=== PATIENT | female | born 1940 | race Caucasian/White ===

== ENCOUNTER 2022-02-13 16:42 | Inpatient (IN) ==
--- NOTE | 2022-02-13 16:57 | Emergency Department Note ---
Impression & Plan Acute kidney injury superimposed on chronic kidney disease, Fluid overload, Hypoxia ED Provider Note Provider: Scott Burgess MD DATE OF SERVICE: 02/13/2022 CHIEF COMPLAINT: Shortness of breath HISTORY OF PRESENT ILLNESS: Patient is a-year-old female history of CKD, hypertension, type 2 diabetes, atrial fibrillation on Eliquis presenting here via ambulance from her [facility] unit where she lives. Staff there today noted her to be more short of breath and tachypneic with oxygen levels in the 80s. EMS found the patient to have an oxygen level in the high 80s and put on 2 L of oxygen. She was also hypoglycemic for EMS with a blood sugar in the 40s received 250 mL of D10 infusing upon arrival. Patient states he is feeling more clear and better. EMS states the patient was mentating appropriately the entire time. Patient denies pain at this time. States he has not had much of an appetite. Denies swelling. Denies nausea or abdominal symptoms. Patient states her breathing does feel somewhat short. Patient denies a history of smoking or lung issues. No sick contacts or trauma reported. REVIEW OF SYSTEMS: A total of 10 review of systems was obtained and negative except as stated above in the HPI. PAST MEDICAL HISTORY: As noted above MEDICATIONS: Reviewed medication for facility which includes Eliquis SOCIAL HISTORY: Patient resides at [facility] and denies smoking PHYSICAL EXAM: GENERAL: alert and oriented in no acute distress on stretcher Head: normocephalic and atraumatic EYES: No injection, discharge or icterus. NECK: Trachea midline. Supple. ENT: Mucous membranes pink and moist. LUNGS: Airway patent. No retractions but tachypneic and shallow breaths that generally diminished throughout. HEART: Irregular irregular rate and rhythm. No chest wall tenderness ABDOMEN: Soft and non-tender, without guarding or rebound. SKIN: Acyanotic, warm, dry, without rashes EXTREMITIES: Without swelling, tenderness or deformity NEUROLOGICAL: No focal deficits. No aphasia. No facial droop or slurred speech. EK bpm atrial fibrillation No acute ST segment elevation or depression. QTc 412. Normal axis. CONTINUOUS CARDIAC MONITORING: was ordered and showed a heart rate of 60s-80s bpm in atrial fibrillation Patient's laboratory studies and imaging reviewed. Differential includes Reactive airway disease, pneumonia, pneumothorax, COPD, CHF, infections, cardiac ischemia, pulmonary embolism, musculoskeletal, gastrointestinal, as well as other pathologies. IMPRESSION/MEDICAL DECISION MAKING: Patient's small steady doses of Lantus and sliding scale short acting insulin but not receive additional day. Patient states she has not had significant food today states has not had much of an appetite. Denies other abdominal symptoms or abdominal pain. Received D10 infusion upon arrival. Will monitor blood sugar. Blood work was sent as well as COVID testing and a chest x-ray. Anticoagulation with Eliquis lower suspicion for VTE. No significant clinical evidence of leg swelling so lower suspicion for fluid overload. Chest x-ray to be obtained. On minimal oxygen support here about 2 L. Patient with a history of CKD although significantly worsened renal function today with a creatinine of 5.1. This may be contributing to her respiratory status. Given this finding although the BUN is elevated to complete a CT of the abdomen pelvis without contrast to exclude any obstructive process. Her renal dysfunction may explain the low blood sugar due to poor insulin clearance. She states she would be open to dialysis if needed. Do not see emergent indication at this time. Discussed with her further care here at the hospital given her significant worsened renal function with some mild hypoxia/fluid overload. Rodrigo kieta will need a little bit of chronic right hip pain but given she did have a fall several days ago onto this area and x-rays obtained without evidence of acute fracture or dislocation. DIAGNOSIS: MITCHEL on CKD, fluid overload, hypoxia DISPOSITION: Hospitalist will evaluate Patient was agreeable with this plan. 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: No Beliefs That Will Affect Care: None marital status: / Current Living Situation: Personal Care Facility current occupational status: retired How many Children do You have Comment: 2 stepchildren Feels Safe at Home: Yes during the past year weight has: remained stable Assistive Devices: Cane, Glasses, Walker and Wheelchair Allergies Allergies Allergy/AdvReac Type Severity Reaction Status Date / Time No Known Drug Allergies Allergy Verified 12/18/21 13:53 Home Meds Home Medications Medication Instructions Recorded Confirmed allopurinol 100 mg tablet 100 mg PO DAILY 07/30/21 12/18/21 apixaban 2.5 mg tablet (Eliquis) 2.5 mg PO BID 07/30/21 12/18/21 diltiazem HCl 240 mg 240 mg PO DAILY 07/30/21 12/18/21 capsule,extended release 24 hr hydralazine 25 mg tablet 25 mg PO TID 07/30/21 12/18/21 insulin glargine 100 unit/mL (3 12 unit SUBCUT BID ml 07/30/21 12/18/21 mL) subcutaneous pen (Lantus Solostar U-100 Insulin) insulin lispro 100 unit/mL 1 sliding scale dose SUBCUT 07/30/21 12/18/21 subcutaneous solution (Humalog USEASDIRECTD U-100 Insulin) metoprolol succinate 50 mg 50 mg PO DAILY 07/30/21 12/18/21 tablet,extended release 24 hr polyethylene glycol 3350 17 17 g PO DAILY PRN 07/30/21 12/18/21 gram/dose oral powder (Miralax) simvastatin 20 mg tablet 20 mg PO DAILY 07/30/21 12/18/21 tramadol 50 mg tablet 50 mg PO Q8H PRN 07/30/21 12/18/21 Previous Rx's Medication Instructions Recorded ergocalciferol (vitamin D2) 1,250 50,000 unit PO WEEKLY #12 cap 12/04/21 mcg (50,000 unit) capsule Results & Data (ED) Vital Signs Vital Signs - 24 hr 02/13/22 16:47 02/13/22 16:56 02/13/22 17:16 Temperature 36.6 C Temperature Source Oral Pulse Rate 82 Pulse Rate [Apical] 87 Pulse Rate from SpO2 Sensor Respiratory Rate 28 H 26 H Respiratory Effort / Characteristics Labored Respiratory Depth Shallow Blood Pressure 101/66 Blood Pressure [Right Arm] 105/63 Blood Pressure Mean 77 Blood Pressure Mean [Right Arm] 77 Pulse Oximetry 92 98 Oxygen Delivery Method Room Air Nasal Cannula Nasal Cannula Oxygen Flow Rate 2 2 Sepsis Recent Fever Within 48 Hours No Sepsis New/Unexplained Change in Mental Status No Sepsis Action Taken by Nursing No Action Required 02/13/22 17:28 02/13/22 17:30 02/13/22 17:40 Temperature Temperature Source Pulse Rate 79 75 77 Pulse Rate [Apical] Pulse Rate from SpO2 Sensor 82 79 79 Respiratory Rate 40 H 40 H 36 H Respiratory Effort / Characteristics Respiratory Depth Blood Pressure Blood Pressure [Right Arm] Blood Pressure Mean Blood Pressure Mean [Right Arm] Pulse Oximetry 95 96 96 Oxygen Delivery Method Oxygen Flow Rate Sepsis Recent Fever Within 48 Hours Sepsis New/Unexplained Change in Mental Status Sepsis Action Taken by Nursing 02/13/22 17:50 02/13/22 18:00 02/13/22 18:10 Temperature Temperature Source Pulse Rate 83 77 78 Pulse Rate [Apical] Pulse Rate from SpO2 Sensor 79 87 80 Respiratory Rate 30 H 41 H 38 H Respiratory Effort / Characteristics Respiratory Depth Blood Pressure Blood Pressure [Right Arm] Blood Pressure Mean Blood Pressure Mean [Right Arm] Pulse Oximetry 98 98 98 Oxygen Delivery Method Oxygen Flow Rate Sepsis Recent Fever Within 48 Hours Sepsis New/Unexplained Change in Mental Status Sepsis Action Taken by Nursing 02/13/22 18:12 02/13/22 18:20 02/13/22 18:36 Temperature Temperature Source Pulse Rate 78 Pulse Rate [Apical] 77 Pulse Rate from SpO2 Sensor 86 Respiratory Rate 16 37 H 18 Respiratory Effort / Characteristics Respiratory Depth Normal Blood Pressure Blood Pressure [Right Arm] 112/67 Blood Pressure Mean Blood Pressure Mean [Right Arm] 82 Pulse Oximetry 98 97 Oxygen Delivery Method Nasal Cannula Oxygen Flow Rate 2 Sepsis Recent Fever Within 48 Hours Sepsis New/Unexplained Change in Mental Status Sepsis Action Taken by Nursing 02/13/22 18:40 02/13/22 18:50 02/13/22 19:00 Temperature Temperature Source Pulse Rate 0 L 65 86 Pulse Rate [Apical] Pulse Rate from SpO2 Sensor 77 86 78 Respiratory Rate 40 H 34 H 40 H Respiratory Effort / Characteristics Respiratory Depth Blood Pressure Blood Pressure [Right Arm] Blood Pressure Mean Blood Pressure Mean [Right Arm] Pulse Oximetry 99 99 99 Oxygen Delivery Method Oxygen Flow Rate Sepsis Recent Fever Within 48 Hours Sepsis New/Unexplained Change in Mental Status Sepsis Action Taken by Nursing 02/13/22 19:10 02/13/22 19:20 02/13/22 19:30 Temperature Temperature Source Pulse Rate 79 73 Pulse Rate [Apical] Pulse Rate from SpO2 Sensor 79 79 76 Respiratory Rate 26 H 36 H 34 H Respiratory Effort / Characteristics Respiratory Depth Blood Pressure Blood Pressure [Right Arm] Blood Pressure Mean Blood Pressure Mean [Right Arm] Pulse Oximetry 94 99 99 Oxygen Delivery Method Oxygen Flow Rate Sepsis Recent Fever Within 48 Hours Sepsis New/Unexplained Change in Mental Status Sepsis Action Taken by Nursing 02/13/22 19:40 02/13/22 19:50 02/13/22 20:00 Temperature Temperature Source Pulse Rate 80 76 84 Pulse Rate [Apical] Pulse Rate from SpO2 Sensor 80 72 83 Respiratory Rate 37 H 30 H 37 H Respiratory Effort / Characteristics Respiratory Depth Blood Pressure Blood Pressure [Right Arm] Blood Pressure Mean Blood Pressure Mean [Right Arm] Pulse Oximetry 100 100 100 Oxygen Delivery Method Oxygen Flow Rate Sepsis Recent Fever Within 48 Hours Sepsis New/Unexplained Change in Mental Status Sepsis Action Taken by Nursing Laboratory Data Result diagrams: 02/13/22 16:50 02/13/22 16:50 Lab Results 02/13/22 02/13/22 02/13/22 Range/Units 16:47 16:50 16:50 WBC 8.58 (4.8-10.8) K/uL RBC 3.72 L (4.2-5.4) M/uL Hgb 11.4 L (12.0-16.0) g/dL Hct 36.5 L (37-47) % MCV 98.1 (80-100) fL MCH 30.6 (25-34) pg MCHC 31.2 L (32-36) g/dL RDW Std Deviation 62.3 H (36.4-46.3) fL RDW Coeff of Odilon 17.2 H (11.5-14.5) % Plt Count 388 (130-400) K/uL MPV 9.7 (7.4-10.4) fL Immature Gran % (Auto) 1.0 % Neut % (Auto) 80.6 % Lymph % (Auto) 8.3 % [place] % (Auto) 9.7 % Eos % (Auto) 0.3 % Baso % (Auto) 0.1 % Neut # (Auto) 6.91 H (1.4-6.5) K/uL Lymph # (Auto) 0.71 L (1.2-3.4) K/uL [place] # (Auto) 0.83 H (0.11-0.59) K/uL Eos # (Auto) 0.03 (0-0.5) K/uL Baso # (Auto) 0.01 (0-0.2) K/uL Immature Gran # (Auto) 0.09 H (0.00-0.02) K/uL PT 11.9 (9.0-12.0) Seconds INR 1.1 (0.9-1.1) Sodium (136-145) mmol/L Potassium (3.5-5.1) mmol/L Chloride (98-107) mmol/L Carbon Dioxide (21-32) mmol/L Anion Gap (3-11) BUN (6-23) mg/dl Creatinine (0.6-1.2) mg/dl Est Cr Clr Drug Dosing ml/min Est GFR ( Amer) ml/min Est GFR (Non-Af Amer) ml/min BUN/Creatinine Ratio (10-20) Glucose (70-99(Fasting)) mg/dl POC Glucose 149 H (70-99) mg/dl Calcium (8.5-10.1) mg/dl Magnesium (1.7-2.4) mg/dl Total Bilirubin (0.2-1.0) mg/dl AST (13-39) U/L ALT (7-52) U/L Alkaline Phosphatase (34-104) U/L Troponin I High Sens (0-14) pg/ml Total Protein (6.0-8.3) gm/dl Albumin (3.4-5.0) gm/dl Globulin (2.5-4.0) gm/dl Albumin/Globulin Ratio (0.9-2) Lipase (11-82) U/L TSH (0.300-4.500) uIu/ml SARS-CoV-2 (PCR) SARS-CoV-2, RNA, NAAT (NEGATIVE) 02/13/22 02/13/22 02/13/22 Range/Units 16:50 16:50 16:55 WBC (4.8-10.8) K/uL RBC (4.2-5.4) M/uL Hgb (12.0-16.0) g/dL Hct (37-47) % MCV (80-100) fL MCH (25-34) pg MCHC (32-36) g/dL RDW Std Deviation (36.4-46.3) fL RDW Coeff of Odilon (11.5-14.5) % Plt Count (130-400) K/uL MPV (7.4-10.4) fL Immature Gran % (Auto) % Neut % (Auto) % Lymph % (Auto) % [place] % (Auto) % Eos % (Auto) % Baso % (Auto) % Neut # (Auto) (1.4-6.5) K/uL Lymph # (Auto) (1.2-3.4) K/uL [place] # (Auto) (0.11-0.59) K/uL Eos # (Auto) (0-0.5) K/uL Baso # (Auto) (0-0.2) K/uL Immature Gran # (Auto) (0.00-0.02) K/uL PT (9.0-12.0) Seconds INR (0.9-1.1) Sodium 135 L (136-145) mmol/L Potassium 5.0 (3.5-5.1) mmol/L Chloride 101 (98-107) mmol/L Carbon Dioxide 23 (21-32) mmol/L Anion Gap 11 (3-11) BUN 76 H (6-23) mg/dl Creatinine 5.12 H* (0.6-1.2) mg/dl Est Cr Clr Drug Dosing 7.9 ml/min Est GFR ( Amer) 8.6 ml/min Est GFR (Non-Af Amer) 7.4 ml/min BUN/Creatinine Ratio 14.8 (10-20) Glucose 153 H (70-99(Fasting)) mg/dl POC Glucose (70-99) mg/dl Calcium 7.9 L (8.5-10.1) mg/dl Magnesium 2.0 (1.7-2.4) mg/dl Total Bilirubin 0.5 (0.2-1.0) mg/dl AST 14 (13-39) U/L ALT 8 (7-52) U/L Alkaline Phosphatase 90 (34-104) U/L Troponin I High Sens 22.3 H (0-14) pg/ml Total Protein 5.9 L (6.0-8.3) gm/dl Albumin 2.9 L (3.4-5.0) gm/dl Globulin 3.0 (2.5-4.0) gm/dl Albumin/Globulin Ratio 1.0 (0.9-2) Lipase 6 L (11-82) U/L TSH 2.553 (0.300-4.500) uIu/ml SARS-CoV-2 (PCR) Cancelled SARS-CoV-2, RNA, NAAT (NEGATIVE) 02/13/22 02/13/22 Range/Units 16:55 20:35 WBC (4.8-10.8) K/uL RBC (4.2-5.4) M/uL Hgb (12.0-16.0) g/dL Hct (37-47) % MCV (80-100) fL MCH (25-34) pg MCHC (32-36) g/dL RDW Std Deviation (36.4-46.3) fL RDW Coeff of Odilon (11.5-14.5) % Plt Count (130-400) K/uL MPV (7.4-10.4) fL Immature Gran % (Auto) % Neut % (Auto) % Lymph % (Auto) % [place] % (Auto) % Eos % (Auto) % Baso % (Auto) % Neut # (Auto) (1.4-6.5) K/uL Lymph # (Auto) (1.2-3.4) K/uL [place] # (Auto) (0.11-0.59) K/uL Eos # (Auto) (0-0.5) K/uL Baso # (Auto) (0-0.2) K/uL Immature Gran # (Auto) (0.00-0.02) K/uL PT (9.0-12.0) Seconds INR (0.9-1.1) Sodium (136-145) mmol/L Potassium (3.5-5.1) mmol/L Chloride (98-107) mmol/L Carbon Dioxide (21-32) mmol/L Anion Gap (3-11) BUN (6-23) mg/dl Creatinine (0.6-1.2) mg/dl Est Cr Clr Drug Dosing ml/min Est GFR ( Amer) ml/min Est GFR (Non-Af Amer) ml/min BUN/Creatinine Ratio (10-20) Glucose (70-99(Fasting)) mg/dl POC Glucose (70-99) mg/dl Calcium (8.5-10.1) mg/dl Magnesium (1.7-2.4) mg/dl Total Bilirubin (0.2-1.0) mg/dl AST (13-39) U/L ALT (7-52) U/L Alkaline Phosphatase (34-104) U/L Troponin I High Sens 20.9 H (0-14) pg/ml Total Protein (6.0-8.3) gm/dl Albumin (3.4-5.0) gm/dl Globulin (2.5-4.0) gm/dl Albumin/Globulin Ratio (0.9-2) Lipase (11-82) U/L TSH (0.300-4.500) uIu/ml SARS-CoV-2 (PCR) SARS-CoV-2, RNA, NAAT NEGATIVE (NEGATIVE) Administered Medications Discontinued Medications Acetaminophen (Acetaminophen 325 Mg Tab) 650 mg PO NOW STA Stop: 02/13/22 18:46 Last Admin: 02/13/22 19:08 Dose: 650 mg Documented by: [id number] Imaging Data Radiologist's Impression: Chest X-Ray 02/13/22 16:53 XR chest 1V portable CLINICAL HISTORY: Dyspnea. COMPARISON STUDY: No previous studies for comparison. TECHNIQUE: 1 view of the chest FINDINGS: Single frontal view of the chest demonstrates the cardiomediastinal silhouette to be within normal limits. There is evidence for central vascular congestion. There are bilateral pleural effusions with fluid layering along the posterior gutters. There is left basilar atelectasis . No confluent alveolar opacities are identified. There is no acute osseous pathology. IMPRESSION: 1. Central vascular congestion with bilateral pleural effusions and left basilar atelectasis. ACT 112: Negative or not required by law. Electronically signed by: Sandeep Hernandez M.D. 02/13/2022 5:22 PM Abdomen/Pelvis CT 02/13/22 17:[address] WITHOUT CONTRAST CT DOSE: 770.95 mGy.cm HISTORY: Acute shortness of breath with acute generalized abdominal pain sob, elev Cr TECHNIQUE: Multiaxial CT images of the abdomen and pelvis were performed without contrast. A dose lowering technique was utilized adhering to the principles of ALARA. COMPARISON STUDY: Chest radiograph of same day FINDINGS: Moderate cardiomegaly with coronary artery and mitral annular calcifications. Trace pericardial effusion. Moderate left with large right pleural effusions. Dependent bibasilar consolidation. No pneumatosis or pneumoperitoneum. The study is limited secondary to respiratory motion artifact, upper extremity positioning and lack of contrast. The unenhanced spleen, atrophic pancreas and adrenal glands are unremarkable. Distended gallbladder with cholelithiasis and equivocal wall thickening. No biliary ductal dilation. Unremarkable liver. Cortical thinning of the bilateral kidneys. There is mild cortical scarring are noted on the left. Exophytic hyperdense 7 mm lesion of the posterior interpolar right kidney is too small to characterize. No definite renal or ureteral calculi or hydronephrosis identified. Calcified uterine fibroids. Partially decompressed urinary bladder. Atherosclerosis of the aorta and iliac arteries. Retroaortic left renal vein. Duodenal diverticulum. No bowel obstruction or bowel wall thickening. Moderate rectal fecal retention. Trace Total stranding and free fluid. Colonic diverticulosis without acute diverticulitis. Normal appendix. Anasarca. Right hip total joint arthroplasty. 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 Lumbar levoscoliosis. Grade 1 anterolisthesis L4 on L5 is likely secondary to chronic facet disease. Indeterminate 2 cm lucent focus of the right iliac bone is favored to be benign. Prior laminectomy changes of the lumbar spine. IMPRESSION: 1. Cardiomegaly with moderate left and large right pleural effusions. Bibasilar consolidation suggests compressive atelectasis. Underlying pneumonia is considered less likely. 2. Fluid overload with anasarca and trace ascites. 3. Cholelithiasis with gallbladder distention and equivocal wall thickening. Correlation with right upper quadrant ultrasound recommended. 4. Moderate rectal fecal retention. 5. Colonic diverticulosis. ACT 112: Negative or not required by law. The above report was generated using voice recognition software. It may contain grammatical, syntax or spelling errors. Electronically signed by: Isak Bhatia M.D. 02/13/2022 7:12 PM Hip X-Ray 02/13/22 18:46 XR hip RT min 2V HISTORY: 81 years-old Female pain acute right hip pain with recent fall CT abdomen and pelvis of same day COMPARISON: CT abdomen and pelvis of same day TECHNIQUE: 2 views of the right hip FINDINGS: Unremarkable appearance of the right hip total joint arthroplasty. No acute fracture or dislocation is identified. Arterial calcifications. IMPRESSION: 1. No acute fracture or dislocation. 2. Unremarkable appearance of the right hip total joint arthroplasty. ACT 112: Negative or not required by law. The above report was generated using voice recognition software. It may contain grammatical, syntax or spelling errors. Electronically signed by: Isak Bhatia M.D. 02/13/2022 7:29 PM Discharge Plan Visit Data Chief Complaint: Respiratory Problems ED Provider: Scott Burgess Discharge Problem: Acute kidney injury superimposed on chronic kidney disease, Fluid overload, Hypoxia Patient Disposition: Being Evaluated by Hospitalist Discharge Instructions Interventions: ED Discharge Assessment Last Done: 02/13/22 22:13 Discharge Problem: Fluid overload Qualifiers: Hypervolemia type: unspecified Qualified Code(s): E87.70 - Fluid overload, unspecified
--- NOTE | 2022-02-13 17:23 | XRay Report ---
XR chest 1V portable CLINICAL HISTORY: Dyspnea. COMPARISON STUDY: No previous studies for comparison. TECHNIQUE: 1 view of the chest FINDINGS: Single frontal view of the chest demonstrates the cardiomediastinal silhouette to be within normal li mits. There is evidence for central vascular congestion. There are bilateral pleural effusions with f luid layering along the posterior gutters. There is left basilar atelectasis . No confluent alveolar opacities are identified. There is no acute osseous pathology. IMPRESSION: 1. Central vascular congestion with bilateral pleural effusions and left basilar atelectasis. ACT 112: Negative or not required by law. Electronically signed by: Sandeep Hernandez M.D. 02/13/2022 5:22 PM
[2022-02-13 17:29] LABS: INR 1.1 (0.9-1.1); Prothrombin Time 11.9 Seconds (9.0-12.0)
[2022-02-13 17:40] LABS: Basophils # (auto) 0.01 K/uL (0-0.2); Basophils % (auto) 0.1 %; Eosinophils # (auto) 0.03 K/uL (0-0.5); Eosinophils % (auto) 0.3 %; Hematocrit (blood only) 36.5 % (37-47); Hemoglobin 11.4 g/dL (12.0-16.0); Immature Granulocytes # (auto) 0.09 K/uL (0.00-0.02); Lymphocytes # (auto) 0.71 K/uL (1.2-3.4); Lymphocytes % (auto) 8.3 %; Mean Corpuscular Hemoglobin 30.6 pg (25-34); Mean Corpuscular Hgb Conc 31.2 g/dL (32-36); Mean Corpuscular Volume 98.1 fL (80-100); Mean Platelet Volume 9.7 fL (7.4-10.4); Monocytes # (auto) 0.83 K/uL (0.11-0.59); Monocytes % (auto) 9.7 %; Neutrophils # (auto) 6.91 K/uL (1.4-6.5); Neutrophils % (auto) 80.6 %; Platelet Count 388 K/uL (130-400); RDW Coefficient of Variation 17.2 % (11.5-14.5); RDW Standard Deviation 62.3 fL (36.4-46.3); Red Blood Count 3.72 M/uL (4.2-5.4); White Blood Count 8.58 K/uL (4.8-10.8)
[2022-02-13 17:41] LABS: Troponin I High Sensitivity 22.3 pg/ml (0-14)
[2022-02-13 17:50] LABS: Albumin Level 2.9 gm/dl (3.4-5.0); BUN Creatinine Ratio 14.8 (10-20); Bilirubin,Total 0.5 mg/dl (0.2-1.0); Calcium 7.9 mg/dl (8.5-10.1); Creatinine Clr Calc Pharmacy 7.9 ml/min; Est GFR (African American) 8.6 ml/min; Est GFR (Non-African American) 7.4 ml/min; Total Protein 5.9 gm/dl (6.0-8.3)
[2022-02-13] MEDS ORDERED: ACETAMINOPHEN 325 MG TAB PO STA (18:45)
--- NOTE | 2022-02-13 19:14 | CT Scan Report ---
ABDOMEN AND PELVIS CT WITHOUT CONTRAST CT DOSE: 770.95 mGy.cm HISTORY: Acute shortness of breath with acute generalized abdominal pain sob, elev Cr TECHNIQUE: Multiaxial CT images of the abdomen and pelvis were performed without contrast. A dose lo wering technique was utilized adhering to the principles of ALARA. COMPARISON STUDY: Chest radiograph of same day FINDINGS: Moderate cardiomegaly with coronary artery and mitral annular calcifications. Trace pericardial effus ion. Moderate left with large right pleural effusions. Dependent bibasilar consolidation. No pneumato sis or pneumoperitoneum. The study is limited secondary to respiratory motion artifact, upper extremi ty positioning and lack of contrast. The unenhanced spleen, atrophic pancreas and adrenal glands are unremarkable. Distended gallbladder w ith cholelithiasis and equivocal wall thickening. No biliary ductal dilation. Unremarkable liver. Cor tical thinning of the bilateral kidneys. There is mild cortical scarring are noted on the left. Exoph ytic hyperdense 7 mm lesion of the posterior interpolar right kidney is too small to characterize. No definite renal or ureteral calculi or hydronephrosis identified. Calcified uterine fibroids. Partial ly decompressed urinary bladder. Atherosclerosis of the aorta and iliac arteries. Retroaortic left re nal vein. Duodenal diverticulum. No bowel obstruction or bowel wall thickening. Moderate rectal fecal retention . Trace Total stranding and free fluid. Colonic diverticulosis without acute diverticulitis. Normal appendix. Anasarca. Right hip total joint arthroplasty. Severe osteoarthritis of the left femoral acetabular j oint with chronic remodeling. Lumbar levoscoliosis. Grade 1 anterolisthesis L4 on L5 is likely second cosme to chronic facet disease. Indeterminate 2 cm lucent focus of the right iliac bone is favored to b e benign. Prior laminectomy changes of the lumbar spine. IMPRESSION: 1. Cardiomegaly with moderate left and large right pleural effusions. Bibasilar consolidation suggest s compressive atelectasis. Underlying pneumonia is considered less likely. 2. Fluid overload with anasarca and trace ascites. 3. Cholelithiasis with gallbladder distention and equivocal wall thickening. Correlation with right u pper quadrant ultrasound recommended. 4. Moderate rectal fecal retention. 5. Colonic diverticulosis. ACT 112: Negative or not required by law. The above report was generated using voice recognition software. It may contain grammatical, syntax o r spelling errors. Electronically signed by: Isak Bhatia M.D. 02/13/2022 7:12 PM
--- NOTE | 2022-02-13 19:31 | XRay Report ---
XR hip RT min 2V HISTORY: 81 years-old Female pain acute right hip pain with recent fall CT abdomen and pelvis of COMPARISON: CT abdomen and pelvis of same day TECHNIQUE: 2 views of the right hip FINDINGS: Unremarkable appearance of the right hip total joint arthroplasty. No acute fracture or dislocation i s identified. Arterial calcifications. IMPRESSION: 1. No acute fracture or dislocation. 2. Unremarkable appearance of the right hip total joint arthroplasty. ACT 112: Negative or not required by law. The above report was generated using voice recognition software. It may contain grammatical, syntax o r spelling errors. Electronically signed by: Isak Bhatia M.D. 02/13/2022 7:29 PM
--- NOTE | 2022-02-13 19:42 | History & Physical Report ---
Date of Service February 13, 2022 Assessment & Plan (1) Hypoxia: Plan: 81yo female with a history of CKD4, IDDM2, HTN, HLD, paroxysmal atrial fibrillation (on eliquis), iron deficiency anemia, and gout presents from [facility] with SOB, tachypnea, and hypoxia. Acute hypoxic respiratory failure Patient found to be tachypneic and hypoxic to the mid-80s by SNF staff and by EMS, which improved with 2L NC On arrival to ED, patient tachypneic, vitals otherwise stable Labs notable for anemia (Hgb 11.4), BUN 76, creatinine 5.12 (baseline 2.3), low albumin of 2.9 CXR: central vascular congestion with bilateral pleural effusions and left basilar atelectasis CT a/p: cardiomegaly with mod L and large R pleural effusions, bibasilar consolidation, anasarca, trace ascites Suspect symptoms are due to volume overload secondary to worsening renal function; ddx also includes pneumonia, new-onset CHF, others Admit to PCU Titrate supplemental oxygen to >91% Anticipate patient will likely require diuresis, but given Cr 5.12, will hold off until seen by nephrology, as long as patient remains stable BNP 1025; last echo (09/2021) showing normal LV function; consider repeat echo Low suspicion for bacterial infection, but will check procal Repeat CXR in AM MITCHEL on CKD Creatinine on admission 5.12 (baseline around 2.0-2.5), increased from 2.09 two months ago (11/28/2021) Differential includes prerenal azotemia secondary to poor PO intake, a worsening of patient's preexisting CKD, ATN, others CT a/p without evidence of obstructive uropathy Potassium wnl at 5.0 Urine creatinine and sodium ordered to calculate FENa UA with microscopy ordered Nephrology consulted - patient follows with Dr. Cedeño and was last seen in November No indication for emergent dialysis, but if dialysis becomes necessary, patient is agreeable Avoid nephrotoxins, renally dose meds Hypoglycemia, IDDM2 Differential for hypoglycemic episode includes poor PO intake, poor insulin clearance secondary to worsening renal function HbA1c 5.2% (10/2021) Patient's home regimen held on admission Suspect patient may no longer need to be on home insulin given A1c 5.2%; outpa tient follow-up recommended Continue BSG checks, sliding-scale insulin, hypoglycemic protocol HTN BP well-controlled since arrival Continue home metoprolol succinate, hydralazine, diltiazem Atrial fibrillation EKG on admission showing afib, rate-controlled, no overt sign of ischemic change Continue home eliquis, diltiazem, metoprolol succinate Anemia Patient with long history of anemia secondary to iron deficiency, chronic disease, CKD Hgb on admission 11.4 up from 10.7 one month ago; patient has had five venofer infusions in the past few months Home iron supplementation held on admission, can consider venofer infusion Abdominal tenderness CT a/p showing cholelithiasis with gallbladder distention +/- wall thickening US RUQ ordered Hip pain Patient with right hip pain after a fall at home last week XR hip without evidence of fracture APAP as needed for pain Low albumin Likely secondary to malnutrition/poor PO intake Corporate Sales Trainer consult placed, recommendations appreciated Elevated troponin Initial hsTrop detectable at 22.3, EKG without ischemic change Repeat 2hr hsTrop fell to 20.9 No intervention indicated HLD: continue home simvastatin Gout: reduce allopurinol 50mg twice weekly due to eGFR between 5 and 15 FEN: heart healthy, DM2, low sodium diet Code status: full code DVT ppx: home eliquis Consults: nephrology PT/OT: ordered Dispo: PCU (2) Chronic kidney disease, stage 4 (severe): (3) Essential hypertension: (4) Unspecified atrial fibrillation: (5) Type 2 diabetes mellitus with diabetic neuropathy: (6) Hyperlipidemia: (7) Gout, unspecified: (8) Anemia in CKD (chronic kidney disease): Plan: Ko Subramanian (patient's brother and POA) would like to be contacted with any updates: [phone] History of Present Illness Primary Care Provider: [facility] 81yo female with a history of CKD4, IDDM2, HTN, HLD, paroxysmal atrial fibrillation (on eliquis), iron deficiency anemia, and gout presents from [facility] after staff noticed patient was short of breath, tachypneic, and hypoxic to the 80s. Patient reports some mild shortness of breath over the past few weeks which got worse over the course of the day today. Has had some mild nausea on and off, and a poor appetite. Patient is unable to identify any aggravating or alleviating factors or triggers that led to her feeling worse today. Other than slightly worse PO intake compared to normal, patient hasn't had any recent dietary changes. No new meds recently or changes in med dosing. Patient denies pain, fever, chills, CP, vomiting, diarrhea, lightheadedness, or dizziness. Patient denies abdominal pain at rest but notes some abdominal discomfort when moving around. No sick contacts. Patient is a never-smoker and denies any history of pulmonary conditions. Upon EMS arrival, O2 sat was in the 80s and BSG was in the 40s. Patient was given 250mL D10, and her O2 sat improved with 2L NC. Patient was mentating appropriately the whole time per EMS. Patient's oxygen saturation was adequate upon arrival to the [facility] ED, and BSG was in the 150s. Ko Subramanian (brother and POA, would like to be contacted with any updates, ) Allergies Allergy/AdvReac Type Severity Reaction Status Date / Time No Known Drug Allergies Allergy Verified 12/18/21 13:53 Home Medications Medication Instructions Recorded Confirmed Type allopurinol 100 mg tablet 100 mg PO DAILY 07/30/21 12/18/21 History apixaban 2.5 mg tablet (Eliquis) 2.5 mg PO BID 07/30/21 12/18/21 History diltiazem HCl 240 mg 240 mg PO DAILY 07/30/21 12/18/21 History capsule,extended release 24 hr hydralazine 25 mg tablet 25 mg PO TID 07/30/21 12/18/21 History insulin glargine 100 unit/mL (3 12 unit SUBCUT BID ml 07/30/21 12/18/21 History mL) subcutaneous pen (Lantus Solostar U-100 Insulin) insulin lispro 100 unit/mL 1 sliding scale dose SUBCUT 07/30/21 12/18/21 History subcutaneous solution (Humalog USEASDIRECTD U-100 Insulin) metoprolol succinate 50 mg 50 mg PO DAILY 07/30/21 12/18/21 History tablet,extended release 24 hr polyethylene glycol 3350 17 17 g PO DAILY PRN 07/30/21 12/18/21 History gram/dose oral powder (Miralax) simvastatin 20 mg tablet 20 mg PO DAILY 07/30/21 12/18/21 History tramadol 50 mg tablet 50 mg PO Q8H PRN 07/30/21 12/18/21 History ergocalciferol (vitamin D2) 1,250 50,000 unit PO WEEKLY #12 cap 12/04/21 12/18/21 Rx mcg (50,000 unit) capsule Past Med/Surg History Medical History CKD (chronic kidney disease) Diabetes Hyperlipidemia Hypertension Surgical History History of hip surgery Right Previous back surgery Family History Father Cerebral aneurysm Family/Other Diabetes Hypertension Glaucoma Social History Smoking Status: Never smoker Second Hand Exposure: Yes; Hx Alcohol Use: No Hx Substance Use: No Preferred Language: Serbian Communication Ability: Effective Visual Impairment: No Limitations Hearing Ability: Normal Internal Combustion Engine Subassembler Required: No Beliefs That Will Affect Care: None marital status: / Current Living Situation: Other Current Living Situation Comment: lives at [facility] current occupational status: retired How many Children do You have: 1 How many Children do You have Comment: 2 stepchildren Feels Safe at Home: Yes Safety Concerns: Feels Safe At This Time during the past year weight has: remained stable Assistive Devices: Walker and Wheelchair Physical Exam Physical Exam: Constitutional: well-appearing, no acute distress, laying in hospital bed HEENT: NCAT, MMM CV: irregular rhythm, no murmur appreciated, extremities well-perfused, 1+ LE edema up to the mid-calf Resp: breath sounds diminished, no appreciable crackles, rhonchi, or wheezes, tachypneic but breathing is nonlabored GI: soft, nondistended, mild generalized tenderness, BS present MSK: mild right hip tenderness, ROM limited by pain Skin: warm, dry, no rash appreciated Neuro: alert, oriented, no focal neurologic deficit appreciated Results & Data Results & Data ([facility]) Vital Signs (Past 12 Hours) Vital Signs Temp Pulse Pulse Resp BP BP Pulse Ox 02/13/22 18:12 77 16 112/67 98 02/13/22 17:16 87 26 H 105/63 98 02/13/22 16:47 36.6 C 82 28 H 101/66 92 Supervising Physician Co-Signing Physician Notes Attending addendum: I have physically seen this patient, have supervised the medical residents activities, and agree with the H&P unless as otherwise noted. Assessment and Plan: Acute respiratory failure with hypoxia/CHF exacerbation/bilateral pleural effusions- Will require diuresis Oxygen titration as noted to target pulse ox around 92%, in the interim until seen by nephrology MITCHEL on CKD- Creatinine 5.12 on admission, with base 2-2.5 Likely of overflow issue Follows with nephrology Dr. Cedeño, who will be consulted Elevated troponin/hypertension/atrial fibrillation- Initial troponin 22.3 on admission The patient will be admitted to telemetry for serial cardiac enzymes, serial EKG's, cardiac rhythm monitoring and a 2-D echocardiogram with Dopplers. Remaining orders and notations as noted Resident Activity Tracking Resident Involvement: Resident Care Provided and Coremaker Pipe Coverage Note Care Provided: Adult Hospital Medicine (1) Unspecified atrial fibrillation Atrial fibrillation type: unspecified Qualified Code(s): I48.91 - Unspecified atrial fibrillation
[2022-02-13] MEDS ORDERED: GLUCOSE 40% GEL 15 GM TUBE PO PRN (23:34)
[2022-02-13] MEDS ORDERED: GLUCOSE 10 TAB/TUBE PO PRN (23:34)
[2022-02-13] MEDS ORDERED: GLUCAGON FOR INJ 1 MG VIAL SQ PRN (23:34)
[2022-02-13] MEDS ORDERED: DEXTROSE 50% 50 ML SYRINGE IV PRN (23:34)
[2022-02-13] MEDS: CARBOHYDRATES FOR HYPOGLYCEMIA PO PRN ×2 (23:49→23:58)
[2022-02-13] MEDS: INSULIN ASPART PER UNIT SC SCH (23:54)
[2022-02-14] MEDS: hydrALAZINE HCL 25 MG TAB PO SCH ×4 (00:34→21:13)
[2022-02-14] MEDS: APIXABAN 2.5 MG TAB PO SCH ×2 (00:34→08:41)
--- NOTE | 2022-02-14 07:05 | Ultrasound Report ---
US abdomen limited HISTORY: 81 years-old Female ?cholelithiasis acute right upper quadrant abdominal pain COMPARISON: CT abdomen and pelvis of same day TECHNIQUE: Multiple real-time sonographic images of the abdominal right upper quadrant were obtained assessing grayscale appearance and color flow FINDINGS: The pancreas is not diagnostically visualized secondary to obscuring bowel gas. The liver measures 12 .7 cm in length and is unremarkable. Distended stone in sludge-filled gallbladder. The gallbladder wa ll measures within the upper limits of normal at 3 mm. No pericholecystic fluid. Sonographic Wellington s ign reported as negative. Common bile duct, 3 mm. Large right pleural effusion. The imaged right kidney is unremarkable. IMPRESSION: 1. Distended stone and sludge-filled gallbladder with the wall measuring within the upper limits of n ormal. No pericholecystic fluid and the sonographic Wellington sign was reported as negative. Findings ar e equivocal for acute cholecystitis. Correlation can be made with nuclear medicine hepatobiliary scan if there is further clinical concern. 2. No biliary ductal dilation. 3. Right pleural effusion. ACT 112: Negative or not required by law. The above report was generated using voice recognition software. It may contain grammatical, syntax o r spelling errors. Electronically signed by: Isak Bhatia M.D. 02/14/2022 7:03 AM
--- NOTE | 2022-02-14 07:22 | XRay Report ---
XR chest 1V portable HISTORY: 81 years-old Female hypoxia acute hypoxia COMPARISON: Chest radiograph 02/13/2022 TECHNIQUE: Portable AP view of the chest FINDINGS: The cardiac silhouette is enlarged. No pneumothorax. Pulmonary vascular congestion with interstitial coarsening. Layering pleural effusions with bibasilar consolidation appears generally stable. Degener ative changes of the shoulders and spine. IMPRESSION: 1. Stable exam with cardiomegaly and pulmonary edema. 2. Layering pleural effusions with bibasilar consolidation. ACT 112: Negative or not required by law. The above report was generated using voice recognition software. It may contain grammatical, syntax o r spelling errors. Electronically signed by: Isak Bhatia M.D. 02/14/2022 7:20 AM
[2022-02-14 07:52] LABS: Basophils # (auto) 0.01 K/uL (0-0.2); Basophils % (auto) 0.1 %; Eosinophils % (auto) 1.2 %; Hematocrit (blood only) 33.8 % (37-47); Hemoglobin 10.9 g/dL (12.0-16.0); Immature Granulocytes # (auto) 0.07 K/uL (0.00-0.02); Immature Granulocytes % (auto) 0.8 %; Lymphocytes # (auto) 0.68 K/uL (1.2-3.4); Lymphocytes % (auto) 8.1 %; Mean Corpuscular Hemoglobin 30.6 pg (25-34); Mean Corpuscular Hgb Conc 32.2 g/dL (32-36); Mean Corpuscular Volume 94.9 fL (80-100); Mean Platelet Volume 9.4 fL (7.4-10.4); Monocytes # (auto) 0.76 K/uL (0.11-0.59); Monocytes % (auto) 9.1 %; Neutrophils # (auto) 6.74 K/uL (1.4-6.5); Neutrophils % (auto) 80.7 %; Platelet Count 365 K/uL (130-400); RDW Coefficient of Variation 16.8 % (11.5-14.5); RDW Standard Deviation 58.1 fL (36.4-46.3); Red Blood Count 3.56 M/uL (4.2-5.4); White Blood Count 8.36 K/uL (4.8-10.8)
[2022-02-14 08:14] LABS: BUN Creatinine Ratio 14.8 (10-20); Calcium 7.6 mg/dl (8.5-10.1); Creatinine Clr Calc Pharmacy 7.4 ml/min; Est GFR (Non-African American) 6.9 ml/min; Magnesium 1.9 mg/dl (1.7-2.4); Phosphorus 5.9 mg/dl (2.5-4.9); Potassium 4.9 mmol/L (3.5-5.1)
[2022-02-14] MEDS: SIMVASTATIN 20 MG TAB PO SCH (08:40)
[2022-02-14] MEDS: METOPROLOL SUCC 50MG EXT REL TAB PO SCH (08:41)
[2022-02-14] MEDS: dilTIAZem HCL 240 MG CAPCR PO SCH (08:41)
[2022-02-14] MEDS: INSULIN ASPART PER UNIT SC SCH ×4 (08:42→20:42)
[2022-02-14 09:02] LABS: Estimated Average Glucose 105 mg/dl; Hemoglobin A1C 5.3 % (4.5-5.6)
--- NOTE | 2022-02-14 09:03 | Nephrology Consultation ---
Date of Consultation February 14, 2022 Assessment & Plan (1) ESRD (end stage renal disease): (2) Essential hypertension: (3) Anemia in CKD (chronic kidney disease): (4) Vitamin D deficiency: Indications/benefits/risks/alternatives to HD discussed in detail w/ patient and her POA this morning. Ms. Pacheco is A&O x3. She appears competent to make medical decisions. She requests a trial of HD to improve her volume status. Vascular surgery has been consulted. Surgical services for IJ TCC insertion will be available on Thursday. Patient is breathing comfortably on O2 at 2L/min NC and electrolyte balance is acceptable. No acute indication for HD at this time. Please keep patient NPO after MN Thursday in anticipation of IJ TCC Thursday. HD staff is aware and will hold a treatment time for Thursday as well. Will check CMP, CBC, iron studies, urinalysis w/ microscopy, UPCR and obtain a follow up echocardiogram. Continue supportive care over the weekend History of Present Illness Reason for Consultation: ESKD, CHF Attending Physician: Marques Campos MD History of Present Illness Ms. Pacheco is an 81 year old white female who is seen at the request of [facility] Hospitalist Service for ESKD, CHF. Medical records in the EMR were reviewed today and are summarized as follows: Ms. Pacheco had CKD stage G4/A3 (advanced impairment). Baseline Cr 2.6 w/ EGFR 19 cc/min. 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 Her medical history is also significant for atrial fibrillation, gout, iron deficiency anemia and sHPT. [place] [facility] [place] brother Ko Subramanian ([phone]) is her POA. Ms. Pacheco was brought to the [facility] EMD last evening for evaluation of dyspnea. Evaluation revealed Cr 5.4, CXR w/ pulmonary vascular congestion and bilateral pleural effusions, abdominal CT revealed cortical thinning of the kidneys but no obstruction. Incidental note of cholelithiasis was made. Ms. Pacheco was symptomatically improved following the application of O2 at 2L/min NC. She has been A&O x3. She has met with several health care workers and expressed that she would be accepting of a trial of HD if needed Allergies Allergy/AdvReac Type Severity Reaction Status Date / Time No Known Drug Allergies Allergy Verified 12/18/21 13:53 Home Medications Medication Instructions Recorded Confirmed Type allopurinol 100 mg tablet 100 mg PO DAILY 07/30/21 12/18/21 History apixaban 2.5 mg tablet (Eliquis) 2.5 mg PO BID 07/30/21 12/18/21 History diltiazem HCl 240 mg 240 mg PO DAILY 07/30/21 12/18/21 History capsule,extended release 24 hr hydralazine 25 mg tablet 25 mg PO TID 07/30/21 12/18/21 History insulin glargine 100 unit/mL (3 12 unit SUBCUT BID ml 07/30/21 12/18/21 History mL) subcutaneous pen (Lantus Solostar U-100 Insulin) insulin lispro 100 unit/mL 1 sliding scale dose SUBCUT 07/30/21 12/18/21 History subcutaneous solution (Humalog USEASDIRECTD U-100 Insulin) metoprolol succinate 50 mg 50 mg PO DAILY 07/30/21 12/18/21 History tablet,extended release 24 hr polyethylene glycol 3350 17 17 g PO DAILY PRN 07/30/21 12/18/21 History gram/dose oral powder (Miralax) simvastatin 20 mg tablet 20 mg PO DAILY 07/30/21 12/18/21 History tramadol 50 mg tablet 50 mg PO Q8H PRN 07/30/21 12/18/21 History ergocalciferol (vitamin D2) 1,250 50,000 unit PO WEEKLY #12 cap 12/04/21 12/18/21 Rx mcg (50,000 unit) capsule Patient History Medical History CKD (chronic kidney disease) Diabetes Hyperlipidemia Hypertension Surgical History History of hip surgery Right Previous back surgery Family History Father Cerebral aneurysm Family/Other Diabetes Hypertension Glaucoma Social History Smoking Status: Never smoker Second Hand Exposure: Yes; Hx Alcohol Use: No Hx Substance Use: No Preferred Language: Sami Communication Ability: Effective Visual Impairment: No Limitations Hearing Ability: Normal Piping Supervisor Required: No Beliefs That Will Affect Care: None marital status: / Current Living Situation: Other Current Living Situation Comment: lives at [facility] current occupational status: retired How many Children do You have: 1 How many Children do You have Comment: 2 stepchildren Feels Safe at Home: Yes Safety Concerns: Feels Safe At This Time during the past year weight has: remained stable Assistive Devices: Walker and Wheelchair Review of Systems Constitutional: + weakness; no fever Eyes: no problem reported Ear, Nose, Mouth, Throat: no problem reported Respiratory: no cough and no dyspnea Cardiovascular: no chest pain and no palpitations Gastrointestinal: no abdominal pain, no vomiting and no diarrhea/loose stools Integumentary: no rash Neurologic: no confusion Physical Exam Constitutional: NAD, breathing comfortably flat in bed on O2 at 2L/min NC Eyes: PERRL, conjunctivae normal, anicteric sclerae ENMT: external ear and nose normal, oropharynx normal Neck: trachea midline, no thyromegaly Respiratory: Diminished BS at the bases bilaterally, otherwise CTA Cardiovascular: Rate/Rhythm: regular rate and regular rhythm Gastrointestinal (Abdomen): normal bowel sounds, soft, nontender, no hepatos plenomegaly Skin: no rashes, warm and dry Neurologic: Speech / Cognition: normal speech and normal cognition Results & Data ([facility]) Vital Signs (Past 12 Hours) Vital Signs Temp Pulse Pulse Resp BP Pulse Ox 02/14/22 07:56 36.4 C L 84 20 111/78 95 02/14/22 03:56 36.5 C 81 16 87/60 L 98 02/13/22 23:39 36.6 C 97 H 20 95/57 L 96 02/13/22 23:34 71 Laboratory Results Laboratory Tests 02/13/22 02/14/22 02/14/22 16:50 07:19 07:19 WBC 8.36 Hgb 10.9 L Hct 33.8 L Plt Count 365 INR 1.1 Sodium 135 L Potassium 4.9 Chloride 102 Carbon Dioxide 22 BUN 80 H Creatinine 5.42 H* D Glucose 110 H Calcium 7.6 L Phosphorus 5.9 H Magnesium 1.9 PG Care Time/CCT Total # of Minutes Spent Total Time Spent with Patient: Total time spent is greater than 50% in coordination of care (as documented) at patient's floor/unit and/or counseling patient: Coding Level of Care Code 00140 Inpt Consult Level 5 Diagnoses ESRD (end stage renal disease) N18.6 Essential hypertension I10 Anemia in CKD (chronic kidney disease) N18.9; D63.1 Vitamin D deficiency E55.9
[2022-02-14] MEDS ORDERED: FUROSEMIDE 40 MG/4 ML VIAL IV ONE (12:00)
--- NOTE | 2022-02-14 12:08 | Electrocardiogram Report ---
Test Reason : Blood Pressure : / mmHG Vent. Rate : 079 BPM Atrial Rate : 040 BPM P-R Int : 000 ms QRS Dur : 086 ms QT Int : 360 ms P-R-T Axes : 000 -21 -16 degrees QTc Int : 412 ms Atrial fibrillation Low voltage QRS Inferior infarct , age undetermined Cannot rule out Anterior infarct , age undetermined Abnormal ECG No previous ECGs available Confirmed by Placido Story ([id number]) on 02/14/2022 12:08:28 PM Referred By: REFERRED SELF Confirmed By:Placido Story
--- NOTE | 2022-02-14 12:44 | Electrocardiogram Report ---
Test Reason : Blood Pressure : / mmHG Vent. Rate : 079 BPM Atrial Rate : 070 BPM P-R Int : 000 ms QRS Dur : 080 ms QT Int : 376 ms P-R-T Axes : 000 -17 -05 degrees QTc Int : 431 ms Poor data quality, interpretation may be adversely affected Atrial fibrillation Low voltage QRS Septal infarct (cited on or before 13-FEB-2022) Inferior infarct (cited on or before 13-FEB-2022) Abnormal ECG When compared with ECG of 13-FEB-2022 16:51, (unconfirmed) No significant change was found Confirmed by Placido Story ([id number]) on 02/14/2022 12:44:25 PM Referred By: REFERRED SELF Confirmed By:Placido Story
--- NOTE | 2022-02-14 15:47 | XCELERA ---
[id number]
[2022-02-14 18:08] LABS: Appearance Urine Cloudy (Clear); Bacteria Urine Automated 1+ (Negative); Bilirubin Urine Negative (Negative); Blood Urine Negative (Negative); Color Urine Dark Yellow; Epithelial Cell Urine Auto >30 /lpf (0-5); Glucose Urine UA Negative (Negative); Ketones Urine Trace (Negative); Leukocyte Esterase Urine Trace (Negative); Nitrite Urine Negative (Negative); Protein Urine Trace (Negative); Specific Gravity Urine 1.018 (1.000-1.030); Urobilinogen Urine Negative (Negative)
[2022-02-14 18:37] LABS: Creatinine Urine Random 167.5 mg/dl; Protein Creatinine Ratio Urine 0.2 (0-0.2); Total Protein Urine Random 34.3 mg/dl (0-11.9)
--- NOTE | 2022-02-14 19:45 | Billing Data ---
Date of Service February 14, 2022 Coding Level of Care Code 87615 Initial Inpt Care Lvl 3
--- NOTE | 2022-02-14 21:09 | Hospitalist Progress Note ---
Date of Service February 14, 2022 Assessment & Plan (1) Acute respiratory failure with hypoxia: Plan: 2nd to volume overloaded state in the setting of acute/chronic CKD. HD being discussed/planned. She has very large pleural effusions b/l - these may need intervention given the sheer size. Continue NC O2 and attempts at diuresis with IV lasix. (2) Volume overload: Plan: 2nd to acute/chronic CKD. (3) Bilateral pleural effusion: Plan: 2nd to acute/chronic CKD. (4) Chronic kidney disease, stage 4 (severe): Plan: baseline CrCl 15-20 baseline Creatinine = low 2's now with acute renal failure with Cr >5 (5) Essential hypertension: Plan: hydralazine, BB, CCB with controlled BPs adjust as needed (6) Unspecified atrial fibrillation: Plan: BB, CCB rates controlled is on Eliquis - HOLD in the event she needs thoracentesis and HD catheter placement (7) Type 2 diabetes mellitus with diabetic neuropathy: Plan: HbA1C 5.3% hold lantus loose novolog SSI (8) Hyperlipidemia: Plan: statin (9) Gout, unspecified: Plan: no signs of flare (10) Anemia in CKD (chronic kidney disease): Plan: H/H acceptable at this time Hb 9-10 range trend Plan: Ko Subramanian (patient's brother and POA) - [phone] will update him tomorrow Admission and Anticipated Discharge Date Admission Date: February 13, 2022 Subjective patient lying in bed with mild, quiet tachypnea she has confusion - unable to provide any significant history she reports her breathing is similar to earlier today despite lasix IV tele with [place] Review of Systems Review of Systems: Unobtainable due to cognitive status Physical Exam Physical Exam: gen - quiet tachypnea noted; otherwise NAD; mildly confused neck - JVD present mouth - MMM heart - irregular, s1 s2 lungs - very poor airation; decreased BS 2/3 way up the back posteriorly abd - soft NT ND BS+ ext - edema, pulses 2+ b/l Results & Data Results & Data ([facility]) Vital Signs (Past 12 Hours) Vital Signs Temp Pulse Pulse Resp BP Pulse Ox 02/14/22 19:52 36.4 C L 71 18 109/69 96 02/14/22 16:08 36.3 C L 79 20 100/65 90 02/14/22 11:47 98 02/14/22 11:44 36.4 C L 100 H 18 96/60 L 100 Laboratory Results Laboratory Results - last 24 hr 02/13/22 02/13/22 02/13/22 20:35 22:17 22:17 WBC RBC Hgb Hct MCV MCH MCHC RDW Std Deviation RDW Coeff of Odilon Plt Count MPV Immature Gran % (Auto) Neut % (Auto) Lymph % (Auto) Sutton % (Auto) Eos % (Auto) Baso % (Auto) Neut # (Auto) Lymph # (Auto) Sutton # (Auto) Eos # (Auto) Baso # (Auto) Immature Gran # (Auto) Sodium Potassium Chloride Carbon Dioxide Anion Gap BUN Creatinine Est Cr Clr Drug Dosing Est GFR ( Amer) Est GFR (Non-Af Amer) BUN/Creatinine Ratio Glucose POC Glucose Estimat Average Glucose Hemoglobin A1c Calcium Phosphorus Magnesium Troponin I High Sens 20.9 H B-Natriuretic Peptide 1025 H Procalcitonin 0.36 Urine Color Urine Appearance Urine pH Ur Specific [place] Urine Protein Urine Glucose (UA) Urine Ketones Urine Blood Urine Nitrite Urine Bilirubin Urine Urobilinogen Ur Leukocyte Esterase Urine WBC (Auto) Urine RBC (Auto) U Hyaline Cast (Auto) U Epithel Cells (Auto) Urine Bacteria (Auto) Ur Renal Epithelial Cell Urine Yeast Ur Random Creatinine U Random Total Protein Ur Random Sodium Protein/Creatinin Ratio Hepatitis C Ab (EIA) Hep C Ab Signal/Cutoff 02/13/22 02/13/22 02/13/22 23:29 23:45 23:57 WBC RBC Hgb Hct MCV MCH MCHC RDW Std Deviation RDW Coeff of Odilon Plt Count MPV Immature Gran % (Auto) Neut % (Auto) Lymph % (Auto) Sutton % (Auto) Eos % (Auto) Baso % (Auto) Neut # (Auto) Lymph # (Auto) Sutton # (Auto) Eos # (Auto) Baso # (Auto) Immature Gran # (Auto) Sodium Potassium Chloride Carbon Dioxide Anion Gap BUN Creatinine Est Cr Clr Drug Dosing Est GFR ( Amer) Est GFR (Non-Af Amer) BUN/Creatinine Ratio Glucose POC Glucose 56 L* 53 L* 60 L* Estimat Average Glucose Hemoglobin A1c Calcium Phosphorus Magnesium Troponin I High Sens B-Natriuretic Peptide Procalcitonin Urine Color Urine Appearance Urine pH Ur Specific [place] Urine Protein Urine Glucose (UA) Urine Ketones Urine Blood Urine Nitrite Urine Bilirubin Urine Urobilinogen Ur Leukocyte Esterase Urine WBC (Auto) Urine RBC (Auto) U Hyaline Cast (Auto) U Epithel Cells (Auto) Urine Bacteria (Auto) Ur Renal Epithelial Cell Urine Yeast Ur Random Creatinine U Random Total Protein Ur Random Sodium Protein/Creatinin Ratio Hepatitis C Ab (EIA) Hep C Ab Signal/Cutoff 02/14/22 02/14/22 02/14/22 00:16 01:10 07:19 WBC 8.36 RBC 3.56 L Hgb 10.9 L Hct 33.8 L MCV 94.9 MCH 30.6 MCHC 32.2 RDW Std Deviation 58.1 H RDW Coeff of Odilon 16.8 H Plt Count 365 MPV 9.4 Immature Gran % (Auto) 0.8 Neut % (Auto) 80.7 Lymph % (Auto) 8.1 Sutton % (Auto) 9.1 Eos % (Auto) 1.2 Baso % (Auto) 0.1 Neut # (Auto) 6.74 H Lymph # (Auto) 0.68 L Sutton # (Auto) 0.76 H Eos # (Auto) 0.10 Baso # (Auto) 0.01 Immature Gran # (Auto) 0.07 H Sodium Potassium Chloride Carbon Dioxide Anion Gap BUN Creatinine Est Cr Clr Drug Dosing Est GFR ( Amer) Est GFR (Non-Af Amer) BUN/Creatinine Ratio Glucose POC Glucose 83 97 Estimat Average Glucose Hemoglobin A1c Calcium Phosphorus Magnesium Troponin I High Sens B-Natriuretic Peptide Procalcitonin Urine Color Urine Appearance Urine pH Ur Specific [place] Urine Protein Urine Glucose (UA) Urine Ketones Urine Blood Urine Nitrite Urine Bilirubin Urine Urobilinogen Ur Leukocyte Esterase Urine WBC (Auto) Urine RBC (Auto) U Hyaline Cast (Auto) U Epithel Cells (Auto) Urine Bacteria (Auto) Ur Renal Epithelial Cell Urine Yeast Ur Random Creatinine U Random Total Protein Ur Random Sodium Protein/Creatinin Ratio Hepatitis C Ab (EIA) Hep C Ab Signal/Cutoff 02/14/22 02/14/22 02/14/22 07:19 07:19 07:19 WBC RBC Hgb Hct MCV MCH MCHC RDW Std Deviation RDW Coeff of Odilon Plt Count MPV Immature Gran % (Auto) Neut % (Auto) Lymph % (Auto) Sutton % (Auto) Eos % (Auto) Baso % (Auto) Neut # (Auto) Lymph # (Auto) Sutton # (Auto) Eos # (Auto) Baso # (Auto) Immature Gran # (Auto) Sodium 135 L Potassium 4.9 Chloride 102 Carbon Dioxide 22 Anion Gap 11 BUN 80 H Creatinine 5.42 H* D Est Cr Clr Drug Dosing 7.4 Est GFR ( Amer) 8.0 Est GFR (Non-Af Amer) 6.9 BUN/Creatinine Ratio 14.8 Glucose 110 H POC Glucose Estimat Average Glucose 105 Hemoglobin A1c 5.3 Calcium 7.6 L Phosphorus 5.9 H Magnesium 1.9 Troponin I High Sens B-Natriuretic Peptide Procalcitonin Urine Color Urine Appearance Urine pH Ur Specific [place] Urine Protein Urine Glucose (UA) Urine Ketones Urine Blood Urine Nitrite Urine Bilirubin Urine Urobilinogen Ur Leukocyte Esterase Urine WBC (Auto) Urine RBC (Auto) U Hyaline Cast (Auto) U Epithel Cells (Auto) Urine Bacteria (Auto) Ur Renal Epithelial Cell Urine Yeast Ur Random Creatinine U Random Total Protein Ur Random Sodium Protein/Creatinin Ratio Hepatitis C Ab (EIA) Pending Hep C Ab Signal/Cutoff Pending 02/14/22 02/14/22 02/14/22 07:36 11:35 16:22 WBC RBC Hgb Hct MCV MCH MCHC RDW Std Deviation RDW Coeff of Odilon Plt Count MPV Immature Gran % (Auto) Neut % (Auto) Lymph % (Auto) Sutton % (Auto) Eos % (Auto) Baso % (Auto) Neut # (Auto) Lymph # (Auto) Sutton # (Auto) Eos # (Auto) Baso # (Auto) Immature Gran # (Auto) Sodium Potassium Chloride Carbon Dioxide Anion Gap BUN Creatinine Est Cr Clr Drug Dosing Est GFR ( Amer) Est GFR (Non-Af Amer) BUN/Creatinine Ratio Glucose POC Glucose 107 H 110 H 125 H Estimat Average Glucose Hemoglobin A1c Calcium Phosphorus Magnesium Troponin I High Sens B-Natriuretic Peptide Procalcitonin Urine Color Urine Appearance Urine pH Ur Specific [place] Urine Protein Urine Glucose (UA) Urine Ketones Urine Blood Urine Nitrite Urine Bilirubin Urine Urobilinogen Ur Leukocyte Esterase Urine WBC (Auto) Urine RBC (Auto) U Hyaline Cast (Auto) U Epithel Cells (Auto) Urine Bacteria (Auto) Ur Renal Epithelial Cell Urine Yeast Ur Random Creatinine U Random Total Protein Ur Random Sodium Protein/Creatinin Ratio Hepatitis C Ab (EIA) Hep C Ab Signal/Cutoff 02/14/22 02/14/22 02/14/22 17:23 17:23 17:23 WBC RBC Hgb Hct MCV MCH MCHC RDW Std Deviation RDW Coeff of Odilon Plt Count MPV Immature Gran % (Auto) Neut % (Auto) Lymph % (Auto) Sutton % (Auto) Eos % (Auto) Baso % (Auto) Neut # (Auto) Lymph # (Auto) Sutton # (Auto) Eos # (Auto) Baso # (Auto) Immature Gran # (Auto) Sodium Potassium Chloride Carbon Dioxide Anion Gap BUN Creatinine Est Cr Clr Drug Dosing Est GFR ( Amer) Est GFR (Non-Af Amer) BUN/Creatinine Ratio Glucose POC Glucose Estimat Average Glucose Hemoglobin A1c Calcium Phosphorus Magnesium Troponin I High Sens B-Natriuretic Peptide Procalcitonin Urine Color Dark Yellow Urine Appearance Cloudy A Urine pH 5.0 Ur Specific [place] 1.018 Urine Protein Trace H Urine Glucose (UA) Negative Urine Ketones Trace H Urine Blood Negative Urine Nitrite Negative Urine Bilirubin Negative Urine Urobilinogen Negative Ur Leukocyte Esterase Trace H Urine WBC (Auto) 10-30 H Urine RBC (Auto) 10-30 H U Hyaline Cast (Auto) 10-30 H U Epithel Cells (Auto) >30 H Urine Bacteria (Auto) 1+ H Ur Renal Epithelial Cell Not Reportable Urine Yeast Not Reportable Ur Random Creatinine Cancelled 167.5 U Random Total Protein 34.3 H Ur Random Sodium Cancelled 17 Protein/Creatinin Ratio 0.2 Hepatitis C Ab (EIA) Hep C Ab Signal/Cutoff 02/14/22 20:26 WBC RBC Hgb Hct MCV MCH MCHC RDW Std Deviation RDW Coeff of Odilon Plt Count MPV Immature Gran % (Auto) Neut % (Auto) Lymph % (Auto) Sutton % (Auto) Eos % (Auto) Baso % (Auto) Neut # (Auto) Lymph # (Auto) Sutton # (Auto) Eos # (Auto) Baso # (Auto) Immature Gran # (Auto) Sodium Potassium Chloride Carbon Dioxide Anion Gap BUN Creatinine Est Cr Clr Drug Dosing Est GFR ( Amer) Est GFR (Non-Af Amer) BUN/Creatinine Ratio Glucose POC Glucose 129 H Estimat Average Glucose Hemoglobin A1c Calcium Phosphorus Magnesium Troponin I High Sens B-Natriuretic Peptide Procalcitonin Urine Color Urine Appearance Urine pH Ur Specific [place] Urine Protein Urine Glucose (UA) Urine Ketones Urine Blood Urine Nitrite Urine Bilirubin Urine Urobilinogen Ur Leukocyte Esterase Urine WBC (Auto) Urine RBC (Auto) U Hyaline Cast (Auto) U Epithel Cells (Auto) Urine Bacteria (Auto) Ur Renal Epithelial Cell Urine Yeast Ur Random Creatinine U Random Total Protein Ur Random Sodium Protein/Creatinin Ratio Hepatitis C Ab (EIA) Hep C Ab Signal/Cutoff PG Care Time/CCT Total # of Minutes Spent Total Time Spent with Patient: Total time spent is greater than 50% in coordination of care (as documented) at patient's floor/unit and/or counseling patient: Coding Level of Care Code 67759 Subseq Hosp Care Lvl 2 Diagnoses Chronic kidney disease, stage 4 (severe) N18.4 Essential hypertension I10 Unspecified atrial fibrillation I48.91 Atrial fibrillation type: unspecified Type 2 diabetes mellitus with diabetic neuropathy E11.40 Hyperlipidemia E78.5 Gout, unspecified M10.9 Anemia in CKD (chronic kidney disease) N18.9; D63.1 Acute respiratory failure with hypoxia J96.01 Volume overload E87.70 Bilateral pleural effusion J90 (1) Unspecified atrial fibrillation Atrial fibrillation type: unspecified Qualified Code(s): I48.91 - Unspecified atrial fibrillation
[2022-02-15 07:40] LABS: Hematocrit (blood only) 32.4 % (37-47); Hemoglobin 10.2 g/dL (12.0-16.0); Mean Corpuscular Hemoglobin 30.2 pg (25-34); Mean Corpuscular Hgb Conc 31.5 g/dL (32-36); Mean Corpuscular Volume 95.9 fL (80-100); Mean Platelet Volume 9.6 fL (7.4-10.4); Platelet Count 377 K/uL (130-400); RDW Coefficient of Variation 17.4 % (11.5-14.5); RDW Standard Deviation 60.1 fL (36.4-46.3); Red Blood Count 3.38 M/uL (4.2-5.4); White Blood Count 8.03 K/uL (4.8-10.8)
[2022-02-15 08:05] LABS: Iron 37 mcg/dl (35-150); Total Iron Binding Cap Calc 131 mcg/dl (250-450); Transferrin (FE) Percent Satur 28 % (15-50); Unsaturated Iron Binding Cap 94 mcg/dl (155-355)
[2022-02-15 08:09] LABS: Albumin Level 2.8 gm/dl (3.4-5.0); BUN Creatinine Ratio 15.7 (10-20); Bilirubin,Total 0.5 mg/dl (0.2-1.0); Calcium 7.7 mg/dl (8.5-10.1); Est GFR (African American) 7.5 ml/min; Est GFR (Non-African American) 6.5 ml/min; Globulin 2.8 gm/dl (2.5-4.0); Potassium 4.8 mmol/L (3.5-5.1); Total Protein 5.6 gm/dl (6.0-8.3)
[2022-02-15 08:20] LABS: Ferritin 360.2 ng/ml (8-388)
[2022-02-15] MEDS: SIMVASTATIN 20 MG TAB PO SCH (08:24)
[2022-02-15] MEDS: INSULIN ASPART PER UNIT SC SCH ×4 (09:04→21:09)
[2022-02-15] MEDS: hydrALAZINE HCL 25 MG TAB PO SCH (10:12)
[2022-02-15] MEDS: dilTIAZem HCL 240 MG CAPCR PO SCH (10:12)
[2022-02-15] MEDS: METOPROLOL SUCC 50MG EXT REL TAB PO SCH (10:12)
--- NOTE | 2022-02-15 11:54 | Nephrology Progress Note ---
Date of Service February 15, 2022 Assessment & Plan (1) ESRD (end stage renal disease): (2) Essential hypertension: (3) Anemia in CKD (chronic kidney disease): (4) Vitamin D deficiency: Plan: 82-year-old female with stage IV CKD baseline creatinine around 2.3-2.5, most likely secondary to microvascular disease with history of hypertension diabetes. Never had kidney biopsy before. Presented to CKD clinic with advanced CKD for 5 years as recently moved from [place] to [place]. Admitted to the hospital with shortness of breath, hypoxia and respiratory failure with oxygen saturation in 80s. respiratory status improved on nasal cannula oxygen. Has been oliguric despite getting Lasix, however respiratory seem status seems to be stable. Renal function continues to worsen however electrolyte acceptable. Remained oliguric but respiratory status fair. Appetite has been poor. -- Lasix 120 mg IV x1 dose now, monitor intake and output closely. -- Discontinue hydralazine as blood pressure persistently remains low and she has been also on diltiazem and metoprolol for Rate control for AFib. -- no indication for emergency dialysis today however, if renal function continues to worsen and no improvement in urine output, will need to consider dialysis in next 24-48 hours. If needed , will keep patient NPO after MN Thursday in anticipation of IJ TCC Thursday. HD staff is aware and will hold a treatment time for Thursday as well. -- Indications/benefits/risks/alternatives to HD discussed in detail w/ patient and her POA during initial consultation and discussed again with Jessi Miranda this morning. Ms. Pacheco is A&O x3. She appears competent to make medical decisions. She reports that she understands that this can be complication with dialysis and she is concerned about that however she would like to try HD. Vascular surgery has been consulted. Surgical services for IJ TCC insertion will be available on Thursday. Patient is breathing comfortably on O2 at 2L/min NC and electrolyte balance is acceptable. -- left arm nephrology precaution for possible need for future vascular access. Will follow Thank you for allowing me to participate in your patient's care. It was a pleasure to see Jessi Miranda Admission and Anticipated Discharge Date Admission Date: February 13, 2022 Subjective Jessi Miranda was seen and evaluated in her room this morning. She was awake, alert but looked chronically ill. She reports mild occasional shortness of breath but no chest pain, abdominal pain. Her appetite has been poor and has not been eating much. Has Crum catheter and had it only around 100-150 mL of urine last 24 hours. No significant response with diuretics. Renal function continues to worsen slowly, creatinine up to 5.7 and BUN 89, potassium and bicarbonate remains acceptable. Blood pressure remained relatively low but asymptomatic. Review of Systems Review of Systems: Detailed review of system was otherwise unremarkable except mentioned above. Physical Exam Constitutional: WD/WN, vitals as above + ill appearing; no acute distress Eyes: + anicteric sclerae Neck: normal visual inspection Respiratory: Auscultation: + diminished lung sounds and + rales ( Bilaterally at bases) Cardiovascular: Rate/Rhythm: regular rate and regular rhythm Extremities: + edema ( Trace bilateral lower extremity edema.) Skin: no rashes Neurologic: no focal motor deficits Psychiatric: Orientation: alert and oriented x 3 Results & Data ([facility]) Vital Signs (Past 12 Hours) Vital Signs Temp Pulse Pulse Resp BP BP Pulse Ox 02/15/22 11:42 36.3 C L 79 19 93/57 L 92 02/15/22 09:47 81 02/15/22 07:42 36.3 C L 83 18 95/57 L 95 02/15/22 04:18 36.4 C L 76 18 100/64 96 PG Care Time/CCT Total # of Minutes Spent Total Time Spent with Patient: Total time spent is greater than 50% in coordination of care (as documented) at patient's floor/unit and/or counseling patient: Coding Level of Care Code 90230 Subseq Hosp Care Lvl 3 Diagnoses ESRD (end stage renal disease) N18.6 Essential hypertension I10 Anemia in CKD (chronic kidney disease) N18.9; D63.1 Vitamin D deficiency E55.9
[2022-02-15] MEDS ORDERED: FUROSEMIDE INJ 20 MG/2 ML VIAL IV ONE (11:55)
[2022-02-15] MEDS ORDERED: BUMETANIDE 4 MG in SYRINGE 0 ML IV ONE (19:18)
--- NOTE | 2022-02-15 19:35 | Hospitalist Progress Note ---
Date of Service February 15, 2022 Assessment & Plan (1) Acute respiratory failure with hypoxia: Plan: 2nd to volume overloaded state in the setting of acute/chronic CKD stage 4. HD being discussed/planned - potentially starting on Thursday after HD catheter placement. She has very large pleural effusions b/l - see below. No effective diuresis with 80mg lasix, followed by 120mg lasix. Will try bumex 4mg IV x 1 tonight. Continue barlow. Continue NC O2. Pulmonary consult pending for consideration of thoracentesis - therapeutic. (2) Acute metabolic encephalopathy: Plan: 2nd to MITCHEL/uremia. Can't rule out metabolic effects from infection - UTI, biliary tract disease, etc. Continue supportive care. Empiric abx. Ultimately HD is needed for uremia. recent TSH wnl. check B12, B1, and ammonia in am due to brother's complaint of ongoing memory issues for months or longer. (3) Gallstones: Plan: u/a and CT with numerous gallstones & sludge. both studies equivacol for acute cholecystitis. recheck LFTs in am. Empiric rocephin/flagyl to cover the gall bladder (and urinary tract). Consider HIDA Thursday. Need to address #1/#4 first. (4) Volume overload: Plan: 2nd to acute/chronic CKD. Attempts at diuresis unsuccessful. Likely to need HD starting Thursday. Could even need it as early as Thursday if respiratory status worsens. (5) Bilateral pleural effusion: Plan: 2nd to acute/chronic CKD. Echo with preserved EF. TSH wnl. I have consulted pulmonary for consideration of right-sided thoracentesis for therapeutic purposes. Very large effusion on that side. Eliquis on hold - last dose AM of 02/14/22. (6) Chronic kidney disease, stage 4 (severe): Plan: baseline CrCl 15-20 baseline Creatinine = low 2's now with acute renal failure with Cr >5 uremia continues to worsen (7) Essential hypertension: Plan: BPs low or low-normal HOLD CCB HOLD hydralazine cont betablocker (8) Unspecified atrial fibrillation: Plan: cont BB hold CCB due to low-normal BPs rates controlled otherwise is on Eliquis - HOLD in the event she needs thoracentesis and HD catheter placement (9) Type 2 diabetes mellitus with diabetic neuropathy: Plan: HbA1C 5.3% hold lantus loose novolog SSI (10) Hyperlipidemia: Plan: statin LFTs in am (11) Gout, unspecified: Plan: no signs of flare (12) Anemia in CKD (chronic kidney disease): Plan: H/H acceptable at this time Hb 9-10 range trend Plan: Ko Subramanian (patient's brother and POA) - [phone] -- extensively updated by phone this evening (20 min call) care d/w pulmonary & nephrology Admission and Anticipated Discharge Date Admission Date: February 13, 2022 Subjective a.fib on tele overnight, rates <100 during the visit she was uncomfortable with orthopnea she c/o rectal irritation (had just had a bowel movement) unable to provide much in the way of history or ROS she did recall her brother had come to visit today when asked if she understands what is going on with her kidneys she did not seem to understand the conversation with 120mg of IV lasix today she had <100cc of UOP with such appetite remains very poor I spoke with pt's brother and POA today by phone for about 20 min he is a retired pharmacist he expressed concerns over her poor PO intake, the kidneys, breathing, etc he mentioned her short-term memory has been poor for some time, but much worse recently he also mentioned a family member having had a brain tumor in the past and asked if she should be checked for such Review of Systems Review of Systems: Unobtainable due to cognitive status Physical Exam Physical Exam: gen - tachypnea present, minimal subcostal retractions, confused, uncomfortable appearing neck - JVD present mouth - MMM heart - irregular, s1 s2, no murmur lungs - very poor airation; decreased BS 2/3 way up the back posteriorly with scattered rales; no wheeze abd - soft NT ND BS+ ext - <1+ edema b/l, pulses 2+ b/l psych - confused; but awake and follows commands Results & Data Results & Data ([facility]) Vital Signs (Past 12 Hours) Vital Signs Temp Pulse Pulse Pulse Resp BP BP 02/15/22 19:15 36.3 C L 92 H 18 105/70 02/15/22 16:28 36.5 C 82 17 101/62 02/15/22 11:42 36.3 C L 79 19 93/57 L 02/15/22 09:47 81 02/15/22 07:42 36.3 C L 83 18 95/57 L Pulse Ox 02/15/22 19:15 94 02/15/22 16:28 90 02/15/22 11:42 92 02/15/22 09:47 02/15/22 07:42 95 Laboratory Results Laboratory Results - last 24 hr 02/14/22 02/14/22 02/15/22 07:19 20:26 07:00 WBC 8.03 RBC 3.38 L Hgb 10.2 L Hct 32.4 L MCV 95.9 MCH 30.2 MCHC 31.5 L RDW Std Deviation 60.1 H RDW Coeff of Odilon 17.4 H Plt Count 377 MPV 9.6 Sodium Potassium Chloride Carbon Dioxide Anion Gap BUN Creatinine Est Cr Clr Drug Dosing Est GFR ( Amer) Est GFR (Non-Af Amer) BUN/Creatinine Ratio Glucose POC Glucose 129 H Calcium Iron TIBC Unsaturated IBC Transferrin % Sat Ferritin Total Bilirubin AST ALT Alkaline Phosphatase Total Protein Albumin Globulin Albumin/Globulin Ratio Hepatitis C Ab (EIA) NON-REACTIVE Hep C Ab Signal/Cutoff 0.04 02/15/22 02/15/22 02/15/22 07:00 07:00 07:26 WBC RBC Hgb Hct MCV MCH MCHC RDW Std Deviation RDW Coeff of [place] Plt Count MPV Sodium 136 Potassium 4.8 Chloride 103 Carbon Dioxide 22 Anion Gap 11 BUN 89 H Creatinine 5.66 H* Est Cr Clr Drug Dosing 7.0 Est GFR ( Amer) 7.5 Est GFR (Non-Af Amer) 6.5 BUN/Creatinine Ratio 15.7 Glucose 116 H POC Glucose 111 H Calcium 7.7 L Iron 37 TIBC 131 L Unsaturated IBC 94 L Transferrin % Sat 28 Ferritin 360.2 Total Bilirubin 0.5 AST 12 L ALT 9 Alkaline Phosphatase 86 Total Protein 5.6 L Albumin 2.8 L Globulin 2.8 Albumin/Globulin Ratio 1.0 Hepatitis C Ab (EIA) Hep C Ab Signal/Cutoff 02/15/22 02/15/22 11:28 17:37 WBC RBC Hgb Hct MCV MCH MCHC RDW Std Deviation RDW Coeff of Odilon Plt Count MPV Sodium Potassium Chloride Carbon Dioxide Anion Gap BUN Creatinine Est Cr Clr Drug Dosing Est GFR ( Amer) Est GFR (Non-Af Amer) BUN/Creatinine Ratio Glucose POC Glucose 124 H 132 H Calcium Iron TIBC Unsaturated IBC Transferrin % Sat Ferritin Total Bilirubin AST ALT Alkaline Phosphatase Total Protein Albumin Globulin Albumin/Globulin Ratio Hepatitis C Ab (EIA) Hep C Ab Signal/Cutoff Diagnostic Findings urine cx pending PG Care Time/CCT Total # of Minutes Spent Total Time Spent with Patient: Total time spent is greater than 50% in coordination of care (as documented) at patient's floor/unit and/or counseling patient: Coding Level of Care Code 62868 Subseq Hosp Care Lvl 3 Diagnoses Acute respiratory failure with hypoxia J96.01 Volume overload E87.70 Bilateral pleural effusion J90 Chronic kidney disease, stage 4 (severe) N18.4 Essential hypertension I10 Unspecified atrial fibrillation I48.91 Atrial fibrillation type: unspecified Type 2 diabetes mellitus with diabetic neuropathy E11.40 Hyperlipidemia E78.5 Gout, unspecified M10.9 Anemia in CKD (chronic kidney disease) N18.9; D63.1 Gallstones K80.20 Acute metabolic encephalopathy G93.41 (1) Unspecified atrial fibrillation Atrial fibrillation type: unspecified Qualified Code(s): I48.91 - Unspecified atrial fibrillation
[2022-02-15] MEDS: cefTRIAXone SODIUM 1,000 MG in DEXTROSE 5% 50 ML IV SCH (20:56)
[2022-02-15] MEDS: metroNIDAZOLE 500 MG/100 ML BAG IV SCH (21:26)
[2022-02-16] MEDS: metroNIDAZOLE 500 MG/100 ML BAG IV SCH ×3 (04:08→21:26)
[2022-02-16] MEDS: METOPROLOL SUCC 50MG EXT REL TAB PO SCH (07:41)
[2022-02-16] MEDS: SIMVASTATIN 20 MG TAB PO SCH (07:41)
[2022-02-16] MEDS: INSULIN ASPART PER UNIT SC SCH ×4 (08:18→20:28)
[2022-02-16 08:25] LABS: Albumin Level 2.8 gm/dl (3.4-5.0); Bilirubin Direct 0.1 mg/dl (0-0.2); Bilirubin,Total 0.5 mg/dl (0.2-1.0); Total Protein 5.7 gm/dl (6.0-8.3)
[2022-02-16 08:29] LABS: BUN Creatinine Ratio 16.6 (10-20); Calcium 7.7 mg/dl (8.5-10.1); Est GFR (African American) 7.5 ml/min; Est GFR (Non-African American) 6.5 ml/min; Potassium 4.8 mmol/L (3.5-5.1)
[2022-02-16] MEDS: dilTIAZem HCL 30 MG TAB PO SCH ×4 (09:50→20:29)
[2022-02-16] MEDS: THIAMINE HCL 200 MG in SODIUM CHLORIDE 0.9% 50 ML IV SCH ×2 (09:51→20:30)
--- NOTE | 2022-02-16 10:07 | Pulmonary Consultation ---
Date of Consultation February 16, 2022 Assessment & Plan (1) Volume overload: (2) ESRD (end stage renal disease): (3) Bilateral pleural effusion: (4) Anticoagulant long-term use: 82-year-old female with a history of atrial fibrillation on Eliquis, CKD stage IV, diabetes mellitus type 2 and pressure ulcers presenting to the hospital due to altered mental status, shortness of breath and hyperglycemia. She was found to have worsening renal failure and is now going to undergo hemodialysis catheter placement on Thursday. Patient appears comfortable on room air at this present time. Eliquis should be held 3 to 4 days in the context of her renal failure prior to any pleural procedure that is nonemergent. She is relatively asymptomatic when resting. I would recommend continue trials of aggressive diuresis and dialysis prior to recommending a thoracentesis. Her volume overloaded state should be responsive to dialysis and diuretics. If she should continue to have shortness of breath and bilateral effusions, we can consider thoracentesis at that time. Please call if that were to occur. Pulmonary will continue to follow. Thanks for the consult and allowing us to participate in the care of this patient. History of Present Illness Reason for Consultation: Pleural effusions Attending Physician: Riley Ramirez History of Present Illness 82-year-old female with history of atrial fibrillation on Eliquis, CKD stage IV, type 2 diabetes mellitus, stage III pressure ulcers on her buttock, gout and anemia of chronic disease who presented from [facility] due to shortness of breath. Patient denies any shortness of breath at present. She is saturating well on room air. He has been essentially bedbound the last 2 days or so. She was also noted to be hypoglycemic on arrival via EMS. She had worsening creatinine during this admission with minimal urine output. She did receive 4 mg of IV Lasix yesterday with some improvement in her urine output. There is plan for her to undergo hemodialysis catheter tomorrow and initiation of dialysis. Pulmonary is consulted due to bilateral pleural effusions seen on chest x-ray. She did undergo a CT of her abdomen pelvis 02/13/2022 which revealed anasarca with trace ascites and moderate sized left and right pleural effusions. Patient is a lifelong non-smoker. She denies any history of cancer. She denies any prior history of thoracentesis. Echo 02/14/2022 with an LVEF of greater than 70%. Mild to moderate mitral regurgitation. Mild to moderate tricuspid regurgitation. Mild aortic regurgitation. Allergies Allergy/AdvReac Type Severity Reaction Status Date / Time No Known Drug Allergies Allergy Verified 12/18/21 13:53 Home Medications Medication Instructions Recorded Confirmed Type allopurinol 100 mg tablet 100 mg PO DAILY 07/30/21 12/18/21 History apixaban 2.5 mg tablet (Eliquis) 2.5 mg PO BID 07/30/21 12/18/21 History diltiazem HCl 240 mg 240 mg PO DAILY 07/30/21 12/18/21 History capsule,extended release 24 hr hydralazine 25 mg tablet 25 mg PO TID 07/30/21 12/18/21 History insulin glargine 100 unit/mL (3 12 unit SUBCUT BID ml 07/30/21 12/18/21 History mL) subcutaneous pen (Lantus Solostar U-100 Insulin) insulin lispro 100 unit/mL 1 sliding scale dose SUBCUT 07/30/21 12/18/21 History subcutaneous solution (Humalog USEASDIRECTD U-100 Insulin) metoprolol succinate 50 mg 50 mg PO DAILY 07/30/21 12/18/21 History tablet,extended release 24 hr polyethylene glycol 3350 17 17 g PO DAILY PRN 07/30/21 12/18/21 History gram/dose oral powder (Miralax) simvastatin 20 mg tablet 20 mg PO DAILY 07/30/21 12/18/21 History tramadol 50 mg tablet 50 mg PO Q8H PRN 07/30/21 12/18/21 History ergocalciferol (vitamin D2) 1,250 50,000 unit PO WEEKLY #12 cap 12/04/21 12/18/21 Rx mcg (50,000 unit) capsule Patient History Medical History CKD (chronic kidney disease) Diabetes Hyperlipidemia Hypertension Surgical History History of hip surgery Right Previous back surgery Family History Father Cerebral aneurysm Family/Other Diabetes Hypertension Glaucoma Social History Smoking Status: Never smoker Second Hand Exposure: Yes; Hx Alcohol Use: No Hx Substance Use: No Preferred Language: Kazakh Communication Ability: Effective Visual Impairment: No Limitations Hearing Ability: Normal Form Setter Helper Required: No Beliefs That Will Affect Care: None marital status: / Current Living Situation: Other Current Living Situation Comment: lives at [facility] current occupational status: retired How many Children do You have: 1 How many Children do You have Comment: 2 stepchildren Feels Safe at Home: Yes Safety Concerns: Feels Safe At This Time during the past year weight has: remained stable Assistive Devices: Walker and Wheelchair Review of Systems Review of Systems: All systems reviewed & are unremarkable except as noted in HPI & below Physical Exam Physical Exam: Constitutional: Patient appears to be of their stated age. Patient is in no apparent distress. Patient is well-developed. Eyes: Pupils are equal round and reactive to light. Conjunctivae are normal. Anicteric sclera. Ears nose, mouth and throat: Deferred Neck: Trachea is midline. Visual inspection is normal. Respiratory: Diminished lung sounds at the bases bilaterally. No wheezes or rales. Cardiovascular: Mild diastolic rumble. Regular rhythm. Mild edema in the lower extremities. Gastrointestinal: Normal bowel sounds, soft, nontender and nondistended. No hepatosplenomegaly noted. Musculoskeletal: No cyanosis. Patient is able to move all extremities. Diffusely weak. Skin: No rashes, warm dry and intact. Neurologic: No obvious focal neurological deficits seen. Psychiatric: Alert and oriented x3 with a euthymic affect. Results & Data Results & Data ([facility]) Vital Signs (Past 12 Hours) Vital Signs Temp Pulse Pulse Pulse Resp BP Pulse Ox 02/16/22 09:30 91 H 02/16/22 07:28 36.6 C 114 H 20 114/73 95 02/16/22 03:41 36.3 C L 110 H 18 95/60 L 94 02/15/22 22:32 36.4 C L 98 H 16 94/62 L 96 02/15/22 22:10 91 H PG Care Time/CCT Total # of Minutes Spent Total Time Spent with Patient: Total time spent is greater than 50% in coordination of care (as documented) at patient's floor/unit and/or counseling patient: Coding Level of Care Code 68872 Initial Inpt Care Lvl 2 Diagnoses Volume overload E87.70 ESRD (end stage renal disease) N18.6 Bilateral pleural effusion J90 Anticoagulant long-term use Z79.01
--- NOTE | 2022-02-16 10:56 | Nephrology Progress Note ---
Date of Service February 16, 2022 Assessment & Plan (1) ESRD (end stage renal disease): (2) Essential hypertension: (3) Anemia in CKD (chronic kidney disease): (4) Vitamin D deficiency: Plan: 82-year-old female with stage IV CKD baseline creatinine around 2.3-2.5, most likely secondary to microvascular disease with history of hypertension diabetes. Never had kidney biopsy before. Presented to CKD clinic with advanced CKD for 5 years as recently moved from [place] to [place]. Admitted to the hospital with shortness of breath, hypoxia and respiratory failure with oxygen saturation in 80s. respiratory status improved on nasal cannula oxygen. Has been oliguric despite getting Lasix, however respiratory seem status seems to be stable. Renal function continues to worsen however electrolyte acceptable. Urine output slightly improved, Responded better to Bumex. -- Bumex 4 mg iv x 1 dose now -- no indication for emergency dialysis today, keep patient NPO after MN Thursday for f IJ TCC Thursday. HD staff is aware and will hold a treatment time for Thursday as well. -- Considering bilateral pleural effusion, it would be helpful to have thoracentesis today otherwise she may have difficulty lying flat for tunneled dialysis catheter tomorrow. All -- Indications/benefits/risks/alternatives to HD discussed in detail w/ patient and her POA during initial consultation and discussed again with Jessi Miranda this morning. Ms. Pacheco is A&O x3. She appears competent to make medical decisions. She reports that she understands that this can be complication with dialysis and she is concerned about that however she would like to try HD. Vascular surgery has been consulted. Surgical services for IJ TCC insertion will be available on Thursday. Patient is breathing comfortably on O2 at 2L/min NC and electrolyte balance is acceptable. -- left arm nephrology precaution for possible need for future vascular access. Will follow Admission and Anticipated Discharge Date Admission Date: February 13, 2022 Subjective Jessi Miranda was seen and evaluated in her room this morning. She was awake, alert but looked chronically ill. She reports Feeling overall better today and had some breakfast this morning. Reports slight improvement in shortness of breath. Had more than 750 mL of urine output overnight in response to IV diuretics. Renal function however continues to slowly worsen, has mild metabolic acidosis. Blood pressure remained relatively low but asymptomatic. Review of Systems Review of Systems: Detailed review of system was otherwise unremarkable except mentioned above. Constitutional: + weakness; no fever Physical Exam Constitutional: WD/WN, vitals as above + ill appearing; no acute distress Eyes: + anicteric sclerae Neck: normal visual inspection Respiratory: Auscultation: + diminished lung sounds Cardiovascular: Rate/Rhythm: regular rate and regular rhythm Extremities: + edema ( Trace bilateral lower extremity edema.) Skin: no rashes Neurologic: no focal motor deficits Psychiatric: Orientation: alert and oriented x 3 Results & Data ([facility]) Vital Signs (Past 12 Hours) Vital Signs Temp Pulse Pulse Pulse Resp BP Pulse Ox 02/16/22 09:30 91 H 02/16/22 07:28 36.6 C 114 H 20 114/73 95 02/16/22 03:41 36.3 C L 110 H 18 95/60 L 94 PG Care Time/CCT Total # of Minutes Spent Total Time Spent with Patient: Total time spent is greater than 50% in coordination of care (as documented) at patient's floor/unit and/or counseling patient: Coding Level of Care Code 97020 Subseq Hosp Care Lvl 3 Diagnoses ESRD (end stage renal disease) N18.6 Essential hypertension I10 Anemia in CKD (chronic kidney disease) N18.9; D63.1 Vitamin D deficiency E55.9
[2022-02-16] MEDS ORDERED: Nursing to Pharmacy Communication SCH (18:45)
[2022-02-16] MEDS ORDERED: BUMETANIDE 4 MG in SYRINGE 0 ML IV ONE (19:15)
--- NOTE | 2022-02-16 19:21 | Electrocardiogram Report ---
Test Reason : Blood Pressure : / mmHG Vent. Rate : 073 BPM Atrial Rate : 357 BPM P-R Int : 000 ms QRS Dur : 082 ms QT Int : 396 ms P-R-T Axes : 000 -23 010 degrees QTc Int : 436 ms Atrial fibrillation Low voltage QRS Septal infarct (cited on or before 13-FEB-2022) Inferior infarct (cited on or before 13-FEB-2022) Abnormal ECG When compared with ECG of 14-FEB-2022 06:49, No significant change was found Confirmed by Hernandez Dash ([id number]) on 02/16/2022 7:21:39 PM Referred By: REFERRED SELF Confirmed By:Hernandez Dash
--- NOTE | 2022-02-16 20:11 | Hospitalist Progress Note ---
Date of Service February 16, 2022 Assessment & Plan (1) Acute respiratory failure with hypoxia: Plan: 2nd to volume overloaded state in the setting of acute/chronic CKD stage 4. Improved today with less distress and was in room air much of today. HD being discussed/planned - likely to start tomorrow after HD catheter placement. Vascular surgery consult placed. She has very large pleural effusions b/l - see below. Had had No effective diuresis with 80mg lasix, followed by 120mg lasix -- but did have response to bumex 4mg. Will repeat bumex 4mg IV x 1 today. Continue barlow. Continue NC O2. Pulmonary consult appreciated. Had asked them to see her for consideration of thoracentesis - deferred at this time due to Eliquis use, although it has been on hold - last dose 02/14 at 0830. (2) Acute metabolic encephalopathy: Plan: likely all 2nd to MITCHEL/uremia. Can't rule out metabolic effects from infection - UTI, biliary tract disease, etc. Continue supportive care. Empiric abx. HD is needed for uremia. recent TSH wnl. vit B12 level wnl. ammonia is wnl. B1 pending -- while awaiting level --> empiric thiamine 200mg BID. (3) Gallstones: Plan: u/a and CT with numerous gallstones & sludge. both studies equivacol for acute cholecystitis. LFTs today wnl. Empiric rocephin/flagyl to cover the gall bladder. Consider HIDA Thursday to Thursday just to be sure that a brewing cholecystitis isn't present. Need to address #1/#4 first. (4) Volume overload: Plan: 2nd to acute/chronic CKD. Attempts at diuresis unsuccessful but bumex was more effective at such. repeat IV bumex today. Likely to need HD starting Thursday. (5) Bilateral pleural effusion: Plan: 2nd to acute/chronic CKD. Echo with preserved EF. TSH wnl. I have consulted pulmonary for consideration of right-sided thoracentesis for therapeutic purposes. Very large effusion on that side. Pulmonary consult completed - prefer to wait 1-2 days more due to the eliquis. Eliquis on hold - last dose AM of 02/14/22. (6) Chronic kidney disease, stage 4 (severe): Plan: baseline CrCl 15-20 baseline Creatinine = low 2's now with acute renal failure with Cr >5 uremia continues to worsen by way of lab values but she did have decent diuresis overnight with bumex repeat bumex again today (4mg IV x 1) then likely initiation of HD tomorrow per Dr Cedeño (7) Essential hypertension: Plan: BPs low or low-normal HOLD CCB long-acting; changed to lower dose of CCB with diltiazem 30mg q6h HOLD hydralazine cont beta luda (8) Unspecified atrial fibrillation: Plan: cont BB resume CCB although at lower dose of diltiazem 30mg q6h rates for the most part acceptable eliquis is on hold (9) Type 2 diabetes mellitus with diabetic neuropathy: Plan: HbA1C 5.3% hold lantus loose novolog SSI (10) Hyperlipidemia: Plan: statin LFTs remain wnl (11) Gout, unspecified: Plan: no signs of flare (12) Anemia in CKD (chronic kidney disease): Plan: H/H acceptable at this time Hb 9-10 range trend Plan: Ko Subramanian (patient's brother and POA) - [phone] -- extensively updated by phone yesterday 02/15/22 care d/w nephrology Admission and Anticipated Discharge Date Admission Date: February 13, 2022 Subjective patient had fairly good response to the IV bumex overnight - 600-700cc+ had better day today overall when I saw her she was lying flat without orthopnea she was more awake, alert and interactive she had remembered more of the day's events than previous days denied any vomiting did report a mild discomfort under the right ribcage staff report she ate better today than prior days denies pain w/ eating tele - a.fib - rates low 100s Review of Systems Review of Systems: gen - fatigue, weak; but appetite better today cv - no chest pain pulm - still with dyspnea; no cough GI - no nausea or vomiting - barlow remains in place Physical Exam Physical Exam: gen - looks better today; less distress with her breathing; more comfortable; more interactive mouth - MMM neck - JVD present heart - irregular, s1 s2, no murmur; mild tachycardia lungs - airation modestly improved today; decreased BS 1/2 -- 2/3 way up the back posteriorly with scattered rales; no wheeze abd - soft, minimal tenderness RUQ with deep palpation; ND BS+ ext - <1+ edema b/l, pulses 2+ b/l psych - seems less confused today Results & Data Results & Data ([facility]) Vital Signs (Past 12 Hours) Vital Signs Temp Pulse Pulse Pulse Resp BP BP 02/16/22 20:00 36.4 C L 103 H 18 95/53 L 02/16/22 15:55 36.4 C L 59 L 19 104/62 02/16/22 12:00 36.5 C 96 H 96/60 L 02/16/22 09:30 91 H Pulse Ox 02/16/22 20:00 96 02/16/22 15:55 92 02/16/22 12:00 93 02/16/22 09:30 Laboratory Results Laboratory Results - last 24 hr 02/15/22 02/16/22 02/16/22 20:39 07:19 07:19 Sodium 137 Potassium 4.8 Chloride 102 Carbon Dioxide 20 L Anion Gap 15 H BUN 94 H Creatinine 5.67 H* Est Cr Clr Drug Dosing 7.0 Est GFR ( Amer) 7.5 Est GFR (Non-Af Amer) 6.5 BUN/Creatinine Ratio 16.6 Glucose 108 H POC Glucose 118 H Calcium 7.7 L Total Bilirubin Direct Bilirubin AST ALT Alkaline Phosphatase Ammonia 70.0 Total Protein Albumin Vitamin B1 Vitamin B12 02/16/22 02/16/22 02/16/22 07:19 07:19 07:19 Sodium Potassium Chloride Carbon Dioxide Anion Gap BUN Creatinine Est Cr Clr Drug Dosing Est GFR ( Amer) Est GFR (Non-Af Amer) BUN/Creatinine Ratio Glucose POC Glucose Calcium Total Bilirubin 0.5 Direct Bilirubin 0.1 AST 11 L ALT 9 Alkaline Phosphatase 81 Ammonia Total Protein 5.7 L Albumin 2.8 L Vitamin B1 Pending Vitamin B12 896 02/16/22 02/16/22 02/16/22 07:24 11:27 16:12 Sodium Potassium Chloride Carbon Dioxide Anion Gap BUN Creatinine Est Cr Clr Drug Dosing Est GFR ( Amer) Est GFR (Non-Af Amer) BUN/Creatinine Ratio Glucose POC Glucose 109 H 173 H 141 H Calcium Total Bilirubin Direct Bilirubin AST ALT Alkaline Phosphatase Ammonia Total Protein Albumin Vitamin B1 Vitamin B12 Diagnostic Findings urine culture negative PG Care Time/CCT Total # of Minutes Spent Total Time Spent with Patient: Total time spent is greater than 50% in coordination of care (as documented) at patient's floor/unit and/or counseling patient: Coding Level of Care Code 98907 Subseq Hosp Care Lvl 2 Diagnoses Acute respiratory failure with hypoxia J96.01 Acute metabolic encephalopathy G93.41 Gallstones K80.20 Volume overload E87.70 Bilateral pleural effusion J90 Chronic kidney disease, stage 4 (severe) N18.4 Essential hypertension I10 Unspecified atrial fibrillation I48.91 Atrial fibrillation type: unspecified Type 2 diabetes mellitus with diabetic neuropathy E11.40 Hyperlipidemia E78.5 Gout, unspecified M10.9 Anemia in CKD (chronic kidney disease) N18.9; D63.1 (1) Unspecified atrial fibrillation Atrial fibrillation type: unspecified Qualified Code(s): I48.91 - Unspecified atrial fibrillation
[2022-02-16] MEDS: cefTRIAXone SODIUM 1,000 MG in DEXTROSE 5% 50 ML IV SCH (20:54)
[2022-02-17] MEDS: metroNIDAZOLE 500 MG/100 ML BAG IV SCH ×2 (04:42→13:37)
[2022-02-17 06:04] LABS: Hematocrit (blood only) 30.8 % (37-47); Hemoglobin 10.1 g/dL (12.0-16.0); Mean Corpuscular Hemoglobin 31.5 pg (25-34); Mean Corpuscular Hgb Conc 32.8 g/dL (32-36); Mean Platelet Volume 9.3 fL (7.4-10.4); Platelet Count 337 K/uL (130-400); RDW Coefficient of Variation 17.1 % (11.5-14.5); RDW Standard Deviation 58.7 fL (36.4-46.3); Red Blood Count 3.21 M/uL (4.2-5.4); White Blood Count 7.77 K/uL (4.8-10.8)
[2022-02-17 06:42] LABS: Albumin Level 2.6 gm/dl (3.4-5.0); BUN Creatinine Ratio 17.6 (10-20); Calcium 7.5 mg/dl (8.5-10.1); Creatinine Clr Calc Pharmacy 7.4 ml/min; Est GFR (African American) 7.9 ml/min; Est GFR (Non-African American) 6.9 ml/min; Phosphorus 5.6 mg/dl (2.5-4.9); Potassium 3.7 mmol/L (3.5-5.1)
[2022-02-17] MEDS: dilTIAZem HCL 30 MG TAB PO SCH (08:40)
[2022-02-17] MEDS: SIMVASTATIN 20 MG TAB PO SCH (08:42)
[2022-02-17] MEDS: METOPROLOL SUCC 25MG EXT REL TAB PO SCH (08:52)
[2022-02-17] MEDS: THIAMINE HCL 200 MG in SODIUM CHLORIDE 0.9% 50 ML IV SCH ×2 (08:59→20:50)
[2022-02-17] MEDS ORDERED: BUMETANIDE 4 MG in SYRINGE 0 ML IV ONE (09:00)
[2022-02-17] MEDS: INSULIN ASPART PER UNIT SC SCH ×4 (09:04→20:44)
--- NOTE | 2022-02-17 09:39 | Consultation ---
Date of Consultation February 17, 2022 Assessment & Plan (1) ESRD (end stage renal disease): Pt scheduled for permcath insertion later this AM by Dr Benz. Pt agreeable. Patient was seen, examined, and chart reviewed. Agree with exam and treatment plan of the Vascular PA. I have discussed the risks options and benefits of the procedure with the patient. The patient understands the risks options and benefits and agrees to the procedure. History of Present Illness Reason for Consultation: ESRD, need percamth Attending Physician: Riley Ramirez History of Present Illness 82 yo f with hx of CKD, DMII, spinal stenosis and L foot drop, a fib, hyperlipidemia, gout, admitted with fluid overload and MITCHEL, seen in consultation today for permcath insertion for HD initiation. Pt states no prior hx of being on HD in past. Labs demonstrated acute on chronic kidney disease. Denies DUMONT, fever, chest pain, SOB, abd pain, N/V, rest pain, claudication, other complaints. Allergies Allergy/AdvReac Type Severity Reaction Status Date / Time No Known Drug Allergies Allergy Verified 12/18/21 13:53 Home Medications Medication Instructions Recorded Confirmed Type allopurinol 100 mg tablet 100 mg PO DAILY 07/30/21 12/18/21 History apixaban 2.5 mg tablet (Eliquis) 2.5 mg PO BID 07/30/21 12/18/21 History diltiazem HCl 240 mg 240 mg PO DAILY 07/30/21 12/18/21 History capsule,extended release 24 hr hydralazine 25 mg tablet 25 mg PO TID 07/30/21 12/18/21 History insulin glargine 100 unit/mL (3 12 unit SUBCUT BID ml 07/30/21 12/18/21 History mL) subcutaneous pen (Lantus Solostar U-100 Insulin) insulin lispro 100 unit/mL 1 sliding scale dose SUBCUT 07/30/21 12/18/21 History subcutaneous solution (Humalog USEASDIRECTD U-100 Insulin) metoprolol succinate 50 mg 50 mg PO DAILY 07/30/21 12/18/21 History tablet,extended release 24 hr polyethylene glycol 3350 17 17 g PO DAILY PRN 07/30/21 12/18/21 History gram/dose oral powder (Miralax) simvastatin 20 mg tablet 20 mg PO DAILY 07/30/21 12/18/21 History tramadol 50 mg tablet 50 mg PO Q8H PRN 07/30/21 12/18/21 History ergocalciferol (vitamin D2) 1,250 50,000 unit PO WEEKLY #12 cap 12/04/21 12/18/21 Rx mcg (50,000 unit) capsule Patient History Medical History CKD (chronic kidney disease) Diabetes Hyperlipidemia Hypertension Surgical History History of hip surgery Right Previous back surgery Family History Father Cerebral aneurysm Family/Other Diabetes Hypertension Glaucoma Social History Smoking Status: Never smoker Second Hand Exposure: Yes; Hx Alcohol Use: No Hx Substance Use: No Preferred Language: [place] Citizen Communication Ability: Effective Visual Impairment: No Limitations Hearing Ability: Normal Milk Pasteurizer Required: No Beliefs That Will Affect Care: None marital status: / Current Living Situation: Other Current Living Situation Comment: lives at [facility] current occupational status: retired How many Children do You have: 1 How many Children do You have Comment: 2 stepchildren Feels Safe at Home: Yes Safety Concerns: Feels Safe At This Time during the past year weight has: remained stable Assistive Devices: Walker and Wheelchair Review of Systems Review of Systems: All systems reviewed & are unremarkable except as noted in HPI & below Physical Exam Constitutional: WD/WN, vitals as above cooperative and comfortable; not in distress Neck: trachea midline Respiratory: normal respiratory effort, lungs clear to auscultation Auscultation: + diminished lung sounds Cardiovascular: Rate/Rhythm: + irregularly irregular Vessels: femoral pulses present, posterior tibial pulses present, dorsalis pedis pulses present and radial pulses present; + abnormal peripheral pulses Extremities: normal capillary refill and + edema (trace) Gastrointestinal (Abdomen): Inspection/Auscultation: abdomen normal to inspection and normal bowel sounds Percussion/Palpation: abdomen soft; abdomen nontender Musculoskeletal: no cyanosis or clubbing, extremities motor strength 5/5 (L foot drop noted) Skin: no rashes, warm and dry Neurologic: moves all extremities and awake; no focal motor deficits and not confused Psychiatric: A+Ox3, euthymic affect Results & Data ([facility]) Vital Signs (Past 12 Hours) Vital Signs Temp Pulse Pulse Pulse Resp BP BP 02/17/22 07:50 36.5 C 112 H 22 100/67 02/17/22 04:23 36.6 C 108 H 18 104/69 02/16/22 22:40 36.8 C 105 H 18 96/59 L 02/16/22 22:20 98 H Pulse Ox 02/17/22 07:50 97 02/17/22 04:23 96 02/16/22 22:40 99 02/16/22 22:20
--- NOTE | 2022-02-17 09:58 | Nephrology Progress Note ---
Date of Service February 17, 2022 Assessment & Plan (1) ESRD (end stage renal disease): (2) Essential hypertension: (3) Anemia in CKD (chronic kidney disease): (4) Vitamin D deficiency: Plan: 82-year-old female with stage IV CKD baseline creatinine around 2.3-2.5, most likely secondary to microvascular disease with history of hypertension diabetes. Never had kidney biopsy before. Presented to CKD clinic with advanced CKD for 5 years as recently moved from [place] to [place]. Admitted to the hospital with shortness of breath, hypoxia and respiratory failure with oxygen saturation in 80s. respiratory status improved on nasal cannula oxygen. Has been oliguric despite getting Lasix, however respiratory seem status seems to be stable. Renal function continues to worsen however electrolyte acceptable. Urine output slightly improved, Responded better to Bumex. -- no indication for emergency dialysis today, plan for first HD tomorrow after IJ TCC today. -- left arm nephrology precaution for possible need for future vascular access. --Epogen 13487 units x 1 dose tomorrow with HD Will follow Admission and Anticipated Discharge Date Admission Date: February 13, 2022 Subjective Jessi Miranda was seen and evaluated in her room this morning. She reports overall feeling better, denies any significant shortness of breath while resting, no nausea. Responded to IV Bumex with more than 700 mL of urine output. However, no improvement in renal function although electrolyte acceptable. Blood pressure remained relatively low but asymptomatic. Review of Systems Review of Systems: Detailed review of system was otherwise unremarkable except mentioned above. Constitutional: + weakness; no fever Physical Exam Constitutional: WD/WN, vitals as above + ill appearing; no acute distress Eyes: + anicteric sclerae Neck: normal visual inspection Respiratory: Auscultation: + diminished lung sounds Cardiovascular: Rate/Rhythm: regular rate and regular rhythm Skin: no rashes Neurologic: no focal motor deficits Psychiatric: Orientation: alert and oriented x 3 Results & Data ([facility]) Vital Signs (Past 12 Hours) Vital Signs Temp Pulse Pulse Pulse Resp BP BP 02/17/22 07:50 36.5 C 112 H 22 100/67 02/17/22 04:23 36.6 C 108 H 18 104/69 02/16/22 22:40 36.8 C 105 H 18 96/59 L 02/16/22 22:20 98 H Pulse Ox 02/17/22 07:50 97 02/17/22 04:23 96 02/16/22 22:40 99 02/16/22 22:20 PG Care Time/CCT Total # of Minutes Spent Total Time Spent with Patient: Total time spent is greater than 50% in coordination of care (as documented) at patient's floor/unit and/or counseling patient: Coding Level of Care Code 40609 Subseq Hosp Care Lvl 3 Diagnoses ESRD (end stage renal disease) N18.6 Essential hypertension I10 Anemia in CKD (chronic kidney disease) N18.9; D63.1 Vitamin D deficiency E55.9
--- NOTE | 2022-02-17 10:48 | Pulmonology Progress Note ---
Date of Service February 17, 2022 Assessment & Plan (1) Volume overload: (2) ESRD (end stage renal disease): (3) Bilateral pleural effusion: (4) Anticoagulant long-term use: Plan: Attending: Dr. Upton This is an 82-year-old female with a history of atrial fibrillation on Eliquis, CKD stage IV, diabetes mellitus type 2 and pressure ulcers presenting to the hospital due to altered mental status, shortness of breath and hyperglycemia. She was found to have worsening renal failure and is now going to undergo hemodialysis catheter placement. Last dose of apixaban was administered 02/14/2022 at 8:41 AM. Recommendations: 1. Bilateral pleural effusions: * These appear to be secondary to volume overload * Cumulative ins and outs since admission are -1.4 L * Patient currently on Bumex. Prior to that patient, received furosemide * Patient should have apixaban held for total 4 doses to safely perform thoracentesis if needed (last dose 02/14/2022 at 8:41 AM.) * Currently patient is saturating 93% on room air at rest * Nursing staff instructed to call should patient have increased supplemental oxygen requirements. Until that time, continue supportive care 2. Question of pulmonary consolidations of bilateral bases: * No productive cough or sputum. * Afebrile * Procalcitonin is negative is 0.36 * Patient empirically started on ceftriaxone and metronidazole for GI issues. Ceftriaxone should be adequate for any pulmonary process. No specific antibiotics for pulmonary required 3. Hypoxia: * No documented hypoxia in the system. Patient however started on 2 L/min via nasal cannula due to drop in saturation * Is most likely secondary to pleural effusion and fluid overload * No history of tobacco abuse or COPD or other pulmonary process * Will titrate supplemental oxygen off as tolerated to maintain SaO2 greater than 90% 4. MITCHEL/volume overload: * Nephrology consulted. Possibility of dialysis for electrolyte management and ultrafiltration * Dialysis catheter per Dr. Benz and Dr. Cedeño * Continue with diuresis as tolerated * Cumulative fluid balance is negative 1.4 L for this admission Thank you for including us in the care of this patient. We will continue to follow along with you. Admission and Anticipated Discharge Date Admission Date: February 13, 2022 Subjective Attending: Dr. Upton This is a an 82-year-old female that was admitted 02/13/2022. She was found to have a large pleural effusion with associated shortness of breath. Pulmonary was consulted at that time to evaluate for thoracentesis. Chest x-ray on 02/14/2022 revealed layering pleural effusion with bibasilar consolidation. No further chest imaging since that time. Patient currently appears to be stable from a pulmonary standpoint. She denies any significant shortness of breath. At the time of my examination she is saturating 93% on room air. Patient states that she has not been out of bed since admission other than to use the bedside toilet. She denies any shortness of breath with exertion. She denies any cough or sputum production. No fever or chills. No chest pain or tightness. Patient is a lifelong non-smoker. No other acute complaints from a pulmonary perspective. Review of Systems Review of Systems: A total of 10 systems was reviewed and is negative other than as listed in the HPI Physical Exam Physical Exam: GENERAL : No acute distress. Very pleasant and talkative. No conversational dyspnea noted EYES: No icterus, gaze conjugate NOSE: No evidence of epistaxis MOUTH: No lesions or candidiasis NECK: Supple LUNGS: Significant decrease in breath sounds on the right. Coarse rhonchi on the left. No paroxysmal chestwall movement. No use of accessory muscles. HEART: Regular, rate controlled ABDOMEN: Soft, NT, ND, BS Present EXTREMITIES: No LE edema, pedal pulses intact NEURO: A&OX3 Results & Data Results & Data ([facility]) Vital Signs (Past 12 Hours) Vital Signs Temp Pulse Pulse Resp BP BP Pulse Ox 02/17/22 07:50 36.5 C 112 H 22 100/67 97 02/17/22 04:23 36.6 C 108 H 18 104/69 96 Critical Care Results & Data Vital Signs (Past 12 Hours) Vital Signs Temp Pulse Pulse Resp BP BP Pulse Ox 02/17/22 07:50 36.5 C 112 H 22 100/67 97 02/17/22 04:23 36.6 C 108 H 18 104/69 96 Lab & Micro Results (Past 24 Hours) RBC 3.21 M/uL (4.2-5.4) L 02/17/22 WBC 7.77 K/uL (4.8-10.8) 02/17/22 Hgb 10.1 g/dL (12.0-16.0) L 02/17/22 Hct 30.8 % (37-47) L 02/17/22 MCV 96.0 fL (80-100) 02/17/22 MCH 31.5 pg (25-34) 02/17/22 MCHC 32.8 g/dL (32-36) 02/17/22 RDW Standard Deviation 58.7 fL (36.4-46.3) H 02/17/22 RDW Coefficient of Variation 17.1 % (11.5-14.5) H 02/17/22 Plt Count 337 K/uL (130-400) 02/17/22 MPV 9.3 fL (7.4-10.4) 02/17/22 Na 138 mmol/L (136-145) 02/17/22 K 3.7 mmol/L (3.5-5.1) 02/17/22 Cl 102 mmol/L (98-107) 02/17/22 CO2 25 mmol/L (21-32) 02/17/22 Anion Gap 11 (3-11) 02/17/22 BUN 95 mg/dl (6-23) H 02/17/22 Creatinine 5.41 mg/dl (0.6-1.2) H* 02/17/22 Estimated GFR ( Amer) 7.9 ml/min 02/17/22 Estimated GFR (Non-Af Amer) 6.9 ml/min 02/17/22 BUN/Creatinine Ratio 17.6 (10-20) 02/17/22 Glu 139 mg/dl (70-99(Fasting)) H 02/17/22 Ca 7.5 mg/dl (8.5-10.1) L 02/17/22 Phosphorus Level 5.6 mg/dl (2.5-4.9) H 02/17/22 Albumin 2.6 gm/dl (3.4-5.0) L 02/17/22 Calcium Level 7.5 mg/dl (8.5-10.1) L 02/17/22 05:22 02/17/22 Microbiology 02/14/22 17:23 Urine Culture - Final Urine,Clean Catch Lactobacillus species Diagnostic Findings (Past 24 Hours) XR chest 1V portable 02/14/2022 HISTORY: 81 years-old Female hypoxia acute hypoxia COMPARISON: Chest radiograph 02/13/2022 TECHNIQUE: Portable AP view of the chest FINDINGS: The cardiac silhouette is enlarged. No pneumothorax. Pulmonary vascular congestion with interstitial coarsening. Layering pleural effusions with bibasilar consolidation appears generally stable. Degenerative changes of the shoulders and spine. IMPRESSION: 1. Stable exam with cardiomegaly and pulmonary edema. 2. Layering pleural effusions with bibasilar consolidation. ACT 112: Negative or not required by law. The above report was generated using voice recognition software. It may contain grammatical, syntax or spelling errors. Electronically signed by: Isak Bhatia M.D. 02/14/2022 7:20 AM I & O Totals 24 Hours 02/16/22 02/17/22 02/18/22 06:59 06:59 06:59 Intake Total 260 / 260 464 / 464 Output Total 750 / 750 1400 / 1400 Balance -490 / -490 -936 / -936 Cumulative 02/13/22 16:36 thru 02/17/22 06:01 Intake Total 914 Output Total 2301 Balance -1387 RT Ventilator Mngmt (Last Documented) Ventilator Ordered Settings Respiratory Rate 22 02/17/22 07:50 Ventilator - PT Measurements Respiratory Rate 22 PG Care Time/CCT Total # of Minutes Spent Total Time Spent with Patient: Total time spent is greater than 50% in coordination of care (as documented) at patient's floor/unit and/or counseling patient: Coding Level of Care Code 53216 Subseq Hosp Care Lvl 2 Diagnoses Volume overload E87.70 ESRD (end stage renal disease) N18.6 Bilateral pleural effusion J90 Anticoagulant long-term use Z79.01
[2022-02-17] MEDS ORDERED: MoRPHine SULFATE 2 MG/ML CARP ONE (12:15)
--- NOTE | 2022-02-17 13:11 | Nuclear Medicine Report ---
NM hepatobiliary CLINICAL HISTORY: RUQ pain; abnl GB on CT u/s TECHNIQUE: Following the intravenous injection of 5.5 mCi of Tc-99m labeled Technetium 99m mebrofeni n, multiple images of the upper abdomen were obtained in the anterior projection with uptake measurem ents of the gallbladder obtained. 2 mg of morphine were administered after 60 minutes. Comparison: None available at the time of this dictation. FINDINGS: Sequential images demonstrate normal uptake in the liver, common bile duct, and small bowel . No defects in uptake are identified. Following administration of morphine, the gallbladder was see n to fill with radiotracer. IMPRESSION: Normal uptake of contrast by the gallbladder. ACT 112: Negative or not required by law. Electronically signed by: Maxi Concepcion M.D. 02/17/2022 1:09 PM
[2022-02-17] MEDS: dilTIAZem HCL 180 MG CAPCR PO SCH (16:30)
[2022-02-17 18:50] LABS: Albumin Level 2.8 gm/dl (3.4-5.0); BUN Creatinine Ratio 17.4 (10-20); Calcium 7.8 mg/dl (8.5-10.1); Creatinine Clr Calc Pharmacy 7.4 ml/min; Est GFR (African American) 8.1 ml/min; Phosphorus 5.8 mg/dl (2.5-4.9)
[2022-02-17] MEDS ORDERED: METOPROLOL TARTRATE 25 MG TAB PO ONE (20:15)
--- NOTE | 2022-02-17 20:42 | Hospitalist Progress Note ---
Date of Service February 17, 2022 Assessment & Plan (1) Acute respiratory failure with hypoxia: Plan: 2nd to volume overloaded state in the setting of acute/chronic CKD stage 4. Only requiring minimal amount of NC O2. Her respiratory symptoms and distress/tachypnea are improved. Has improved with escalating doses of diuretics. Had had no effective diuresis with 80mg lasix, followed by 120mg lasix -- but did have response to bumex 4mg. Will repeat bumex 4mg IV x 1 once again today. Continue barlow. Continue NC O2. Pulmonary consult appreciated. Had asked them to see her for consideration of thoracentesis - deferred at this time due to Eliquis use, although it has been on hold - last dose 02/14 at 0830. (2) Acute metabolic encephalopathy: Plan: 2nd to MITCHEL/uremia. improved mentation today. recent TSH wnl. vit B12 level wnl. ammonia is wnl. B1 pending -- while awaiting level --> empiric thiamine 200mg BID. some concern for cholecystitis. HIDA obtained - normal; stop antibiotics. (3) Gallstones: Plan: u/a and CT with numerous gallstones & sludge. both studies equivacol for acute cholecystitis. LFTs have been normal. HIDA scant today normal/negative. can stop empiric rocephin/flagyl. no GI symptoms and no abd pain. (4) Volume overload: Plan: 2nd to acute/chronic CKD. IS responding to high-dose IV bumex and symptoms have improved. Initially we were going to plae HD catheter today to start dialysis - this was deferred. I spoke with Dr Cedeño late in the day today. Since Cr has peaked and is slowly coming down - AND she is diuresing - AND potassium / acid-base status is stable - likely to cancel HD catheter placement Thursday. Has slight chance that perhaps she has renal recovery. Labs in am. Appreciate nephrology/pulmonary/vascular surgery consults & recs. (5) Bilateral pleural effusion: Plan: 2nd to acute/chronic CKD. Echo with preserved EF. TSH wnl. I have consulted pulmonary for consideration of right-sided thoracentesis for therapeutic purposes. Very large effusion on that side. Pulmonary consult completed - prefer to wait on thoracentesis at this time. They wish to see if the effusions improve with diuresis and/or dialysis if she ultimately needs such. Eliquis on hold - last dose AM of 02/14/22. (6) Chronic kidney disease, stage 4 (severe): Plan: baseline CrCl 15-20 baseline Creatinine = low 2's now with acute renal failure with Cr >5 uremia continues but she did have decent diuresis overnight with bumex once again repeat bumex again today (4mg IV x 1) although we were planning HD catheter placement and initiation of HD today (or tomorrow) we are going to give her another day or two to see if she has meaningful renal recovery (7) Essential hypertension: Plan: BPs low or low-normal Had held her CCB and BB because of low BPs but now a.fib rates are fast Resumed CCB albeit at lower dose of 180mg of cardizem CD resumed metoprolol xl and titrated this to 75mg daily (8) Unspecified atrial fibrillation: Plan: resumed CCB although at lower dose of diltiazem CD 180mg daily resumed metoprolol xl - took dose up to 75mg daily continue telemetry camilaqumichael is on hold -- see above (9) Type 2 diabetes mellitus with diabetic neuropathy: Plan: HbA1C 5.3% hold lantus loose novolog SSI (10) Hyperlipidemia: Plan: statin LFTs remain wnl (11) Gout, unspecified: Plan: no signs of flare (12) Anemia in CKD (chronic kidney disease): Plan: H/H acceptable at this time Hb 9-10 range trend Plan: Ko Subramanian (patient's brother and POA) - [phone] -- extensively updated by phone 02/15/22 and again 02/17/22 questions answered care d/w nephrology extensively total time today 35 min Admission and Anticipated Discharge Date Admission Date: February 13, 2022 Subjective patient much more awake, alert, oriented today she recalls much of the activity of today she asks "do I need dialysis?" she denies any dyspnea no orthopnea did eat a little better today (25% of meals) denied any abd pain tele - a.fib, rates>100 Review of Systems Review of Systems: gen - no fevers, no chills cv - no chest pain, no orthopnea, no PND pulm - no cough; surprisingly no dyspnea GI - no nausea or emesis; no abd pain w/ eating - barlow in place Physical Exam Physical Exam: gen - best she has looked all admission; NAD; much more oriented today mouth - MMM neck - no JVD today heart - irregular, s1 s2, no murmur; tachycardic lungs - still with decreased BS 1/2 -- 2/3 way up the back posteriorly with scattered rales - worst on right; no wheeze; no distress abd - soft, NT, ND, BS+ ext - <1+ edema b/l, pulses 2+ b/l psych - more awake, more alert, oriented x 3 today Results & Data Results & Data ([facility]) Vital Signs (Past 12 Hours) Vital Signs Temp Pulse Pulse Resp BP Pulse Ox 02/17/22 19:26 36.3 C L 120 H 22 101/68 97 02/17/22 15:55 36.5 C 114 H 22 109/71 94 02/17/22 11:52 36.3 C L 109 H 22 114/78 94 Laboratory Results Laboratory Results - last 24 hr 02/17/22 02/17/22 02/17/22 05:22 05:22 05:22 WBC 7.77 RBC 3.21 L Hgb 10.1 L Hct 30.8 L MCV 96.0 MCH 31.5 MCHC 32.8 RDW Std Deviation 58.7 H RDW Coeff of Odilon 17.1 H Plt Count 337 MPV 9.3 Sodium 138 Potassium 3.7 D Chloride 102 Carbon Dioxide 25 Anion Gap 11 BUN 95 H Creatinine 5.41 H* Est Cr Clr Drug Dosing 7.4 Est GFR ( Amer) 7.9 Est GFR (Non-Af Amer) 6.9 BUN/Creatinine Ratio 17.6 Glucose 139 H POC Glucose Calcium 7.5 L Phosphorus 5.6 H Albumin 2.6 L Hep Bs Antigen Pending Hep Bs Ag Confirmation Pending Hep Bs Antibody, Quant Pending Hep B Core Total Ab Pending 02/17/22 02/17/22 02/17/22 07:52 16:39 17:50 WBC RBC Hgb Hct MCV MCH MCHC RDW Std Deviation RDW Coeff of Odilon Plt Count MPV Sodium 138 Potassium 4.0 Chloride 100 Carbon Dioxide 26 Anion Gap 12 H BUN 93 H Creatinine 5.34 H* Est Cr Clr Drug Dosing 7.4 Est GFR ( Amer) 8.1 Est GFR (Non-Af Amer) 7.0 BUN/Creatinine Ratio 17.4 Glucose 168 H POC Glucose 132 H 138 H Calcium 7.8 L Phosphorus 5.8 H Albumin 2.8 L Hep Bs Antigen Hep Bs Ag Confirmation Hep Bs Antibody, Quant Hep B Core Total Ab 02/17/22 20:36 WBC RBC Hgb Hct MCV MCH MCHC RDW Std Deviation RDW Coeff of Odilon Plt Count MPV Sodium Potassium Chloride Carbon Dioxide Anion Gap BUN Creatinine Est Cr Clr Drug Dosing Est GFR ( Amer) Est GFR (Non-Af Amer) BUN/Creatinine Ratio Glucose POC Glucose 148 H Calcium Phosphorus Albumin Hep Bs Antigen Hep Bs Ag Confirmation Hep Bs Antibody, Quant Hep B Core Total Ab PG Care Time/CCT Total # of Minutes Spent Total Time Spent with Patient: Total time spent is greater than 50% in coordination of care (as documented) at patient's floor/unit and/or counseling patient: Coding Level of Care Code 26637 Subseq Hosp Care Lvl 3 Diagnoses Acute respiratory failure with hypoxia J96.01 Acute metabolic encephalopathy G93.41 Gallstones K80.20 Volume overload E87.70 Bilateral pleural effusion J90 Chronic kidney disease, stage 4 (severe) N18.4 Essential hypertension I10 Unspecified atrial fibrillation I48.91 Atrial fibrillation type: unspecified Type 2 diabetes mellitus with diabetic neuropathy E11.40 Hyperlipidemia E78.5 Gout, unspecified M10.9 Anemia in CKD (chronic kidney disease) N18.9; D63.1 (1) Unspecified atrial fibrillation Atrial fibrillation type: unspecified Qualified Code(s): I48.91 - Unspecified atrial fibrillation
[2022-02-18 06:28] LABS: Hematocrit (blood only) 31.6 % (37-47); Mean Corpuscular Hemoglobin 30.5 pg (25-34); Mean Corpuscular Hgb Conc 31.6 g/dL (32-36); Mean Corpuscular Volume 96.3 fL (80-100); Mean Platelet Volume 9.5 fL (7.4-10.4); Platelet Count 349 K/uL (130-400); RDW Standard Deviation 58.4 fL (36.4-46.3); Red Blood Count 3.28 M/uL (4.2-5.4); White Blood Count 8.05 K/uL (4.8-10.8)
[2022-02-18 06:50] LABS: Albumin Level 2.7 gm/dl (3.4-5.0); BUN Creatinine Ratio 18.4 (10-20); Calcium 7.7 mg/dl (8.5-10.1); Creatinine Clr Calc Pharmacy 7.8 ml/min; Est GFR (African American) 8.7 ml/min; Est GFR (Non-African American) 7.5 ml/min; Phosphorus 5.6 mg/dl (2.5-4.9); Potassium 3.5 mmol/L (3.5-5.1)
[2022-02-18] MEDS: INSULIN ASPART PER UNIT SC SCH ×4 (08:35→21:05)
[2022-02-18] MEDS: dilTIAZem HCL 180 MG CAPCR PO SCH (08:37)
[2022-02-18] MEDS: SIMVASTATIN 20 MG TAB PO SCH (08:38)
[2022-02-18] MEDS: THIAMINE HCL 200 MG in SODIUM CHLORIDE 0.9% 50 ML IV SCH ×2 (08:41→21:05)
--- NOTE | 2022-02-18 09:38 | XRay Report ---
XR chest 1V portable CLINICAL HISTORY: Pleural effusion. COMPARISON STUDY: Chest radiograph February 14, 2022. FINDINGS: Lung volumes are diminished. This is unchanged. No pneumothorax is present. Moderate right and small left pleural effusions are noted. Interstitial thickening are present pulmonary edema which is slightly improved. Cardiomediastinal silhouette is stable. 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 IMPRESSION: 1. Interstitial pulmonary edema, slightly improved since prior exam. 2. Moderate right and small left pleural effusions with associated bibasilar airspace opacities. ACT 112: Negative or not required by law. Electronically signed by: Jeffrey Vargas M.D. 02/18/2022 9:37 AM
--- NOTE | 2022-02-18 10:13 | Hospitalist Progress Note ---
Date of Service February 18, 2022 Assessment & Plan (1) Acute respiratory failure with hypoxia: Plan: 2nd to volume overloaded state in the setting of acute/chronic CKD stage 4. Only requiring minimal amount of NC O2-now weaned off to room air Her respiratory symptoms and distress/tachypnea are improved. Has improved with escalating doses of diuretics. Had had no effective diuresis with 80mg lasix, followed by 120mg lasix -- but did have response to bumex 4mg on 2 occasions Chest x-ray on 02/18 reveals slightly improved interstitial pulmonary edema, moderate right and small left pleural effusions with associated bibasilar airspace opacities-overall slightly improved Continue barlow. Continue NC O2 as needed to keep pulse ox greater than 92% Pulmonary consult appreciated. Had asked them to see her for consideration of thoracentesis -pulmonology defers thoracentesis at this time-prefers continued diuresis -We will keep Eliquis on hold in case of thoracentesis tomorrow as per my discussion with pulmonology-Eliquis last dose 02/14 at 0830. -Hold off on diuretics for today as per my discussion with nephrology (2) Acute metabolic encephalopathy: Plan: 2nd to MITCHEL/uremia. Improving Mentation seems very clear on 02/18 recent TSH wnl. vit B12 level wnl. ammonia is wnl. B1 pending -- while awaiting level --> empiric thiamine 200mg BID. some concern for cholecystitis on initial imaging HIDA obtained - normal; have since stopped antibiotics. (3) Volume overload: Plan: 2nd to acute/chronic CKD. Did respond somewhat to high-dose IV bumex and symptoms have improved. Initially going to place HD catheter to start dialysis, but this was deferred as renal function started to improve and acid-base status and electrolytes are stable Has slight chance that perhaps she has renal recovery. Appreciate nephrology/pulmonary/vascular surgery consults & recs. -Follow BMP, urine output, BPs, volume status (4) Bilateral pleural effusion: Plan: 2nd to acute/chronic CKD. Echo with preserved EF. TSH wnl. Pulmonology consult-continues to defer right-sided thoracentesis at this time in favor of diuresis Very large effusion on that side. Eliquis on hold - last dose AM of 02/14/22 in case of need for thoracentesis (5) Chronic kidney disease, stage 4 (severe): Plan: baseline CrCl 15-20 baseline Creatinine = low 2's now with acute renal failure with Cr >5 uremia continues but she did have decent diuresis overnight with bumex (6) Essential hypertension: Plan: BPs low or low-normal Had held her CCB and BB because of low BPs but then a.fib rates were uncontrolled Resumed CCB albeit at lower dose of 180mg of cardizem CD resumed metoprolol xl however had to be held today for low blood pressures-lower dose to 25 mg daily for tomorrow (7) Unspecified atrial fibrillation: Plan: Continue lower dose of diltiazem and metoprolol continue telemetry eliquis is on hold -- see above (8) Type 2 diabetes mellitus with diabetic neuropathy: Plan: HbA1C 5.3% Glucose levels here only mildly elevated hold lantus loose novolog SSI (9) Gallstones: Plan: u/a and CT with numerous gallstones & sludge. both studies equivacol for acute cholecystitis. LFTs have been normal. HIDA scan normal/negative. Have since stopped empiric rocephin/flagyl. no GI symptoms and no abd pain. (10) Hyperlipidemia: Plan: statin LFTs remain wnl (11) Gout, unspecified: Plan: no signs of flare (12) Anemia in CKD (chronic kidney disease): Plan: H/H acceptable at this time Hb 9-10 range trend Plan: Ko Subramanian (patient's brother and POA) - [phone] Disposition-continued stay on PCU Admission and Anticipated Discharge Date Admission Date: February 13, 2022 Subjective Feeling well, no complaints. No pain, no nausea, no SOB. Is making urine, moving her bowels. Is agreeable to doing "whatever you need me to do" to get better. Remained on 2 L nasal cannula when I saw her. I discussed her care with nephrology and later in the day with the pulmonology PA. Tele with Afib,, rates 80-100s Review of Systems Review of Systems: All systems reviewed & are unremarkable except as noted in HPI & below Physical Exam Constitutional: WD/WN, vitals as above Eyes: + anicteric sclerae ENMT: external ear and nose normal, oropharynx normal Neck: trachea midline, no thyromegaly Respiratory: normal respiratory effort; no cough and not tachypneic Auscultation: + diminished lung sounds (At bases bilaterally); no crackles, no rhonchi and no wheezes Cardiovascular: Rate/Rhythm: regular rate and + irregularly irregular Heart Sounds: no murmur Extremities: no edema Chest (Breasts): Chest: normal inspection of chest Gastrointestinal (Abdomen): normal bowel sounds, soft, nontender, no hepatosplenomegaly Musculoskeletal: Extremities: extremities normal to inspection; no cyanosis and no clubbing Skin: no rashes, warm and dry Neurologic: moves all extremities and awake; no focal motor deficits Psychiatric: A+Ox3, euthymic affect Lymphatic: no lymphedema Results & Data Results & Data ([facility]) Vital Signs (Past 12 Hours) Vital Signs Temp Pulse Pulse Resp BP Pulse Ox 02/18/22 07:46 36.5 C 18 99/69 L 96 02/18/22 02:49 36.7 C 86 20 98/66 L 98 02/17/22 23:00 36.5 C 88 16 99/62 L 96 02/17/22 22:20 97 H Laboratory Results 02/18/22 02/18/22 02/18/22 Range/Units 16:36 11:41 05:32 WBC (4.8-10.8) K/uL RBC (4.2-5.4) M/uL Hgb (12.0-16.0) g/dL Hct (37-47) % MCV (80-100) fL MCH (25-34) pg MCHC (32-36) g/dL RDW Std Deviation (36.4-46.3) fL RDW Coeff of Odilon (11.5-14.5) % Plt Count (130-400) K/uL MPV (7.4-10.4) fL Sodium 138 (136-145) mmol/L Potassium 3.5 (3.5-5.1) mmol/L Chloride 101 (98-107) mmol/L Carbon Dioxide 27 (21-32) mmol/L Anion Gap 10 (3-11) BUN 92 H (6-23) mg/dl Creatinine 5.00 H* D (0.6-1.2) mg/dl Est Cr Clr Drug Dosing 7.8 ml/min Est GFR ( Amer) 8.7 ml/min Est GFR (Non-Af Amer) 7.5 ml/min BUN/Creatinine Ratio 18.4 (10-20) Glucose 134 H (70-99(Fasting)) mg/dl POC Glucose 160 H 132 H (70-99) mg/dl Calcium 7.7 L (8.5-10.1) mg/dl Phosphorus 5.6 H (2.5-4.9) mg/dl Albumin 2.7 L (3.4-5.0) gm/dl Hep Bs Antigen (NON-REACTIVE) Hep Bs Ag Confirmation Hep Bs Antibody, Quant (> OR = 10) mIU/mL Hep B Core Total Ab (NON-REACTIVE) 02/18/22 02/17/22 02/17/22 Range/Units 05:32 20:36 17:50 WBC 8.05 (4.8-10.8) K/uL RBC 3.28 L (4.2-5.4) M/uL Hgb 10.0 L (12.0-16.0) g/dL Hct 31.6 L (37-47) % MCV 96.3 (80-100) fL MCH 30.5 (25-34) pg MCHC 31.6 L (32-36) g/dL RDW Std Deviation 58.4 H (36.4-46.3) fL RDW Coeff of Odilon 17.0 H (11.5-14.5) % Plt Count 349 (130-400) K/uL MPV 9.5 (7.4-10.4) fL Sodium 138 (136-145) mmol/L Potassium 4.0 (3.5-5.1) mmol/L Chloride 100 (98-107) mmol/L Carbon Dioxide 26 (21-32) mmol/L Anion Gap 12 H (3-11) BUN 93 H (6-23) mg/dl Creatinine 5.34 H* (0.6-1.2) mg/dl Est Cr Clr Drug Dosing 7.4 ml/min Est GFR ( Amer) 8.1 ml/min Est GFR (Non-Af Amer) 7.0 ml/min BUN/Creatinine Ratio 17.4 (10-20) Glucose 168 H (70-99(Fasting)) mg/dl POC Glucose 148 H (70-99) mg/dl Calcium 7.8 L (8.5-10.1) mg/dl Phosphorus 5.8 H (2.5-4.9) mg/dl Albumin 2.8 L (3.4-5.0) gm/dl Hep Bs Antigen (NON-REACTIVE) Hep Bs Ag Confirmation Hep Bs Antibody, Quant (> OR = 10) mIU/mL Hep B Core Total Ab (NON-REACTIVE) 02/17/22 Range/Units 05:22 WBC (4.8-10.8) K/uL RBC (4.2-5.4) M/uL Hgb (12.0-16.0) g/dL Hct (37-47) % MCV (80-100) fL MCH (25-34) pg MCHC (32-36) g/dL RDW Std Deviation (36.4-46.3) fL RDW Coeff of Odilon (11.5-14.5) % Plt Count (130-400) K/uL MPV (7.4-10.4) fL Sodium (136-145) mmol/L Potassium (3.5-5.1) mmol/L Chloride (98-107) mmol/L Carbon Dioxide (21-32) mmol/L Anion Gap (3-11) BUN (6-23) mg/dl Creatinine (0.6-1.2) mg/dl Est Cr Clr Drug Dosing ml/min Est GFR ( Amer) ml/min Est GFR (Non-Af Amer) ml/min BUN/Creatinine Ratio (10-20) Glucose (70-99(Fasting)) mg/dl POC Glucose (70-99) mg/dl Calcium (8.5-10.1) mg/dl Phosphorus (2.5-4.9) mg/dl Albumin (3.4-5.0) gm/dl Hep Bs Antigen NON-REACTIVE (NON-REACTIVE) Hep Bs Ag Confirmation TNP Hep Bs Antibody, Quant <5 L (> OR = 10) mIU/mL Hep B Core Total Ab NON-REACTIVE (NON-REACTIVE) PG Care Time/CCT Total # of Minutes Spent Total Time Spent with Patient: Total time spent is greater than 50% in coordination of care (as documented) at patient's floor/unit and/or counseling patient: Coding Level of Care Code 71891 Subseq Hosp Care Lvl 3 Diagnoses Acute respiratory failure with hypoxia J96.01 Acute metabolic encephalopathy G93.41 Gallstones K80.20 Volume overload E87.70 Bilateral pleural effusion J90 Chronic kidney disease, stage 4 (severe) N18.4 Essential hypertension I10 Unspecified atrial fibrillation I48.91 Atrial fibrillation type: unspecified Type 2 diabetes mellitus with diabetic neuropathy E11.40 Hyperlipidemia E78.5 Gout, unspecified M10.9 Anemia in CKD (chronic kidney disease) N18.9; D63.1 (1) Unspecified atrial fibrillation Atrial fibrillation type: unspecified Qualified Code(s): I48.91 - Unspecified atrial fibrillation
--- NOTE | 2022-02-18 10:30 | Nephrology Progress Note ---
Date of Service February 18, 2022 Assessment & Plan (1) Acute kidney injury superimposed on chronic kidney disease: (2) Essential hypertension: (3) Anemia in CKD (chronic kidney disease): (4) Vitamin D deficiency: Plan: 82-year-old female with stage IV CKD baseline creatinine around 2.3-2.5, most likely secondary to microvascular disease with history of hypertension diabetes. Never had kidney biopsy before. Presented to CKD clinic with advanced CKD for 5 years as recently moved from [place] to [place]. Admitted to the hospital with shortness of breath, hypoxia and respiratory failure with oxygen saturation in 80s. respiratory status improved on nasal cannula oxygen. Has been oliguric despite getting Lasix, however respiratory seem status seems to be stable. Renal function slightly improved and electrolyte acceptable. Urine output improved. Overall she is feeling better. No sign of volume overload. -- no indication for emergency dialysis, Will hold off on dialysis at this time, continue to monitor renal function closely for recovery. -- Start on protein supplement, appetite stimulant as her appetite has been poor for months and over last 6 months she lost almost 30 lb according to her brother Ko has been very concerned with her poor p.o. intake -- left arm nephrology precaution for possible need for future vascular access. --Epogen 45826 units x 1 dose today -- okay to use Bumex as needed however since urine output has improved, hold today and monitor urine output -- may benefit from right-sided thoracentesis with moderate pleural effusion -- physical therapy -- discussed over telephone with her brother Ko Will follow Admission and Anticipated Discharge Date Admission Date: February 13, 2022 Subjective Jessi Miranda was seen and evaluated in her room this morning. She reports overall feeling better, denies any significant shortness of breath while resting, no nausea. continues to have decent urine output. Renal function was staying stable for few days now started to improve although very slowly, creatinine down to 5.0, electrolyte acceptable. Blood pressure remains relatively low. No sign of volume overload. P.o. intake has been poor. Review of Systems Review of Systems: Detailed review of system was otherwise unremarkable except mentioned above. Constitutional: + weakness; no fever Physical Exam Constitutional: WD/WN, vitals as above + ill appearing; no acute distress Eyes: + anicteric sclerae Neck: normal visual inspection Respiratory: Auscultation: + diminished lung sounds Cardiovascular: Rate/Rhythm: regular rate and regular rhythm Extremities: no edema Skin: no rashes Neurologic: no focal motor deficits Psychiatric: Orientation: alert and oriented x 3 Results & Data ([facility]) Vital Signs (Past 12 Hours) Vital Signs Temp Pulse Pulse Resp BP Pulse Ox 02/18/22 07:46 36.5 C 18 99/69 L 96 02/18/22 02:49 36.7 C 86 20 98/66 L 98 02/17/22 23:00 36.5 C 88 16 99/62 L 96 02/17/22 22:20 97 H PG Care Time/CCT Total # of Minutes Spent Total Time Spent with Patient: Total time spent is greater than 50% in coordination of care (as documented) at patient's floor/unit and/or counseling patient: Coding Level of Care Code 02325 Subseq Hosp Care Lvl 3 Diagnoses Essential hypertension I10 Anemia in CKD (chronic kidney disease) N18.9; D63.1 Vitamin D deficiency E55.9 Acute kidney injury superimposed on chronic kidney disease N17.9; N18.9
[2022-02-18] MEDS: METOPROLOL SUCC 25MG EXT REL TAB PO SCH (10:36)
[2022-02-18 15:32] LABS: HBSAG NON-REACTIVE (NON-REACTIVE); Hepatitis B Core Antibody Total NON-REACTIVE (NON-REACTIVE); Hepatitis B Surface Ab, Quant <5 mIU/mL (> OR = 10)
--- NOTE | 2022-02-18 17:37 | Pulmonology Progress Note ---
Date of Service February 18, 2022 Assessment & Plan (1) Volume overload: (2) Bilateral pleural effusion: (3) Anticoagulant long-term use: Plan: Attending: Dr. Tran This is an 82-year-old female with a history of atrial fibrillation on Eliquis, CKD stage IV, diabetes mellitus type 2 and pressure ulcers presenting to the hospital due to altered mental status, shortness of breath and hyperglycemia. She was found to have worsening renal failure and is being followed closely for possible hemodialysis. Last dose of apixaban was administered 02/14/2022 at 8:41 AM. Recommendations: 1. Bilateral pleural effusions: * These appear to be secondary to volume overload * Cumulative ins and outs since admission are -2.3 L * Continue Bumex. Target ins and outs to be -1 L daily. * Continue to hold apixaban. If no improvement in cumulative fluid reduction by , we will plan on thoracentesis then. Discussed plan with patient and with her brother. He * Currently patient is saturating 93% on room air at rest 2. Question of pulmonary consolidations of bilateral bases: * No productive cough or sputum. * Afebrile * Procalcitonin is negative is 0.36 * Patient empirically started on ceftriaxone and metronidazole for GI issues. Ceftriaxone should be adequate for any pulmonary process. No specific antibiotics for pulmonary required 3. Hypoxia: * No documented hypoxia in the system. Patient has been intermittently placed on 2 L/min via nasal cannula with exertion. * Is most likely secondary to pleural effusion and fluid overload * No history of tobacco abuse or COPD or other pulmonary process * Will titrate supplemental oxygen off as tolerated to maintain SaO2 greater than 90% * Out of bed to chair as tolerated 4. MITCHEL/volume overload: * Nephrology consulted. Possibility of dialysis for electrolyte management and ultrafiltration * Dialysis catheter per Dr. Benz and Dr. Cedeño * Continue with diuresis as tolerated * Cumulative fluid balance is negative 2.3L for this admission * Continue to target -1 L of diuresis daily Thank you for including us in the care of this patient. We will continue to follow along with you. Admission and Anticipated Discharge Date Admission Date: February 13, 2022 Supervising Physician Co-Signing Physician Notes I saw and evaluated the patient with Miguel Luo, and agree with findings and plan as documented in the note. 82-year-old female with CKD stage IV presented to hospital with volume overload and mental status issues Pulmonary consulted because of bilateral pleural effusion. Large on the right side with dependent atelectasis Constitutional: No acute distress HEENT: EOMI, PERRLA Respiratory system: Decreased air entry bilaterally, no wheeze, LAMA, positive crackles bilateral lower lobes CVS: S1-S2 positive, Abdomen: Soft, nontender, nondistended, positive bowel sounds x4 Extremities: +2 pulses bilaterally radialis/ dorsalis pedis, no cyanosis, positive edema bilateral lower extremity Neuro: Awake alert oriented x3 Psych: Normal mood and affect G/U: Positive Crum Plan: In/out: -2.2 L since coming to the hospital Patient was saturating 100% on room air at the time of examination. Chest x-ray from today does show minimal improvement compared to the x-ray at the presentation. Pleural effusion still appreciated Patient is making good amount of urine. She is not any respiratory distress right now. She is very high risk for bleeding given elevated BUN and creatinine. Apixaban has been on hold since 02/14/2022 I do not think there is an emergent need to have thoracentesis done right now. I do not think the pleural effusion will resolve totally with diuretics but it will likely be able to go down with no intervention would be needed. Would recommend to continue with diuretics Incentive spirometry will be helpful for the dependent atelectasis with the patient has Plan was discussed with TERRI Ram, brother was bedside along with patient All questions inquiries of the patient and patient's brother were answered in depth. Pulmonary will continue to follow peripherally. Please note the above document was generated using voice recognition software. It may contain grammatical, syntax or spelling errors.Any formal questions or concerns about the content, text or information contained within the body of this dictation should be directly addressed to the provider for clarification. Subjective Attending: Dr. Tran Patient seen and examined at bedside. Her brother was also present in the room. Patient states that she is doing much better and feels better regarding her breathing. She is currently 94% on room air. I had discussion with nursing and she reports that when patient ambulates to go to the bathroom or moves about she does desaturate and requires 2 L/min via nasal cannula. Patient does have short-term memory loss. She was unable to remember simple discussion from the beginning of the interview to the end. Her brother states that this is baseline for her. I did have discussion regarding pleural effusion and risk versus benefit. Patient patient asks that we discuss procedures or prognosis with her brother as she admits that she has memory loss. Patient denies any fever, chills, sweats, rigors. She states her breathing is better today. She denies any cough or sputum production. This is corroborated by her brother who is present visiting. Review of Systems Review of Systems: A total of 10 systems was reviewed and is negative other than as listed in the HPI Physical Exam Physical Exam: GENERAL : No acute distress. Very pleasant EYES: No icterus, gaze conjugate NOSE: No evidence of epistaxis MOUTH: No lesions or candidiasis NECK: Supple LUNGS: Decreased breath sounds but no adventitious sounds appreciated. Patient does have difficulty coordinating deep breathing with holding her breath. Curr ently 94% on room air without supplemental oxygen. HEART: Regular, rate controlled ABDOMEN: Soft, NT, ND, BS Present EXTREMITIES: No LE edema, pedal pulses intact and equal bilaterally NEURO: A&OX3 Results & Data Results & Data ([facility]) Vital Signs (Past 12 Hours) Vital Signs Temp Pulse Resp BP BP Pulse Ox 02/18/22 11:43 36.4 C L 76 18 94/65 L 96 02/18/22 10:37 90/61 L 02/18/22 07:46 36.5 C 18 99/69 L 96 Critical Care Results & Data Vital Signs (Past 12 Hours) Vital Signs Temp Pulse Resp BP BP Pulse Ox 02/18/22 11:43 36.4 C L 76 18 94/65 L 96 02/18/22 10:37 90/61 L 02/18/22 07:46 36.5 C 18 99/69 L 96 Lab & Micro Results (Past 24 Hours) RBC 3.28 M/uL (4.2-5.4) L 02/18/22 WBC 8.05 K/uL (4.8-10.8) 02/18/22 Hgb 10.0 g/dL (12.0-16.0) L 02/18/22 Hct 31.6 % (37-47) L 02/18/22 MCV 96.3 fL (80-100) 02/18/22 MCH 30.5 pg (25-34) 02/18/22 MCHC 31.6 g/dL (32-36) L 02/18/22 RDW Standard Deviation 58.4 fL (36.4-46.3) H 02/18/22 RDW Coefficient of Variation 17.0 % (11.5-14.5) H 02/18/22 Plt Count 349 K/uL (130-400) 02/18/22 MPV 9.5 fL (7.4-10.4) 02/18/22 Na 138 mmol/L (136-145) 02/18/22 K 3.5 mmol/L (3.5-5.1) 02/18/22 Cl 101 mmol/L (98-107) 02/18/22 CO2 27 mmol/L (21-32) 02/18/22 Anion Gap 10 (3-11) 02/18/22 BUN 92 mg/dl (6-23) H 02/18/22 Creatinine 5.00 mg/dl (0.6-1.2) H* 02/18/22 Estimated GFR ( Amer) 8.7 ml/min 02/18/22 Estimated GFR (Non-Af Amer) 7.5 ml/min 02/18/22 BUN/Creatinine Ratio 18.4 (10-20) 02/18/22 Glu 134 mg/dl (70-99(Fasting)) H 02/18/22 Ca 7.7 mg/dl (8.5-10.1) L 02/18/22 Phosphorus Level 5.6 mg/dl (2.5-4.9) H 02/18/22 Albumin 2.7 gm/dl (3.4-5.0) L 02/18/22 Calcium Level 7.7 mg/dl (8.5-10.1) L 02/18/22 05:32 02/18/22 Diagnostic Findings (Past 24 Hours) Chest X-Ray 02/18/22 08:34 XR chest 1V portable CLINICAL HISTORY: Pleural effusion. COMPARISON STUDY: Chest radiograph February 14, 2022. FINDINGS: Lung volumes are diminished. This is unchanged. No pneumothorax is present. Moderate right and small left pleural effusions are noted. Interstitial thickening are present pulmonary edema which is slightly improved. Cardiomediastinal silhouette is stable. Severe osteoarthritis of the left glenohumeral joint is incidentally noted. IMPRESSION: 1. Interstitial pulmonary edema, slightly improved since prior exam. 2. Moderate right and small left pleural effusions with associated bibasilar airspace opacities. ACT 112: Negative or not required by law. Electronically signed by: Jeffrey Vargas M.D. 02/18/2022 9:37 AM I & O Totals 24 Hours 02/17/22 02/18/22 02/19/22 06:59 06:59 06:59 Intake Total 464 / 464 444 / 444 52 / 52 Output Total 1400 / 1400 1400 / 1400 Balance -936 / -936 -956 / -956 52 / 52 Cumulative 02/13/22 16:36 thru 02/18/22 16:12 Intake Total 1410 Output Total 3701 Balance -2291 RT Ventilator Mngmt (Last Documented) Ventilator Ordered Settings Respiratory Rate 18 02/18/22 11:43 Ventilator - PT Measurements Respiratory Rate 18 PG Care Time/CCT Total # of Minutes Spent Total Time Spent with Patient: Total time spent is greater than 50% in coordination of care (as documented) at patient's floor/unit and/or counseling patient: 25 Coding Level of Care Code 87489 Subseq Hosp Care Lvl 2 Diagnoses Volume overload E87.70 Bilateral pleural effusion J90 Anticoagulant long-term use Z79.01
[2022-02-19 06:40] LABS: Hematocrit (blood only) 31.7 % (37-47); Hemoglobin 9.9 g/dL (12.0-16.0); Mean Corpuscular Hemoglobin 30.9 pg (25-34); Mean Corpuscular Hgb Conc 31.2 g/dL (32-36); Mean Corpuscular Volume 99.1 fL (80-100); Mean Platelet Volume 9.6 fL (7.4-10.4); Platelet Count 323 K/uL (130-400); RDW Coefficient of Variation 16.7 % (11.5-14.5); RDW Standard Deviation 59.3 fL (36.4-46.3); White Blood Count 7.48 K/uL (4.8-10.8)
[2022-02-19 07:03] LABS: Albumin Level 2.7 gm/dl (3.4-5.0); BUN Creatinine Ratio 21.1 (10-20); Calcium 7.7 mg/dl (8.5-10.1); Creatinine Clr Calc Pharmacy 8.5 ml/min; Est GFR (African American) 9.7 ml/min; Est GFR (Non-African American) 8.4 ml/min; Phosphorus 5.1 mg/dl (2.5-4.9); Potassium 3.6 mmol/L (3.5-5.1)
[2022-02-19] MEDS ORDERED: EPOETIN ALFA 20,000 UNITS/ML VIAL SQ STA (08:01)
[2022-02-19] MEDS: METOPROLOL SUCC 25MG EXT REL TAB PO SCH (08:39)
[2022-02-19] MEDS: dilTIAZem HCL 180 MG CAPCR PO SCH (08:39)
[2022-02-19] MEDS: SIMVASTATIN 20 MG TAB PO SCH (08:55)
[2022-02-19] MEDS: THIAMINE HCL 200 MG in SODIUM CHLORIDE 0.9% 50 ML IV SCH ×2 (08:55→20:51)
[2022-02-19] MEDS: INSULIN ASPART PER UNIT SC SCH ×4 (08:55→21:27)
[2022-02-19] MEDS ORDERED: Heparin IV Adult Wt-Based Standard *NO* Bolus Protocol IV SCH (09:18)
--- NOTE | 2022-02-19 09:44 | Nephrology Progress Note ---
Date of Service February 19, 2022 Assessment & Plan (1) Acute kidney injury superimposed on chronic kidney disease: (2) Essential hypertension: (3) Anemia in CKD (chronic kidney disease): (4) Vitamin D deficiency: Plan: 82-year-old female with stage IV CKD baseline creatinine around 2.3-2.5, most likely secondary to microvascular disease with history of hypertension diabetes. Never had kidney biopsy before. Presented to CKD clinic with advanced CKD for 5 years as recently moved from [place] to [place]. Admitted to the hospital with shortness of breath, hypoxia and respiratory failure with oxygen saturation in 80s. respiratory status improved on nasal cannula oxygen. Has been oliguric despite getting Lasix, however respiratory seem status seems to be stable. Renal function slightly improved and electrolyte acceptable. Urine output improved. Overall she is feeling better. No sign of volume overload. --epogen 49935 units SQ x 1 dose now. -- Start on protein supplement, appetite stimulant as her appetite has been poor for months and over last 6 months she lost almost 30 lb according to her brother Ko has been very concerned with her poor p.o. intake -- left arm nephrology precaution for possible need for future vascular access. --Epogen 50432 units x 1 dose today -- continue to hold Bumex for now and use as needed and monitor urine output -- may benefit from right-sided thoracentesis with moderate pleural effusion -- physical therapy Will follow Admission and Anticipated Discharge Date Admission Date: February 13, 2022 Subjective Jessi Miranda was seen and evaluated in her room this morning. She reports overall feeling better, denies any significant shortness of breath while resting, no nausea. Slight decrease in urine output without diuretics. Renal function was staying stable for few days and now started to improve although very slowly, creatinine down to 4.6, electrolyte acceptable. Blood pressure remains relatively low. No sign of volume overload. P.O. intake has been poor. Review of Systems Review of Systems: Detailed review of system was otherwise unremarkable except mentioned above. Physical Exam Constitutional: WD/WN, vitals as above + ill appearing; no acute distress Eyes: + anicteric sclerae Neck: normal visual inspection Respiratory: Auscultation: + diminished lung sounds Cardiovascular: Rate/Rhythm: regular rate and regular rhythm Extremities: no edema Skin: no rashes Neurologic: no focal motor deficits Psychiatric: Orientation: alert and oriented x 3 Results & Data ([facility]) Vital Signs (Past 12 Hours) Vital Signs Temp Pulse Pulse Resp BP Pulse Ox Pulse Ox 02/19/22 07:12 36.6 C 78 19 96/57 L 97 02/19/22 03:48 36.4 C L 74 18 103/63 98 02/18/22 23:00 90 02/18/22 22:27 36.4 C L 96 H 17 104/68 97 02/18/22 22:04 87 L PG Care Time/CCT Total # of Minutes Spent Total Time Spent with Patient: Total time spent is greater than 50% in coordination of care (as documented) at patient's floor/unit and/or counseling patient: Coding Level of Care Code 39731 Subseq Hosp Care Lvl 3 Diagnoses Acute kidney injury superimposed on chronic kidney disease N17.9; N18.9 Essential hypertension I10 Anemia in CKD (chronic kidney disease) N18.9; D63.1 Vitamin D deficiency E55.9
[2022-02-19] MEDS: HEPARIN SODIUM/DEXTROSE 25,000 UNITS/500 ML BAG IV SCH (10:21)
[2022-02-19 10:22] LABS: Partial Thromboplastin Ratio 1.2; Partial Thromboplastin Time 32.6 Seconds (21.0-31.0)
[2022-02-19] MEDS: MEGESTROL ACETATE SUSP 400 MG/10 ML UDC PO SCH (11:48)
--- NOTE | 2022-02-19 15:07 | Pulmonology Progress Note ---
Date of Service February 19, 2022 Assessment & Plan (1) Volume overload: (2) Bilateral pleural effusion: (3) Anticoagulant long-term use: Plan: Attending: Dr. Tran This is an 82-year-old female with a history of atrial fibrillation on Eliquis, CKD stage IV, diabetes mellitus type 2 and pressure ulcers presenting to the hospital due to altered mental status, shortness of breath and hyperglycemia. She was found to have worsening renal failure and is being followed closely for possible hemodialysis. Last dose of apixaban was administered 02/14/2022 at 8:41 AM. Recommendations: 1. Bilateral pleural effusions: * These appear to be secondary to volume overload * Cumulative ins and outs since admission are -2.5 L * Diuretics have been held by nephrology. No current plans for dialysis * Continue to hold apixaban in the event the patient requires thoracentesis. * Thoracentesis would be technically difficult secondary to patient's inability to sit up. I have asked nursing to make sure that physical therapy gets her out of bed to chair. Patient has been resistant to any form of physical therapy. 2. Question of pulmonary consolidations of bilateral bases: * No productive cough or sputum. * Afebrile * Procalcitonin is negative is 0.36 * Patient empirically started on ceftriaxone and metronidazole for GI issues. Ceftriaxone should be adequate for any pulmonary process. No specific antibiotics for pulmonary required 3. Hypoxia: * Patient has been intermittently placed on 2 L/min via nasal cannula with exertion. * Patient has been comfortable on room air and saturating greater than 90% * No history of tobacco abuse or COPD or other pulmonary process * Will titrate supplemental oxygen off as tolerated to maintain SaO2 greater than 90% * Although instructions have been placed for patient to be out of bed to chair as tolerated, she continues to remain in bed. Continue to work on increasing ambulation of patient 4. MITCHEL/volume overload: * Nephrology consulted. Possibility of dialysis for electrolyte management and ultrafiltration * Cumulative fluid balance is negative 2.5L for this admission * Further management per nephrology Thank you for including us in the care of this patient. We will continue to follow along with you. Admission and Anticipated Discharge Date Admission Date: February 13, 2022 Supervising Physician Co-Signing Physician Notes I saw and evaluated the patient with Miguel Luo, and agree with findings and plan as documented in the note. Patient seen and examined at bedside. No acute distress, no delusions overnight Patient's brother was in the room. She was saturating 97-98% on room air at the time of examination She has been using incentive spirometry as much as she can. Denies any chest pain Constitutional: No acute distress HEENT: EOMI, PERRLA Respiratory system: Decreased air entry bilaterally, no wheeze, LAMA, positive crackles bilateral lower lobes CVS: S1-S2 positive, Abdomen: Soft, nontender, nondistended, positive bowel sounds x4 Extremities: +2 pulses bilaterally radialis/ dorsalis pedis, no cyanosis, positive edema bilateral lower extremity Neuro: Awake alert oriented x3 Psych: Normal mood and affect G/U: Positive Crum Plan: In/out: +100 mL Given the patient in no acute distress and saturating 97-98% on room air. No plan for thoracentesis currently. Continue with incentive spirometry Pulmonary will continue to follow peripherally. Call directly with any questions Please note the above document was generated using voice recognition software. It may contain grammatical, syntax or spelling errors.Any formal questions or concerns about the content, text or information contained within the body of this dictation should be directly addressed to the provider for clarification. Subjective Attending: Dr. Tran Patient seen and examined at bedside in room 244. Patient continues to be stable regarding her oxygenation. During my visit she was at 96% on room air and eating lunch. She denies any respiratory changes. No fever or chills. No chest pain or tightness. Review of Systems Review of Systems: A total of 10 systems was reviewed and is negative other than what is listed above. Physical Exam Physical Exam: GENERAL : No acute distress EYES: No icterus, gaze conjugate NOSE: No evidence of epistaxis MOUTH: No lesions or candidiasis NECK: Supple LUNGS: Patient with decreased breath sounds at the right base. No bronchospasm. No rhonchi. HEART: Regular, rate controlled ABDOMEN: Soft, NT, ND, BS Present EXTREMITIES: No LE edema, pedal pulses intact NEURO: A&OX3 Results & Data Results & Data ([facility]) Vital Signs (Past 12 Hours) Vital Signs Temp Pulse Resp BP Pulse Ox 02/19/22 11:27 36.4 C L 86 18 100/64 96 02/19/22 07:12 36.6 C 78 19 96/57 L 97 02/19/22 03:48 36.4 C L 74 18 103/63 98 Critical Care Results & Data Vital Signs (Past 12 Hours) Vital Signs Temp Pulse Resp BP Pulse Ox 02/19/22 11:27 36.4 C L 86 18 100/64 96 02/19/22 07:12 36.6 C 78 19 96/57 L 97 02/19/22 03:48 36.4 C L 74 18 103/63 98 Lab & Micro Results (Past 24 Hours) RBC 3.20 M/uL (4.2-5.4) L 02/19/22 WBC 7.48 K/uL (4.8-10.8) 02/19/22 Hgb 9.9 g/dL (12.0-16.0) L 02/19/22 Hct 31.7 % (37-47) L 02/19/22 MCV 99.1 fL (80-100) 02/19/22 MCH 30.9 pg (25-34) 02/19/22 MCHC 31.2 g/dL (32-36) L 02/19/22 RDW Standard Deviation 59.3 fL (36.4-46.3) H 02/19/22 RDW Coefficient of Variation 16.7 % (11.5-14.5) H 02/19/22 Plt Count 323 K/uL (130-400) 02/19/22 MPV 9.6 fL (7.4-10.4) 02/19/22 Na 137 mmol/L (136-145) 02/19/22 K 3.6 mmol/L (3.5-5.1) 02/19/22 Cl 100 mmol/L (98-107) 02/19/22 CO2 28 mmol/L (21-32) 02/19/22 Anion Gap 9 (3-11) 02/19/22 BUN 97 mg/dl (6-23) H 02/19/22 Creatinine 4.59 mg/dl (0.6-1.2) H* 02/19/22 Estimated GFR ( Amer) 9.7 ml/min 02/19/22 Estimated GFR (Non-Af Amer) 8.4 ml/min 02/19/22 BUN/Creatinine Ratio 21.1 (10-20) H 02/19/22 Glu 155 mg/dl (70-99(Fasting)) H 02/19/22 Ca 7.7 mg/dl (8.5-10.1) L 02/19/22 Phosphorus Level 5.1 mg/dl (2.5-4.9) H 02/19/22 Albumin 2.7 gm/dl (3.4-5.0) L 02/19/22 Calcium Level 7.7 mg/dl (8.5-10.1) L 02/19/22 05:31 02/19/22 I & O Totals 24 Hours 02/18/22 02/19/22 02/20/22 06:59 06:59 06:59 Intake Total 444 / 444 544 / 544 372 / 372 Output Total 1400 / 1400 600 / 600 450 / 450 Balance -956 / -956 -56 / -56 -78 / -78 Cumulative 02/13/22 16:36 thru 02/19/22 14:19 Intake Total 2274 Output Total 4751 Balance -2477 RT Ventilator Mngmt (Last Documented) Ventilator Ordered Settings Respiratory Rate 18 02/19/22 11:27 Ventilator - PT Measurements Respiratory Rate 18 PG Care Time/CCT Total # of Minutes Spent Total Time Spent with Patient: Total time spent is greater than 50% in coordination of care (as documented) at patient's floor/unit and/or counseling patient:20 Coding Level of Care Code 48302 Subseq Hosp Care Lvl 1 Diagnoses Volume overload E87.70 Bilateral pleural effusion J90 Anticoagulant long-term use Z79.01
[2022-02-19 16:34] LABS: Partial Thromboplastin Ratio 4.7
--- NOTE | 2022-02-19 17:03 | Hospitalist Progress Note ---
Date of Service February 19, 2022 Assessment & Plan (1) Acute respiratory failure with hypoxia: Plan: 2nd to volume overloaded state in the setting of acute/chronic CKD stage 4. Only requiring minimal amount of NC O2-now weaned off to room air at times Her respiratory symptoms and distress/tachypnea are improved. Has improved with escalating doses of diuretics. Had had no effective diuresis with 80mg lasix, followed by 120mg lasix -- but did have response to bumex 4mg on 2 occasions Chest x-ray on 02/18 reveals slightly improved interstitial pulmonary edema, moderate right and small left pleural effusions with associated bibasilar airspace opacities-overall slightly improved Continue barlow. Continue NC O2 as needed to keep pulse ox greater than 92% Pulmonary consult appreciated. Had asked them to see her for consideration of thoracentesis -pulmonology defers thoracentesis at this time-prefers continued diuresis -We will keep Eliquis on hold in case of need for future procedure-dialysis catheter or thoracentesis and favor starting heparin gtt -Hold off on diuretics again today as per nephrology (2) Acute metabolic encephalopathy: Plan: 2nd to MITCHEL/uremia. Improving Mentation seems very clear now recent TSH wnl. vit B12 level wnl. ammonia is wnl. B1 pending -- while awaiting level --> empiric thiamine 200mg BID. some concern for cholecystitis on initial imaging HIDA obtained - normal; have since stopped antibiotics. (3) Volume overload: Plan: 2nd to acute/chronic CKD. Did respond somewhat to high-dose IV bumex and symptoms have improved. 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 Appreciate nephrology/pulmonary/vascular surgery consults & recs. -Follow BMP, urine output, BPs, volume status -Nephrology started Megace to improve appetite (4) Bilateral pleural effusion: Plan: 2nd to acute/chronic CKD. Echo with preserved EF. TSH wnl. Pulmonology consult-continues to defer right-sided thoracentesis at this time in favor of diuresis Very large effusion on that side. No respiratory distress, requiring minimal to no supplemental O2 Eliquis on hold and now on heparin gtt in case of need for thoracentesis (5) Chronic kidney disease, stage 4 (severe): Plan: baseline CrCl 15-20 baseline Creatinine = low 2's now with acute renal failure with Cr >5, but improving daily since 02/17 Uremia improving (6) Essential hypertension: Plan: BPs low or low-normal Had held her CCB and BB because of low BPs but then a.fib rates were uncontrolled Resumed CCB albeit at lower dose of 180mg of cardizem CD resumed metoprolol xl at lower dose of 25mg daiy however had to be held again today for low blood pressures (7) Unspecified atrial fibrillation: Plan: Continue lower dose of diltiazem and metoprolol with hold parameters continue telemetry start heparin gtt today rather than Eliquis, follow PTT (8) Type 2 diabetes mellitus with diabetic neuropathy: Plan: HbA1C 5.3% Glucose levels here only mildly elevated hold lantus loose novolog SSI (9) Gallstones: Plan: u/a and CT with numerous gallstones & sludge. both studies equivacol for acute cholecystitis. LFTs have been normal. HIDA scan normal/negative. Have since stopped empiric rocephin/flagyl. no GI symptoms and no abd pain. (10) Hyperlipidemia: Plan: statin LFTs remain wnl (11) Gout, unspecified: Plan: no signs of flare (12) Anemia in CKD (chronic kidney disease): Plan: H/H acceptable at this time Hb 9-10 range trend Epogen given x 1 Plan: Ko Subramanian (patient's brother and POA) - [phone] Updated brother at bedside today Disposition-continued stay on PCU Continue PT/OT Admission and Anticipated Discharge Date Admission Date: February 13, 2022 Subjective Pt reports some SOB overnight and feels better with O2 in place. Denies CP, abd pains. No BM in a couple days. Is feeling hungrier today and was started on Megace this morning. Tele with Afib, rates 70-80s Review of Systems Review of Systems: All systems reviewed & are unremarkable except as noted in HPI & below Physical Exam Constitutional: WD/WN, vitals as above Eyes: + anicteric sclerae Neck: trachea midline, no thyromegaly Respiratory: normal respiratory effort; no cough and not tachypneic Auscultation: + diminished lung sounds (At bases bilaterally); no crackles, no rhonchi and no wheezes Cardiovascular: Rate/Rhythm: regular rate and + irregularly irregular Heart Sounds: no murmur Extremities: no edema Chest (Breasts): Chest: normal inspection of chest Gastrointestinal (Abdomen): normal bowel sounds, soft, nontender, no hepatosplenomegaly Musculoskeletal: Extremities: extremities normal to inspection; no cyanosis and no clubbing Skin: no rashes, warm and dry Neurologic: moves all extremities and awake; no focal motor deficits Psychiatric: A+Ox3, euthymic affect Lymphatic: no lymphedema Results & Data Results & Data ([facility]) Vital Signs (Past 12 Hours) Vital Signs Temp Pulse Resp BP BP Pulse Ox 02/19/22 16:42 36.5 C 97 H 19 106/56 L 98 02/19/22 11:27 36.4 C L 86 18 100/64 96 02/19/22 07:12 36.6 C 78 19 96/57 L 97 Laboratory Results 02/19/22 02/19/22 02/19/22 Range/Units 16:22 15:55 11:26 WBC (4.8-10.8) K/uL RBC (4.2-5.4) M/uL Hgb (12.0-16.0) g/dL Hct (37-47) % MCV (80-100) fL MCH (25-34) pg MCHC (32-36) g/dL RDW Std Deviation (36.4-46.3) fL RDW Coeff of Odilon (11.5-14.5) % Plt Count (130-400) K/uL MPV (7.4-10.4) fL APTT 129.0 H* (21.0-31.0) Seconds PTT Ratio 4.7 Sodium (136-145) mmol/L Potassium (3.5-5.1) mmol/L Chloride (98-107) mmol/L Carbon Dioxide (21-32) mmol/L Anion Gap (3-11) BUN (6-23) mg/dl Creatinine (0.6-1.2) mg/dl Est Cr Clr Drug Dosing ml/min Est GFR ( Amer) ml/min Est GFR (Non-Af Amer) ml/min BUN/Creatinine Ratio (10-20) Glucose (70-99(Fasting)) mg/dl POC Glucose 204 H 136 H (70-99) mg/dl Calcium (8.5-10.1) mg/dl Phosphorus (2.5-4.9) mg/dl Albumin (3.4-5.0) gm/dl 02/19/22 02/19/22 02/19/22 Range/Units 09:36 07:11 05:31 WBC (4.8-10.8) K/uL RBC (4.2-5.4) M/uL Hgb (12.0-16.0) g/dL Hct (37-47) % MCV (80-100) fL MCH (25-34) pg MCHC (32-36) g/dL RDW Std Deviation (36.4-46.3) fL RDW Coeff of Odilon (11.5-14.5) % Plt Count (130-400) K/uL MPV (7.4-10.4) fL APTT 32.6 H (21.0-31.0) Seconds PTT Ratio 1.2 Sodium 137 (136-145) mmol/L Potassium 3.6 (3.5-5.1) mmol/L Chloride 100 (98-107) mmol/L Carbon Dioxide 28 (21-32) mmol/L Anion Gap 9 (3-11) BUN 97 H (6-23) mg/dl Creatinine 4.59 H* D (0.6-1.2) mg/dl Est Cr Clr Drug Dosing 8.5 ml/min Est GFR ( Amer) 9.7 ml/min Est GFR (Non-Af Amer) 8.4 ml/min BUN/Creatinine Ratio 21.1 H (10-20) Glucose 155 H (70-99(Fasting)) mg/dl POC Glucose 152 H (70-99) mg/dl Calcium 7.7 L (8.5-10.1) mg/dl Phosphorus 5.1 H (2.5-4.9) mg/dl Albumin 2.7 L (3.4-5.0) gm/dl 02/19/22 02/18/22 Range/Units 05:31 20:33 WBC 7.48 (4.8-10.8) K/uL RBC 3.20 L (4.2-5.4) M/uL Hgb 9.9 L (12.0-16.0) g/dL Hct 31.7 L (37-47) % MCV 99.1 (80-100) fL MCH 30.9 (25-34) pg MCHC 31.2 L (32-36) g/dL RDW Std Deviation 59.3 H (36.4-46.3) fL RDW Coeff of Odilon 16.7 H (11.5-14.5) % Plt Count 323 (130-400) K/uL MPV 9.6 (7.4-10.4) fL APTT (21.0-31.0) Seconds PTT Ratio Sodium (136-145) mmol/L Potassium (3.5-5.1) mmol/L Chloride (98-107) mmol/L Carbon Dioxide (21-32) mmol/L Anion Gap (3-11) BUN (6-23) mg/dl Creatinine (0.6-1.2) mg/dl Est Cr Clr Drug Dosing ml/min Est GFR ( Amer) ml/min Est GFR (Non-Af Amer) ml/min BUN/Creatinine Ratio (10-20) Glucose (70-99(Fasting)) mg/dl POC Glucose 175 H (70-99) mg/dl Calcium (8.5-10.1) mg/dl Phosphorus (2.5-4.9) mg/dl Albumin (3.4-5.0) gm/dl PG Care Time/CCT Total # of Minutes Spent Total Time Spent with Patient: Total time spent is greater than 50% in coordination of care (as documented) at patient's floor/unit and/or counseling patient: Coding Level of Care Code 33058 Subseq Hosp Care Lvl 3 Diagnoses Acute respiratory failure with hypoxia J96.01 Acute metabolic encephalopathy G93.41 Volume overload E87.70 Bilateral pleural effusion J90 Chronic kidney disease, stage 4 (severe) N18.4 Essential hypertension I10 Unspecified atrial fibrillation I48.91 Atrial fibrillation type: unspecified Type 2 diabetes mellitus with diabetic neuropathy E11.40 Gallstones K80.20 Hyperlipidemia E78.5 Gout, unspecified M10.9 Anemia in CKD (chronic kidney disease) N18.9; D63.1 (1) Unspecified atrial fibrillation Atrial fibrillation type: unspecified Qualified Code(s): I48.91 - Unspecified atrial fibrillation
[2022-02-20 01:27] LABS: Partial Thromboplastin Ratio > 5.1
[2022-02-20 01:34] LABS: Partial Thromboplastin Time > 139.0 Seconds (21.0-31.0)
[2022-02-20 03:15] LABS: Partial Thromboplastin Ratio 1.6; Partial Thromboplastin Time 44.4 Seconds (21.0-31.0)
[2022-02-20] MEDS: dilTIAZem HCL 180 MG CAPCR PO SCH (06:50)
[2022-02-20] MEDS: METOPROLOL SUCC 25MG EXT REL TAB PO SCH (08:37)
[2022-02-20] MEDS: MEGESTROL ACETATE SUSP 400 MG/10 ML UDC PO SCH (08:37)
[2022-02-20] MEDS: INSULIN ASPART PER UNIT SC SCH ×4 (08:40→20:23)
[2022-02-20] MEDS: THIAMINE HCL 200 MG in SODIUM CHLORIDE 0.9% 50 ML IV SCH (08:43)
[2022-02-20] MEDS: SIMVASTATIN 20 MG TAB PO SCH (08:44)
[2022-02-20] MEDS ORDERED: SODIUM CHLORIDE 0.9% 500 ML IV SCH (09:30)
--- NOTE | 2022-02-20 09:36 | Nephrology Progress Note ---
Date of Service February 20, 2022 Assessment & Plan (1) Acute kidney injury superimposed on chronic kidney disease: (2) Bilateral pleural effusion: (3) Acute respiratory failure with hypoxia: (4) Anemia in CKD (chronic kidney disease): (5) Unspecified atrial fibrillation: Plan: 82-year-old female with stage IV CKD baseline creatinine around 2.3-2.5, most likely secondary to microvascular disease with history of hypertension diabetes. Never had kidney biopsy before. Presented to CKD clinic with advanced CKD for 5 years as recently moved from [place] to [place]. Admitted to the hospital with shortness of breath, hypoxia and respiratory failure with oxygen saturation in 80s. respiratory status improved on nasal cannula oxygen. urine output improved, has been off of diuretics for last 2 days. Renal function has been slowly improving. Cancelled tunneled dialysis catheter plan for now. Epogen 58281 units SQ x 1 dose given on 02/19/22 Renal function continues to improve slowly and electrolyte acceptable. Urine output improved. Overall she is feeling better. No sign of volume overload. --continue on protein supplement, appetite stimulant as her appetite has been poor for months and over last 6 months she lost almost 30 lb according to her brother Ko has been very concerned with her poor p.o. intake -- Continue on maintenance IV fluid and encourage p.o. intake. -- left arm nephrology precaution for possible need for future vascular access. -- continue to hold Bumex for now and use as needed and monitor urine output -- may benefit from right-sided thoracentesis with moderate pleural effusion -- physical therapy Will follow Admission and Anticipated Discharge Date Admission Date: February 13, 2022 Subjective Jessi Miranda was seen and evaluated in her room this morning. She is feeling better, denies any significant shortness of breath while resting, no nausea. DEcent urine output without diuretics. Renal function continues to improve slowly, creatinine down to 4.1, electrolyte acceptable. Blood pressure remains relatively low. No sign of volume overload. P.O. intake has been poor. Review of Systems Review of Systems: Detailed review of system was otherwise unremarkable except mentioned above. Physical Exam Constitutional: WD/WN, vitals as above + ill appearing; no acute distress Eyes: + anicteric sclerae Neck: normal visual inspection Respiratory: Auscultation: + diminished lung sounds Cardiovascular: Rate/Rhythm: regular rate and regular rhythm Extremities: no edema Skin: no rashes Neurologic: no focal motor deficits Psychiatric: Orientation: alert and oriented x 3 Results & Data ([facility]) Vital Signs (Past 12 Hours) Vital Signs Temp Pulse Pulse Pulse Resp BP BP 02/20/22 08:10 36.5 C 99 H 18 110/66 02/20/22 07:33 113 H 02/20/22 06:46 126 H 16 108/69 02/20/22 04:00 36.4 C L 112 H 18 111/74 02/19/22 23:58 103 H 02/19/22 23:43 36.5 C 70 20 109/62 02/19/22 22:00 Pulse Ox Pulse Ox 02/20/22 08:10 97 02/20/22 07:33 02/20/22 06:46 99 02/20/22 04:00 02/19/22 23:58 02/19/22 23:43 99 02/19/22 22:00 99 PG Care Time/CCT Total # of Minutes Spent Total Time Spent with Patient: Total time spent is greater than 50% in coordination of care (as documented) at patient's floor/unit and/or counseling patient: Coding Level of Care Code 38675 Subseq Hosp Care Lvl 3 Diagnoses Acute kidney injury superimposed on chronic kidney disease N17.9; N18.9 Bilateral pleural effusion J90 Acute respiratory failure with hypoxia J96.01 Anemia in CKD (chronic kidney disease) N18.9; D63.1 Unspecified atrial fibrillation I48.91 Atrial fibrillation type: unspecified (1) Unspecified atrial fibrillation Atrial fibrillation type: unspecified Qualified Code(s): I48.91 - Unspecified atrial fibrillation
[2022-02-20 10:08] LABS: Hematocrit (blood only) 34.4 % (37-47); Hemoglobin 10.6 g/dL (12.0-16.0); Mean Corpuscular Hemoglobin 30.9 pg (25-34); Mean Corpuscular Hgb Conc 30.8 g/dL (32-36); Mean Corpuscular Volume 100.3 fL (80-100); Mean Platelet Volume 9.3 fL (7.4-10.4); Platelet Count 279 K/uL (130-400); RDW Coefficient of Variation 16.9 % (11.5-14.5); RDW Standard Deviation 59.5 fL (36.4-46.3); Red Blood Count 3.43 M/uL (4.2-5.4); White Blood Count 7.99 K/uL (4.8-10.8)
[2022-02-20 10:25] LABS: Albumin Level 2.7 gm/dl (3.4-5.0); BUN Creatinine Ratio 21.8 (10-20); Calcium 8.1 mg/dl (8.5-10.1); Creatinine Clr Calc Pharmacy 9.5 ml/min; Est GFR (African American) 10.9 ml/min; Est GFR (Non-African American) 9.4 ml/min; Phosphorus 4.3 mg/dl (2.5-4.9); Potassium 3.5 mmol/L (3.5-5.1)
--- NOTE | 2022-02-20 14:49 | Hospitalist Progress Note ---
Date of Service February 20, 2022 Assessment & Plan (1) Acute respiratory failure with hypoxia: Plan: 2nd to volume overloaded state in the setting of acute/chronic CKD stage 4. Only requiring minimal amount of NC O2-now weaned off to room air at times Her respiratory symptoms and distress/tachypnea are improved with escalating doses of diuretics and improvement in renal function Had had no effective diuresis with 80mg lasix, followed by 120mg lasix -- but did have response to bumex 4mg on 2 occasions Chest x-ray on 02/18 reveals slightly improved interstitial pulmonary edema, moderate right and small left pleural effusions with associated bibasilar airspace opacities-overall slightly improved Continue barlow and monitor UOP Continue NC O2 as needed to keep pulse ox greater than 92% Pulmonary consult appreciated. Had asked them to see her for consideration of thoracentesis -pulmonology defers thoracentesis at this time-prefers continued diuresis -We will keep Eliquis on hold in case of need for future procedure-dialysis catheter or thoracentesis and continue heparin gtt -Hold off on diuretics again today as per nephrology and actually recommends giving 500 mL NS today (2) Acute metabolic encephalopathy: Plan: 2nd to MITCHEL/uremia. Improving Mentation seems very clear now recent TSH wnl. vit B12 level wnl. ammonia is wnl. B1 pending -- while awaiting level --> continue empiric thiamine 200mg BID. some concern for cholecystitis on initial imaging HIDA obtained - normal; have since stopped antibiotics. (3) Volume overload: Plan: 2nd to acute/chronic CKD. Did respond somewhat to high-dose IV bumex and symptoms have improved. 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 Appreciate nephrology/pulmonary/vascular surgery consults & recs. -Follow BMP, urine output, BPs, volume status -Nephrology started Megace to improve appetite -give 500mL NS IVFs today (4) Bilateral pleural effusion: Plan: 2nd to acute/chronic CKD. Echo with preserved EF. TSH wnl. Pulmonology consult-continues to defer right-sided thoracentesis at this time in favor of (auto) diuresis Very large effusion on that side. No respiratory distress, requiring minimal to no supplemental O2 Eliquis on hold and now on heparin gtt in case of need for thoracentesis-PULM will continue to follow peripherally in case has worsening respiratory status -I do have concerns about formation of loculated effusion if this becomes chronic (5) Chronic kidney disease, stage 4 (severe): Plan: baseline CrCl 15-20 baseline Creatinine = low 2's With acute renal failure with Cr >5, but improving daily since 02/17 Uremia improving -Avoid nephrotoxins -renally dose meds when appropriate -follow BMP (6) Essential hypertension: Plan: BPs low or low-normal Had held her CCB and BB because of low BPs but then a.fib rates were uncontrolled Resumed CCB albeit at lower dose of 180mg of cardizem CD resumed metoprolol xl at lower dose of 25mg daily (7) Unspecified atrial fibrillation: Plan: Continue lower dose of diltiazem and metoprolol with hold parameters continue telemetry continue heparin gtt rather than Eliquis in case of need for procedure (8) Type 2 diabetes mellitus with diabetic neuropathy: Plan: HbA1C 5.3% Glucose levels here increasing increase novolog SSI (9) Gallstones: Plan: u/a and CT with numerous gallstones & sludge. both studies equivacol for acute cholecystitis. LFTs have been normal. HIDA scan normal/negative. Have since stopped empiric rocephin/flagyl. no GI symptoms and no abd pain. 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 Advised this will only make her weaker and gave encouragement to get OOB. Will need SNF as she resides at [facility]/Memory unit at [facility] Admission and Anticipated Discharge Date Admission Date: February 13, 2022 Subjective Pt did finally get OOB to chair for only a few minutes this AM and that was the first time PT was able to convince her to get out of bed all week. When I told her she had to get out of bed again this afternoon, she was adamant that "we'll see..." about doing so. No BM in 3 days. Has some mild SOB, is off O2 when I saw her. Lianne feels weak all over which is why she just wants to lie in bed. No CP. Tele with rapid afib this AM 140s but now rates improved to 90s. I discussed her care with Nephrology and Pulm PA today Review of Systems Review of Systems: All systems reviewed & are unremarkable except as noted in HPI & below Physical Exam Constitutional: WD/WN, vitals as above Eyes: + anicteric sclerae Neck: trachea midline, no thyromegaly Respiratory: normal respiratory effort; no cough and not tachypneic Auscultation: + diminished lung sounds (At bases bilaterally); no crackles, no rhonchi and no wheezes Cardiovascular: Rate/Rhythm: regular rate and + irregularly irregular Heart Sounds: no murmur Extremities: no edema Chest (Breasts): Chest: normal inspection of chest Gastrointestinal (Abdomen): normal bowel sounds, soft, nontender, no hepatosplenomegaly Musculoskeletal: Extremities: extremities normal to inspection; no cyanosis and no clubbing Skin: no rashes, warm and dry Neurologic: moves all extremities and awake; no focal motor deficits Psychiatric: Orientation: alert, oriented to person, oriented to place and cooperative Lymphatic: no lymphedema Results & Data Results & Data ([facility]) Vital Signs (Past 12 Hours) Vital Signs Temp Pulse Pulse Pulse Resp BP BP 02/20/22 12:18 36.8 C 91 H 18 108/74 02/20/22 11:49 02/20/22 08:10 36.5 C 99 H 18 110/66 02/20/22 07:33 113 H 02/20/22 06:46 126 H 16 108/69 02/20/22 04:00 36.4 C L 112 H 18 111/74 Pulse Ox 02/20/22 12:18 91 02/20/22 11:49 95 02/20/22 08:10 97 02/20/22 07:33 02/20/22 06:46 99 02/20/22 04:00 Laboratory Results 02/20/22 02/20/22 02/20/22 Range/Units 11:23 09:52 09:52 WBC (4.8-10.8) K/uL RBC (4.2-5.4) M/uL Hgb (12.0-16.0) g/dL Hct (37-47) % MCV (80-100) fL MCH (25-34) pg MCHC (32-36) g/dL RDW Std Deviation (36.4-46.3) fL RDW Coeff of Odilon (11.5-14.5) % Plt Count (130-400) K/uL MPV (7.4-10.4) fL APTT 55.0 H* (21.0-31.0) Seconds PTT Ratio 2.0 Sodium 136 (136-145) mmol/L Potassium 3.5 (3.5-5.1) mmol/L Chloride 99 (98-107) mmol/L Carbon Dioxide 29 (21-32) mmol/L Anion Gap 8 (3-11) BUN 91 H (6-23) mg/dl Creatinine 4.17 H D (0.6-1.2) mg/dl Est Cr Clr Drug Dosing 9.5 ml/min Est GFR ( Amer) 10.9 ml/min Est GFR (Non-Af Amer) 9.4 ml/min BUN/Creatinine Ratio 21.8 H (10-20) Glucose 223 H (70-99(Fasting)) mg/dl POC Glucose 184 H (70-99) mg/dl Calcium 8.1 L (8.5-10.1) mg/dl Phosphorus 4.3 (2.5-4.9) mg/dl Albumin 2.7 L (3.4-5.0) gm/dl 02/20/22 02/20/22 02/20/22 Range/Units 09:52 07:13 02:40 WBC 7.99 (4.8-10.8) K/uL RBC 3.43 L (4.2-5.4) M/uL Hgb 10.6 L (12.0-16.0) g/dL Hct 34.4 L (37-47) % MCV 100.3 H (80-100) fL MCH 30.9 (25-34) pg MCHC 30.8 L (32-36) g/dL RDW Std Deviation 59.5 H (36.4-46.3) fL RDW Coeff of Odilon 16.9 H (11.5-14.5) % Plt Count 279 (130-400) K/uL MPV 9.3 (7.4-10.4) fL APTT 44.4 H (21.0-31.0) Seconds PTT Ratio 1.6 Sodium (136-145) mmol/L Potassium (3.5-5.1) mmol/L Chloride (98-107) mmol/L Carbon Dioxide (21-32) mmol/L Anion Gap (3-11) BUN (6-23) mg/dl Creatinine (0.6-1.2) mg/dl Est Cr Clr Drug Dosing ml/min Est GFR ( Amer) ml/min Est GFR (Non-Af Amer) ml/min BUN/Creatinine Ratio (10-20) Glucose (70-99(Fasting)) mg/dl POC Glucose 148 H (70-99) mg/dl Calcium (8.5-10.1) mg/dl Phosphorus (2.5-4.9) mg/dl Albumin (3.4-5.0) gm/dl 02/20/22 02/19/22 02/19/22 Range/Units 00:46 20:21 16:22 WBC (4.8-10.8) K/uL RBC (4.2-5.4) M/uL Hgb (12.0-16.0) g/dL Hct (37-47) % MCV (80-100) fL MCH (25-34) pg MCHC (32-36) g/dL RDW Std Deviation (36.4-46.3) fL RDW Coeff of Odilon (11.5-14.5) % Plt Count (130-400) K/uL MPV (7.4-10.4) fL APTT > 139.0 H* (21.0-31.0) Seconds PTT Ratio > 5.1 Sodium (136-145) mmol/L Potassium (3.5-5.1) mmol/L Chloride (98-107) mmol/L Carbon Dioxide (21-32) mmol/L Anion Gap (3-11) BUN (6-23) mg/dl Creatinine (0.6-1.2) mg/dl Est Cr Clr Drug Dosing ml/min Est GFR ( Amer) ml/min Est GFR (Non-Af Amer) ml/min BUN/Creatinine Ratio (10-20) Glucose (70-99(Fasting)) mg/dl POC Glucose 96 204 H (70-99) mg/dl Calcium (8.5-10.1) mg/dl Phosphorus (2.5-4.9) mg/dl Albumin (3.4-5.0) gm/dl 02/19/22 Range/Units 15:55 WBC (4.8-10.8) K/uL RBC (4.2-5.4) M/uL Hgb (12.0-16.0) g/dL Hct (37-47) % MCV (80-100) fL MCH (25-34) pg MCHC (32-36) g/dL RDW Std Deviation (36.4-46.3) fL RDW Coeff of Odilon (11.5-14.5) % Plt Count (130-400) K/uL MPV (7.4-10.4) fL APTT 129.0 H* (21.0-31.0) Seconds PTT Ratio 4.7 Sodium (136-145) mmol/L Potassium (3.5-5.1) mmol/L Chloride (98-107) mmol/L Carbon Dioxide (21-32) mmol/L Anion Gap (3-11) BUN (6-23) mg/dl Creatinine (0.6-1.2) mg/dl Est Cr Clr Drug Dosing ml/min Est GFR ( Amer) ml/min Est GFR (Non-Af Amer) ml/min BUN/Creatinine Ratio (10-20) Glucose (70-99(Fasting)) mg/dl POC Glucose (70-99) mg/dl Calcium (8.5-10.1) mg/dl Phosphorus (2.5-4.9) mg/dl Albumin (3.4-5.0) gm/dl PG Care Time/CCT Total # of Minutes Spent Total Time Spent with Patient: Total time spent is greater than 50% in coordination of care (as documented) at patient's floor/unit and/or counseling patient: Coding Level of Care Code 25795 Subseq Hosp Care Lvl 3 Diagnoses Acute respiratory failure with hypoxia J96.01 Acute metabolic encephalopathy G93.41 Volume overload E87.70 Bilateral pleural effusion J90 Chronic kidney disease, stage 4 (severe) N18.4 Essential hypertension I10 Unspecified atrial fibrillation I48.91 Atrial fibrillation type: unspecified Type 2 diabetes mellitus with diabetic neuropathy E11.40 Gallstones K80.20 Hyperlipidemia E78.5 Gout, unspecified M10.9 Anemia in CKD (chronic kidney disease) N18.9; D63.1 (1) Unspecified atrial fibrillation Atrial fibrillation type: unspecified Qualified Code(s): I48.91 - Unspecified atrial fibrillation
[2022-02-20] MEDS: HEPARIN SODIUM/DEXTROSE 25,000 UNITS/500 ML BAG IV SCH ×2 (14:50→20:23)
[2022-02-20] MEDS: ACETAMINOPHEN 325 MG TAB PO PRN (15:47)
[2022-02-20] MEDS: DOCUSATE SODIUM/SENNA 50/8.6MG TAB PO SCH (15:47)
[2022-02-20] MEDS: THIAMINE HCL 100 MG TAB PO SCH (20:26)
[2022-02-20] MEDS: MELATONIN 3 MG TAB PO PRN (22:34)
[2022-02-21] MEDS ORDERED: ONDANSETRON INJ 2 MG/ML 2 ML VIAL IV STA (05:52)
[2022-02-21 06:54] LABS: Hematocrit (blood only) 33.2 % (37-47); Hemoglobin 10.4 g/dL (12.0-16.0); Mean Corpuscular Hemoglobin 30.4 pg (25-34); Mean Corpuscular Hgb Conc 31.3 g/dL (32-36); Mean Corpuscular Volume 97.1 fL (80-100); Mean Platelet Volume 9.7 fL (7.4-10.4); Platelet Count 320 K/uL (130-400); RDW Coefficient of Variation 17.2 % (11.5-14.5); RDW Standard Deviation 59.3 fL (36.4-46.3); Red Blood Count 3.42 M/uL (4.2-5.4); White Blood Count 9.52 K/uL (4.8-10.8)
[2022-02-21 07:18] LABS: Albumin Level 2.7 gm/dl (3.4-5.0); BUN Creatinine Ratio 26.2 (10-20); Calcium 8.2 mg/dl (8.5-10.1); Creatinine Clr Calc Pharmacy 10.8 ml/min; Est GFR (African American) 12.7 ml/min; Phosphorus 3.4 mg/dl (2.5-4.9); Potassium 3.2 mmol/L (3.5-5.1)
[2022-02-21 07:19] LABS: Partial Thromboplastin Ratio 2.6
[2022-02-21 07:27] LABS: Partial Thromboplastin Time 71.1 Seconds (21.0-31.0)
[2022-02-21] MEDS: DOCUSATE SODIUM/SENNA 50/8.6MG TAB PO SCH (08:47)
[2022-02-21] MEDS: THIAMINE HCL 100 MG TAB PO SCH ×2 (08:47→20:18)
[2022-02-21] MEDS: METOPROLOL SUCC 25MG EXT REL TAB PO SCH (08:48)
[2022-02-21] MEDS: MEGESTROL ACETATE SUSP 400 MG/10 ML UDC PO SCH (08:48)
[2022-02-21] MEDS: dilTIAZem HCL 180 MG CAPCR PO SCH (08:48)
[2022-02-21] MEDS: INSULIN ASPART PER UNIT SC SCH ×4 (08:51→20:05)
--- NOTE | 2022-02-21 09:33 | Nephrology Progress Note ---
Date of Service February 21, 2022 Assessment & Plan (1) Acute kidney injury superimposed on chronic kidney disease: (2) Bilateral pleural effusion: (3) Acute respiratory failure with hypoxia: (4) Anemia in CKD (chronic kidney disease): (5) Unspecified atrial fibrillation: Plan: 82-year-old female with stage IV CKD baseline creatinine around 2.3-2.5, most likely secondary to microvascular disease with history of hypertension diabetes. Never had kidney biopsy before.Presented to CKD clinic with advanced CKD for 5 years as recently moved from [place] to [place]. Admitted to the hospital with shortness of breath, hypoxia and respiratory failure with oxyg en saturation in 80s. Respiratory status improved on nasal cannula oxygen. Urine output improved, has been off of diuretics for last 2 days. Renal function has been slowly improving. Cancelled tunneled dialysis catheter plan for now. Epogen 89014 units SQ x 1 dose given on 02/19/22 Renal function continues to improve slowly and electrolyte acceptable. Urine output improved.No sign of volume overload. --continue on protein supplement, appetite stimulant, encourage p.o. intake as her appetite has been poor for months and over last 6 months she lost almost 30 lb according to her brother Ko has been very concerned with her poor p.o. -- left arm nephrology precaution for possible need for future vascular access. -- continue to hold Bumex for now and use as needed and monitor urine output -- no plan for thoracentesis from Pulmonary at this time but she may benefit from right-sided thoracentesis with moderate pleural effusion -- physical therapy on board but she has not been able to do much. Will follow Admission and Anticipated Discharge Date Admission Date: February 13, 2022 Subjective Jessi Miranda was seen and evaluated in her room this morning. She has been having some nausea and abdominal discomfort this morning, but was able to have breakfast. Denies shortness of breath while resting, no nausea. Decent urine output without diuretics. Renal function continues to improve slowly, creatinine down to 3.7, electrolyte acceptable. Blood pressure stable. No sign of volume overload. No bowel movement for last 3 days. Review of Systems Review of Systems: Detailed review of system was otherwise unremarkable except mentioned above. Physical Exam Constitutional: WD/WN, vitals as above + ill appearing; no acute distress Eyes: + anicteric sclerae Neck: normal visual inspection Respiratory: Auscultation: + diminished lung sounds Cardiovascular: Rate/Rhythm: regular rate and regular rhythm Extremities: no edema Gastrointestinal (Abdomen): Percussion/Palpation: + abdomen tender (mild tenderness in epigastric area.) and abdomen soft; no guarding and abdomen not rigid Skin: no rashes Neurologic: no focal motor deficits Psychiatric: Orientation: alert and oriented x 3 Results & Data ([facility]) Vital Signs (Past 12 Hours) Vital Signs Temp Pulse Resp BP BP Pulse Ox 02/21/22 07:40 36.6 C 110 H 20 112/73 92 02/21/22 04:16 36.5 C 104 H 24 112/57 L 92 02/20/22 22:57 36.7 C 93 H 20 105/68 93 PG Care Time/CCT Total # of Minutes Spent Total Time Spent with Patient: Total time spent is greater than 50% in coordination of care (as documented) at patient's floor/unit and/or counseling patient: Coding Level of Care Code 71834 Subseq Hosp Care Lvl 3 Diagnoses Acute kidney injury superimposed on chronic kidney disease N17.9; N18.9 Bilateral pleural effusion J90 Acute respiratory failure with hypoxia J96.01 Anemia in CKD (chronic kidney disease) N18.9; D63.1 Unspecified atrial fibrillation I48.91 Atrial fibrillation type: unspecified (1) Unspecified atrial fibrillation Atrial fibrillation type: unspecified Qualified Code(s): I48.91 - Unspecified atrial fibrillation
[2022-02-21] MEDS ORDERED: METOPROLOL SUCC 25MG EXT REL TAB PO ONE (11:13)
[2022-02-21] MEDS: SIMVASTATIN 20 MG TAB PO SCH (11:47)
[2022-02-21 15:02] LABS: Partial Thromboplastin Ratio 2.5
[2022-02-21 15:19] LABS: Partial Thromboplastin Time 67.5 Seconds (21.0-31.0)
[2022-02-21] MEDS: POTASSIUM CHLORIDE CRTAB 20 MEQ TABCR PO SCH ×2 (17:13→20:19)
--- NOTE | 2022-02-21 21:04 | Hospitalist Progress Note ---
Date of Service February 21, 2022 Assessment & Plan (1) Acute respiratory failure with hypoxia: Plan: 2nd to volume overloaded state in the setting of acute/chronic CKD stage 4. Only requiring minimal amount of NC O2-now weaned off to room air at times Her respiratory symptoms and distress/tachypnea are improved with escalating doses of diuretics and improvement in renal function Had had no effective diuresis with 80mg lasix, followed by 120mg lasix -- but did have response to bumex 4mg on 2 occasions Chest x-ray on 02/18 reveals slightly improved interstitial pulmonary edema, moderate right and small left pleural effusions with associated bibasilar airspace opacities-overall slightly improved Continue barlow and monitor UOP Continue NC O2 as needed to keep pulse ox greater than 92% Pulmonary consult appreciated. Had asked them to see her for consideration of thoracentesis -pulmonology defers thoracentesis at this time-prefers continued diuresis -We will keep Eliquis on hold in case of need for future procedure-dialysis catheter or thoracentesis and continue heparin gtt -Hold off on diuretics again on 02/21 as per nephrology Creatinine is slowly improving. Possible thoracocenthesis on 02/22 (2) Acute metabolic encephalopathy: Plan: 2nd to MITCHEL/uremia. Improving Mentation seems very clear now recent TSH wnl. vit B12 level wnl. ammonia is wnl. B1 pending -- while awaiting level --> continue empiric thiamine 200mg BID. some concern for cholecystitis on initial imaging HIDA obtained - normal; have since stopped antibiotics. (3) Volume overload: Plan: 2nd to acute/chronic CKD. Did respond somewhat to high-dose IV bumex and symptoms have improved. 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 Appreciate nephrology/pulmonary/vascular surgery consults & recs. -Follow BMP, urine output, BPs, volume status -Nephrology started Megace to improve appetite -give 500mL NS IVFs today (4) Bilateral pleural effusion: Plan: 2nd to acute/chronic CKD. Echo with preserved EF. TSH wnl. Pulmonology consult-continues to defer right-sided thoracentesis at this time in favor of (auto) diuresis Very large effusion on that side. No respiratory distress, requiring minimal to no supplemental O2 Eliquis on hold and now on heparin gtt in case of need for thoracentesis-PULM will continue to follow peripherally in case has worsening respiratory status -I do have concerns about formation of loculated effusion if this becomes chronic (5) Chronic kidney disease, stage 4 (severe): Plan: baseline CrCl 15-20 baseline Creatinine = low 2's With acute renal failure with Cr >5, but improving daily since 02/17 Uremia improving -Avoid nephrotoxins -renally dose meds when appropriate -follow BMP (6) Essential hypertension: Plan: BPs low or low-normal Had held her CCB and BB because of low BPs but then a.fib rates were uncontrolled Resumed CCB albeit at lower dose of 180mg of cardizem CD resumed metoprolol xl at lower dose of 25mg daily (7) Unspecified atrial fibrillation: Plan: Continue lower dose of diltiazem and metoprolol with hold parameters continue telemetry continue heparin gtt rather than Eliquis in case of need for procedure (8) Type 2 diabetes mellitus with diabetic neuropathy: Plan: HbA1C 5.3% Glucose levels here increasing increase novolog SSI (9) Gallstones: Plan: u/a and CT with numerous gallstones & sludge. both studies equivacol for acute cholecystitis. LFTs have been normal. HIDA scan normal/negative. Have since stopped empiric rocephin/flagyl. no GI symptoms and no abd pain. 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 Advised this will only make her weaker and gave encouragement to get OOB. Will need SNF as she resides at [facility]/Memory unit at [facility] Admission and Anticipated Discharge Date Admission Date: February 13, 2022 Subjective 82 yo female reports no new symptoms today. Review of Systems Review of Systems: All systems reviewed & are unremarkable except as noted in HPI & below Physical Exam Constitutional: WD/WN, vitals as above Eyes: + anicteric sclerae ENMT: external ear and nose normal, oropharynx normal Neck: trachea midline, no thyromegaly Respiratory: normal respiratory effort; no cough and not tachypneic Auscultation: + diminished lung sounds (At bases bilaterally); no crackles, no rhonchi and no wheezes Cardiovascular: Rate/Rhythm: regular rate and + irregularly irregular Heart Sounds: no murmur Extremities: no edema Chest (Breasts): Chest: normal inspection of chest Gastrointestinal (Abdomen): normal bowel sounds, soft, nontender, no hepatosplenomegaly Musculoskeletal: Extremities: extremities normal to inspection; no cyanosis and no clubbing Skin: no rashes, warm and dry Neurologic: moves all extremities and awake; no focal motor deficits Psychiatric: A+Ox3, euthymic affect Orientation: alert, oriented to person, oriented to place and cooperative Lymphatic: no lymphedema Results & Data Results & Data ([facility]) Vital Signs (Past 12 Hours) Vital Signs Temp Pulse Resp BP BP Pulse Ox 02/21/22 20:44 88 L 02/21/22 20:07 36.5 C 95 H 18 117/79 95 02/21/22 15:42 36.5 C 112 H 20 111/74 91 02/21/22 11:25 36.7 C 121 H 20 119/79 96 PG Care Time/CCT Total # of Minutes Spent Total Time Spent with Patient: Total time spent is greater than 50% in coordination of care (as documented) at patient's floor/unit and/or counseling patient: Coding Level of Care Code 49244 Subseq Hosp Care Lvl 2 Diagnoses Acute respiratory failure with hypoxia J96.01 Acute metabolic encephalopathy G93.41 Volume overload E87.70 Bilateral pleural effusion J90 Chronic kidney disease, stage 4 (severe) N18.4 Essential hypertension I10 Unspecified atrial fibrillation I48.91 Atrial fibrillation type: unspecified Type 2 diabetes mellitus with diabetic neuropathy E11.40 Gallstones K80.20 Hyperlipidemia E78.5 Gout, unspecified M10.9 Anemia in CKD (chronic kidney disease) N18.9; D63.1 (1) Unspecified atrial fibrillation Atrial fibrillation type: unspecified Qualified Code(s): I48.91 - Unspecified atrial fibrillation
[2022-02-21 23:17] LABS: Partial Thromboplastin Ratio 2.2
[2022-02-21 23:20] LABS: Partial Thromboplastin Time 60.4 Seconds (21.0-31.0)
[2022-02-22] MEDS: HEPARIN SODIUM/DEXTROSE 25,000 UNITS/500 ML BAG IV SCH (05:45)
[2022-02-22 06:40] LABS: Hematocrit (blood only) 32.9 % (37-47); Hemoglobin 10.5 g/dL (12.0-16.0); Mean Corpuscular Hemoglobin 32.2 pg (25-34); Mean Corpuscular Hgb Conc 31.9 g/dL (32-36); Mean Corpuscular Volume 100.9 fL (80-100); Mean Platelet Volume 9.6 fL (7.4-10.4); Platelet Count 315 K/uL (130-400); RDW Coefficient of Variation 17.3 % (11.5-14.5); RDW Standard Deviation 63.9 fL (36.4-46.3); Red Blood Count 3.26 M/uL (4.2-5.4); White Blood Count 8.74 K/uL (4.8-10.8)
[2022-02-22 07:12] LABS: Partial Thromboplastin Ratio 2.3
[2022-02-22 07:23] LABS: Albumin Level 2.8 gm/dl (3.4-5.0); BUN Creatinine Ratio 26.7 (10-20); Calcium 8.7 mg/dl (8.5-10.1); Est GFR (Non-African American) 11.3 ml/min; Phosphorus 5.2 mg/dl (2.5-4.9); Potassium 4.3 mmol/L (3.5-5.1)
[2022-02-22 07:37] LABS: Partial Thromboplastin Time 62.5 Seconds (21.0-31.0)
[2022-02-22] MEDS: dilTIAZem HCL 180 MG CAPCR PO SCH (07:59)
[2022-02-22] MEDS: SIMVASTATIN 20 MG TAB PO SCH (08:00)
[2022-02-22] MEDS: POTASSIUM CHLORIDE CRTAB 20 MEQ TABCR PO SCH ×3 (08:00→21:06)
[2022-02-22] MEDS: THIAMINE HCL 100 MG TAB PO SCH ×2 (08:00→21:14)
[2022-02-22] MEDS: DOCUSATE SODIUM/SENNA 50/8.6MG TAB PO SCH (08:00)
[2022-02-22] MEDS: METOPROLOL SUCC 50MG EXT REL TAB PO SCH (08:00)
[2022-02-22] MEDS: MEGESTROL ACETATE SUSP 400 MG/10 ML UDC PO SCH (08:00)
[2022-02-22] MEDS: INSULIN ASPART PER UNIT SC SCH ×4 (08:05→21:27)
--- NOTE | 2022-02-22 11:09 | XRay Report ---
XR chest 2V PA/lateral CLINICAL HISTORY: Right pleural effusion TECHNIQUE: 2 views of the chest were obtained. Comparison: Comparison is made to chest radiograph 02/10/2022 FINDINGS: No lines and tubes are seen. Calcified aortic knob is seen. Prominence and cephalization of the vascu lature is seen. There are moderate bilateral pleural effusions, increased from prior exam. IMPRESSION: Moderate bilateral pleural effusions are increased from prior exam. There is mild pulmonary edema. ACT 112: Negative or not required by law. Electronically signed by: Maxi Concepcion M.D. 02/22/2022 11:07 AM
--- NOTE | 2022-02-22 11:28 | Nephrology Progress Note ---
Date of Service February 22, 2022 Assessment & Plan (1) Acute kidney injury superimposed on chronic kidney disease: (2) Bilateral pleural effusion: (3) Acute respiratory failure with hypoxia: (4) Anemia in CKD (chronic kidney disease): (5) Unspecified atrial fibrillation: Plan: 82-year-old female with stage IV CKD baseline creatinine around 2.3-2.5, most likely secondary to microvascular disease with history of hypertension diabetes. Never had kidney biopsy before.Presented to CKD clinic with advanced CKD for 5 years as recently moved from [place] to [place]. Admitted to the hospital with shortness of breath, hypoxia and respiratory failure with oxyg en saturation in 80s. Respiratory status improved on nasal cannula oxygen. Urine output improved, has been off of diuretics for last 2 days. Renal function has been slowly improving. Cancelled tunneled dialysis catheter plan for now. Epogen 46980 units SQ x 1 dose given on 02/19/22 Renal function continues to improve slowly and electrolyte acceptable. Urine output improved. Chest x-ray showing worsening of bilateral pleural effusion. -- encourage po intake, In to keep net even, if remained negative, will start on maintenance IV fluid. -- left arm nephrology precaution for possible need for future vascular access. -- continue to hold Bumex for now and use as needed and monitor urine output -- may benefit from right-sided thoracentesis with moderate pleural effusion -- physical therapy on board but she has not been able to do much. Will follow Admission and Anticipated Discharge Date Admission Date: February 13, 2022 Subjective Jessi Miranda was seen and evaluated in her room this morning. She had a CXR this A.m. with plan for possible thoracentesis today. Net negative more than 300 mL with no significant improvement in p.o. intake.. Denies shortness of breath while resting, no nausea. Renal function continues to improve slowly, creatinine down to 3.6, electrolyte acceptable. Blood pressure stable. No sign of volume overload. Review of Systems Review of Systems: Detailed review of system was otherwise unremarkable except mentioned above. Physical Exam Constitutional: WD/WN, vitals as above + ill appearing; no acute distress Eyes: + anicteric sclerae Neck: normal visual inspection Respiratory: Auscultation: + diminished lung sounds Cardiovascular: Rate/Rhythm: regular rate and regular rhythm Extremities: no edema Skin: no rashes Neurologic: no focal motor deficits Psychiatric: Orientation: alert and oriented x 3 Results & Data ([facility]) Vital Signs (Past 12 Hours) Vital Signs Temp Pulse Resp BP BP Pulse Ox 02/22/22 07:43 36.5 C 90 19 104/65 97 02/22/22 04:30 36.3 C L 112 H 22 112/74 96 PG Care Time/CCT Total # of Minutes Spent Total Time Spent with Patient: Total time spent is greater than 50% in coordination of care (as documented) at patient's floor/unit and/or counseling patient: Coding Level of Care Code 80748 Subseq Hosp Care Lvl 3 Diagnoses Acute kidney injury superimposed on chronic kidney disease N17.9; N18.9 Bilateral pleural effusion J90 Acute respiratory failure with hypoxia J96.01 Anemia in CKD (chronic kidney disease) N18.9; D63.1 Unspecified atrial fibrillation I48.91 Atrial fibrillation type: unspecified (1) Unspecified atrial fibrillation Atrial fibrillation type: unspecified Qualified Code(s): I48.91 - Unspecified atrial fibrillation
--- NOTE | 2022-02-22 16:17 | Procedure Note ---
Procedure Note Date of Service February 22, 2022 Note INDICATION: Intractable right pleural effusion PROCEDURE: Right thoracentesis DATE: 02/22/2022 TIME: 15:30 PROVIDER: Miguel Luo PA-C CONSENT: Was obtained prior to the procedure by Miguel Luo PA-C as delegated by Dr. Sheehan and placed on the chart PROCEDURE SUMMARY: Bedside ultra sound was performed to identify an appropriate puncture site. Images were saved to the [email or web address] system. A time out was performed. The patient was prepped and draped in a sterile manner using chlorhexidine scrub after the appropriate level was confirmed by ultrasound. 1% lidocaine was used to numb the region. A finder needle was then u sed under negative pressure to locate fluid and instill lidocaine into the pleural space. A small incision was made with a #10 scalpel. A needle with overlying catheter was advanced using negative pressure on the syringe until a pleural flash was obtained. The thoracentesis catheter was then threaded without difficulty and without any bleeding. The patient had 1300 mL of straw colored fluid removed. The incision site was then covered with two Band-Aids with no evidence of bleeding. Procedure was terminated as patient developed cough and had a drop in SBP of 15 mmHg. SpO2 improved to 100%. Bedside ultra sound was performed immediately after the procedure was completed and revealed good sliding lung. No immediate complications were noted during the procedure. Drs. Sheehan, Gala, Julian, and Juancho were contacted after the procedure with results. A post-procedure chest x-ray was completed and reviewed at bedside by this provider and no pneumothorax was identified. The patient tolerated the procedure well with no shortness of breath, no hypotension, no increase in heart rate, and no other acute symptoms. Coding CPT Codes Pulmonary/Thoracic - Pulmonary and Thoracic: 54281 Thoracentesis w imaging ([id number]) Pulmonary/Thoracic - Pulmonary and Thoracic: 86720 US, Chest, real time with imaging documentation ([id number]) [facility] Procedure Codes (Charges) Pulmonary/Thoracic Procedure 1: Pulmonary and Thoracic: 88347 Thoracentesis w imaging Procedure 2: Pulmonary and Thoracic: 45487 US, Chest, real time with imaging documentation
[2022-02-22 16:29] LABS: Appearance Pleural Fluid CLEAR; Color Pleural Fluid YELLOW; RBC Pleural Fluid (A) < 3000 /uL; Source Pleural Fluid RIGHT LUNG; WBC Pleural Fluid (A) 538 /uL
--- NOTE | 2022-02-22 16:30 | XRay Report ---
XR chest 1V portable CLINICAL HISTORY: S/P Right Thoracentesis TECHNIQUE: Single frontal radiograph of the chest was obtained. Comparison: Comparison is made to chest radiograph 02/22/2022 FINDINGS: No lines and tubes are seen. The cardiomediastinal silhouette is stable. Lungs are underinflated but clear. Left greater than right lower lung airspace opacity is seen. There is a small left pleural eff usion. Right pleural effusion is no longer seen. No evidence of pneumothorax. IMPRESSION: 1. Interval near resolution of right pleural effusion with no evidence of pneumothorax status post t horacentesis. Small left pleural effusion is seen. 2. Low lung volumes, airspace opacity in the left greater than right lower lung is favored to repres ent atelectasis with or without superimposed aspiration/pneumonia. ACT 112: Negative or not required by law. Electronically signed by: Maxi Concepcion M.D. 02/22/2022 4:28 PM
[2022-02-22 17:04] LABS: Basophils, Fluid 0 %; Eosinophils, Fluid 1 %; Lymphocytes, Fluid 3 %; Mono,Macrophage,Mesothelial 27 %; Neutrophils, Fluid 69 %
--- NOTE | 2022-02-22 21:40 | Hospitalist Progress Note ---
Date of Service February 22, 2022 Assessment & Plan (1) Acute respiratory failure with hypoxia: Plan: 2nd to volume overloaded state in the setting of acute/chronic CKD stage 4. Only requiring minimal amount of NC O2-now weaned off to room air at times Her respiratory symptoms and distress/tachypnea are improved with escalating doses of diuretics and improvement in renal function Had had no effective diuresis with 80mg lasix, followed by 120mg lasix -- but did have response to bumex 4mg on 2 occasions Chest x-ray on 02/18 reveals slightly improved interstitial pulmonary edema, moderate right and small left pleural effusions with associated bibasilar airspace opacities-overall slightly improved Continue barlow and monitor UOP Continue NC O2 as needed to keep pulse ox greater than 92% Pulmonary consult appreciated. Patient will have thoracocenthesis later today. Will order chest x ray. D/W Kroner and Vilensky Heparin on hold. Update: Thoracocenthesis completed on 02/22: The patient had 1300 mL of straw colored fluid removed. -Held diuretics 02/20-02/22 as per nephrology Creatinine is slowly improving. (2) Acute metabolic encephalopathy: Plan: 2nd to MITCHEL/uremia. Improving Mentation seems very clear now recent TSH wnl. vit B12 level wnl. ammonia is wnl. B1 pending -- while awaiting level --> continue empiric thiamine 200mg BID. some concern for cholecystitis on initial imaging HIDA obtained - normal; have since stopped antibiotics. (3) Volume overload: Plan: 2nd to acute/chronic CKD. Did respond somewhat to high-dose IV bumex and symptoms have improved. Initially going to place HD catheter to start dialysis, but this was deferred as renal function started to improve and acid-base status and electrolytes are stable [employer] continues to improve today down to 4.17 and hoping for continued renal recovery. Appreciate nephrology/pulmonary/vascular surgery consults & recs. -Follow BMP, urine output, BPs, volume status -Nephrology started Megace to improve appetite -no additonal fluid on -02/22 (4) Bilateral pleural effusion: Plan: 2nd to acute/chronic CKD. Echo with preserved EF. TSH wnl. As stated above. Patient had thoracocenthesis on 02/22 The patient had 1300 mL of straw colored fluid removed. Eliquis on hold, Heprain drip on hold for procedure. (5) Chronic kidney disease, stage 4 (severe): Plan: baseline CrCl 15-20 baseline Creatinine = low 2's With acute renal failure with Cr >5, but improving daily since 02/17 02/22 Creat was 3.59 Uremia improving -Avoid nephrotoxins -renally dose meds when appropriate -follow BMP (6) Essential hypertension: Plan: BPs low or low-normal Had held her CCB and BB because of low BPs but then a.fib rates were uncontrolled Resumed CCB albeit at lower dose of 180mg of cardizem CD resumed metoprolol xl at lower dose of 25mg daily (7) Unspecified atrial fibrillation: Plan: Continue lower dose of diltiazem and metoprolol with hold parameters continue telemetry continue heparin gtt rather than Eliquis in case of need for procedure (8) Type 2 diabetes mellitus with diabetic neuropathy: Plan: HbA1C 5.3% Glucose levels here increasing increase novolog SSI (9) Gallstones: Plan: u/a and CT with numerous gallstones & sludge. both studies equivacol for acute cholecystitis. LFTs have been normal. HIDA scan normal/negative. Have since stopped empiric rocephin/flagyl. no GI symptoms and no abd pain. 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 Advised this will only make her weaker and gave encouragement to get OOB. Will need SNF as she resides at [facility]Memory unit at [facility] Admission and Anticipated Discharge Date Admission Date: February 13, 2022 Subjective Patient reports feeling comfortable. She has no new complaints. Review of Systems Review of Systems: All systems reviewed & are unremarkable except as noted in HPI & below Physical Exam Constitutional: WD/WN, vitals as above Eyes: + anicteric sclerae ENMT: external ear and nose normal, oropharynx normal Neck: trachea midline, no thyromegaly Respiratory: normal respiratory effort; no cough and not tachypneic Auscultation: + diminished lung sounds (At bases bilaterally); no crackles, no rhonchi and no wheezes Cardiovascular: Rate/Rhythm: regular rate and + irregularly irregular Heart Sounds: no murmur Extremities: no edema Chest (Breasts): Chest: normal inspection of chest Gastrointestinal (Abdomen): normal bowel sounds, soft, nontender, no hepatosp lenomegaly Musculoskeletal: Extremities: extremities normal to inspection; no cyanosis and no clubbing Skin: no rashes, warm and dry Neurologic: moves all extremities and awake; no focal motor deficits Psychiatric: A+Ox3, euthymic affect Orientation: alert, oriented to person, oriented to place and cooperative Lymphatic: no lymphedema Results & Data Results & Data ([facility]) Vital Signs (Past 12 Hours) Vital Signs Temp Pulse Pulse Resp BP BP Pulse Ox 02/22/22 19:35 36.6 C 82 20 101/63 95 02/22/22 15:47 91 H 02/22/22 15:20 36.8 C 85 18 105/65 93 02/22/22 12:37 37.0 C 85 18 94/61 L 91 PG Care Time/CCT Total # of Minutes Spent Total Time Spent with Patient: Total time spent is greater than 50% in coordination of care (as documented) at patient's floor/unit and/or counseling patient: Coding Level of Care Code 25870 Subseq Hosp Care Lvl 3 Diagnoses Acute respiratory failure with hypoxia J96.01 Acute metabolic encephalopathy G93.41 Volume overload E87.70 Bilateral pleural effusion J90 Chronic kidney disease, stage 4 (severe) N18.4 Essential hypertension I10 Unspecified atrial fibrillation I48.91 Atrial fibrillation type: unspecified Type 2 diabetes mellitus with diabetic neuropathy E11.40 Gallstones K80.20 Hyperlipidemia E78.5 Gout, unspecified M10.9 Anemia in CKD (chronic kidney disease) N18.9; D63.1 (1) Unspecified atrial fibrillation Atrial fibrillation type: unspecified Qualified Code(s): I48.91 - Unspecified atrial fibrillation
--- NOTE | 2022-02-23 00:42 | Communication Note ---
Date of Service: February 23, 2022 Notified by nursing of low barlow output this evening. 75mL. Instructed to flush barlow. Per chart review MITCHEL on ckd4 noted. 3AM update: output increased to 200mL
[2022-02-23 01:19] LABS: Partial Thromboplastin Ratio 1.7; Partial Thromboplastin Time 46.1 Seconds (21.0-31.0)
[2022-02-23 06:01] LABS: Hematocrit (blood only) 28.8 % (37-47); Hemoglobin 9.1 g/dL (12.0-16.0); Mean Corpuscular Hemoglobin 31.4 pg (25-34); Mean Corpuscular Hgb Conc 31.6 g/dL (32-36); Mean Corpuscular Volume 99.3 fL (80-100); Mean Platelet Volume 9.6 fL (7.4-10.4); Platelet Count 279 K/uL (130-400); White Blood Count 7.43 K/uL (4.8-10.8)
[2022-02-23 06:12] LABS: BUN Creatinine Ratio 38.7 (10-20); Calcium 8.4 mg/dl (8.5-10.1); Creatinine Clr Calc Pharmacy 14.5 ml/min; Est GFR (African American) 18.1 ml/min; Est GFR (Non-African American) 15.6 ml/min; Potassium 4.9 mmol/L (3.5-5.1)
[2022-02-23 06:24] LABS: Partial Thromboplastin Ratio 1.8
[2022-02-23 06:25] LABS: Partial Thromboplastin Time 49.2 Seconds (21.0-31.0)
[2022-02-23] MEDS: INSULIN ASPART PER UNIT SC SCH ×4 (07:47→21:22)
[2022-02-23] MEDS: MEGESTROL ACETATE SUSP 400 MG/10 ML UDC PO SCH (07:55)
[2022-02-23] MEDS: THIAMINE HCL 100 MG TAB PO SCH ×2 (07:55→21:29)
[2022-02-23] MEDS: SIMVASTATIN 20 MG TAB PO SCH (07:55)
[2022-02-23] MEDS: dilTIAZem HCL 180 MG CAPCR PO SCH ×2 (07:56→17:31)
[2022-02-23] MEDS: POTASSIUM CHLORIDE CRTAB 20 MEQ TABCR PO SCH (07:56)
[2022-02-23] MEDS: DOCUSATE SODIUM/SENNA 50/8.6MG TAB PO SCH (07:56)
[2022-02-23] MEDS: METOPROLOL SUCC 50MG EXT REL TAB PO SCH ×2 (07:56→17:30)
--- NOTE | 2022-02-23 08:55 | XRay Report ---
XR chest 1V portable CLINICAL HISTORY: S/P thoracentesis 02/22. Now with drop in Hgb. COMPARISON STUDY: Chest radiograph February 22, 2022 at 4:19 PM. FINDINGS: There is no pneumothorax. Moderate left pleural effusion is again noted. A small right pleu ral effusion has likely increased in size. Interstitial thickening has progressed. Right perihilar op acity has increased. Left upper lung opacity has developed. Cardiomediastinal silhouette is stable. 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 IMPRESSION: 1. No pneumothorax. Probable small right pleural effusion, slightly increased in size. Persistent mod erate left pleural effusion. 2. Progression of interstitial thickening consistent with pulmonary edema. Interval increase in bilat eral airspace opacities. ACT 112: Negative or not required by law. Electronically signed by: Jeffrey Vargas M.D. 02/23/2022 8:53 AM
[2022-02-23] MEDS: HEPARIN SODIUM/DEXTROSE 25,000 UNITS/500 ML BAG IV SCH (10:56)
--- NOTE | 2022-02-23 11:53 | Hospitalist Progress Note ---
Date of Service February 23, 2022 Assessment & Plan (1) Acute respiratory failure with hypoxia: Plan: 2nd to volume overloaded state in the setting of acute/chronic CKD stage 4. Only requiring minimal amount of NC O2-now weaned off to room air at times Her respiratory symptoms and distress/tachypnea are improved with escalating doses of diuretics and improvement in renal function, and status post right thoracentesis Initially had no effective diuresis with 80mg lasix, followed by 120mg lasix -- but did have response to bumex 4mg on 2 occasions Chest x-ray on 02/18 reveals slightly improved interstitial pulmonary edema, moderate right and small left pleural effusions with associated bibasilar airspace opacities-overall slightly improved Chest x-ray on 02/23 status post thoracentesis is negative for pneumothorax, probable small right pleural effusion, persistent moderate left pleural effusion, and progression of pulmonary edema Continue barlow and monitor UOP Continue NC O2 as needed to keep pulse ox greater than 92% Pulmonary consult appreciated. Thoracentesis completed on 02/22 with 1300 mL of straw colored fluid removed. Transudative by lights criteria -Give Bumex 2 mg IV x1 on 02/23 as per discussion with nephrology as remains volume overloaded and creatinine is pretty much back to baseline (2) MITCHEL (acute kidney injury): Plan: Presented with acute kidney injury with creatinine peaking above 5 With volume overload and pleural effusions Did respond somewhat to high-dose IV bumex and symptoms have improved. Initially going to place HD catheter to start dialysis, but this was deferred as renal function started to improve and acid-base status and electrolytes are stable Air Valve Mechanic continues to improve each day and now creatinine down to 2.74 BUN up slightly today to 106-question if having GI bleeding as hemoglobin also dropped, but repeat hemoglobin improved Elevation in BUN could also be from increased protein in diet? Difficult to say but will follow Appreciate nephrology/pulmonary/vascular surgery consults & recs. -Follow BMP, urine output, BPs, volume status -Nephrology started Megace to improve appetite -Give Bumex 2 mg IV x1 on 02/23 for persistent pulmonary edema and volume overload (3) Anemia in CKD (chronic kidney disease): Plan: Hemoglobin chronically in the 9-10 range Epogen given Hemoglobin dropped a bit today to 9.1 No evidence of bleeding from anywhere-no bowel movement, no hematuria, no hematemesis or epistaxis, no abdominal pains. -Repeat CBC today shows hemoglobin back up to 9.7 which is around her baseline Follow CBC (4) Acute metabolic encephalopathy: Plan: 2nd to MITCHEL/uremia. Improving as renal function improves Mentation seems very clear now Initially there was some concern for cholecystitis on initial imaging HIDA obtained - normal; have since stopped antibiotics. recent TSH wnl. vit B12 level wnl. ammonia is wnl. B1 level very low at 7 -Continue thiamine 200mg BID. (5) Bilateral pleural effusion: Plan: 2nd to acute/chronic CKD. Echo with preserved EF. TSH wnl. Secondary to acute kidney injury Patient had thoracentesis on 02/22 with transudative fluid removed-1300 mL Heparin drip was restarted but will now discontinue this and restart home Eliquis, renally dosed Follow-up chest x-ray still with left moderate pleural effusion Pulmonology will not likely intervene on this Continue with diuresis (6) Chronic kidney disease, stage 4 (severe): Plan: baseline CrCl 15-20 baseline Creatinine = low 2's With acute renal failure with Cr >5, but improving daily since 02/17 and almost back to baseline Uremia improving -Avoid nephrotoxins -renally dose meds when appropriate -follow BMP (7) Essential hypertension: Plan: BPs low or low-normal Had held her CCB and BB because of low BPs but then a.fib rates were uncontrolled Resumed diltiazem albeit at lower dose of 180mg of cardizem CD resumed metoprolol xl at home dose of 50 mg daily (8) Unspecified atrial fibrillation: Plan: Because of her soft BPs, her diltiazem and metoprolol occasionally get held and then she becomes tachycardic Continue lower dose of diltiazem and metoprolol with hold parameters continue telemetry Stop heparin drip and revert back to Eliquis now that thoracentesis is complete (9) Type 2 diabetes mellitus with diabetic neuropathy: Plan: HbA1C 5.3% Glucose levels here increasing Add on Lantus 5 units at bedtime and continue NovoLog sliding scale (10) Gallstones: Plan: u/a and CT with numerous gallstones & sludge. both studies equivacol for acute cholecystitis. LFTs have been normal. HIDA scan normal/negative. Have since stopped empiric rocephin/flagyl. no GI symptoms and no abd pain. 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 Advised this will only make her weaker and gave encouragement to get OOB. She finally was out of bed to chair on 02/23 Will need SNF as she resides at [facility]Memory unit at [facility] which cannot likely handle her level of debility Admission and Anticipated Discharge Date Admission Date: February 13, 2022 Subjective Patient reports feeling about the same with her breathing since having the thoracentesis. She is very uncomfortable with being out of bed to the chair which is the first time she has been out this long in the 10 days she has been in the hospital. She is eating and drinking, taking boost protein shakes. Her urine output is down slightly from previous but her creatinine continues to trend downward. She is happy to hear this. No chest pains. I discussed her case with nephrology-plan to give Bumex today Review of Systems Review of Systems: All systems reviewed & are unremarkable except as noted in HPI & below Physical Exam Constitutional: WD/WN, vitals as above Eyes: + anicteric sclerae Neck: trachea midline, no thyromegaly Respiratory: normal respiratory effort; not tachypneic Auscultation: + diminished lung sounds (At left base); no rhonchi and no wheezes Cardiovascular: Rate/Rhythm: regular rate and + irregularly irregular Heart Sounds: no murmur Extremities: no edema Chest (Breasts): Chest: normal inspection of chest Gastrointestinal (Abdomen): normal bowel sounds, soft, nontender, no hepatosplenomegaly Musculoskeletal: Extremities: extremities normal to inspection; no cyanosis and no clubbing Skin: no rashes, warm and dry Neurologic: moves all extremities and awake; no focal motor deficits Psychiatric: Orientation: alert, oriented to person, oriented to place and cooperative Lymphatic: no lymphedema Results & Data Results & Data ([facility]) Vital Signs (Past 12 Hours) Vital Signs Temp Pulse Pulse Resp BP Pulse Ox 02/23/22 11:08 36.6 C 96 H 18 97/58 L 91 02/23/22 07:34 90 02/23/22 07:06 36.5 C 84 18 98/44 L 91 02/23/22 03:22 94 02/23/22 03:18 88 L 02/23/22 03:14 36.4 C L 106 H 18 99/66 L 92 Laboratory Results 02/23/22 02/23/22 02/23/22 Range/Units 11:07 08:46 07:04 WBC (4.8-10.8) K/uL RBC (4.2-5.4) M/uL Hgb (12.0-16.0) g/dL Hct (37-47) % MCV (80-100) fL MCH (25-34) pg MCHC (32-36) g/dL RDW Std Deviation (36.4-46.3) fL RDW Coeff of Odilon (11.5-14.5) % Plt Count (130-400) K/uL MPV (7.4-10.4) fL APTT (21.0-31.0) Seconds PTT Ratio Sodium (136-145) mmol/L Potassium (3.5-5.1) mmol/L Chloride (98-107) mmol/L Carbon Dioxide (21-32) mmol/L Anion Gap (3-11) BUN (6-23) mg/dl Creatinine (0.6-1.2) mg/dl Est Cr Clr Drug Dosing ml/min Est GFR ( Amer) ml/min Est GFR (Non-Af Amer) ml/min BUN/Creatinine Ratio (10-20) Glucose (70-99(Fasting)) mg/dl POC Glucose 171 H 203 H (70-99) mg/dl Calcium (8.5-10.1) mg/dl B-Natriuretic Peptide 340 H (0-100) pg/ml Fluid Neutrophils % % Fluid Lymphocytes % % Fluid Eosinophils % % Fluid Basophils % % Fluid Meso/Macro/Iroquois % % Fluid Comment Pleural Fluid Source Pleural Color Pleural Appearance Pleural pH (7.3-7.4) Pleural WBC /uL Pleural RBC /uL Pleural Total Protein gm/dl Pleural LDH U/L Pleural Glucose mg/dl 02/23/22 02/23/22 02/23/22 Range/Units 05:37 05:37 05:37 WBC 7.43 (4.8-10.8) K/uL RBC 2.90 L (4.2-5.4) M/uL Hgb 9.1 L (12.0-16.0) g/dL Hct 28.8 L (37-47) % MCV 99.3 (80-100) fL MCH 31.4 (25-34) pg MCHC 31.6 L (32-36) g/dL RDW Std Deviation 61.0 H (36.4-46.3) fL RDW Coeff of Odilon 17.0 H (11.5-14.5) % Plt Count 279 (130-400) K/uL MPV 9.6 (7.4-10.4) fL APTT 49.2 H* (21.0-31.0) Seconds PTT Ratio 1.8 Sodium 135 L (136-145) mmol/L Potassium 4.9 (3.5-5.1) mmol/L Chloride 101 (98-107) mmol/L Carbon Dioxide 27 (21-32) mmol/L Anion Gap 7 (3-11) BUN 106 H (6-23) mg/dl Creatinine 2.74 H D (0.6-1.2) mg/dl Est Cr Clr Drug Dosing 14.5 ml/min Est GFR ( Amer) 18.1 ml/min Est GFR (Non-Af Amer) 15.6 ml/min BUN/Creatinine Ratio 38.7 H (10-20) Glucose 211 H (70-99(Fasting)) mg/dl POC Glucose (70-99) mg/dl Calcium 8.4 L (8.5-10.1) mg/dl B-Natriuretic Peptide (0-100) pg/ml Fluid Neutrophils % % Fluid Lymphocytes % % Fluid Eosinophils % % Fluid Basophils % % Fluid Meso/Macro/Iroquois % % Fluid Comment Pleural Fluid Source Pleural Color Pleural Appearance Pleural pH (7.3-7.4) Pleural WBC /uL Pleural RBC /uL Pleural Total Protein gm/dl Pleural LDH U/L Pleural Glucose mg/dl 02/23/22 02/22/22 02/22/22 Range/Units 00:36 21:04 16:41 WBC (4.8-10.8) K/uL RBC (4.2-5.4) M/uL Hgb (12.0-16.0) g/dL Hct (37-47) % MCV (80-100) fL MCH (25-34) pg MCHC (32-36) g/dL RDW Std Deviation (36.4-46.3) fL RDW Coeff of Odilon (11.5-14.5) % Plt Count (130-400) K/uL MPV (7.4-10.4) fL APTT 46.1 H* (21.0-31.0) Seconds PTT Ratio 1.7 Sodium (136-145) mmol/L Potassium (3.5-5.1) mmol/L Chloride (98-107) mmol/L Carbon Dioxide (21-32) mmol/L Anion Gap (3-11) BUN (6-23) mg/dl Creatinine (0.6-1.2) mg/dl Est Cr Clr Drug Dosing ml/min Est GFR ( Amer) ml/min Est GFR (Non-Af Amer) ml/min BUN/Creatinine Ratio (10-20) Glucose (70-99(Fasting)) mg/dl POC Glucose 180 H 171 H (70-99) mg/dl Calcium (8.5-10.1) mg/dl B-Natriuretic Peptide (0-100) pg/ml Fluid Neutrophils % % Fluid Lymphocytes % % Fluid Eosinophils % % Fluid Basophils % % Fluid Meso/Macro/Iroquois % % Fluid Comment Pleural Fluid Source Pleural Color Pleural Appearance Pleural pH (7.3-7.4) Pleural WBC /uL Pleural RBC /uL Pleural Total Protein gm/dl Pleural LDH U/L Pleural Glucose mg/dl 02/22/22 02/22/22 02/22/22 Range/Units 14:30 14:30 14:30 WBC (4.8-10.8) K/uL RBC (4.2-5.4) M/uL Hgb (12.0-16.0) g/dL Hct (37-47) % MCV (80-100) fL MCH (25-34) pg MCHC (32-36) g/dL RDW Std Deviation (36.4-46.3) fL RDW Coeff of Odilon (11.5-14.5) % Plt Count (130-400) K/uL MPV (7.4-10.4) fL APTT (21.0-31.0) Seconds PTT Ratio Sodium (136-145) mmol/L Potassium (3.5-5.1) mmol/L Chloride (98-107) mmol/L Carbon Dioxide (21-32) mmol/L Anion Gap (3-11) BUN (6-23) mg/dl Creatinine (0.6-1.2) mg/dl Est Cr Clr Drug Dosing ml/min Est GFR ( Amer) ml/min Est GFR (Non-Af Amer) ml/min BUN/Creatinine Ratio (10-20) Glucose (70-99(Fasting)) mg/dl POC Glucose (70-99) mg/dl Calcium (8.5-10.1) mg/dl B-Natriuretic Peptide (0-100) pg/ml Fluid Neutrophils % 69 % Fluid Lymphocytes % 3 % Fluid Eosinophils % 1 % Fluid Basophils % 0 % Fluid Meso/Macro/Iroquois % 27 % Fluid Comment Pleural Fluid Source RIGHT LUNG Pleural Color YELLOW Pleural Appearance CLEAR Pleural pH 7.40 (7.3-7.4) Pleural WBC 538 /uL Pleural RBC < 3000 /uL Pleural Total Protein 3.0 gm/dl Pleural LDH 100 U/L Pleural Glucose 179 mg/dl PG Care Time/CCT Total # of Minutes Spent Total Time Spent with Patient: Total time spent is greater than 50% in coordination of care (as documented) at patient's floor/unit and/or counseling patient: Coding Level of Care Code 12561 Subseq Hosp Care Lvl 3 Diagnoses Acute respiratory failure with hypoxia J96.01 Acute metabolic encephalopathy G93.41 Bilateral pleural effusion J90 Chronic kidney disease, stage 4 (severe) N18.4 Essential hypertension I10 Unspecified atrial fibrillation I48.91 Atrial fibrillation type: unspecified Type 2 diabetes mellitus with diabetic neuropathy E11.40 Gallstones K80.20 Hyperlipidemia E78.5 Gout, unspecified M10.9 Anemia in CKD (chronic kidney disease) N18.9; D63.1 MITCHEL (acute kidney injury) N17.9 (1) Unspecified atrial fibrillation Atrial fibrillation type: unspecified Qualified Code(s): I48.91 - Unspecified atrial fibrillation
[2022-02-23] MEDS ORDERED: BUMETANIDE 2 MG in SYRINGE 0 ML IV ONE (12:15)
--- NOTE | 2022-02-23 12:25 | Nephrology Progress Note ---
Date of Service February 23, 2022 Assessment & Plan (1) Acute kidney injury superimposed on chronic kidney disease: (2) Bilateral pleural effusion: (3) Acute respiratory failure with hypoxia: (4) Anemia in CKD (chronic kidney disease): (5) Unspecified atrial fibrillation: Plan: 82-year-old female with stage IV CKD baseline creatinine around 2.3-2.5, most likely secondary to microvascular disease with history of hypertension diabetes. Never had kidney biopsy before.Presented to CKD clinic with advanced CKD for 5 years as recently moved from [place] to [place]. Admitted to the hospital with shortness of breath, hypoxia and respiratory failure with oxyg en saturation in 80s. Respiratory status improved on nasal cannula oxygen. Urine output improved, has been off of diuretics for last 2 days. Renal function has been slowly improving. Cancelled tunneled dialysis catheter plan for now. Epogen 05160 units SQ x 1 dose given on 02/19/22 Renal function continues to improve slowly and electrolyte acceptable but BUN 106, ? intravascular volume depletion ? GIB with drop in Hb, ? Protein supplement although S albumin remains low. Urine output slightly dropped , net positive. -- Bumex 2 mg iv x 1 dose -- encourage po intake -- recommend repeat Hb in 6 hours -- left arm nephrology precaution for possible need for future vascular access. -- encouraged to try to do physical therapy Will follow Admission and Anticipated Discharge Date Admission Date: February 13, 2022 Subjective Jessi Miranda was seen and evaluated in her room this morning. She had right-sided thoracentesis yesterday and had 1300 mL fluid removed. She denies any specific symptoms, overall feels well, no shortness of breath. Urine output slightly dropped and she is net positive, has not been getting any diuretics over last 5 days. Hemoglobin dropped this morning to 9.1 from 10.5 yesterday. Renal function continues to improve slowly, creatinine down to 2.7 , electrolyte acceptable but BUN continues to go up currently 106. Blood pressure relatively low. Review of Systems Review of Systems: Detailed review of system was otherwise unremarkable except mentioned above. Physical Exam Constitutional: WD/WN, vitals as above + ill appearing; no acute distress Eyes: + anicteric sclerae Neck: normal visual inspection Respiratory: Auscultation: + crackles Cardiovascular: Rate/Rhythm: regular rate and regular rhythm Extremities: no edema Gastrointestinal (Abdomen): Percussion/Palpation: + abdomen tender (mild tenderness in epigastric area.) and abdomen soft; no guarding and abdomen not rigid Skin: no rashes Neurologic: no focal motor deficits Psychiatric: Orientation: alert and oriented x 3 Results & Data ([facility]) Vital Signs (Past 12 Hours) Vital Signs Temp Pulse Pulse Resp BP Pulse Ox 02/23/22 11:08 36.6 C 96 H 18 97/58 L 91 02/23/22 07:34 90 02/23/22 07:06 36.5 C 84 18 98/44 L 91 02/23/22 03:22 94 02/23/22 03:18 88 L 02/23/22 03:14 36.4 C L 106 H 18 99/66 L 92 PG Care Time/CCT Total # of Minutes Spent Total Time Spent with Patient: Total time spent is greater than 50% in coordination of care (as documented) at patient's floor/unit and/or counseling patient: Coding Level of Care Code 71300 Subseq Hosp Care Lvl 3 Diagnoses Acute kidney injury superimposed on chronic kidney disease N17.9; N18.9 Bilateral pleural effusion J90 Acute respiratory failure with hypoxia J96.01 Anemia in CKD (chronic kidney disease) N18.9; D63.1 Unspecified atrial fibrillation I48.91 Atrial fibrillation type: unspecified (1) Unspecified atrial fibrillation Atrial fibrillation type: unspecified Qualified Code(s): I48.91 - Unspecified atrial fibrillation
[2022-02-23 12:35] LABS: Hematocrit (blood only) 31.5 % (37-47); Hemoglobin 9.7 g/dL (12.0-16.0); Mean Corpuscular Hemoglobin 30.6 pg (25-34); Mean Corpuscular Hgb Conc 30.8 g/dL (32-36); Mean Corpuscular Volume 99.4 fL (80-100); Mean Platelet Volume 9.7 fL (7.4-10.4); Platelet Count 359 K/uL (130-400); RDW Coefficient of Variation 17.2 % (11.5-14.5); Red Blood Count 3.17 M/uL (4.2-5.4); White Blood Count 9.11 K/uL (4.8-10.8)
[2022-02-23] MEDS: APIXABAN 2.5 MG TAB PO SCH (21:21)
[2022-02-23] MEDS: LANTUS PER UNIT CHARGE SQ SCH (21:29)
[2022-02-23] MEDS: MELATONIN 3 MG TAB PO PRN (22:25)
[2022-02-24] MEDS: ONDANSETRON INJ 2 MG/ML 2 ML VIAL IV PRN (01:07)
[2022-02-24 07:49] LABS: Basophils # (auto) 0.02 K/uL (0-0.2); Basophils % (auto) 0.2 %; Eosinophils % (auto) 1.1 %; Hematocrit (blood only) 31.2 % (37-47); Hemoglobin 9.8 g/dL (12.0-16.0); Immature Granulocytes # (auto) 0.38 K/uL (0.00-0.02); Immature Granulocytes % (auto) 4.4 %; Lymphocytes # (auto) 0.89 K/uL (1.2-3.4); Lymphocytes % (auto) 10.2 %; Mean Corpuscular Hemoglobin 30.6 pg (25-34); Mean Corpuscular Hgb Conc 31.4 g/dL (32-36); Mean Corpuscular Volume 97.5 fL (80-100); Monocytes # (auto) 0.85 K/uL (0.11-0.59); Monocytes % (auto) 9.8 %; Neutrophils # (auto) 6.46 K/uL (1.4-6.5); Neutrophils % (auto) 74.3 %; Platelet Count 350 K/uL (130-400); RDW Coefficient of Variation 17.6 % (11.5-14.5)
[2022-02-24] MEDS: APIXABAN 2.5 MG TAB PO SCH ×2 (08:06→21:13)
[2022-02-24] MEDS: INSULIN ASPART PER UNIT SC SCH ×4 (08:06→20:20)
[2022-02-24] MEDS: SIMVASTATIN 20 MG TAB PO SCH (08:06)
[2022-02-24] MEDS: THIAMINE HCL 100 MG TAB PO SCH ×2 (08:06→21:13)
[2022-02-24] MEDS: dilTIAZem HCL 180 MG CAPCR PO SCH (08:06)
[2022-02-24] MEDS: DOCUSATE SODIUM/SENNA 50/8.6MG TAB PO SCH (08:06)
[2022-02-24] MEDS: METOPROLOL SUCC 50MG EXT REL TAB PO SCH (08:07)
[2022-02-24] MEDS: MEGESTROL ACETATE SUSP 400 MG/10 ML UDC PO SCH (08:09)
[2022-02-24 08:30] LABS: Albumin Level 2.6 gm/dl (3.4-5.0); BUN Creatinine Ratio 30.7 (10-20); Calcium 8.5 mg/dl (8.5-10.1); Creatinine Clr Calc Pharmacy 12.7 ml/min; Est GFR (African American) 15.4 ml/min; Est GFR (Non-African American) 13.3 ml/min; Phosphorus 2.7 mg/dl (2.5-4.9); Potassium 4.8 mmol/L (3.5-5.1)
--- NOTE | 2022-02-24 12:04 | Nephrology Progress Note ---
Date of Service February 24, 2022 Assessment & Plan (1) Acute kidney injury superimposed on chronic kidney disease: (2) Bilateral pleural effusion: (3) Acute respiratory failure with hypoxia: (4) Anemia in CKD (chronic kidney disease): (5) Unspecified atrial fibrillation: Plan: 82-year-old female with stage IV CKD baseline creatinine around 2.3-2.5, most likely secondary to microvascular disease with history of hypertension diabetes. Never had kidney biopsy before.Presented to CKD clinic with advanced CKD for 5 years as recently moved from [place] to [place]. Admitted to the hospital with shortness of breath, hypoxia and respiratory failure with oxyg en saturation in 80s. Respiratory status improved on nasal cannula oxygen. Urine output improved, has been off of diuretics for last 2 days. Renal function has been slowly improving. Cancelled tunneled dialysis catheter plan for now. Epogen 51281 units SQ x 1 dose given on 02/19/22 Renal function continues to improve slowly and electrolyte acceptable. BUN remain pretty high ? intravascular volume depletion ? GIB with drop in Hb, ? Protein supplement although S albumin remains low. Urine output improved after Bumex 2 milligrams yesterday with net negative more than 500 mL. -- Hold diuretics and in use only as needed, aim to keep slightly in positive balance. -- encourage po intake -- left arm nephrology precaution for possible need for future vascular access. -- encouraged to try to do physical therapy -- psychiatric evaluation for underlying depression -- discussed in detail with her brother Ko over the telephone was main concern is her lack of motivation to do anything for her which has been ongoing since June. Will follow Admission and Anticipated Discharge Date Admission Date: February 13, 2022 Subjective Jessi Miranda was seen and evaluated in her room this morning. She denies any specific symptoms, overall feels well, no shortness of breath. Urine output Improved and net negative more than 500 mL after getting Bumex 2 milligram yesterday. Renal function staying relatively stable, electrolyte acceptable. Hemoglobin improved to 9.8. Appetite and p.o. intake remains poor and eating only 50 percent of her breakfast and her brother reports she really has not been drinking much. Review of Systems Review of Systems: Detailed review of system was otherwise unremarkable except mentioned above. Physical Exam Constitutional: WD/WN, vitals as above + ill appearing; no acute distress Eyes: + anicteric sclerae Neck: normal visual inspection Respiratory: Auscultation: + diminished lung sounds Cardiovascular: Rate/Rhythm: regular rate and regular rhythm Extremities: no edema Skin: no rashes Neurologic: no focal motor deficits Psychiatric: Orientation: alert and oriented x 3 Results & Data ([facility]) Vital Signs (Past 12 Hours) Vital Signs Temp Pulse Resp BP Pulse Ox 02/24/22 07:31 36.5 C 108 H 16 128/85 97 02/24/22 05:36 37.6 C H 118 H 18 115/74 93 PG Care Time/CCT Total # of Minutes Spent Total Time Spent with Patient: Total time spent is greater than 50% in coordination of care (as documented) at patient's floor/unit and/or counseling patient: Coding Level of Care Code 54625 Subseq Hosp Care Lvl 3 Diagnoses Acute kidney injury superimposed on chronic kidney disease N17.9; N18.9 Bilateral pleural effusion J90 Acute respiratory failure with hypoxia J96.01 Anemia in CKD (chronic kidney disease) N18.9; D63.1 Unspecified atrial fibrillation I48.91 Atrial fibrillation type: unspecified (1) Unspecified atrial fibrillation Atrial fibrillation type: unspecified Qualified Code(s): I48.91 - Unspecified atrial fibrillation
--- NOTE | 2022-02-24 12:26 | Psychiatric Consultation ---
Date of Consultation February 24, 2022 Impression / Recommendations Impression 82 yo female with fatigue and poor effort with multiple medical conditions, most significant chronic kidney disease with resulting anemia. Her TSH reportedly normal. (1) Vitamin D deficiency: (2) Anemia: (3) MITCHEL (acute kidney injury): patient was not interested in any services and denies SI. She views any symptoms that she is willing to endorse as situational and is not particularly interested in adding medications, etc. anemia factor most likely to mimic depression hx of significant vitamin D deficiency if would agree to a trial of antidepressant, recommend Lexapro 5 mg daily to start as doesn't require renal dosing. would consider 10 mg for 4-6 weeks as adequate trial but vitamin D supplement (if kidney issues allow) likely higher yield. Risk Factors Assessment Do You Have Access To A Gun?: No Psych History Identifying Data 82 yo female from [place], admit on 02/12 for variety of medical issues related to chronic renal disease. Consult is by Dr. Dawkins for ?depression. Chief Complaint voiced "just down here as want to go back to [place]" History of Present Illness consult placed due to poor engagement in treatment/PT here and in hospitalist discussion with brother mentioned that she was feeling depressed at some point in the past year. She moved back to [place] to be closer to brother for help after living in [place] for 5-6 years. Scored PHQ-9= 8 , 0 on #9 indicating no SI. Scored 3 for sleeping alot, 2 for little energy which she attributes to her overall health issues. Past Psychiatric History Previous Psych History: denied, may have tried antidepressants in the past through PCP but cannot recall names. Do You Have Access To A Gun?: No History of Previous Suicide Attempt: No Allergies Allergy/AdvReac Type Severity Reaction Status Date / Time No Known Drug Allergies Allergy Verified 12/18/21 13:53 Home Medications Medication Instructions Recorded Confirmed Type allopurinol 100 mg tablet 100 mg PO DAILY 07/30/21 12/18/21 History apixaban 2.5 mg tablet (Eliquis) 2.5 mg PO BID 07/30/21 12/18/21 History diltiazem HCl 240 mg 240 mg PO DAILY 07/30/21 12/18/21 History capsule,extended release 24 hr hydralazine 25 mg tablet 25 mg PO TID 07/30/21 12/18/21 History insulin glargine 100 unit/mL (3 12 unit SUBCUT BID ml 07/30/21 12/18/21 History mL) subcutaneous pen (Lantus Solostar U-100 Insulin) insulin lispro 100 unit/mL 1 sliding scale dose SUBCUT 07/30/21 12/18/21 History subcutaneous solution (Humalog USEASDIRECTD U-100 Insulin) metoprolol succinate 50 mg 50 mg PO DAILY 07/30/21 12/18/21 History tablet,extended release 24 hr polyethylene glycol 3350 17 17 g PO DAILY PRN 07/30/21 12/18/21 History gram/dose oral powder (Miralax) simvastatin 20 mg tablet 20 mg PO DAILY 07/30/21 12/18/21 History tramadol 50 mg tablet 50 mg PO Q8H PRN 07/30/21 12/18/21 History ergocalciferol (vitamin D2) 1,250 50,000 unit PO WEEKLY #12 cap 12/04/21 12/18/21 Rx mcg (50,000 unit) capsule Personal History Highest Grade Completed Comment: 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 Patient History Medical History CKD (chronic kidney disease) Diabetes Hyperlipidemia Hypertension Surgical History History of hip surgery Right Previous back surgery Family History Father Cerebral aneurysm Family/Other Diabetes Hypertension Glaucoma Social History Smoking Status: Never smoker Second Hand Exposure: Yes; Hx Alcohol Use: No Hx Substance Use: No Preferred Language: Mongolian Communication Ability: Effective Visual Impairment: No Limitations Hearing Ability: Normal [place] Required: No Beliefs That Will Affect Care: None marital status: / Current Living Situation: Other Current Living Situation Comment: lives at [facility] current occupational status: retired How many Children do You have: 1 How many Children do You have Comment: 2 stepchildren Feels Safe at Home: Yes during the past year weight has: remained stable Assistive Devices: Walker and Wheelchair Physical Exam Psychiatric: patient had met with liaison and then essentially declined consult, rounded on patient and was sleeping soundly/difficult to awaken Vital Signs (Past 24 Hours): Last Vital Signs Temp 36.5 C 02/24/22 07:31 Pulse 108 H 02/24/22 07:31 Resp 16 02/24/22 07:31 BP 128/85 02/24/22 07:31 Pulse Ox 97 02/24/22 07:31 Review of Systems Unobtainable due to cognitive status Results & Data (PSY) Laboratory Results 02/24/22 02/24/22 02/24/22 Range/Units 11:41 07:28 06:29 WBC 8.70 (4.8-10.8) K/uL RBC 3.20 L (4.2-5.4) M/uL Hgb 9.8 L (12.0-16.0) g/dL Hct 31.2 L (37-47) % MCV 97.5 (80-100) fL MCH 30.6 (25-34) pg MCHC 31.4 L (32-36) g/dL RDW Std Deviation 62.0 H (36.4-46.3) fL RDW Coeff of Odilon 17.6 H (11.5-14.5) % Plt Count 350 (130-400) K/uL MPV 10.0 (7.4-10.4) fL Immature Gran % (Auto) 4.4 Neut % (Auto) 74.3 Lymph % (Auto) 10.2 Kings % (Auto) 9.8 Eos % (Auto) 1.1 Baso % (Auto) 0.2 Neut # (Auto) 6.46 Lymph # (Auto) 0.89 L Kings # (Auto) 0.85 H Eos # (Auto) 0.10 Baso # (Auto) 0.02 Immature Gran # (Auto) 0.38 H Absolute Nucleated RBC Nucleated RBC % (auto) Neutrophils % (Manual) Band Neutrophils % Lymphocytes % (Manual) Prolymphocyte % Reactive Lymphs % (Man) Monocytes % (Manual) Eosinophils % (Manual) Basophils % (Manual) Metamyelocytes % (Man) Myelocytes % (Man) Promyelocytes % (Man) Blast Cells % (Manual) Plasma Cell % (Manual) Other Cells % Nucleated RBC % Neutrophils # (Manual) Band Neutrophils # Total Absolute Neuts Lymphocytes # (Manual) Prolymphocyte # Reactive Lymphs # Total Abs Lymphocytes Monocytes # (Manual) Eosinophils # (Manual) Basophils # (Manual) Metamyelocytes # (Man) Myelocytes # (Manual) Promyelocytes # (Man) Blast Cells # (Man) Plasma Cell # (Manual) Other Cells # Nucleated RBCs # (Man) Hypersegmented Neuts Hyposegmented Neuts Hypogranular Neuts Large Granular Lymphs # Lrg Granular Lymphs Hairy Cells Smudge Cells Toxic Granulation Toxic Vacuolation Dohle Bodies [place]lan Rods Platelet Estimate Hypogranular Platelets Clumped Platelets Giant Platelets Platelet Satelliting RBC Morphology Polychromasia Hypochromasia Poikilocytosis Basophilic Stippling Anisocytosis Microcytosis Macrocytosis Spherocytes Pappenheimer Bodies Sickle Cells Target Cells Tear Drop Cells Ovalocytes Stomatocytes [place] Bodies Echinocytes Acanthocytes (Spur) Rouleaux RBC Agglutinates Schistocytes Sezary Cell Sodium (136-145) mmol/L Potassium (3.5-5.1) mmol/L Chloride (98-107) mmol/L Carbon Dioxide (21-32) mmol/L Anion Gap (3-11) BUN (6-23) mg/dl Creatinine (0.6-1.2) mg/dl Est Cr Clr Drug Dosing ml/min Est GFR ( Amer) ml/min Est GFR (Non-Af Amer) ml/min BUN/Creatinine Ratio (10-20) Glucose (70-99(Fasting)) mg/dl POC Glucose 149 H 187 H (70-99) mg/dl Calcium (8.5-10.1) mg/dl Phosphorus (2.5-4.9) mg/dl Albumin (3.4-5.0) gm/dl 02/24/22 02/24/22 02/23/22 Range/Units 06:29 06:29 21:05 WBC Cancelled (4.8-10.8) K/uL RBC Cancelled (4.2-5.4) M/uL Hgb Cancelled (12.0-16.0) g/dL Hct Cancelled (37-47) % MCV Cancelled (80-100) fL MCH Cancelled (25-34) pg MCHC Cancelled (32-36) g/dL RDW Std Deviation Cancelled (36.4-46.3) fL RDW Coeff of Odilon Cancelled (11.5-14.5) % Plt Count Cancelled (130-400) K/uL MPV Cancelled (7.4-10.4) fL Immature Gran % (Auto) Cancelled Neut % (Auto) Cancelled Lymph % (Auto) Cancelled Kings % (Auto) Cancelled Eos % (Auto) Cancelled Baso % (Auto) Cancelled Neut # (Auto) Cancelled Lymph # (Auto) Cancelled Kings # (Auto) Cancelled Eos # (Auto) Cancelled Baso # (Auto) Cancelled Immature Gran # (Auto) Cancelled Absolute Nucleated RBC Cancelled Nucleated RBC % (auto) Cancelled Neutrophils % (Manual) Cancelled Band Neutrophils % Cancelled Lymphocytes % (Manual) Cancelled Prolymphocyte % Cancelled Reactive Lymphs % (Man) Cancelled Monocytes % (Manual) Cancelled Eosinophils % (Manual) Cancelled Basophils % (Manual) Cancelled Metamyelocytes % (Man) Cancelled Myelocytes % (Man) Cancelled Promyelocytes % (Man) Cancelled Blast Cells % (Manual) Cancelled Plasma Cell % (Manual) Cancelled Other Cells % Cancelled Nucleated RBC % Cancelled Neutrophils # (Manual) Cancelled Band Neutrophils # Cancelled Total Absolute Neuts Cancelled Lymphocytes # (Manual) Cancelled Prolymphocyte # Cancelled Reactive Lymphs # Cancelled Total Abs Lymphocytes Cancelled Monocytes # (Manual) Cancelled Eosinophils # (Manual) Cancelled Basophils # (Manual) Cancelled Metamyelocytes # (Man) Cancelled Myelocytes # (Manual) Cancelled Promyelocytes # (Man) Cancelled Blast Cells # (Man) Cancelled Plasma Cell # (Manual) Cancelled Other Cells # Cancelled Nucleated RBCs # (Man) Cancelled Hypersegmented Neuts Cancelled Hyposegmented Neuts Cancelled Hypogranular Neuts Cancelled Large Granular Lymphs Cancelled # Lrg Granular Lymphs Cancelled Hairy Cells Cancelled Smudge Cells Cancelled Toxic Granulation Cancelled Toxic Vacuolation Cancelled Dohle Bodies Cancelled [place] Rods Cancelled Platelet Estimate Cancelled Hypogranular Platelets Cancelled Clumped Platelets Cancelled Giant Platelets Cancelled Platelet Satelliting Cancelled RBC Morphology Cancelled Polychromasia Cancelled Hypochromasia Cancelled Poikilocytosis Cancelled Basophilic Stippling Cancelled Anisocytosis Cancelled Microcytosis Cancelled Macrocytosis Cancelled Spherocytes Cancelled Pappenheimer Bodies Cancelled Sickle Cells Cancelled Target Cells Cancelled Tear Drop Cells Cancelled Ovalocytes Cancelled Stomatocytes Cancelled [place] Bodies Cancelled Echinocytes Cancelled Acanthocytes (Spur) Cancelled Rouleaux Cancelled RBC Agglutinates Cancelled Schistocytes Cancelled Sezary Cell Cancelled Sodium 138 (136-145) mmol/L Potassium 4.8 (3.5-5.1) mmol/L Chloride 105 (98-107) mmol/L Carbon Dioxide 26 (21-32) mmol/L Anion Gap 7 (3-11) BUN 96 H (6-23) mg/dl Creatinine 3.13 H D (0.6-1.2) mg/dl Est Cr Clr Drug Dosing 12.7 ml/min Est GFR ( Amer) 15.4 ml/min Est GFR (Non-Af Amer) 13.3 ml/min BUN/Creatinine Ratio 30.7 H (10-20) Glucose 163 H (70-99(Fasting)) mg/dl POC Glucose 196 H (70-99) mg/dl Calcium 8.5 (8.5-10.1) mg/dl Phosphorus 2.7 (2.5-4.9) mg/dl Albumin 2.6 L (3.4-5.0) gm/dl 02/23/22 02/23/22 Range/Units 16:37 12:18 WBC 9.11 (4.8-10.8) K/uL RBC 3.17 L (4.2-5.4) M/uL Hgb 9.7 L (12.0-16.0) g/dL Hct 31.5 L (37-47) % MCV 99.4 (80-100) fL MCH 30.6 (25-34) pg MCHC 30.8 L (32-36) g/dL RDW Std Deviation 62.0 H (36.4-46.3) fL RDW Coeff of Odilon 17.2 H (11.5-14.5) % Plt Count 359 (130-400) K/uL MPV 9.7 (7.4-10.4) fL Immature Gran % (Auto) Neut % (Auto) Lymph % (Auto) Kings % (Auto) Eos % (Auto) Baso % (Auto) Neut # (Auto) Lymph # (Auto) Kings # (Auto) Eos # (Auto) Baso # (Auto) Immature Gran # (Auto) Absolute Nucleated RBC Nucleated RBC % (auto) Neutrophils % (Manual) Band Neutrophils % Lymphocytes % (Manual) Prolymphocyte % Reactive Lymphs % (Man) Monocytes % (Manual) Eosinophils % (Manual) Basophils % (Manual) Metamyelocytes % (Man) Myelocytes % (Man) Promyelocytes % (Man) Blast Cells % (Manual) Plasma Cell % (Manual) Other Cells % Nucleated RBC % Neutrophils # (Manual) Band Neutrophils # Total Absolute Neuts Lymphocytes # (Manual) Prolymphocyte # Reactive Lymphs # Total Abs Lymphocytes Monocytes # (Manual) Eosinophils # (Manual) Basophils # (Manual) Metamyelocytes # (Man) Myelocytes # (Manual) Promyelocytes # (Man) Blast Cells # (Man) Plasma Cell # (Manual) Other Cells # Nucleated RBCs # (Man) Hypersegmented Neuts Hyposegmented Neuts Hypogranular Neuts Large Granular Lymphs # Lrg Granular Lymphs Hairy Cells Smudge Cells Toxic Granulation Toxic Vacuolation Dohle Bodies Ruslan Rods Platelet Estimate Hypogranular Platelets Clumped Platelets Giant Platelets Platelet Satelliting RBC Morphology Polychromasia Hypochromasia Poikilocytosis Basophilic Stippling Anisocytosis Microcytosis Macrocytosis Spherocytes Pappenheimer Bodies Sickle Cells Target Cells Tear Drop Cells Ovalocytes Stomatocytes [place] Bodies Echinocytes Acanthocytes (Spur) Rouleaux RBC Agglutinates Schistocytes Sezary Cell Sodium (136-145) mmol/L Potassium (3.5-5.1) mmol/L Chloride (98-107) mmol/L Carbon Dioxide (21-32) mmol/L Anion Gap (3-11) BUN (6-23) mg/dl Creatinine (0.6-1.2) mg/dl Est Cr Clr Drug Dosing ml/min Est GFR ( Amer) ml/min Est GFR (Non-Af Amer) ml/min BUN/Creatinine Ratio (10-20) Glucose (70-99(Fasting)) mg/dl POC Glucose 160 H (70-99) mg/dl Calcium (8.5-10.1) mg/dl Phosphorus (2.5-4.9) mg/dl Albumin (3.4-5.0) gm/dl Medications Administered Acetaminophen (Acetaminophen 325 Mg Tab) 650 mg PO Q4H PRN PRN Reason: Pain or Fever Stop: 03/15/22 23:33 Last Admin: 02/20/22 15:47 Dose: 650 mg Documented by: [id number] Apixaban (Apixaban 2.5 Mg Tab) 2.5 mg PO BID [facility] Stop: 03/25/22 18:34 Last Admin: 02/24/22 08:06 Dose: 2.5 mg Documented by: [id number] Admin: 02/23/22 21:21 Dose: 2.5 mg Documented by: [id number] Diltiazem HCl (Diltiazem Hcl 180 Mg Capcr) 180 mg PO QAM [facility] Stop: 03/19/22 12:29 Last Admin: 02/24/22 08:06 Dose: 180 mg Documented by: [id number] Admin: 02/23/22 17:31 Dose: 180 mg Documented by: [id number] Admin: 02/23/22 07:56 Dose: Not Given Documented by: [id number] Admin: 02/22/22 07:59 Dose: 180 mg Documented by: [id number] Admin: 02/21/22 08:48 Dose: 180 mg Documented by: [id number] Admin: 02/20/22 06:50 Dose: 180 mg Documented by: [id number] Admin: 02/19/22 08:39 Dose: Not Given Documented by: [id number] Admin: 02/18/22 08:37 Dose: 180 mg Documented by: [id number] Admin: 02/17/22 16:30 Dose: 180 mg Documented by: [id number] Insulin Aspart (Insulin Aspart Per Unit) 0 units SC ACHS [facility] Stop: 03/15/22 23:33 Last Admin: 02/24/22 08:06 Dose: 5 units Documented by: [id number] Cosigned by: [id number] Admin: 02/23/22 21:22 Dose: 3 units Documented by: [id number] Cosigned by: [id number] Admin: 02/23/22 17:43 Dose: 7 units Documented by: [id number] Cosigned by: [id number] Admin: 02/23/22 11:59 Dose: 8 units Documented by: [id number] Cosigned by: [id number] Admin: 02/23/22 07:47 Dose: 10 units Documented by: [id number] Cosigned by: [id number] Admin: 02/22/22 21:27 Dose: 2 units Documented by: [id number] Cosigned by: [id number] Admin: 02/22/22 16:54 Dose: 6 units Documented by: [id number] Cosigned by: [id number] Admin: 02/22/22 12:21 Dose: 5 units Documented by: [id number] Cosigned by: [id number] Admin: 02/22/22 08:05 Dose: 5 units Documented by: [id number] Cosigned by: [id number] Admin: 02/21/22 20:05 Dose: Not Given Documented by: [id number] Admin: 02/21/22 17:16 Dose: 3 units Documented by: [id number] Cosigned by: [id number] Admin: 02/21/22 11:51 Dose: 3 units Documented by: [id number] Cosigned by: [id number] Admin: 02/21/22 08:51 Dose: 2 units Documented by: [id number] Cosigned by: [id number] Admin: 02/20/22 20:23 Dose: 2 units Documented by: [id number] Cosigned by: [id number] Admin: 02/20/22 17:07 Dose: 2 units Documented by: [id number] Cosigned by: [id number] Admin: 02/20/22 13:02 Dose: 5 units Documented by: [id number] Cosigned by: [id number] Admin: 02/20/22 08:40 Dose: Not Given Documented by: [id number] Admin: 02/19/22 21:27 Dose: Not Given Documented by: [id number] Admin: 02/19/22 17:03 Dose: 8 units Documented by: [id number] Cosigned by: [id number] Admin: 02/19/22 12:04 Dose: Not Given Documented by: [id number] Admin: 02/19/22 08:55 Dose: 3 units Documented by: [id number] Cosigned by: [id number] Admin: 02/18/22 21:05 Dose: 1 units Documented by: [id number] Cosigned by: [id number] Admin: 02/18/22 17:51 Dose: Not Given Documented by: [id number] Admin: 02/18/22 12:19 Dose: 2 units Documented by: [id number] Cosigned by: [id number] Admin: 02/18/22 08:35 Dose: Not Given Documented by: [id number] Admin: 02/17/22 20:44 Dose: Not Given Documented by: [id number] Admin: 02/17/22 17:45 Dose: Not Given Documented by: [id number] Cosigned by: [id number] Admin: 02/17/22 14:24 Dose: Not Given Documented by: [id number] Cosigned by: [id number] Admin: 02/17/22 09:04 Dose: Not Given Documented by: [id number] Cosigned by: [id number] Admin: 02/16/22 20:28 Dose: Not Given Documented by: [id number] Admin: 02/16/22 17:18 Dose: Not Given Documented by: [id number] Admin: 02/16/22 12:06 Dose: 2 units Documented by: [id number] Cosigned by: [id number] Admin: 02/16/22 08:18 Dose: Not Given Documented by: [id number] Admin: 02/15/22 21:09 Dose: Not Given Documented by: [id number] Admin: 02/15/22 17:43 Dose: Not Given Documented by: [id number] Admin: 02/15/22 12:52 Dose: Not Given Documented by: [id number] Admin: 02/15/22 09:04 Dose: Not Given Documented by: [id number] Admin: 02/14/22 20:42 Dose: Not Given Documented by: [id number] Admin: 02/14/22 16:53 Dose: Not Given Documented by: [id number] Admin: 02/14/22 13:06 Dose: Not Given Documented by: [id number] Admin: 02/14/22 08:42 Dose: Not Given Documented by: [id number] Admin: 02/13/22 23:54 Dose: Not Given Documented by: [id number] Cosigned by: [id number] Insulin Glargine (Lantus Per Unit Charge) 5 units SQ HS HILDA Stop: 03/25/22 20:59 Last Admin: 02/23/22 21:29 Dose: 5 units Documented by: [id number] Cosigned by: [id number] Megestrol Acetate (Megestrol Acetate Susp 400 Mg/10 Ml Udc) 400 mg PO QAM HILDA Stop: 03/21/22 10:29 Last Admin: 02/24/22 08:09 Dose: Not Given Documented by: [id number] Admin: 02/23/22 07:55 Dose: 400 mg Documented by: [id number] Admin: 02/22/22 08:00 Dose: 400 mg Documented by: [id number] Admin: 02/21/22 08:48 Dose: 400 mg Documented by: [id number] Admin: 02/20/22 08:37 Dose: 400 mg Documented by: [id number] Admin: 02/19/22 11:48 Dose: 400 mg Documented by: [id number] Melatonin (Melatonin 3 Mg Tab) 3 mg PO HS PRN PRN Reason: Sleep Stop: 03/15/22 23:33 Last Admin: 02/23/22 22:25 Dose: 3 mg Documented by: [id number] Admin: 02/20/22 22:34 Dose: 3 mg Documented by: [id number] Metoprolol Succinate (Metoprolol Succ 50mg Ext Rel Tab) 50 mg PO DAILY HILDA Stop: 03/24/22 08:59 Last Admin: 02/24/22 08:07 Dose: 50 mg Documented by: [id number] Admin: 02/23/22 17:30 Dose: 50 mg Documented by: [id number] Admin: 02/23/22 07:56 Dose: Not Given Documented by: [id number] Admin: 02/22/22 08:00 Dose: 50 mg Documented by: [id number] Miscellaneous (Carbohydrates For Hypoglycemia ) 15 - 30 gm PO UD PRN PRN Reason: Hypoglycemia Protocol Stop: 03/15/22 23:33 Last Admin: 02/13/22 23:58 Dose: 15 gm Documented by: [id number] Admin: 02/13/22 23:49 Dose: 15 gm Documented by: [id number] Ondansetron HCl (Ondansetron Inj 2 Mg/Ml 2 Ml Vial) 4 mg IV Q6H PRN PRN Reason: Nausea Stop: 03/26/22 00:37 Last Admin: 02/24/22 01:07 Dose: 4 mg Documented by: [id number] Senna/Docusate Sodium (Docusate Sodium/Senna 50/8.6mg Tab) 1 tab PO QAM HILDA Stop: 03/22/22 14:59 Last Admin: 02/24/22 08:06 Dose: 1 tab Documented by: [id number] Admin: 02/23/22 07:56 Dose: 1 tab Documented by: [id number] Admin: 02/22/22 08:00 Dose: 1 tab Documented by: [id number] Admin: 02/21/22 08:47 Dose: 1 tab Documented by: [id number] Admin: 02/20/22 15:47 Dose: 1 tab Documented by: [id number] Simvastatin (Simvastatin 20 Mg Tab) 20 mg PO DAILY HILDA Stop: 03/16/22 08:59 Last Admin: 02/24/22 08:06 Dose: 20 mg Documented by: [id number] Admin: 02/23/22 07:55 Dose: 20 mg Documented by: [id number] Admin: 02/22/22 08:00 Dose: 20 mg Documented by: [id number] Admin: 02/21/22 11:47 Dose: 20 mg Documented by: [id number] Admin: 02/20/22 08:44 Dose: 20 mg Documented by: [id number] Admin: 02/19/22 08:55 Dose: 20 mg Documented by: [id number] Admin: 02/18/22 08:38 Dose: 20 mg Documented by: [id number] Admin: 02/17/22 08:42 Dose: 20 mg Documented by: [id number] Admin: 02/16/22 07:41 Dose: 20 mg Documented by: [id number] Admin: 02/15/22 08:24 Dose: 20 mg Documented by: [id number] Admin: 02/14/22 08:40 Dose: 20 mg Documented by: [id number] Thiamine HCl (Thiamine Hcl 100 Mg Tab) 200 mg PO BID HILDA Stop: 03/22/22 20:59 Last Admin: 02/24/22 08:06 Dose: 200 mg Documented by: [id number] Admin: 02/23/22 21:29 Dose: 200 mg Documented by: [id number] Admin: 02/23/22 07:55 Dose: 200 mg Documented by: [id number] Admin: 02/22/22 21:14 Dose: 200 mg Documented by: [id number] Admin: 02/22/22 08:00 Dose: 200 mg Documented by: [id number] Admin: 02/21/22 20:18 Dose: 200 mg Documented by: [id number] Admin: 02/21/22 08:47 Dose: 200 mg Documented by: [id number] Admin: 02/20/22 20:26 Dose: 200 mg Documented by: [id number] Coding Level of Care Code 71741 U Intl Hosp Care Lvl 1 Diagnoses Vitamin D deficiency E55.9 Anemia D64.9 MITCHEL (acute kidney injury) N17.9
--- NOTE | 2022-02-24 13:34 | Hospitalist Progress Note ---
Date of Service February 24, 2022 Assessment & Plan (1) Acute respiratory failure with hypoxia: Plan: 2nd to volume overloaded state in the setting of acute/chronic CKD stage 4. Only requiring minimal amount of NC O2-now weaned off to room air at times Her respiratory symptoms and distress/tachypnea are improved with escalating doses of diuretics and improvement in renal function, and status post right thoracentesis Initially had no effective diuresis with 80mg lasix, followed by 120mg lasix -- but did have response to bumex 4mg on 2 occasions Chest x-ray on 02/18 reveals slightly improved interstitial pulmonary edema, moderate right and small left pleural effusions with associated bibasilar airspace opacities-overall slightly improved Chest x-ray on 02/23 status post thoracentesis is negative for pneumothorax, probable small right pleural effusion, persistent moderate left pleural effusion, and progression of pulmonary edema Continue barlow and monitor UOP Continue NC O2 as needed to keep pulse ox greater than 92% Pulmonary consult appreciated. Thoracentesis completed on 02/22 with 1300 mL of straw colored fluid removed. Transudative by lights criteria -Give Bumex 2 mg IV x1 on 02/23 as per discussion with nephrology as remains volume overloaded and creatinine is pretty much back to baseline -Will hold off diuretic today, may consider a lower dose of bumex if required goal to maintain slightly positive. (2) MITCHEL (acute kidney injury): Plan: Presented with acute kidney injury with creatinine peaking above 5 With volume overload and pleural effusions Did respond somewhat to high-dose IV bumex and symptoms have improved. 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 Difficult to say but will follow Appreciate nephrology/pulmonary/vascular surgery consults & recs. -Follow BMP, urine output, BPs, volume status -Nephrology started Megace to improve appetite -Give Bumex 2 mg IV x1 on 02/23 for persistent pulmonary edema and volume overload -hold diuretic on 02/24 (3) Anemia in CKD (chronic kidney disease): Plan: Hemoglobin chronically in the 9-10 range Epogen given Hemoglobin dropped a bit today to 9.1 No evidence of bleeding from anywhere-no bowel movement, no hematuria, no hematemesis or epistaxis, no abdominal pains. -Repeat CBC today shows hemoglobin back up to 9.7 which is around her baseline Follow CBC (4) Acute metabolic encephalopathy: Plan: 2nd to MITCHEL/uremia. Improving as renal function improves Mentation seems very clear now Initially there was some concern for cholecystitis on initial imaging HIDA obtained - normal; have since stopped antibiotics. recent TSH wnl. vit B12 level wnl. ammonia is wnl. B1 level very low at 7 -Continue thiamine 200mg BID. (5) Bilateral pleural effusion: Plan: 2nd to acute/chronic CKD. Echo with preserved EF. TSH wnl. Secondary to acute kidney injury Patient had thoracentesis on 02/22 with transudative fluid removed-1300 mL Heparin drip was restarted but will now discontinue this and restart home Eliquis, renally dosed Follow-up chest x-ray still with left moderate pleural effusion Pulmonology will not likely intervene on this Continue with diuresis (6) Chronic kidney disease, stage 4 (severe): Plan: baseline CrCl 15-20 baseline Creatinine = low 2's With acute renal failure with Cr >5, but improving daily since 02/17 and almost back to baseline Uremia improving -Avoid nephrotoxins -renally dose meds when appropriate -follow BMP (7) Essential hypertension: Plan: BPs low or low-normal Had held her CCB and BB because of low BPs but then a.fib rates were uncontrolled Resumed diltiazem albeit at lower dose of 180mg of cardizem CD resumed metoprolol xl at home dose of 50 mg daily (8) Unspecified atrial fibrillation: Plan: Because of her soft BPs, her diltiazem and metoprolol occasionally get held and then she becomes tachycardic Continue lower dose of diltiazem and metoprolol with hold parameters continue telemetry Stop heparin drip and revert back to Eliquis now that thoracentesis is complete (9) Type 2 diabetes mellitus with diabetic neuropathy: Plan: HbA1C 5.3% Glucose levels here increasing Add on Lantus 5 units at bedtime and continue NovoLog sliding scale (10) Gallstones: Plan: u/a and CT with numerous gallstones & sludge. both studies equivacol for acute cholecystitis. LFTs have been normal. HIDA scan normal/negative. Have since stopped empiric rocephin/flagyl. no GI symptoms and no abd pain. 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 Advised this will only make her weaker and gave encouragement to get OOB. She finally was out of bed to chair on 02/23 Will need SNF as she resides at [facility]Memory unit at [facility] which cannot likely handle her level of debility Patient will try to participate with therapy on 02/24 Admission and Anticipated Discharge Date Admission Date: February 13, 2022 Subjective 82 yo female reports feeling better. She states she would like to go back to [place] and that she understands she neds to participate in more therapy. Review of Systems Review of Systems: All systems reviewed & are unremarkable except as noted in HPI & below Physical Exam Constitutional: WD/WN, vitals as above Eyes: + anicteric sclerae ENMT: external ear and nose normal, oropharynx normal Neck: trachea midline, no thyromegaly Respiratory: normal respiratory effort; no cough and not tachypneic Auscultation: + diminished lung sounds (At bases bilaterally); no crackles, no rhonchi and no wheezes Cardiovascular: Rate/Rhythm: regular rate and + irregularly irregular Heart Sounds: no murmur Extremities: no edema Chest (Breasts): Chest: normal inspection of chest Gastrointestinal (Abdomen): normal bowel sounds, soft, nontender, no hepatosplenomegaly Musculoskeletal: Extremities: extremities normal to inspection; no cyanosis and no clubbing Skin: no rashes, warm and dry Neurologic: moves all extremities and awake; no focal motor deficits Psychiatric: A+Ox3, euthymic affect Orientation: alert, oriented to person, oriented to place and cooperative Lymphatic: no lymphedema Results & Data Results & Data ([facility]) Vital Signs (Past 12 Hours) Vital Signs Temp Pulse Resp BP Pulse Ox 02/24/22 07:31 36.5 C 108 H 16 128/85 97 02/24/22 05:36 37.6 C H 118 H 18 115/74 93 PG Care Time/CCT Total # of Minutes Spent Total Time Spent with Patient: Total time spent is greater than 50% in coordination of care (as documented) at patient's floor/unit and/or counseling patient: Coding Level of Care Code 56213 Subseq Hosp Care Lvl 2 Diagnoses Acute respiratory failure with hypoxia J96.01 MITCHEL (acute kidney injury) N17.9 Anemia in CKD (chronic kidney disease) N18.9; D63.1 Acute metabolic encephalopathy G93.41 Bilateral pleural effusion J90 Chronic kidney disease, stage 4 (severe) N18.4 Essential hypertension I10 Unspecified atrial fibrillation I48.91 Atrial fibrillation type: unspecified Type 2 diabetes mellitus with diabetic neuropathy E11.40 Gallstones K80.20 Hyperlipidemia E78.5 Gout, unspecified M10.9 (1) Unspecified atrial fibrillation Atrial fibrillation type: unspecified Qualified Code(s): I48.91 - Unspecified atrial fibrillation
[2022-02-24] MEDS: ESCITALOPRAM OXALATE 10 MG TAB PO SCH (15:02)
[2022-02-24] MEDS: LANTUS PER UNIT CHARGE SQ SCH (20:21)
[2022-02-24] MEDS: MELATONIN 3 MG TAB PO PRN (21:13)
[2022-02-25] MEDS: INSULIN ASPART PER UNIT SC SCH ×4 (07:58→20:17)
[2022-02-25] MEDS: APIXABAN 2.5 MG TAB PO SCH ×2 (08:06→20:11)
[2022-02-25] MEDS: THIAMINE HCL 100 MG TAB PO SCH ×2 (08:06→20:11)
[2022-02-25] MEDS: dilTIAZem HCL 180 MG CAPCR PO SCH (08:06)
[2022-02-25] MEDS: SIMVASTATIN 20 MG TAB PO SCH (08:06)
[2022-02-25] MEDS: MEGESTROL ACETATE SUSP 400 MG/10 ML UDC PO SCH (08:07)
[2022-02-25 08:27] LABS: Albumin Level 2.6 gm/dl (3.4-5.0); Anion Gap 6 (3-11); BUN Creatinine Ratio 29.9 (10-20); Blood Urea Nitrogen 91 mg/dl (6-23); Calcium 8.6 mg/dl (8.5-10.1); Carbon Dioxide 27 mmol/L (21-32); Chloride 104 mmol/L (98-107); Est GFR (Non-African American) 13.8 ml/min; Glucose 135 mg/dl (70-99(Fasting)); Sodium 137 mmol/L (136-145)
[2022-02-25] MEDS: DOCUSATE SODIUM/SENNA 50/8.6MG TAB PO SCH (09:56)
[2022-02-25] MEDS: ESCITALOPRAM OXALATE 10 MG TAB PO SCH (09:56)
[2022-02-25] MEDS: METOPROLOL SUCC 50MG EXT REL TAB PO SCH (09:57)
--- NOTE | 2022-02-25 12:46 | Nephrology Progress Note ---
Date of Service February 25, 2022 Assessment & Plan (1) Acute kidney injury superimposed on chronic kidney disease: (2) Bilateral pleural effusion: (3) Acute respiratory failure with hypoxia: (4) Anemia in CKD (chronic kidney disease): (5) Unspecified atrial fibrillation: Plan: CKD IV-V. Approaching the need for dialysis. No emergent indication at this time. Volume status acceptable. Diuretics held. Creatinine stable. Electrolytes acceptable. Medications appropriate for kidney dysfunction. Close outpatient follow up required. Epogen 49618 units SQ x 1 dose given on 02/19/22 for anemia. H/H stable. Encourage nutrition. PT/OT. Remove Crum catheter when tolerated. Document I/O's. Repeat metabolic profile tomorrow AM. Admission and Anticipated Discharge Date Admission Date: February 13, 2022 Subjective No acute events overnight. No acute complaints. Weakness reported. Not motivated to have Crum removed. Denies pain. Appetite fair. No dyspnea. No fluid retention or edema. Review of Systems Review of Systems: All systems reviewed & are unremarkable except as noted in HPI & below Constitutional: + fatigue and + weakness Physical Exam Constitutional: well developed and + frail appearing; no acute distress Eyes: no scleral abnormality and no corneal abnormality ENMT: Mouth: no oral mucosal abnormality and oral mucous membranes not dry Neck: normal visual inspection and trachea midline Respiratory: normal respiratory effort Auscultation: lungs clear to auscultation bilaterally and + rales (basilar) Cardiovascular: Rate/Rhythm: regular rate Heart Sounds: normal S1 and normal S2 Extremities: + pedal edema Musculoskeletal: Extremities: no cyanosis and no clubbing Skin: normal turgor; no lesions Neurologic: Motor/Sensory: no tremor and no asterixis Psychiatric: Orientation: alert and oriented x 3 Genitourinary: Crum catheter intact Results & Data ([facility]) Vital Signs (Past 12 Hours) Vital Signs Temp Pulse Resp BP Pulse Ox 02/25/22 11:11 36.7 C 98 H 18 116/75 94 02/25/22 07:32 36.9 C 93 H 18 113/72 100 02/25/22 03:00 36.7 C 92 H 16 107/69 95 Laboratory Results Laboratory Results - last 24 hr 02/24/22 02/24/22 02/25/22 16:16 20:10 07:13 Sodium 137 Potassium TNP Chloride 104 Carbon Dioxide 27 Anion Gap 6 BUN 91 H Creatinine 3.04 H Est Cr Clr Drug Dosing 13.0 Est GFR ( Amer) 16.0 Est GFR (Non-Af Amer) 13.8 BUN/Creatinine Ratio 29.9 H Glucose 135 H POC Glucose 173 H 183 H Calcium 8.6 Phosphorus 3.0 Albumin 2.6 L 02/25/22 02/25/22 02/25/22 07:17 08:47 11:15 Sodium Potassium 4.9 Chloride Carbon Dioxide Anion Gap BUN Creatinine Est Cr Clr Drug Dosing Est GFR ( Amer) Est GFR (Non-Af Amer) BUN/Creatinine Ratio Glucose POC Glucose 143 H 149 H Calcium Phosphorus Albumin PG Care Time/CCT Total # of Minutes Spent Total Time Spent with Patient: Total time spent is greater than 50% in coordination of care (as documented) at patient's floor/unit and/or counseling patient: Coding Level of Care Code 24246 Subseq Hosp Care Lvl 3 Diagnoses Acute kidney injury superimposed on chronic kidney disease N17.9; N18.9 Bilateral pleural effusion J90 Acute respiratory failure with hypoxia J96.01 Anemia in CKD (chronic kidney disease) N18.9; D63.1 Unspecified atrial fibrillation I48.91 Atrial fibrillation type: unspecified (1) Unspecified atrial fibrillation Atrial fibrillation type: unspecified Qualified Code(s): I48.91 - Unspecified atrial fibrillation
[2022-02-25] MEDS ORDERED: POLYETHYLENE (MIRALAX) 17 GM PACK PO PRN (13:15)
--- NOTE | 2022-02-25 18:53 | Hospitalist Progress Note ---
Date of Service February 25, 2022 Assessment & Plan (1) Acute respiratory failure with hypoxia: Plan: 2nd to volume overloaded state in the setting of acute/chronic CKD stage 4. Only requiring minimal amount of NC O2-now weaned off to room air at times Her respiratory symptoms and distress/tachypnea are improved with escalating doses of diuretics and improvement in renal function, and status post right thoracentesis Initially had no effective diuresis with 80mg lasix, followed by 120mg lasix -- but did have response to bumex 4mg on 2 occasions Chest x-ray on 02/18 reveals slightly improved interstitial pulmonary edema, moderate right and small left pleural effusions with associated bibasilar airspace opacities-overall slightly improved Chest x-ray on 02/23 status post thoracentesis is negative for pneumothorax, probable small right pleural effusion, persistent moderate left pleural effusion, and progression of pulmonary edema Continue barlow and monitor UOP Continue NC O2 as needed to keep pulse ox greater than 92% Pulmonary consult appreciated. Thoracentesis completed on 02/22 with 1300 mL of straw colored fluid removed. Transudative by lights criteria -Give Bumex 2 mg IV x1 on 02/23 as per discussion with nephrology as remains volume overloaded and creatinine is pretty much back to baseline On 02/25/22 Continue to hold diuretic. -As per nephro she is approaching need for dialysis. -Goal is to maintain slightly positive. -Patient needs to participate in PT/OT -Ordered Lexapro for possible depression -will remove barlow when able. (2) MITCHEL (acute kidney injury): Plan: Presented with acute kidney injury with creatinine peaking above 5 With volume overload and pleural effusions Did respond somewhat to high-dose IV bumex and symptoms have improved. Initially going to place HD catheter to start dialysis, but this was deferred as renal function started to improve and acid-base status and electrolytes are stable [employer] continues to improve each day and now creatinine down to 2.74 BUN up slightly today to 106-question if having GI bleeding as hemoglobin also dropped, but repeat hemoglobin improved Elevation in BUN could also be from increased protein in diet? Difficult to say but will follow Appreciate nephrology/pulmonary/vascular surgery consults & recs. -Follow BMP, urine output, BPs, volume status -Nephrology started Megace to improve appetite -Give Bumex 2 mg IV x1 on 7/3 for persistent pulmonary edema and volume overload -hold diuretic on 02/24 -creatinine slightly improving on 02/25 (3) Anemia in CKD (chronic kidney disease): Plan: Hemoglobin chronically in the 9-10 range Epogen given Hemoglobin dropped a bit today to 9.1 No evidence of bleeding from anywhere-no bowel movement, no hematuria, no hematemesis or epistaxis, no abdominal pains. -Repeat CBC today shows hemoglobin back up to 9.7 which is around her baseline Follow CBC (4) Acute metabolic encephalopathy: Plan: 2nd to MITCHEL/uremia. Improving as renal function improves Mentation seems very clear now Initially there was some concern for cholecystitis on initial imaging HIDA obtained - normal; have since stopped antibiotics. recent TSH wnl. vit B12 level wnl. ammonia is wnl. B1 level very low at 7 -Continue thiamine 200mg BID. (5) Bilateral pleural effusion: Plan: 2nd to acute/chronic CKD. Echo with preserved EF. TSH wnl. Secondary to acute kidney injury Patient had thoracentesis on 02/22 with transudative fluid removed-1300 mL Heparin drip was restarted but will now discontinue this and restart home Eliquis, renally dosed Follow-up chest x-ray still with left moderate pleural effusion Pulmonology will not likely intervene on this holding diuresing. (6) Chronic kidney disease, stage 4 (severe): Plan: baseline CrCl 15-20 baseline Creatinine = low 2's With acute renal failure with Cr >5, but improving daily since 02/17 and almost back to baseline Uremia improving -Avoid nephrotoxins -renally dose meds when appropriate -follow BMP (7) Essential hypertension: Plan: BPs low or low-normal Had held her CCB and BB because of low BPs but then a.fib rates were uncontrolled Resumed diltiazem albeit at lower dose of 180mg of cardizem CD resumed metoprolol xl at home dose of 50 mg daily (8) Unspecified atrial fibrillation: Plan: Because of her soft BPs, her diltiazem and metoprolol occasionally get held and then she becomes tachycardic Continue lower dose of diltiazem and metoprolol with hold parameters continue telemetry Stop heparin drip and revert back to Eliquis now that thoracentesis is complete (9) Type 2 diabetes mellitus with diabetic neuropathy: Plan: HbA1C 5.3% Glucose levels here increasing Add on Lantus 5 units at bedtime and continue NovoLog sliding scale (10) Gallstones: Plan: u/a and CT with numerous gallstones & sludge. both studies equivacol for acute cholecystitis. LFTs have been normal. HIDA scan normal/negative. Have since stopped empiric rocephin/flagyl. no GI symptoms and no abd pain. 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 Advised this will only make her weaker and gave encouragement to get OOB. She finally was out of bed to chair on 02/23 Will need SNF as she resides at [facility]Memory unit at [facility] which cannot likely handle her level of debility Admission and Anticipated Discharge Date Admission Date: February 13, 2022 Subjective Patient reports no new symptoms. Family at bedside (Ko) updated. Review of Systems Review of Systems: All systems reviewed & are unremarkable except as noted in HPI & below Physical Exam Constitutional: WD/WN, vitals as above Eyes: + anicteric sclerae ENMT: external ear and nose normal, oropharynx normal Neck: trachea midline, no thyromegaly Respiratory: normal respiratory effort; no cough and not tachypneic Auscultation: + diminished lung sounds (At bases bilaterally); no crackles, no rhonchi and no wheezes Cardiovascular: Rate/Rhythm: regular rate and + irregularly irregular Heart Sounds: no murmur Extremities: no edema Chest (Breasts): Chest: normal inspection of chest Gastrointestinal (Abdomen): normal bowel sounds, soft, nontender, no hepatosplenomegaly Musculoskeletal: Extremities: extremities normal to inspection; no cyanosis and no clubbing Skin: no rashes, warm and dry Neurologic: moves all extremities and awake; no focal motor deficits Psychiatric: A+Ox3, euthymic affect Orientation: alert, oriented to person, oriented to place and cooperative Lymphatic: no lymphedema Results & Data Results & Data ([facility]) Vital Signs (Past 12 Hours) Vital Signs Temp Pulse Pulse Resp BP Pulse Ox 02/25/22 16:47 86 02/25/22 16:25 36.7 C 113 H 18 122/72 97 02/25/22 11:11 36.7 C 98 H 18 116/75 94 02/25/22 07:32 36.9 C 93 H 18 113/72 100 PG Care Time/CCT Total # of Minutes Spent Total Time Spent with Patient: Total time spent is greater than 50% in coordination of care (as documented) at patient's floor/unit and/or counseling patient: Coding Level of Care Code 57844 Subseq Hosp Care Lvl 3 Diagnoses Acute respiratory failure with hypoxia J96.01 MITCHEL (acute kidney injury) N17.9 Anemia in CKD (chronic kidney disease) N18.9; D63.1 Acute metabolic encephalopathy G93.41 Bilateral pleural effusion J90 Chronic kidney disease, stage 4 (severe) N18.4 Essential hypertension I10 Unspecified atrial fibrillation I48.91 Atrial fibrillation type: unspecified Type 2 diabetes mellitus with diabetic neuropathy E11.40 Gallstones K80.20 Hyperlipidemia E78.5 Gout, unspecified M10.9 (1) Unspecified atrial fibrillation Atrial fibrillation type: unspecified Qualified Code(s): I48.91 - Unspecified atrial fibrillation
[2022-02-25] MEDS: MELATONIN 3 MG TAB PO PRN (20:11)
[2022-02-25] MEDS: LANTUS PER UNIT CHARGE SQ SCH (20:19)
[2022-02-26 06:48] LABS: Hematocrit (blood only) 32.5 % (37-47)
[2022-02-26 07:16] LABS: Albumin Level 2.8 gm/dl (3.4-5.0); BUN Creatinine Ratio 30.3 (10-20); Calcium 8.7 mg/dl (8.5-10.1); Creatinine Clr Calc Pharmacy 14.2 ml/min; Est GFR (African American) 17.9 ml/min; Est GFR (Non-African American) 15.4 ml/min; Phosphorus 3.5 mg/dl (2.5-4.9); Potassium 4.9 mmol/L (3.5-5.1)
--- NOTE | 2022-02-26 08:55 | XRay Report ---
XR chest 2V PA/lateral HISTORY: 82 years-old Female pleural effusion acute shortness of breath with pleural effusions COMPARISON: Chest radiograph 02/23/2022 TECHNIQUE: AP and lateral views of the chest FINDINGS: The cardiac silhouette is enlarged. Mild improvement of the pulmonary edema. There are persistent lay ering pleural effusions with bibasilar consolidation. Degenerative changes of the shoulders and spine . Loose bodies of the left subscapularis recess. IMPRESSION: 1. Cardiomegaly with mildly improved pulmonary edema. 2. Persistent pleural effusions with bibasilar consolidation. ACT 112: Negative or not required by law. The above report was generated using voice recognition software. It may contain grammatical, syntax o r spelling errors. Electronically signed by: Isak Bhatia M.D. 02/26/2022 8:54 AM
[2022-02-26] MEDS: INSULIN ASPART PER UNIT SC SCH ×4 (09:15→20:28)
[2022-02-26] MEDS: METOPROLOL SUCC 50MG EXT REL TAB PO SCH (09:23)
[2022-02-26] MEDS: APIXABAN 2.5 MG TAB PO SCH ×2 (09:23→20:19)
[2022-02-26] MEDS: DOCUSATE SODIUM/SENNA 50/8.6MG TAB PO SCH (09:23)
[2022-02-26] MEDS: dilTIAZem HCL 180 MG CAPCR PO SCH (09:24)
[2022-02-26] MEDS: SIMVASTATIN 20 MG TAB PO SCH (09:24)
[2022-02-26] MEDS: ESCITALOPRAM OXALATE 10 MG TAB PO SCH (09:24)
[2022-02-26] MEDS: MEGESTROL ACETATE SUSP 400 MG/10 ML UDC PO SCH (09:24)
[2022-02-26] MEDS: THIAMINE HCL 100 MG TAB PO SCH ×2 (09:24→20:21)
[2022-02-26] MEDS: ONDANSETRON INJ 2 MG/ML 2 ML VIAL IV PRN (09:33)
[2022-02-26] MEDS ORDERED: BUMETANIDE 1 MG TAB PO ONE (10:29)
--- NOTE | 2022-02-26 10:33 | Nephrology Progress Note ---
Date of Service February 26, 2022 Assessment & Plan (1) MITCHEL (acute kidney injury): (2) Anemia in CKD (chronic kidney disease): (3) Chronic kidney disease, stage 4 (severe): (4) Acute kidney injury superimposed on chronic kidney disease: Plan: CKD IV-V. Approaching the need for dialysis. No emergent indication at this time. Creatinine stable. Electrolytes acceptable. Bumex 2 mg PO restarted today for fluid retention. Symptomatic with AF with elevated HR. Medications appropriate for kidney dysfunction. Close outpatient follow up required. Epogen 08871 units SQ x 1 dose given on 02/19/22 for anemia. H/H stable. Encourage nutrition. PT/OT. Remove Crum catheter when tolerated. Document I/O's. Repeat metabolic profile tomorrow AM. Admission and Anticipated Discharge Date Admission Date: February 13, 2022 Subjective No acute events overnight. Jessi Miranda is feeling tired this AM. Activity tolerance remains poor. Dyspnea with exertion. No chest pain or palpitations. Review of Systems Review of Systems: All systems reviewed & are unremarkable except as noted in HPI & below Physical Exam Constitutional: well developed and + frail appearing; no acute distress Eyes: no scleral abnormality and no corneal abnormality ENMT: Mouth: no oral mucosal abnormality and oral mucous membranes not dry Neck: normal visual inspection and trachea midline Respiratory: normal respiratory effort Auscultation: lungs clear to a uscultation bilaterally and + rales (basilar) Cardiovascular: Rate/Rhythm: + tachycardic and + irregularly irregular Heart Sounds: normal S1 and normal S2 Extremities: + pedal edema Musculoskeletal: Extremities: no cyanosis and no clubbing Skin: normal turgor; no lesions Neurologic: Motor/Sensory: no tremor and no asterixis Psychiatric: Orientation: alert and oriented x 3 Genitourinary: Crum catheter intact Results & Data ([facility]) Vital Signs (Past 12 Hours) Vital Signs Temp Pulse Pulse Resp BP Pulse Ox 02/26/22 07:18 36.6 C 118 H 18 117/74 92 02/26/22 03:31 36.6 C 102 H 20 117/66 97 02/25/22 23:18 37.2 C 95 H 17 117/72 99 Laboratory Results Laboratory Results - last 24 hr 02/25/22 02/25/22 02/25/22 11:15 16:28 20:15 Hgb Hct Sodium Potassium Chloride Carbon Dioxide Anion Gap BUN Creatinine Est Cr Clr Drug Dosing Est GFR ( Amer) Est GFR (Non-Af Amer) BUN/Creatinine Ratio Glucose POC Glucose 149 H 219 H 147 H Calcium Phosphorus Albumin 02/26/22 02/26/22 02/26/22 06:11 06:11 07:16 Hgb 10.0 L Hct 32.5 L Sodium 136 Potassium 4.9 Chloride 104 Carbon Dioxide 26 Anion Gap 6 BUN 84 H Creatinine 2.77 H Est Cr Clr Drug Dosing 14.2 Est GFR ( Amer) 17.9 Est GFR (Non-Af Amer) 15.4 BUN/Creatinine Ratio 30.3 H Glucose 128 H POC Glucose 116 H Calcium 8.7 Phosphorus 3.5 Albumin 2.8 L PG Care Time/CCT Total # of Minutes Spent Total Time Spent with Patient: Total time spent is greater than 50% in coordination of care (as documented) at patient's floor/unit and/or counseling patient: Coding Level of Care Code 16115 Subseq Hosp Care Lvl 3 Diagnoses MITCHEL (acute kidney injury) N17.9 Anemia in CKD (chronic kidney disease) N18.9; D63.1 Chronic kidney disease, stage 4 (severe) N18.4 Acute kidney injury superimposed on chronic kidney disease N17.9; N18.9
--- NOTE | 2022-02-26 17:34 | Hospitalist Progress Note ---
Date of Service February 26, 2022 Assessment & Plan (1) Acute respiratory failure with hypoxia: Plan: 2nd to volume overloaded state in the setting of acute/chronic CKD stage 4. Only requiring minimal amount of NC O2-now weaned off to room air at times Her respiratory symptoms and distress/tachypnea are improved with escalating doses of diuretics and improvement in renal function, and status post right thoracentesis Initially had no effective diuresis with 80mg lasix, followed by 120mg lasix -- but did have response to bumex 4mg on 2 occasions Chest x-ray on 02/18 reveals slightly improved interstitial pulmonary edema, moderate right and small left pleural effusions with associated bibasilar airspace opacities-overall slightly improved Chest x-ray on 02/23 status post thoracentesis is negative for pneumothorax, probable small right pleural effusion, persistent moderate left pleural effusion, and progression of pulmonary edema Continue barlow and monitor UOP Continue NC O2 as needed to keep pulse ox greater than 92% Pulmonary consult appreciated. Thoracentesis completed on 02/22 with 1300 mL of straw colored fluid removed. Transudative by lights criteria -Give Bumex 2 mg IV x1 on 02/23 as per discussion with nephrology as remains volume overloaded and creatinine is pretty much back to baseline On 02/26/22 Resumed diuretic per nephro. Patient is participating more in PT. will remove barlow when able. -As per nephro she is approaching need for dialysis. (2) MITCHEL (acute kidney injury): Plan: Presented with acute kidney injury with creatinine peaking above 5 With volume overload and pleural effusions Did respond somewhat to high-dose IV bumex and symptoms have improved. Initially going to place HD catheter to start dialysis, but this was deferred as renal function started to improve and acid-base status and electrolytes are stable Director Speech continues to improve each day and now creatinine down to 2.74 BUN up slightly today to 106-question if having GI bleeding as hemoglobin also dropped, but repeat hemoglobin improved Elevation in BUN could also be from increased protein in diet? Difficult to say but will follow Appreciate nephrology/pulmonary/vascular surgery consults & recs. -Follow BMP, urine output, BPs, volume status -Nephrology started Megace to improve appetite -Give Bumex 2 mg IV x1 on 02/23 for persistent pulmonary edema and volume overload -hold diuretic on 02/24 -creatinine slightly improving on 02/26 (3) Anemia in CKD (chronic kidney disease): Plan: Hemoglobin chronically in the 9-10 range Epogen given Hemoglobin dropped a bit today to 9.1 No evidence of bleeding from anywhere-no bowel movement, no hematuria, no hematemesis or epistaxis, no abdominal pains. -Repeat CBC today shows hemoglobin back up to 10 which is around her baseline (4) Acute metabolic encephalopathy: Plan: 2nd to MITCHEL/uremia. Improving as renal function improves Mentation seems very clear now Initially there was some concern for cholecystitis on initial imaging HIDA obtained - normal; have since stopped antibiotics. recent TSH wnl. vit B12 level wnl. ammonia is wnl. B1 level very low at 7 -Continue thiamine 200mg BID. -Ordered lexapro for depression (5) Bilateral pleural effusion: Plan: 2nd to acute/chronic CKD. Echo with preserved EF. TSH wnl. Secondary to acute kidney injury Patient had thoracentesis on 02/22 with transudative fluid removed-1300 mL Heparin drip was restarted but will now discontinue this and restart home Eliquis, renally dosed Follow-up chest x-ray still with left moderate pleural effusion Pulmonology will not likely intervene on this resumed Bumex. (6) Chronic kidney disease, stage 4 (severe): Plan: baseline CrCl 15-20 baseline Creatinine = low 2's With acute renal failure with Cr >5, but improving daily since 02/17 and almost back to baseline Uremia improving -Avoid nephrotoxins -renally dose meds when appropriate -follow BMP (7) Essential hypertension: Plan: BPs low or low-normal Had held her CCB and BB because of low BPs but then a.fib rates were uncontrolled Resumed diltiazem albeit at lower dose of 180mg of cardizem CD resumed metoprolol xl at home dose of 50 mg daily (8) Unspecified atrial fibrillation: Plan: Because of her soft BPs, her diltiazem and metoprolol occasionally get held and then she becomes tachycardic Continue lower dose of diltiazem and metoprolol with hold parameters continue telemetry Stop heparin drip and revert back to Eliquis now that thoracentesis is complete (9) Type 2 diabetes mellitus with diabetic neuropathy: Plan: HbA1C 5.3% Glucose levels here increasing Add on Lantus 5 units at bedtime and continue NovoLog sliding scale (10) Gallstones: Plan: u/a and CT with numerous gallstones & sludge. both studies equivacol for acute cholecystitis. LFTs have been normal. HIDA scan normal/negative. Have since stopped empiric rocephin/flagyl. no GI symptoms and no abd pain. (11) Hyperlipidemia: Plan: statin LFTs remain wnl (12) Gout, unspecified: Plan: no signs of flare Plan: Constipation-continue senna/docusate Disposition-continued stay on PCU, slowly improving Continue PT/OT--> Patient participated with PT today Will need SNF as she resides at [facility]Memory unit at [facility] which cannot likely handle her level of debility Admission and Anticipated Discharge Date Admission Date: February 13, 2022 Subjective Patient reports feeling better today. She was more active today and walked with PT in the room. Review of Systems Review of Systems: All systems reviewed & are unremarkable except as noted in HPI & below Physical Exam Constitutional: WD/WN, vitals as above Eyes: + anicteric sclerae ENMT: external ear and nose normal, oropharynx normal Neck: trachea midline, no thyromegaly Respiratory: normal respiratory effort; no cough and not tachypneic Auscultation: + diminished lung sounds (At bases bilaterally); no crackles, no rhonchi and no wheezes Cardiovascular: Rate/Rhythm: regular rate and + irregularly irregular Heart Sounds: no murmur Extremities: no edema Gastrointestinal (Abdomen): normal bowel sounds, soft, nontender, no hepato splenomegaly Musculoskeletal: Extremities: extremities normal to inspection; no cyanosis and no clubbing Skin: no rashes, warm and dry Neurologic: moves all extremities and awake; no focal motor deficits Psychiatric: A+Ox3, euthymic affect Orientation: alert, oriented to person, oriented to place and cooperative Lymphatic: no lymphedema Results & Data Results & Data ([facility]) Vital Signs (Past 12 Hours) Vital Signs Temp Pulse Pulse Resp BP Pulse Ox 02/26/22 15:34 36.4 C L 89 16 106/67 97 02/26/22 11:26 36.4 C L 107 H 22 114/81 93 02/26/22 07:18 36.6 C 118 H 18 117/74 92 PG Care Time/CCT Total # of Minutes Spent Total Time Spent with Patient: Total time spent is greater than 50% in coordination of care (as documented) at patient's floor/unit and/or counseling patient: Coding Level of Care Code 69730 Subseq Hosp Care Lvl 2 Diagnoses Acute respiratory failure with hypoxia J96.01 MITCHEL (acute kidney injury) N17.9 Anemia in CKD (chronic kidney disease) N18.9; D63.1 Acute metabolic encephalopathy G93.41 Bilateral pleural effusion J90 Chronic kidney disease, stage 4 (severe) N18.4 Essential hypertension I10 Unspecified atrial fibrillation I48.91 Atrial fibrillation type: unspecified Type 2 diabetes mellitus with diabetic neuropathy E11.40 Gallstones K80.20 Hyperlipidemia E78.5 Gout, unspecified M10.9 (1) Unspecified atrial fibrillation Atrial fibrillation type: unspecified Qualified Code(s): I48.91 - Unspecified atrial fibrillation
[2022-02-26] MEDS: LANTUS PER UNIT CHARGE SQ SCH (20:28)
[2022-02-26] MEDS: MELATONIN 3 MG TAB PO PRN (20:28)
[2022-02-27] MEDS: INSULIN ASPART PER UNIT SC SCH ×4 (08:43→20:54)
[2022-02-27] MEDS: THIAMINE HCL 100 MG TAB PO SCH ×2 (08:44→20:25)
[2022-02-27] MEDS: METOPROLOL SUCC 50MG EXT REL TAB PO SCH (08:44)
[2022-02-27] MEDS: ESCITALOPRAM OXALATE 10 MG TAB PO SCH (08:46)
[2022-02-27] MEDS: MEGESTROL ACETATE SUSP 400 MG/10 ML UDC PO SCH (08:46)
[2022-02-27] MEDS: DOCUSATE SODIUM/SENNA 50/8.6MG TAB PO SCH (08:47)
[2022-02-27] MEDS: dilTIAZem HCL 180 MG CAPCR PO SCH (08:47)
[2022-02-27 08:48] LABS: Hematocrit (blood only) 31.9 % (34.1-44.9); Hemoglobin 9.9 g/dl (12.0-16.0); Mean Corpuscular Hemoglobin 30.7 pg (25.0-34.0); Mean Corpuscular Volume 99.1 fL (80.0-100.0); Mean Platelet Volume 9.9 fL (9.4-12.3); Platelet Count 346 K/uL (130-400); RDW Coefficient of Variation 17.2 % (11.5-14.5); RDW Standard Deviation 62.9 fL (36.4-46.3); Red Blood Count 3.22 M/uL (3.93-5.22); White Blood Count 11.04 K/ul (4.8-10.8)
[2022-02-27] MEDS: APIXABAN 2.5 MG TAB PO SCH ×2 (08:48→20:25)
[2022-02-27] MEDS: SIMVASTATIN 20 MG TAB PO SCH (08:48)
[2022-02-27 09:02] LABS: BUN Creatinine Ratio 28.8 (10-20); Calcium 9.2 mg/dl (8.5-10.1); Creatinine Clr Calc Pharmacy 14.5 ml/min; Est GFR (African American) 18.1 ml/min; Est GFR (Non-African American) 15.6 ml/min; Potassium 5.1 mmol/L (3.5-5.1)
--- NOTE | 2022-02-27 10:27 | Nephrology Progress Note ---
Date of Service February 27, 2022 Assessment & Plan (1) MITCHEL (acute kidney injury): (2) Anemia in CKD (chronic kidney disease): (3) Chronic kidney disease, stage 4 (severe): (4) Acute kidney injury superimposed on chronic kidney disease: Plan: CKD IV-V. Approaching the need for dialysis. No emergent indication at this time. Creatinine stable. Electrolytes acceptable. Bumex 2 mg PO restarted yesterday for fluid retention. I suspect Jessi Miranda would benefit from intermittent diuretic use but she has not required daily. Suggest Bumex 2 mg every other day. Medications appropriate for kidney dysfunction. Close outpatient follow up required. Epogen 85062 units SQ x 1 dose given on 02/19/22 for anemia. H/H stable. Encourage nutrition. PT/OT. Remove Crum catheter. Document I/O's. Repeat metabolic profile tomorrow AM. Admission and Anticipated Discharge Date Admission Date: February 13, 2022 Subjective No acute events overnight. No complaints this AM. Strength improving. Agreeable to removing Crum today. Review of Systems Review of Systems: All systems reviewed & are unremarkable except as noted in HPI & below Physical Exam Constitutional: well developed and + frail appearing; no acute distress Eyes: no scleral abnormality and no corneal abnormality ENMT: Mouth: no oral mucosal abnormality and oral mucous membranes not dry Neck: normal visual inspection and trachea midline Respiratory: normal respiratory effort Auscultation: lungs clear to auscultation bilaterally Cardiovascular: Rate/Rhythm: + irregularly irregular Heart Sounds: normal S1 and normal S2 Extremities: + pedal edema Musculoskeletal: Extremities: no cyanosis and no clubbing Skin: normal turgor; no lesions Neurologic: Motor/Sensory: no tremor and no asterixis Psychiatric: Orientation: alert and oriented x 3 Genitourinary: Crum with cloudy urine in bag. Results & Data ([facility]) Vital Signs (Past 12 Hours) Vital Signs Temp Pulse Resp BP Pulse Ox 02/27/22 06:48 36.6 C 100 H 18 115/76 92 02/27/22 02:42 36.5 C 103 H 18 110/76 93 02/26/22 22:59 36.6 C 109 H 18 116/77 92 Laboratory Results Laboratory Results - last 24 hr 02/26/22 02/26/22 02/26/22 11:25 16:27 20:06 WBC RBC Hgb Hct MCV MCH MCHC RDW Std Deviation RDW Coeff of Odilon Plt Count MPV Sodium Potassium Chloride Carbon Dioxide Anion Gap BUN Creatinine Est Cr Clr Drug Dosing Est GFR ( Amer) Est GFR (Non-Af Amer) BUN/Creatinine Ratio Glucose POC Glucose 147 H 122 H 165 H Calcium 02/27/22 02/27/22 02/27/22 07:08 08:18 08:18 WBC 11.04 H RBC 3.22 L Hgb 9.9 L Hct 31.9 L MCV 99.1 MCH 30.7 MCHC 31.0 L RDW Std Deviation 62.9 H RDW Coeff of Odilon 17.2 H Plt Count 346 MPV 9.9 Sodium 139 Potassium 5.1 Chloride 104 Carbon Dioxide 28 Anion Gap 7 BUN 79 H Creatinine 2.74 H Est Cr Clr Drug Dosing 14.5 Est GFR ( Amer) 18.1 Est GFR (Non-Af Amer) 15.6 BUN/Creatinine Ratio 28.8 H Glucose 168 H POC Glucose 137 H Calcium 9.2 PG Care Time/CCT Total # of Minutes Spent Total Time Spent with Patient: Total time spent is greater than 50% in coordination of care (as documented) at patient's floor/unit and/or counseling patient: Coding Level of Care Code 86975 Subseq Hosp Care Lvl 3 Diagnoses MITCHEL (acute kidney injury) N17.9 Anemia in CKD (chronic kidney disease) N18.9; D63.1 Chronic kidney disease, stage 4 (severe) N18.4 Acute kidney injury superimposed on chronic kidney disease N17.9; N18.9
[2022-02-27] MEDS: ONDANSETRON INJ 2 MG/ML 2 ML VIAL IV PRN (10:51)
--- NOTE | 2022-02-27 12:58 | Hospitalist Progress Note ---
Date of Service February 27, 2022 Assessment & Plan (1) Acute respiratory failure with hypoxia: Plan: 2nd to volume overloaded state in the setting of acute/chronic CKD stage 4. Only requiring minimal amount of NC O2-now weaned off to room air at times Her respiratory symptoms and distress/tachypnea are improved with escalating doses of diuretics and improvement in renal function, and status post right thoracentesis Initially had no effective diuresis with 80mg lasix, followed by 120mg lasix -- but did have response to Bumex 4mg on 2 occasions Chest x-ray on 02/18 reveals slightly improved interstitial pulmonary edema, moderate right and small left pleural effusions with associated bibasilar airspace opacities-overall slightly improved Chest x-ray on 02/23 status post thoracentesis is negative for pneumothorax, probable small right pleural effusion, persistent moderate left pleural effusion, and progression of pulmonary edema Continue Crum and monitor UOP Continue NC O2 as needed to keep pulse ox greater than 92% Pulmonary consult appreciated. Thoracentesis completed on 02/22 with 1300 mL of straw colored fluid removed. Transudative by lights criteria. - Give Bumex 2 mg IV x1 on 02/23. Held after slight Cr rise. - Bumex 2 mg PO on 02/26 for signs of volume overload. Discussed with Dr. Pinzon and may need every other day diuretic. (2) MITCHEL (acute kidney injury): Plan: Baseline Cr ~2.1 - 2.8. Presented with acute kidney injury with creatinine peaking above 5 with volume overload and pleural effusions. Did respond somewhat to high-dose IV Bumex and symptoms have improved. - Appreciate nephrology/pulmonary/vascular surgery consults & recs. - Creatinine stable on 02/27 (3) Anemia in CKD (chronic kidney disease): Plan: Hemoglobin chronically in the 9-10 range. Epogen given during admission. - Hgb stable today. (4) Acute metabolic encephalopathy: Plan: 2nd to MITCHEL/uremia. Improving as renal function improves. TSH, B12, NH3 all normal. - Mentation seems very clear now - B1 low -> continue thiamine 200mg BID. - Ordered Lexapro for depression (5) Bilateral pleural effusion: Plan: 2nd to acute/chronic CKD. Echo with preserved EF. - Patient had thoracentesis on 02/22 with transudative fluid removed - 1300 mL. (6) Chronic kidney disease, stage 4 (severe): Plan: Baseline CrCl 15-20; see above. (7) Essential hypertension: Plan: BPs low or low-normal. Today it is 115/75. - Had held her CCB and BB because of low BPs but then a.fib rates were uncontrolled - Resumed diltiazem albeit at lower dose of 180mg of Cardizem CD - Resumed metoprolol xl at home dose of 50 mg daily (8) Unspecified atrial fibrillation: Plan: Because of her soft BPs, her diltiazem and metoprolol occasionally get held and then she becomes tachycardic. - Continue lower dose of diltiazem and metoprolol with hold parameters - Continue apixaban (9) Type 2 diabetes mellitus with diabetic neuropathy: Plan: HbA1C was 5.3%. - Continue Lantus 5 units at bedtime and continue NovoLog sliding scale (10) Gallstones: Plan: A/a and CT with numerous gallstones & sludge. Both studies equivocal for acute cholecystitis. LFTs have been normal. HIDA scan normal/negative. - Was on empiric Rocephin/Flagyl; now stopped. - No GI symptoms and no abd pain => Monitor (11) Hyperlipidemia: Plan: - Continue statin (12) Gout, unspecified: Plan: No signs of flare Admission and Anticipated Discharge Date Admission Date: February 13, 2022 Subjective Doing well today. No major issues. Reports no fevers/chills, chest pain, shortness of breath, abdominal pain, nausea, or vomiting. Physical Exam Constitutional: WD/WN, vitals as above Eyes: EOM intact bilaterally; no conjunctival abnormality ENMT: external ear and nose normal, oropharynx normal Neck: trachea midline, no thyromegaly normal visual inspection Respiratory: normal respiratory effort, lungs clear to auscultation no respiratory distress Cardiovascular: RRR, no murmur, no edema Gastrointestinal (Abdomen): Inspection/Auscultation: abdomen normal to inspection; abdomen not distended Musculoskeletal: no cyanosis or clubbing, extremities motor strength 5/5 Skin: no rashes, warm and dry Neurologic: moves all extremities and awake Psychiatric: Orientation: alert, oriented to person and cooperative Results & Data Results & Data ([facility]) Vital Signs (Past 12 Hours) Vital Signs Temp Pulse Resp BP Pulse Ox 02/27/22 06:48 36.6 C 100 H 18 115/76 92 02/27/22 02:42 36.5 C 103 H 18 110/76 93 PG Care Time/CCT Total # of Minutes Spent Total Time Spent with Patient: Total time spent is greater than 50% in coordination of care (as documented) at patient's floor/unit and/or counseling patient: Coding Level of Care Code 10909 Subseq Hosp Care Lvl 3 Diagnoses Acute respiratory failure with hypoxia J96.01 MITCHEL (acute kidney injury) N17.9 Anemia in CKD (chronic kidney disease) N18.9; D63.1 Acute metabolic encephalopathy G93.41 Bilateral pleural effusion J90 Chronic kidney disease, stage 4 (severe) N18.4 Essential hypertension I10 Unspecified atrial fibrillation I48.91 Atrial fibrillation type: unspecified Type 2 diabetes mellitus with diabetic neuropathy E11.40 Gallstones K80.20 Hyperlipidemia E78.5 Gout, unspecified M10.9 (1) Unspecified atrial fibrillation Atrial fibrillation type: unspecified Qualified Code(s): I48.91 - Unspecified atrial fibrillation
[2022-02-27] MEDS: LANTUS PER UNIT CHARGE SQ SCH (20:55)
[2022-02-28 07:27] LABS: Hemoglobin 10.7 g/dl (12.0-16.0); Mean Corpuscular Hemoglobin 31.3 pg (25.0-34.0); Mean Corpuscular Hgb Conc 30.6 g/dL (32.0-36.0); Mean Corpuscular Volume 102.3 fL (80.0-100.0); Mean Platelet Volume 9.8 fL (9.4-12.3); Platelet Count 381 K/uL (130-400); RDW Coefficient of Variation 17.2 % (11.5-14.5); RDW Standard Deviation 64.9 fL (36.4-46.3); Red Blood Count 3.42 M/uL (3.93-5.22); White Blood Count 10.45 K/ul (4.8-10.8)
[2022-02-28 07:59] LABS: BUN Creatinine Ratio 30.3 (10-20); Calcium 8.7 mg/dl (8.5-10.1); Creatinine Clr Calc Pharmacy 14.7 ml/min; Est GFR (African American) 18.3 ml/min; Est GFR (Non-African American) 15.8 ml/min; Magnesium 1.9 mg/dl (1.7-2.4)
[2022-02-28] MEDS: INSULIN ASPART PER UNIT SC SCH ×4 (08:14→20:30)
[2022-02-28] MEDS: APIXABAN 2.5 MG TAB PO SCH ×2 (08:15→20:11)
[2022-02-28] MEDS: ESCITALOPRAM OXALATE 10 MG TAB PO SCH (08:16)
[2022-02-28] MEDS: DOCUSATE SODIUM/SENNA 50/8.6MG TAB PO SCH (08:17)
[2022-02-28] MEDS: MEGESTROL ACETATE SUSP 400 MG/10 ML UDC PO SCH (08:17)
[2022-02-28] MEDS: dilTIAZem HCL 180 MG CAPCR PO SCH (08:17)
[2022-02-28] MEDS: THIAMINE HCL 100 MG TAB PO SCH ×2 (08:18→20:11)
[2022-02-28] MEDS: SIMVASTATIN 20 MG TAB PO SCH (08:18)
[2022-02-28] MEDS: METOPROLOL SUCC 50MG EXT REL TAB PO SCH (08:18)
--- NOTE | 2022-02-28 10:23 | Nephrology Progress Note ---
Date of Service February 28, 2022 Assessment & Plan (1) MITCHEL (acute kidney injury): (2) Anemia in CKD (chronic kidney disease): (3) Chronic kidney disease, stage 4 (severe): (4) Acute kidney injury superimposed on chronic kidney disease: Plan: CKD IV-V. Approaching the need for dialysis but no emergent indication at this time. Creatinine stable. Electrolytes acceptable. Bumex 2 mg PO every other day or daily encouraged. Medications appropriate for kidney dysfunction. Close outpatient follow up required. Epogen 18968 units SQ x 1 dose given on 02/19/22 for anemia. H/H stable at ~10.5. Encourage nutrition. Limit dietary sodium. Close outpatient follow up with Dr. Cedeño within 1-2 weeks of discharge. Admission and Anticipated Discharge Date Admission Date: February 13, 2022 Subjective No acute events overnight. Jessi Miranda continues to report some weakness but otherwise feels well. She notes overall improvement. Appetite fair. No dyspnea but O2 restarted this AM. No nausea. Review of Systems Review of Systems: All systems reviewed & are unremarkable except as noted in HPI & below Physical Exam Constitutional: well developed and + frail appearing; no acute distress Eyes: no scleral abnormality and no corneal abnormality ENMT: Mouth: no oral mucosal abnormality and oral mucous membranes not dry Neck: normal visual inspection and trachea midline Respiratory: normal respiratory effort Auscultation: lungs clear to auscultation bilaterally Cardiovascular: Rate/Rhythm: + irregularly irregular Heart Sounds: normal S1 and normal S2 Extremities: + pedal edema Musculoskeletal: Extremities: no cyanosis and no clubbing Skin: normal turgor; no lesions Neurologic: Motor/Sensory: no tremor and no asterixis Psychiatric: Orientation: alert and oriented x 3 Results & Data ([facility]) Vital Signs (Past 12 Hours) Vital Signs Temp Pulse Pulse Pulse Resp BP Pulse Ox 02/28/22 07:24 36.4 C L 107 H 20 115/75 90 02/28/22 03:04 36.7 C 106 H 16 141/65 H 90 02/28/22 02:19 115 H 02/27/22 23:00 36.5 C 113 H 20 120/79 97 Laboratory Results Laboratory Results - last 24 hr 02/27/22 02/27/22 02/27/22 10:53 11:22 16:45 WBC RBC Hgb Hct MCV MCH MCHC RDW Std Deviation RDW Coeff of Odilon Plt Count MPV Sodium Potassium Chloride Carbon Dioxide Anion Gap BUN Creatinine Est Cr Clr Drug Dosing Est GFR ( Amer) Est GFR (Non-Af Amer) BUN/Creatinine Ratio Glucose POC Glucose 210 H 130 H Calcium Magnesium Stool Occult Bld Scrn Positive A 02/27/22 02/28/22 02/28/22 20:17 06:34 06:34 WBC 10.45 RBC 3.42 L Hgb 10.7 L Hct 35.0 MCV 102.3 H MCH 31.3 MCHC 30.6 L RDW Std Deviation 64.9 H RDW Coeff of Odilon 17.2 H Plt Count 381 MPV 9.8 Sodium 139 Potassium 5.0 Chloride 104 Carbon Dioxide 27 Anion Gap 8 BUN 82 H Creatinine 2.71 H Est Cr Clr Drug Dosing 14.7 Est GFR ( Amer) 18.3 Est GFR (Non-Af Amer) 15.8 BUN/Creatinine Ratio 30.3 H Glucose 120 H POC Glucose 146 H Calcium 8.7 Magnesium 1.9 Stool Occult Bld Scrn 02/28/22 07:21 WBC RBC Hgb Hct MCV MCH MCHC RDW Std Deviation RDW Coeff of Odilon Plt Count MPV Sodium Potassium Chloride Carbon Dioxide Anion Gap BUN Creatinine Est Cr Clr Drug Dosing Est GFR ( Amer) Est GFR (Non-Af Amer) BUN/Creatinine Ratio Glucose POC Glucose 112 H Calcium Magnesium Stool Occult Bld Scrn PG Care Time/CCT Total # of Minutes Spent Total Time Spent with Patient: Total time spent is greater than 50% in coordination of care (as documented) at patient's floor/unit and/or counseling patient: Coding Level of Care Code 41366 Subseq Hosp Care Lvl 3 Diagnoses MITCHEL (acute kidney injury) N17.9 Anemia in CKD (chronic kidney disease) N18.9; D63.1 Chronic kidney disease, stage 4 (severe) N18.4 Acute kidney injury superimposed on chronic kidney disease N17.9; N18.9
[2022-02-28] MEDS: ONDANSETRON INJ 2 MG/ML 2 ML VIAL IV PRN (10:28)
[2022-02-28] MEDS: BUMETANIDE 1 MG TAB PO SCH (11:35)
[2022-02-28] MEDS ORDERED: PROCHLORPERAZINE MALEATE 5 MG TAB PO PRN (11:43)
--- NOTE | 2022-02-28 14:32 | Hospitalist Progress Note ---
Date of Service February 28, 2022 Assessment & Plan (1) Acute respiratory failure with hypoxia: Plan: 2nd to volume overloaded state in the setting of acute/chronic CKD stage 4. Only requiring minimal amount of NC O2-now weaned off to room air at times Her respiratory symptoms and distress/tachypnea are improved with escalating doses of diuretics and improvement in renal function, and status post right thoracentesis Initially had no effective diuresis with 80mg lasix, followed by 120mg lasix -- but did have response to Bumex 4mg on 2 occasions Chest x-ray on 02/18 reveals slightly improved interstitial pulmonary edema, moderate right and small left pleural effusions with associated bibasilar airspace opacities-overall slightly improved Chest x-ray on 02/23 status post thoracentesis is negative for pneumothorax, probable small right pleural effusion, persistent moderate left pleural effusion, and progression of pulmonary edema Continue Crum and monitor UOP Continue NC O2 as needed to keep pulse ox greater than 92% Pulmonary consult appreciated. Thoracentesis completed on 02/22 with 1300 mL of straw colored fluid removed. Transudative by lights criteria. - Give Bumex 2 mg IV x1 on 02/23. Held after slight Cr rise. - Bumex 2 mg PO daily started on 02/26 for signs of volume overload. Discussed with Dr. Pinzon and will likely need daily vs. every other day to stay volume even. (2) MITCHEL (acute kidney injury): Plan: Baseline Cr ~2.1 - 2.8. Presented with acute kidney injury with creatinine peaking above 5 with volume overload and pleural effusions. Did respond somewhat to high-dose IV Bumex and symptoms have improved. - Appreciate nephrology/pulmonary/vascular surgery consults & recs. - Creatinine stable on 02/28 at 2.7, likely where her new baseline is. (3) Anemia in CKD (chronic kidney disease): Plan: Hemoglobin chronically in the 9-10 range. Epogen given during admission. - Hgb stable today. (4) Acute metabolic encephalopathy: Plan: 2nd to MITCHEL/uremia. Improving as renal function improves. TSH, B12, NH3 all normal. - Mentation seems very clear now - B1 low -> continue thiamine 200mg BID. - Ordered Lexapro for depression (5) Bilateral pleural effusion: Plan: 2nd to acute/chronic CKD. Echo with preserved EF. - Patient had thoracentesis on 02/22 with transudative fluid removed - 1300 mL. (6) Chronic kidney disease, stage 4 (severe): Plan: Baseline CrCl 15-20; see above. (7) Essential hypertension: Plan: BPs low or low-normal. Today it is 110/75. - Had held her CCB and BB because of low BPs but then a.fib rates were uncontrolled - Resumed diltiazem albeit at lower dose of 180mg of Cardizem CD - Resumed metoprolol xl at home dose of 50 mg daily (8) Unspecified atrial fibrillation: Plan: Because of her soft BPs, her diltiazem and metoprolol occasionally get held and then she becomes tachycardic. Presently HR is ~105. - Continue lower dose of diltiazem and metoprolol with hold parameters - Continue apixaban (9) Type 2 diabetes mellitus with diabetic neuropathy: Plan: HbA1C was 5.3%. - Continue Lantus 5 units at bedtime and continue NovoLog sliding scale - BSs over last 24 hours have been 110 - 210. Overall, closer to 115 though. (10) Gallstones: Plan: A/a and CT with numerous gallstones & sludge. Both studies equivocal for acute cholecystitis. LFTs have been normal. HIDA scan normal/negative. - Was on empiric Rocephin/Flagyl; now stopped. - No GI symptoms and no abd pain => Monitor (11) Hyperlipidemia: Plan: - Continue statin (12) Gout, unspecified: Plan: No signs of flare Admission and Anticipated Discharge Date Admission Date: February 13, 2022 Subjective Stable today. No nausea when I saw her, but some later in the day per RN. Reports no fevers/chills, chest pain, shortness of breath, abdominal pain, or vomiting. Physical Exam Constitutional: WD/WN, vitals as above Eyes: EOM intact bilaterally; no conjunctival abnormality ENMT: external ear and nose normal, oropharynx normal Neck: trachea midline, no thyromegaly normal visual inspection Respiratory: normal respiratory effort, lungs clear to auscultation no respiratory distress Cardiovascular: RRR, no murmur, no edema Gastrointestinal (Abdomen): Inspection/Auscultation: abdomen normal to inspection; abdomen not distended Musculoskeletal: no cyanosis or clubbing, extremities motor strength 5/5 Skin: no rashes, warm and dry Neurologic: moves all extremities and awake Psychiatric: Orientation: alert, oriented to person and cooperative Results & Data Results & Data ([facility]) Vital Signs (Past 12 Hours) Vital Signs Temp Pulse Pulse Pulse Resp BP Pulse Ox 02/28/22 11:18 36.5 C 106 H 18 109/72 93 02/28/22 08:00 114 H 02/28/22 07:24 36.4 C L 107 H 20 115/75 90 02/28/22 03:04 36.7 C 106 H 16 141/65 H 90 PG Care Time/CCT Total # of Minutes Spent Total Time Spent with Patient: Total time spent is greater than 50% in coordination of care (as documented) at patient's floor/unit and/or counseling patient: Coding Level of Care Code 09438 Subseq Hosp Care Lvl 2 Diagnoses Acute respiratory failure with hypoxia J96.01 MITCHEL (acute kidney injury) N17.9 Anemia in CKD (chronic kidney disease) N18.9; D63.1 Acute metabolic encephalopathy G93.41 Bilateral pleural effusion J90 Chronic kidney disease, stage 4 (severe) N18.4 Essential hypertension I10 Unspecified atrial fibrillation I48.91 Atrial fibrillation type: unspecified Type 2 diabetes mellitus with diabetic neuropathy E11.40 Gallstones K80.20 Hyperlipidemia E78.5 Gout, unspecified M10.9 (1) Unspecified atrial fibrillation Atrial fibrillation type: unspecified Qualified Code(s): I48.91 - Unspecified atrial fibrillation
[2022-02-28] MEDS: LANTUS PER UNIT CHARGE SQ SCH (20:31)
[2022-02-28] MEDS: ACETAMINOPHEN 325 MG TAB PO PRN (23:21)
[2022-02-28] MEDS: MELATONIN 3 MG TAB PO PRN (23:21)
[2022-03-01 06:50] LABS: Hematocrit (blood only) 34.4 % (34.1-44.9); Hemoglobin 10.5 g/dl (12.0-16.0); Mean Corpuscular Hemoglobin 30.6 pg (25.0-34.0); Mean Corpuscular Hgb Conc 30.5 g/dL (32.0-36.0); Mean Corpuscular Volume 100.3 fL (80.0-100.0); Mean Platelet Volume 9.8 fL (9.4-12.3); Platelet Count 397 K/uL (130-400); RDW Coefficient of Variation 16.6 % (11.5-14.5); RDW Standard Deviation 61.2 fL (36.4-46.3); Red Blood Count 3.43 M/uL (3.93-5.22); White Blood Count 10.49 K/ul (4.8-10.8)
[2022-03-01 07:17] LABS: BUN Creatinine Ratio 28.7 (10-20); Calcium 8.6 mg/dl (8.5-10.1); Creatinine Clr Calc Pharmacy 13.7 ml/min; Est GFR (Non-African American) 14.6 ml/min
[2022-03-01] MEDS: THIAMINE HCL 100 MG TAB PO SCH ×2 (07:47→20:54)
[2022-03-01] MEDS: APIXABAN 2.5 MG TAB PO SCH ×2 (07:48→20:54)
[2022-03-01] MEDS: BUMETANIDE 1 MG TAB PO SCH (07:48)
[2022-03-01] MEDS: DOCUSATE SODIUM/SENNA 50/8.6MG TAB PO SCH (07:48)
[2022-03-01] MEDS: ESCITALOPRAM OXALATE 10 MG TAB PO SCH (07:49)
[2022-03-01] MEDS: METOPROLOL SUCC 50MG EXT REL TAB PO SCH (07:49)
[2022-03-01] MEDS: SIMVASTATIN 20 MG TAB PO SCH (07:50)
[2022-03-01] MEDS: dilTIAZem HCL 180 MG CAPCR PO SCH (07:50)
[2022-03-01] MEDS: MEGESTROL ACETATE SUSP 400 MG/10 ML UDC PO SCH (07:51)
[2022-03-01] MEDS: INSULIN ASPART PER UNIT SC SCH ×4 (07:54→20:54)
--- NOTE | 2022-03-01 08:58 | Nephrology Progress Note ---
Date of Service March 01, 2022 Assessment & Plan (1) MITCHEL (acute kidney injury): Plan: * Kidney function has improved following diuretic therapy and volume unloading * Cr is near baseline 2.6 and patient is nonoliguric. Electrolyte balance is acceptable. No acute indication for HD at this time (2) Chronic kidney disease, stage 4 (severe): Plan: * Baseline Cr 2.6 w/ EGFR 19 cc/min. Renal impairment is due to microvascular disease, hypertensive nephrosclerosis and DKD * Patient will require close outpatient follow up with Dr. Cedeño within 1-2 weeks of discharge (3) Anemia in CKD (chronic kidney disease): Plan: * Hgb is within acceptable range of 10 - 11. Will monitor * Epogen 20,000 units SQx1 administered 02/19 (4) Atrial fibrillation: Plan: * Atrial fibrillation w/ RVR. Recommend consultation w/ Cardiology to determine whether to titrate beta luda or NDP CCB for rate control Admission and Anticipated Discharge Date Admission Date: February 13, 2022 Subjective Ms. Pacheco was evaluated in her hospital room this morning. She c/o dyspnea at rest. RA Sao2 88%. O2 at 2L/min NC applied. Patient was subjectively improved Review of Systems Constitutional: + weakness; no fever Eyes: no problem reported Ear, Nose, Mouth, Throat: no problem reported Respiratory: no cough and no dyspnea Cardiovascular: + palpitations; no chest pain Gastrointestinal: no abdominal pain, no vomiting and no diarrhea/loose stools Integumentary: no rash Neurologic: no confusion Physical Exam Eyes: PERRL, conjunctivae normal, anicteric sclerae ENMT: external ear and nose normal, oropharynx normal Neck: trachea midline, no thyromegaly Respiratory: Auscultation: + rales (bibasilar) Cardiovascular: Rate/Rhythm: + tachycardic and + irregularly irregular Gastrointestinal (Abdomen): normal bowel sounds, soft, nontender, no hepatosplenomegaly Skin: no rashes, warm and dry Neurologic: Speech / Cognition: normal speech and normal cognition Results & Data ([facility]) Vital Signs (Past 12 Hours) Vital Signs Temp Pulse Pulse Pulse Resp BP Pulse Ox 03/01/22 07:48 36.3 C L 111 H 32 H 126/81 92 03/01/22 07:18 111 H 07/09/22 03:30 36.6 C 98 H 20 111/62 90 03/01/22 00:00 97 H 02/28/22 22:00 36.6 C 101 H 20 105/72 90 Laboratory Results Laboratory Tests 03/01/22 03/01/22 06:07 06:07 WBC 10.49 Hgb 10.5 L Hct 34.4 Plt Count 397 Sodium 138 Potassium 5.0 Chloride 103 Carbon Dioxide 26 BUN 83 H Creatinine 2.89 H Glucose 117 H Calcium 8.6 Magnesium 2.0 PG Care Time/CCT Total # of Minutes Spent Total Time Spent with Patient: Total time spent is greater than 50% in coordination of care (as documented) at patient's floor/unit and/or counseling patient: Coding Level of Care Code 86332 Subseq Hosp Care Lvl 3 Diagnoses MITCHEL (acute kidney injury) N17.9 Anemia in CKD (chronic kidney disease) N18.9; D63.1 Chronic kidney disease, stage 4 (severe) N18.4 Atrial fibrillation I48.91
--- NOTE | 2022-03-01 10:55 | XRay Report ---
XR chest 1V portable CLINICAL HISTORY: chf. Difficulty breathing COMPARISON STUDY: 02/26/2022 TECHNIQUE: 1 view of the chest FINDINGS: Single frontal view of the chest demonstrates the heart size to again be enlarged. There is evidence for central vascular congestion. The patient is in a more supine positioning with layering of pleural fluid at both lung bases . No confluent alveolar opacities are identified. There is no acute osseous pathology. IMPRESSION: 1. Interval worsening of central vascular congestion. 2. Interval worsening of bilateral pleural effusions radiographically. ACT 112: Negative or not required by law. Electronically signed by: Sandeep Hernandez M.D. 03/01/2022 10:54 AM
--- NOTE | 2022-03-01 13:48 | Hospitalist Progress Note ---
Date of Service March 01, 2022 Assessment & Plan (1) Acute respiratory failure with hypoxia: Plan: 2nd to volume overloaded state in the setting of acute/chronic CKD stage 4. Only requiring minimal amount of NC O2-now weaned off to room air at times Her respiratory symptoms and distress/tachypnea are improved with escalating doses of diuretics and improvement in renal function, and status post right thoracentesis Initially had no effective diuresis with 80mg lasix, followed by 120mg lasix -- but did have response to Bumex 4mg on 2 occasions Chest x-ray on 02/18 reveals slightly improved interstitial pulmonary edema, moderate right and small left pleural effusions with associated bibasilar airspace opacities-overall slightly improved Chest x-ray on 02/23 status post thoracentesis is negative for pneumothorax, probable small right pleural effusion, persistent moderate left pleural effusion, and progression of pulmonary edema Continue Crum and monitor UOP Continue NC O2 as needed to keep pulse ox greater than 92% Pulmonary consult appreciated. Thoracentesis completed on 02/22 with 1300 mL of straw colored fluid removed. Transudative by lights criteria. - Give Bumex 2 mg IV x1 on 02/23. Held after slight Cr rise. - Bumex 2 mg PO daily started on 02/26 for signs of volume overload. - Now with some new shortness of breath and mild O2 need. Discussed with Dr. Steiner - Aim for Bumex 1 mg PO daily to strike middle-ground of volume status and kidney function. -> CXR worse today with more signs of volume overload. (2) MITCHEL (acute kidney injury): Plan: Baseline Cr ~2.1 - 2.8. Presented with acute kidney injury with creatinine peaking above 5 with volume overload and pleural effusions. Did respond somewhat to high-dose IV Bumex and symptoms have improved. - Appreciate nephrology/pulmonary/vascular surgery consults & recs. - Creatinine stable on 02/28 at 2.7, likely where her new baseline is. (3) Anemia in CKD (chronic kidney disease): Plan: Hemoglobin chronically in the 9-10 range. Epogen given during admission. - Hgb stable today at 10.5. (4) Acute metabolic encephalopathy: Plan: 2nd to MITCHEL/uremia. Improving as renal function improves. TSH, B12, NH3 all normal. - Mentation seems clear now - B1 low -> continue thiamine 200mg BID. - Ordered Lexapro for depression (5) Bilateral pleural effusion: Plan: 2nd to acute/chronic CKD. Echo with preserved EF. - Patient had thoracentesis on 02/22 with transudative fluid removed - 1300 mL. (6) Chronic kidney disease, stage 4 (severe): Plan: Baseline CrCl 15-20; see above. (7) Essential hypertension: Plan: BPs low or low-normal. Today it is 110/75. - Had held her CCB and BB because of low BPs but then a.fib rates were uncontrolled - Resumed diltiazem albeit at lower dose of 180mg of Cardizem CD - Resumed metoprolol xl at home dose of 50 mg daily (8) Unspecified atrial fibrillation: Plan: Because of her soft BPs, her diltiazem and metoprolol occasionally get held and then she becomes tachycardic. Presently HR is ~105. - Continue lower dose of diltiazem and metoprolol with hold parameters - Continue apixaban (9) Type 2 diabetes mellitus with diabetic neuropathy: Plan: HbA1C was 5.3%. - Continue Lantus 5 units at bedtime and continue NovoLog sliding scale - BSs over last 24 hours have been 110 - 210. Overall, closer to 115 though. (10) Gallstones: Plan: A/a and CT with numerous gallstones & sludge. Both studies equivocal for acute cholecystitis. LFTs have been normal. HIDA scan normal/negative. - Was on empiric Rocephin/Flagyl; now stopped. - No GI symptoms and no abd pain => Monitor (11) Hyperlipidemia: Plan: - Continue statin (12) Gout, unspecified: Plan: No signs of flare Admission and Anticipated Discharge Date Admission Date: February 13, 2022 Subjective Seen today after nephrology. Doing ok with some continued shortness of breath, but minimal. Reports no fevers/chills, chest pain, abdominal pain, nausea, or vomiting. Physical Exam Constitutional: WD/WN, vitals as above Eyes: EOM intact bilaterally; no conjunctival abnormality ENMT: external ear and nose normal, oropharynx normal Neck: trachea midline, no thyromegaly normal visual inspection Respiratory: normal respiratory effort, lungs clear to auscultation no respiratory distress Cardiovascular: RRR, no murmur, no edema Gastrointestinal (Abdomen): Inspection/Auscultation: abdomen normal to inspection; abdomen not distended Musculoskeletal: no cyanosis or clubbing, extremities motor strength 5/5 Skin: no rashes, warm and dry Neurologic: moves all extremities and awake Psychiatric: Orientation: alert, oriented to person and cooperative Results & Data Results & Data ([facility]) Vital Signs (Past 12 Hours) Vital Signs Temp Pulse Pulse Pulse Resp BP BP 03/01/22 11:59 36.3 C L 101 H 22 124/82 03/01/22 10:19 03/01/22 10:00 03/01/22 07:48 36.3 C L 111 H 32 H 126/81 03/01/22 07:18 111 H 03/01/22 03:30 36.6 C 98 H 20 111/62 Pulse Ox 03/01/22 11:59 92 03/01/22 10:19 98 03/01/22 10:00 88 L 03/01/22 07:48 92 03/01/22 07:18 03/01/22 03:30 90 PG Care Time/CCT Total # of Minutes Spent Total Time Spent with Patient: Total time spent is greater than 50% in coordination of care (as documented) at patient's floor/unit and/or counseling patient: Coding Level of Care Code 94724 Subseq Hosp Care Lvl 3 Diagnoses Acute respiratory failure with hypoxia J96.01 MITCHEL (acute kidney injury) N17.9 Anemia in CKD (chronic kidney disease) N18.9; D63.1 Acute metabolic encephalopathy G93.41 Bilateral pleural effusion J90 Chronic kidney disease, stage 4 (severe) N18.4 Essential hypertension I10 Unspecified atrial fibrillation I48.91 Atrial fibrillation type: unspecified Type 2 diabetes mellitus with diabetic neuropathy E11.40 Gallstones K80.20 Hyperlipidemia E78.5 Gout, unspecified M10.9 (1) Unspecified atrial fibrillation Atrial fibrillation type: unspecified Qualified Code(s): I48.91 - Unspecified atrial fibrillation
[2022-03-01] MEDS: LANTUS PER UNIT CHARGE SQ SCH (20:55)
[2022-03-02 06:56] LABS: BUN Creatinine Ratio 29.9 (10-20); Calcium 8.5 mg/dl (8.5-10.1); Creatinine Clr Calc Pharmacy 13.8 ml/min; Est GFR (Non-African American) 14.7 ml/min; Magnesium 1.9 mg/dl (1.7-2.4); Potassium 4.8 mmol/L (3.5-5.1)
[2022-03-02] MEDS: INSULIN ASPART PER UNIT SC SCH ×4 (08:53→20:47)
[2022-03-02] MEDS: dilTIAZem HCL 180 MG CAPCR PO SCH (08:59)
[2022-03-02] MEDS: DOCUSATE SODIUM/SENNA 50/8.6MG TAB PO SCH (08:59)
[2022-03-02] MEDS: METOPROLOL SUCC 50MG EXT REL TAB PO SCH (09:00)
[2022-03-02] MEDS: SIMVASTATIN 20 MG TAB PO SCH (09:00)
[2022-03-02] MEDS: THIAMINE HCL 100 MG TAB PO SCH ×2 (09:00→20:30)
[2022-03-02] MEDS: APIXABAN 2.5 MG TAB PO SCH ×2 (09:00→20:30)
[2022-03-02] MEDS ORDERED: BUMETANIDE 1 MG TAB PO SCH (09:00)
[2022-03-02] MEDS: ESCITALOPRAM OXALATE 10 MG TAB PO SCH (09:01)
[2022-03-02] MEDS: MEGESTROL ACETATE SUSP 400 MG/10 ML UDC PO SCH (09:01)
--- NOTE | 2022-03-02 09:56 | Nephrology Progress Note ---
Date of Service March 02, 2022 Assessment & Plan (1) MITCHEL (acute kidney injury): Plan: * Kidney function has improved following diuretic therapy and volume unloading * Cr is near baseline 2.6 and patient is nonoliguric. Electrolyte balance is acceptable. No acute indication for HD at this time (2) Chronic kidney disease, stage 4 (severe): Plan: * Baseline Cr 2.6 w/ EGFR 19 cc/min. Renal impairment is due to microvascular disease, hypertensive nephrosclerosis and DKD * Patient will require close outpatient follow up with Dr. Cedeoñ within 1-2 weeks of discharge (3) Anemia in CKD (chronic kidney disease): Plan: * Hgb is within acceptable range of 10 - 11. Will monitor * Epogen 20,000 units SQx1 administered 02/19 (4) Atrial fibrillation: Plan: * Atrial fibrillation w/ RVR. Recommend consultation w/ Cardiology to determine whether to titrate beta luda or NDP CCB for rate control Admission and Anticipated Discharge Date Admission Date: February 13, 2022 Subjective Ms. Pacheco was evaluated in her hospital room this morning. She was breathing comfortably on O2 at 2L/min NC. She c/o weakness. Review of Systems Constitutional: + weakness; no fever Eyes: no problem reported Ear, Nose, Mouth, Throat: no problem reported Respiratory: no cough and no dyspnea Cardiovascular: + palpitations; no chest pain Gastrointestinal: no abdominal pain, no vomiting and no diarrhea/loose stools Integumentary: no rash Neurologic: no confusion Physical Exam Eyes: PERRL, conjunctivae normal, anicteric sclerae ENMT: external ear and nose normal, oropharynx normal Neck: trachea midline, no thyromegaly Respiratory: Auscultation: + rales (bibasilar) Cardiovascular: Rate/Rhythm: + tachycardic and + irregularly irregular Gastrointestinal (Abdomen): normal bowel sounds, soft, nontender, no hepatosplenomegaly Skin: no rashes, warm and dry Neurologic: Speech / Cognition: normal speech and normal cognition Results & Data ([facility]) Vital Signs (Past 12 Hours) Vital Signs Temp Pulse Pulse Resp BP BP Pulse Ox 03/02/22 08:04 36.4 C L 112 H 26 H 124/77 95 03/02/22 08:00 115 H 03/02/22 03:10 36.4 C L 108 H 20 115/76 96 03/02/22 00:00 95 H 03/01/22 22:31 36.3 C L 103 H 20 114/68 93 Laboratory Results Laboratory Tests 03/02/22 06:11 Sodium 137 Potassium 4.8 Chloride 103 Carbon Dioxide 28 BUN 86 H Creatinine 2.88 H Glucose 111 H Calcium 8.5 Magnesium 1.9 PG Care Time/CCT Total # of Minutes Spent Total Time Spent with Patient: Total time spent is greater than 50% in coordination of care (as documented) at patient's floor/unit and/or counseling patient: Coding Level of Care Code 00131 Subseq Hosp Care Lvl 3 Diagnoses MITCHEL (acute kidney injury) N17.9 Chronic kidney disease, stage 4 (severe) N18.4 Anemia in CKD (chronic kidney disease) N18.9; D63.1 Atrial fibrillation I48.91
--- NOTE | 2022-03-02 13:03 | Hospitalist Progress Note ---
Date of Service March 02, 2022 Assessment & Plan (1) Acute respiratory failure with hypoxia: Plan: 2nd to volume overloaded state in the setting of acute/chronic CKD stage 4. Only requiring minimal amount of NC O2-now weaned off to room air at times Her respiratory symptoms and distress/tachypnea are improved with escalating doses of diuretics and improvement in renal function, and status post right thoracentesis Initially had no effective diuresis with 80mg lasix, followed by 120mg lasix -- but did have response to Bumex 4mg on 2 occasions Chest x-ray on 02/18 reveals slightly improved interstitial pulmonary edema, moderate right and small left pleural effusions with associated bibasilar airspace opacities-overall slightly improved Chest x-ray on 02/23 status post thoracentesis is negative for pneumothorax, probable small right pleural effusion, persistent moderate left pleural effusion, and progression of pulmonary edema Continue Crum and monitor UOP Continue NC O2 as needed to keep pulse ox greater than 92% Pulmonary consult appreciated. Thoracentesis completed on 02/22 with 1300 mL of straw colored fluid removed. Transudative by lights criteria. - Give Bumex 2 mg IV x1 on 02/23. Held after slight Cr rise. - Bumex 2 mg PO daily started on 02/26 for signs of volume overload. - Now with some new shortness of breath and mild O2 need. Discussed with Dr. Steiner - Will go with Bumex 2 mg PO daily -> CXR worse on 03/01 with more signs of volume overload. (2) MITCHEL (acute kidney injury): Plan: Baseline Cr ~2.1 - 2.8. Presented with acute kidney injury with creatinine peaking above 5 with volume overload and pleural effusions. Did respond somewhat to high-dose IV Bumex and symptoms have improved. - Appreciate nephrology/pulmonary/vascular surgery consults & recs. - Creatinine up mildly 03/02 at 2.9. New baseline likely near this area (perhaps as low as 2.7, but she is still volume overloaded). (3) Anemia in CKD (chronic kidney disease): Plan: Hemoglobin chronically in the 9-10 range. Epogen given during admission. - Hgb stable today at 10.5. (4) Acute metabolic encephalopathy: Plan: 2nd to MITCHEL/uremia. Improving as renal function improves. TSH, B12, NH3 all normal. - Mentation seems clear now - B1 low -> continue thiamine 200mg BID. - Ordered Lexapro for depression (5) Bilateral pleural effusion: Plan: 2nd to acute/chronic CKD. Echo with preserved EF. - Patient had thoracentesis on 02/22 with transudative fluid removed - 1300 mL. - Now with recurrent pleural effusions still due to CKD. (6) Chronic kidney disease, stage 4 (severe): Plan: Baseline CrCl 15-20; see above. (7) Essential hypertension: Plan: BPs low or low-normal. Today it is 110/75. - Had held her CCB and BB because of low BPs but then a.fib rates were uncontrolled - Resumed diltiazem albeit at lower dose of 180mg of Cardizem CD - Resumed metoprolol xl at home dose of 50 mg daily (8) Unspecified atrial fibrillation: Plan: Because of her soft BPs, her diltiazem and metoprolol occasionally get held and then she becomes tachycardic. Presently HR is ~105. - Continue home diltiazem and metoprolol with hold parameters - Continue apixaban (9) Type 2 diabetes mellitus with diabetic neuropathy: Plan: HbA1C was 5.3%. - Continue Lantus 5 units at bedtime and continue NovoLog sliding scale - BSs over last 24 hours have been 110 - 185. (10) Gallstones: Plan: A/a and CT with numerous gallstones & sludge. Both studies equivocal for acute cholecystitis. LFTs have been normal. HIDA scan normal/negative. - Was on empiric Rocephin/Flagyl; now stopped. - No GI symptoms and no abd pain => Monitor (11) Hyperlipidemia: Plan: - Continue statin (12) Gout, unspecified: Plan: No signs of flare Admission and Anticipated Discharge Date Admission Date: February 13, 2022 Subjective No major issues today. In fact, seems somewhat perkier with more energy. Denies nausea or shortness of breath today, both of which have been bothering her quite a bit over the last few days. Physical Exam Constitutional: WD/WN, vitals as above Eyes: EOM intact bilaterally; no conjunctival abnormality ENMT: external ear and nose normal, oropharynx normal Neck: trachea midline, no thyromegaly normal visual inspection Respiratory: normal respiratory effort, lungs clear to auscultation no respiratory distress Cardiovascular: RRR, no murmur, no edema Gastrointestinal (Abdomen): Inspection/Auscultation: abdomen normal to inspection; abdomen not distended Musculoskeletal: no cyanosis or clubbing, extremities motor strength 5/5 Skin: no rashes, warm and dry Neurologic: moves all extremities and awake Psychiatric: Orientation: alert, oriented to person and cooperative Results & Data Results & Data ([facility]) Vital Signs (Past 12 Hours) Vital Signs Temp Pulse Pulse Resp BP BP Pulse Ox 03/02/22 11:28 36.4 C L 114 H 24 113/80 99 03/02/22 08:04 36.4 C L 112 H 26 H 124/77 95 03/02/22 08:00 115 H 03/02/22 03:10 36.4 C L 108 H 20 115/76 96 PG Care Time/CCT Total # of Minutes Spent Total Time Spent with Patient: Total time spent is greater than 50% in coordination of care (as documented) at patient's floor/unit and/or counseling patient: Coding Level of Care Code 37057 Subseq Hosp Care Lvl 2 Diagnoses Acute respiratory failure with hypoxia J96.01 MITCHEL (acute kidney injury) N17.9 Anemia in CKD (chronic kidney disease) N18.9; D63.1 Acute metabolic encephalopathy G93.41 Bilateral pleural effusion J90 Chronic kidney disease, stage 4 (severe) N18.4 Essential hypertension I10 Unspecified atrial fibrillation I48.91 Atrial fibrillation type: unspecified Type 2 diabetes mellitus with diabetic neuropathy E11.40 Gallstones K80.20 Hyperlipidemia E78.5 Gout, unspecified M10.9 (1) Unspecified atrial fibrillation Atrial fibrillation type: unspecified Qualified Code(s): I48.91 - Unspecified atrial fibrillation
[2022-03-02] MEDS: LANTUS PER UNIT CHARGE SQ SCH (20:48)
[2022-03-03 06:37] LABS: Hemoglobin 9.8 g/dl (12.0-16.0); Mean Corpuscular Hemoglobin 30.7 pg (25.0-34.0); Mean Corpuscular Hgb Conc 30.6 g/dL (32.0-36.0); Mean Corpuscular Volume 100.3 fL (80.0-100.0); Platelet Count 414 K/uL (130-400); RDW Coefficient of Variation 15.9 % (11.5-14.5); RDW Standard Deviation 58.5 fL (36.4-46.3); Red Blood Count 3.19 M/uL (3.93-5.22)
[2022-03-03 06:57] LABS: BUN Creatinine Ratio 34.4 (10-20); Calcium 8.2 mg/dl (8.5-10.1); Creatinine Clr Calc Pharmacy 14.4 ml/min; Est GFR (African American) 17.9 ml/min; Est GFR (Non-African American) 15.5 ml/min; Potassium 4.8 mmol/L (3.5-5.1)
--- NOTE | 2022-03-03 08:44 | Nephrology Progress Note ---
Date of Service March 03, 2022 Assessment & Plan (1) MITCHEL (acute kidney injury): Plan: * Kidney function has improved following diuretic therapy and volume unloading * Cr is near baseline 2.6 and patient is nonoliguric. Electrolyte balance is acceptable. No acute indication for HD at this time. Recommend focusing on optimizing medical therapy. Patient's frailty and immobility make her a poor chronic dialysis candidate (2) Chronic kidney disease, stage 4 (severe): Plan: * Baseline Cr 2.6 w/ EGFR 19 cc/min. Renal impairment is due to microvascular disease, hypertensive nephrosclerosis and DKD * Patient will require close outpatient follow up with Dr. Cedeño within 1-2 weeks of discharge (3) Anemia in CKD (chronic kidney disease): Plan: * Hgb is trending down * Will administer Epogen today and order iron studies w/ am labs (4) Atrial fibrillation: Plan: * Atrial fibrillation w/ RVR. Recommend titration of beta luda or NDP CCB for rate control Admission and Anticipated Discharge Date Admission Date: February 13, 2022 Subjective Ms. Pacheco was evaluated in her hospital room this morning. She was breathing comfortably on O2 at 2L/min NC. She c/o weakness and was out of bed to a chair only briefly this weekend. Ms. Pacheco reports that prior to her hospitalization she was not ambulatory and essentially lived a bed to chair existence Review of Systems Constitutional: + weakness; no fever Eyes: no problem reported Ear, Nose, Mouth, Throat: no problem reported Respiratory: no cough and no dyspnea Cardiovascular: + palpitations; no chest pain Gastrointestinal: no abdominal pain, no vomiting and no diarrhea/loose stools Integumentary: no rash Neurologic: no confusion Physical Exam Eyes: PERRL, conjunctivae normal, anicteric sclerae ENMT: external ear and nose normal, oropharynx normal Neck: trachea midline, no thyromegaly Respiratory: normal respiratory effort, lungs clear to auscultation Cardiovascular: Rate/Rhythm: + tachycardic and + irregularly irregular Gastrointestinal (Abdomen): normal bowel sounds, soft, nontender, no hepatosplenomegaly Skin: no rashes, warm and dry Neurologic: Speech / Cognition: normal speech and normal cognition Results & Data ([facility]) Vital Signs (Past 12 Hours) Vital Signs Temp Pulse Pulse Pulse Resp BP Pulse Ox 03/03/22 08:05 107 H 03/03/22 07:50 36.4 C L 123 H 16 113/78 93 03/03/22 03:49 36.8 C 88 16 106/73 95 03/02/22 23:32 36.6 C 85 16 110/72 95 03/02/22 22:30 92 H 03/02/22 21:25 96 H Laboratory Results Laboratory Tests 03/03/22 03/03/22 05:47 05:47 WBC 9.20 Hgb 9.8 L Hct 32.0 L Plt Count 414 H Sodium 137 Potassium 4.8 Chloride 104 Carbon Dioxide 27 BUN 95 H Creatinine 2.76 H Glucose 116 H Calcium 8.2 L PG Care Time/CCT Total # of Minutes Spent Total Time Spent with Patient: Total time spent is greater than 50% in coordination of care (as documented) at patient's floor/unit and/or counseling patient: Coding Level of Care Code 35734 Subseq Hosp Care Lvl 3 Diagnoses MITCHEL (acute kidney injury) N17.9 Chronic kidney disease, stage 4 (severe) N18.4 Anemia in CKD (chronic kidney disease) N18.9; D63.1 Atrial fibrillation I48.91
[2022-03-03] MEDS ORDERED: BUMETANIDE 1 MG TAB PO SCH (09:00)
[2022-03-03] MEDS: APIXABAN 2.5 MG TAB PO SCH ×2 (09:04→20:59)
[2022-03-03] MEDS: SIMVASTATIN 20 MG TAB PO SCH (09:04)
[2022-03-03] MEDS: THIAMINE HCL 100 MG TAB PO SCH ×2 (09:04→21:00)
[2022-03-03] MEDS: MEGESTROL ACETATE SUSP 400 MG/10 ML UDC PO SCH (09:04)
[2022-03-03] MEDS: METOPROLOL SUCC 50MG EXT REL TAB PO SCH (09:04)
[2022-03-03] MEDS: DOCUSATE SODIUM/SENNA 50/8.6MG TAB PO SCH (09:04)
[2022-03-03] MEDS: ESCITALOPRAM OXALATE 10 MG TAB PO SCH (09:04)
[2022-03-03] MEDS: dilTIAZem HCL 240 MG CAPCR PO SCH (09:05)
[2022-03-03] MEDS: INSULIN ASPART PER UNIT SC SCH ×4 (09:06→20:59)
[2022-03-03] MEDS ORDERED: EPOETIN ALFA 10,000 UNITS/ML VIAL SQ SCH (10:30)
[2022-03-03] MEDS ORDERED: EPOETIN ALFA 10,000 UNITS/ML VIAL SQ ONE (10:30)
--- NOTE | 2022-03-03 14:33 | Hospitalist Progress Note ---
Date of Service March 03, 2022 Assessment & Plan (1) Acute respiratory failure with hypoxia: Plan: 2nd to volume overloaded state in the setting of acute/chronic CKD stage 4. Only requiring minimal amount of NC O2-now weaned off to room air at times Her respiratory symptoms and distress/tachypnea are improved with escalating doses of diuretics and improvement in renal function, and status post right thoracentesis Initially had no effective diuresis with 80mg lasix, followed by 120mg lasix -- but did have response to Bumex 4mg on 2 occasions Chest x-ray on 02/18 reveals slightly improved interstitial pulmonary edema, moderate right and small left pleural effusions with associated bibasilar airspace opacities-overall slightly improved Chest x-ray on 02/23 status post thoracentesis is negative for pneumothorax, probable small right pleural effusion, persistent moderate left pleural effusion, and progression of pulmonary edema Continue Crum and monitor UOP Continue NC O2 as needed to keep pulse ox greater than 92% Pulmonary consult appreciated. Thoracentesis completed on 02/22 with 1300 mL of straw colored fluid removed. Transudative by Light's criteria. - Give Bumex 2 mg IV x1 on 02/23. Held after slight Cr rise. - Bumex 2 mg PO daily started on 02/26 for signs of volume overload. - Now with some new shortness of breath and mild O2 need. Discussed with Dr. Steiner - Will go with Bumex 2 mg PO daily -> CXR worse on 03/01 with more signs of volume overload. Will repeat today and may need to ask pulmonary to re-evaluate for another thoracentesis. Dispo: Patient very much wants to go back to [place]. She was evaluated today, but CM does not know what their thoughts are. Nephrology very much does *not* want to pursue dialysis unless necessary. If: * A) CXR is stable/improving, or pulmonology doesn't want to do another thoracen tesis * B) Nephrology recommends a stable diuretic dose, and * C) [place] can accept patient back patient could be discharged back to [place]. Otherwise, will need to pursue SNF options or keep for further medical optimization. Possible discharge as early as tomorrow. (2) MITCHEL (acute kidney injury): Plan: Baseline Cr ~2.1 - 2.8. Presented with acute kidney injury with creatinine peaking above 5 with volume overload and pleural effusions. Did respond somewhat to high-dose IV Bumex and symptoms have improved. - Appreciate nephrology/pulmonary/vascular surgery consults & recs. - Creatinine up mildly 03/02 at 2.9. New baseline likely near this area (perhaps as low as 2.7, but she is still volume overloaded). (3) Anemia in CKD (chronic kidney disease): Plan: Hemoglobin chronically in the 9-10 range. Epogen given during admission. - Hgb down slightly today at 9.8. - Nephrology ordered Epogen on 03/03 and ordered iron studies for tomorrow. (4) Acute metabolic encephalopathy: Plan: 2nd to MITCHEL/uremia. Improving as renal function improves. TSH, B12, NH3 all normal. - Mentation seems clear now - B1 low -> continue thiamine 200mg BID. - Ordered Lexapro for depression (5) Unspecified atrial fibrillation: Plan: Because of her soft BPs, her diltiazem and metoprolol occasionally get held and then she becomes tachycardic. Presently HR is ~90 - 100. - Continue home diltiazem and metoprolol with hold parameters - Continue apixaban (6) Bilateral pleural effusion: Plan: 2nd to acute/chronic CKD. Echo with preserved EF. - Patient had thoracentesis on 02/22 with transudative fluid removed - 1300 mL. - Now with recurrent pleural effusions still due to CKD. 2vCXR ordered; can follow-up with pulmonary if worsening. (7) Chronic kidney disease, stage 4 (severe): Plan: Baseline CrCl 15-20; see above. (8) Essential hypertension: Plan: BPs low or low-normal. Today it is 110/75. - Had held her CCB and BB because of low BPs but then a.fib rates were uncontrolled - Resumed diltiazem albeit at lower dose of 180mg of Cardizem CD - Resumed metoprolol xl at home dose of 50 mg daily (9) Type 2 diabetes mellitus with diabetic neuropathy: Plan: HbA1C was 5.3%. - Continue Lantus 5 units at bedtime and continue NovoLog sliding scale - BSs over last 24 hours have been 110 - 185. (10) Gallstones: Plan: A/a and CT with numerous gallstones & sludge. Both studies equivocal for acute cholecystitis. LFTs have been normal. HIDA scan normal/negative. - Was on empiric Rocephin/Flagyl; now stopped. - No GI symptoms and no abd pain => Monitor (11) Hyperlipidemia: Plan: - Continue statin (12) Gout, unspecified: Plan: No signs of flare Admission and Anticipated Discharge Date Admission Date: February 13, 2022 Subjective Feeling fairly perky today. Still with some shortness of breath when she bends over. Is reporting less nausea today, but still not with a lot of appetite (only reports eating some yogurt and some fruit). Reports no fevers/chills, chest pain, abdominal pain, nausea, or vomiting. Physical Exam Constitutional: WD/WN, vitals as above Eyes: EOM intact bilaterally; no conjunctival abnormality ENMT: external ear and nose normal, oropharynx normal Neck: trachea midline, no thyromegaly normal visual inspection Respiratory: normal respiratory effort, lungs clear to auscultation no respiratory distress Cardiovascular: RRR, no murmur, no edema Gastrointestinal (Abdomen): Inspection/Auscultation: abdomen normal to inspec tion; abdomen not distended Musculoskeletal: no cyanosis or clubbing, extremities motor strength 5/5 Skin: no rashes, warm and dry Neurologic: moves all extremities and awake Psychiatric: Orientation: alert, oriented to person and cooperative Results & Data Results & Data ([facility]) Vital Signs (Past 12 Hours) Vital Signs Temp Pulse Pulse Pulse Resp BP Pulse Ox 03/03/22 11:30 36.6 C 105 H 16 106/66 92 03/03/22 08:05 107 H 03/03/22 07:50 36.4 C L 123 H 16 113/78 93 03/03/22 03:49 36.8 C 88 16 106/73 95 PG Care Time/CCT Total # of Minutes Spent Total Time Spent with Patient: Total time spent is greater than 50% in coordination of care (as documented) at patient's floor/unit and/or counseling patient: Coding Level of Care Code 82484 Subseq Hosp Care Lvl 3 Diagnoses Acute respiratory failure with hypoxia J96.01 MITCHEL (acute kidney injury) N17.9 Anemia in CKD (chronic kidney disease) N18.9; D63.1 Acute metabolic encephalopathy G93.41 Bilateral pleural effusion J90 Chronic kidney disease, stage 4 (severe) N18.4 Essential hypertension I10 Unspecified atrial fibrillation I48.91 Atrial fibrillation type: unspecified Type 2 diabetes mellitus with diabetic neuropathy E11.40 Gallstones K80.20 Hyperlipidemia E78.5 Gout, unspecified M10.9 (1) Unspecified atrial fibrillation Atrial fibrillation type: unspecified Qualified Code(s): I48.91 - Unspecified atrial fibrillation
--- NOTE | 2022-03-03 15:26 | XRay Report ---
XR chest 2V PA/lateral CLINICAL HISTORY: Evaluate pleural effusions TECHNIQUE: 2 views of the chest were obtained. Comparison: Comparison is made to chest radiograph 03/01/2022 FINDINGS: No lines and tubes are seen. The cardiomediastinal silhouette is obscured. Calcified aortic knob is n oted. Bilateral lower lung predominant airspace opacities are seen. Moderate bilateral pleural effusi ons are seen. Degenerative changes are seen in the spine. IMPRESSION: Moderate bilateral pleural effusions, essentially unchanged from prior exam. Bilateral lower lung pre dominant airspace opacities represent atelectasis, superimposed aspiration/pneumonia cannot be entire ly excluded. ACT 112: Negative or not required by law. Electronically signed by: Maxi Concepcion M.D. 03/03/2022 3:25 PM
[2022-03-03] MEDS ORDERED: LORazepam 0.5 MG TAB PO ONE (17:24)
[2022-03-03] MEDS ORDERED: LORazepam 0.5 MG TAB PO SCH (20:55)
[2022-03-03] MEDS: LANTUS PER UNIT CHARGE SQ SCH (21:12)
[2022-03-04] MEDS: MELATONIN 3 MG TAB PO PRN (00:23)
[2022-03-04 06:55] LABS: Hematocrit (blood only) 34.6 % (34.1-44.9); Hemoglobin 10.3 g/dl (12.0-16.0); Mean Corpuscular Hemoglobin 30.8 pg (25.0-34.0); Mean Corpuscular Hgb Conc 29.8 g/dL (32.0-36.0); Mean Corpuscular Volume 103.6 fL (80.0-100.0); Platelet Count 514 K/uL (130-400); RDW Coefficient of Variation 15.9 % (11.5-14.5); RDW Standard Deviation 61.7 fL (36.4-46.3); Red Blood Count 3.34 M/uL (3.93-5.22)
[2022-03-04 07:49] LABS: Calcium 8.4 mg/dl (8.5-10.1); Creatinine Clr Calc Pharmacy 13.4 ml/min; Est GFR (African American) 16.6 ml/min; Est GFR (Non-African American) 14.3 ml/min; Potassium 4.7 mmol/L (3.5-5.1)
[2022-03-04 07:55] LABS: Ferritin 292.9 ng/ml (8-388)
[2022-03-04] MEDS: MEGESTROL ACETATE SUSP 400 MG/10 ML UDC PO SCH (07:57)
[2022-03-04] MEDS: ESCITALOPRAM OXALATE 10 MG TAB PO SCH (07:57)
[2022-03-04] MEDS: SIMVASTATIN 20 MG TAB PO SCH (07:58)
[2022-03-04] MEDS: METOPROLOL SUCC 50MG EXT REL TAB PO SCH (07:58)
[2022-03-04] MEDS: THIAMINE HCL 100 MG TAB PO SCH ×2 (07:58→20:51)
[2022-03-04] MEDS: dilTIAZem HCL 240 MG CAPCR PO SCH (07:58)
[2022-03-04] MEDS: APIXABAN 2.5 MG TAB PO SCH ×2 (07:59→20:51)
[2022-03-04] MEDS: DOCUSATE SODIUM/SENNA 50/8.6MG TAB PO SCH (08:00)
[2022-03-04] MEDS: INSULIN ASPART PER UNIT SC SCH ×4 (08:06→20:52)
--- NOTE | 2022-03-04 08:36 | Nephrology Progress Note ---
Date of Service March 04, 2022 Assessment & Plan (1) MITCHEL (acute kidney injury): Plan: * Kidney function has improved following diuretic therapy and volume unloading * Cr is near baseline 2.6 and patient is nonoliguric. Patient appears clinically volume contracted. Will hold diuretic today * Discussed dialysis w/ Ms. Pacheco today. Explained that if her kidney function worsens, dialysis will not make her more functional but rather will result in prolonged hospitalization with multiple procedures. She voiced understanding and indicated that she would not want that. He hope at this time is to return to the assisted with medical therapy and transition to hospice care if her clinical condition worsens (2) Chronic kidney disease, stage 4 (severe): Plan: * Baseline Cr 2.6 w/ EGFR 19 cc/min. Renal impairment is due to microvascular disease, hypertensive nephrosclerosis and DKD * Patient will require close outpatient follow up with Dr. Cedeño within 1-2 weeks of discharge (3) Anemia in CKD (chronic kidney disease): Plan: * Hgb is trending down * Iron sat < 20% w/ ferritin < 200. Will order IV Venofer (4) Atrial fibrillation: Plan: * Atrial fibrillation w/ RVR. Recommend titration of beta luda or NDP CCB for rate control Admission and Anticipated Discharge Date Admission Date: February 13, 2022 Subjective Ms. Pacheco was evaluated in her hospital room this morning. She was breathing comfortably on O2 at 2L/min NC. She c/o weakness and was out of bed to a chair only briefly yesterday. Ms. Pacheco reports that prior to her hospitalization she was not ambulatory and essentially lived a bed to chair existence Review of Systems Constitutional: + weakness; no fever Eyes: no problem reported Ear, Nose, Mouth, Throat: no problem reported Respiratory: no cough and no dyspnea Cardiovascular: + palpitations; no chest pain Gastrointestinal: no abdominal pain, no vomiting and no diarrhea/loose stools Integumentary: no rash Neurologic: no confusion Physical Exam Eyes: PERRL, conjunctivae normal, anicteric sclerae ENMT: external ear and nose normal, oropharynx normal Neck: trachea midline, no thyromegaly Respiratory: normal respiratory effort, lungs clear to auscultation Auscultation: + rales (bibasilar) Cardiovascular: Rate/Rhythm: + tachycardic and + irregularly irregular Gastrointestinal (Abdomen): normal bowel sounds, soft, nontender, no hepatosp lenomegaly Skin: no rashes, warm and dry Neurologic: Speech / Cognition: normal speech and normal cognition Results & Data ([facility]) Vital Signs (Past 12 Hours) Vital Signs Temp Pulse Pulse Pulse Resp BP BP 03/04/22 08:12 36.4 C L 104 H 18 110/67 03/04/22 07:25 99 H 03/04/22 02:41 36.3 C L 111 H 20 105/68 03/03/22 22:52 36.5 C 111 H 20 108/75 Pulse Ox 03/04/22 08:12 93 03/04/22 07:25 03/04/22 02:41 92 03/03/22 22:52 96 Laboratory Results Laboratory Tests 03/04/22 03/04/22 05:30 05:30 WBC 9.90 Hgb 10.3 L Hct 34.6 Plt Count 514 H Sodium 138 Potassium 4.7 Chloride 103 Carbon Dioxide 27 BUN 94 H Creatinine 2.94 H Glucose 109 H Calcium 8.4 L Transferrin % Sat 13 L Ferritin 292.9 PG Care Time/CCT Total # of Minutes Spent Total Time Spent with Patient: Total time spent is greater than 50% in coordination of care (as documented) at patient's floor/unit and/or counseling patient: Coding Level of Care Code 95738 Subseq Hosp Care Lvl 3 Diagnoses MITCHEL (acute kidney injury) N17.9 Chronic kidney disease, stage 4 (severe) N18.4 Anemia in CKD (chronic kidney disease) N18.9; D63.1 Atrial fibrillation I48.91
--- NOTE | 2022-03-04 08:53 | Magnetic Resonance Report ---
Brain MRI WITHOUT CONTRAST HISTORY: Confusion, leg weakness TECHNIQUE: Multiplanar multisequence MRI of the brain was performed without the use of contrast. The patient was unable to tolerate the entire examination. Therefore, only axial DWI, axial T2, axial ADC , and sagittal T1 FLAIR sequences were obtained. COMPARISON STUDY: None. FINDINGS: No areas restricted diffusion to suggest acute infarction. There is mild motion artifact. T he midline structures appear grossly intact. 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 Near-complete opacities in the left sphenoid sinus with an associated fluid level. Tra ce fluid within the mastoid air cells. The orbits are unremarkable. The ventricles and sulci demonstr ate mild age-related involutional changes. The major vascular flow-voids at the skull base appear nolan ntained. There is no mass, hematoma, midline shift. A few scattered punctate foci of T2 hyperintensit y seen within the periventricular and subcortical white matter of the supratentorial brain. These are nonspecific but favor mild microvascular ischemic change. IMPRESSION: 1. The study is limited from technical standpoint as the patient was unable to tolerate the entire ex amination. 2. No acute infarct or intracranial hemorrhage. 3. Atrophy and microvascular ischemic changes. 4. Near complete opacification of the left sphenoid sinus with associated fluid level. ACT 112: Negative or not required by law. Electronically signed by: Bao Nayak M.D. 03/04/2022 8:51 AM
[2022-03-04] MEDS ORDERED: BUMETANIDE 1 MG TAB PO SCH (09:00)
[2022-03-04] MEDS: cefTRIAXone SODIUM 1,000 MG in DEXTROSE 5% 50 ML IV SCH (11:33)
[2022-03-04] MEDS: IRON SUCROSE 200 MG in 0.9 % SODIUM CHLORIDE 100 ML IV SCH (12:20)
--- NOTE | 2022-03-04 16:16 | Hospitalist Progress Note ---
Date of Service March 04, 2022 Assessment & Plan (1) Acute respiratory failure with hypoxia: Plan: 2nd to volume overloaded state in the setting of acute/chronic CKD stage 4. Continues to be requiring 2LNC Her respiratory symptoms and distress/tachypnea were improved with diuretics and improvement in renal function, and status post right thoracentesis On 03/04, now with tachypnea again Chest x-ray on 02/18 reveals slightly improved interstitial pulmonary edema, moderate right and small left pleural effusions with associated bibasilar airspace opacities-overall slightly improved Chest x-ray on 02/23 status post thoracentesis is negative for pneumothorax, probable small right pleural effusion, persistent moderate left pleural effusion, and progression of pulmonary edema Pulmonary consult appreciated. Thoracentesis completed on 02/22 with 1300 mL of straw colored fluid removed. Transudative by Light's criteria. - Give Bumex 2 mg IV x1 on 02/23. Held after slight Cr rise. - Bumex 2 mg PO daily started on 02/26 for signs of volume overload and then stopped after dose on 03/03 by Nephrology -> CXR worse on 03/01 with more signs of volume overload. May need to ask pulmonary to re-evaluate for another thoracentesis as diuresis is difficult given renal function -will d/w Nephro abot giving IV Bumex x 1 on 03/04 for tachypnea (2) MITCHEL (acute kidney injury): Plan: Baseline Cr ~2.1 - 2.8. Presented with acute kidney injury with creatinine peaking above 5 with volume overload and pleural effusions. Did respond somewhat to high-dose IV Bumex and symptoms have improved. - Appreciate nephrology/pulmonary/vascular surgery consults & recs. - Creatinine up mildly 2.9. New baseline likely near this area (perhaps as low as 2.7, but she is still volume overloaded). (3) Anemia in CKD (chronic kidney disease): Plan: Hemoglobin chronically in the 9-10 range. Epogen given during admission. With low iron stores as well hgb 9-10 given EPogen and IV Venofer (4) Acute metabolic encephalopathy: Plan: 2nd to MITCHEL/uremia. Improving as renal function improves. TSH, B12, NH3 all normal. - Mentation seems clear now - B1 low -> continue thiamine 200mg BID. MRI brain without contrast on 03/03 shows sphenoid sinusitis but no stroke or obvious tumor -start abx for sinusitis with ceftriaxone and then complete course with Augmentin on discharge - Ordered Lexapro for depression-Psych recommends increasing dose to 10mg for trial of 4-6 weeks as well as adding on Vitamin D supplement if able to from renal perspective (5) Unspecified atrial fibrillation: Plan: Because of her soft BPs, her diltiazem and metoprolol occasionally get held and then she becomes tachycardic. Presently HR is ~90 - 100. - Continue home diltiazem and metoprolol with hold parameters - Continue apixaban (6) Bilateral pleural effusion: Plan: 2nd to acute/chronic CKD. Echo with preserved EF. - Patient had thoracentesis on 02/22 with transudative fluid removed - 1300 mL. - Now with recurrent pleural effusions still due to CKD. 2vCXR ordered; can follow-up with pulmonary if worsening. (7) Chronic kidney disease, stage 4 (severe): Plan: Baseline CrCl 15-20; see above. (8) Essential hypertension: Plan: BPs low or low-normal. - Had held her CCB and BB because of low BPs but then a.fib rates were uncontrolled - Resumed diltiazem albeit at lower dose of 180mg of Cardizem CD but now back up to home dose of 240mg daily - Resumed metoprolol xl at home dose of 50 mg daily (9) Type 2 diabetes mellitus with diabetic neuropathy: Plan: HbA1C was 5.3%. - Continue Lantus 5 units at bedtime and continue NovoLog sliding scale - BSs over last 24 hours have been 110 - 185. (10) Gallstones: Plan: A/a and CT with numerous gallstones & sludge. Both studies equivocal for acute cholecystitis. LFTs have been normal. HIDA scan normal/negative. - Was on empiric Rocephin/Flagyl; now stopped. - No GI symptoms and no abd pain => Monitor (11) Hyperlipidemia: Plan: - Continue statin (12) Gout, unspecified: Plan: No signs of flare Plan: Dispo: Patient very much wants to go back to [place]. She was evaluated by [facility], but CM does not know what their thoughts are. Nephrology very much does *not* want to pursue dialysis unless necessary. If: * A) CXR is stable/improving, or pulmonology doesn't want to do another thoracentesis * B) Nephrology recommends a stable diuretic dose, and * C) [facility] can accept patient back patient could be discharged back to [facility]. Otherwise, will need to pursue SNF options or keep for further medical optimization. Meeting with Gale Jimenez and [place] tomorrow AM to determine final dispo Admission and Anticipated Discharge Date Admission Date: February 13, 2022 Subjective Pt feels SOB but otherwise no complaints. Is tachypneic at rest. Tele with Afib, rates 90s Review of Systems Review of Systems: All systems reviewed & are unremarkable except as noted in HPI & below Physical Exam Constitutional: WD/WN, vitals as above Eyes: + anicteric sclerae Neck: trachea midline, no thyromegaly Respiratory: + tachypneic; no cough Auscultation: + diminished lung sounds (At left base); no crackles, no rhonchi and no wheezes Cardiovascular: Rate/Rhythm: regular rate and + irregularly irregular Heart Sounds: no murmur Extremities: no edema Chest (Breasts): Chest: normal inspection of chest Gastrointestinal (Abdomen): normal bowel sounds, soft, nontender, no hepatosplenomegaly Musculoskeletal: Extremities: extremities normal to inspection; no cyanosis and no clubbing Skin: no rashes, warm and dry Neurologic: moves all extremities and awake; no focal motor deficits Psychiatric: Orientation: alert, oriented to person, oriented to place and cooperative Lymphatic: no lymphedema Results & Data Results & Data ([facility]) Vital Signs (Past 12 Hours) Vital Signs Temp Pulse Pulse Resp BP BP Pulse Ox 03/04/22 15:22 92 H 03/04/22 15:15 36.6 C 79 17 117/71 93 03/04/22 11:15 36.4 C L 107 H 18 113/74 93 03/04/22 08:12 36.4 C L 104 H 18 110/67 93 03/04/22 07:25 99 H Laboratory Results 03/04/22 03/04/22 03/04/22 Range/Units 11:35 07:44 05:30 WBC (4.8-10.8) K/ul RBC (3.93-5.22) M/uL Hgb (12.0-16.0) g/dl Hct (34.1-44.9) % MCV (80.0-100.0) fL MCH (25.0-34.0) pg MCHC (32.0-36.0) g/dL RDW Std Deviation (36.4-46.3) fL RDW Coeff of Odilon (11.5-14.5) % Plt Count (130-400) K/uL MPV (9.4-12.3) fL Sodium 138 (136-145) mmol/L Potassium 4.7 (3.5-5.1) mmol/L Chloride 103 (98-107) mmol/L Carbon Dioxide 27 (21-32) mmol/L Anion Gap 8 (3-11) BUN 94 H (6-23) mg/dl Creatinine 2.94 H (0.6-1.2) mg/dl Est Cr Clr Drug Dosing 13.4 ml/min Est GFR ( Amer) 16.6 ml/min Est GFR (Non-Af Amer) 14.3 ml/min BUN/Creatinine Ratio 32.0 H (10-20) Glucose 109 H (70-99(Fasting)) mg/dl POC Glucose 131 H 117 H (70-99) mg/dl Calcium 8.4 L (8.5-10.1) mg/dl Iron 25 L (35-150) mcg/dl TIBC 195 L (250-450) mcg/dl Unsaturated IBC 170 (155-355) mcg/dl Transferrin % Sat 13 L (15-50) % Ferritin 292.9 (8-388) ng/ml 03/04/22 03/03/22 03/03/22 Range/Units 05:30 20:45 16:42 WBC 9.90 (4.8-10.8) K/ul RBC 3.34 L (3.93-5.22) M/uL Hgb 10.3 L (12.0-16.0) g/dl Hct 34.6 (34.1-44.9) % MCV 103.6 H (80.0-100.0) fL MCH 30.8 (25.0-34.0) pg MCHC 29.8 L (32.0-36.0) g/dL RDW Std Deviation 61.7 H (36.4-46.3) fL RDW Coeff of Odilon 15.9 H (11.5-14.5) % Plt Count 514 H (130-400) K/uL MPV 10.0 (9.4-12.3) fL Sodium (136-145) mmol/L Potassium (3.5-5.1) mmol/L Chloride (98-107) mmol/L Carbon Dioxide (21-32) mmol/L Anion Gap (3-11) BUN (6-23) mg/dl Creatinine (0.6-1.2) mg/dl Est Cr Clr Drug Dosing ml/min Est GFR ( Amer) ml/min Est GFR (Non-Af Amer) ml/min BUN/Creatinine Ratio (10-20) Glucose (70-99(Fasting)) mg/dl POC Glucose 125 H 113 H (70-99) mg/dl Calcium (8.5-10.1) mg/dl Iron (35-150) mcg/dl TIBC (250-450) mcg/dl Unsaturated IBC (155-355) mcg/dl Transferrin % Sat (15-50) % Ferritin (8-388) ng/ml PG Care Time/CCT Total # of Minutes Spent Total Time Spent with Patient: Total time spent is greater than 50% in coordination of care (as documented) at patient's floor/unit and/or counseling patient: Coding Level of Care Code 02820 Subseq Hosp Care Lvl 2 Diagnoses Acute respiratory failure with hypoxia J96.01 MITCHEL (acute kidney injury) N17.9 Anemia in CKD (chronic kidney disease) N18.9; D63.1 Acute metabolic encephalopathy G93.41 Unspecified atrial fibrillation I48.91 Atrial fibrillation type: unspecified Bilateral pleural effusion J90 Chronic kidney disease, stage 4 (severe) N18.4 Essential hypertension I10 Type 2 diabetes mellitus with diabetic neuropathy E11.40 Gallstones K80.20 Hyperlipidemia E78.5 Gout, unspecified M10.9 (1) Unspecified atrial fibrillation Atrial fibrillation type: unspecified Qualified Code(s): I48.91 - Unspecified atrial fibrillation
[2022-03-04] MEDS ORDERED: LORazepam 0.5 MG TAB PO SCH (20:45)
[2022-03-04] MEDS: LANTUS PER UNIT CHARGE SQ SCH (20:52)
[2022-03-05 07:25] LABS: BUN Creatinine Ratio 32.7 (10-20); Calcium 8.7 mg/dl (8.5-10.1); Creatinine Clr Calc Pharmacy 12.5 ml/min; Est GFR (African American) 15.1 ml/min
[2022-03-05] MEDS: INSULIN ASPART PER UNIT SC SCH ×4 (08:11→21:41)
--- NOTE | 2022-03-05 08:33 | Nephrology Progress Note ---
Date of Service March 05, 2022 Assessment & Plan (1) IMTCHEL (acute kidney injury): Plan: * Cr has risen to 3.1. UO has not been measured * Patient is a poor dialysis candidate due to advanced age, frailty and poor functional status. Dialysis will not improve her quality of life. It will prolong her hospitalization and need for ongoing medical procedures. Ms. Pacheco has voiced that she now understands this and desires only medical management * Recommend Bumex 0.5 mg po daily to provide gentle diuresis * Recommend SNF with hospice care (2) Chronic kidney disease, stage 4 (severe): Plan: * Baseline Cr 2.6 w/ EGFR 19 cc/min. 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 Recommend titration of beta luda or NDP CCB for rate control Admission and Anticipated Discharge Date Admission Date: February 13, 2022 Subjective Ms. Pacheco was evaluated in her hospital room this morning. She was breathing comfortably flat in bed on O2 at 3 L/min NC. She c/o weakness and has not been out of bed for an extended period of time. Review of Systems Constitutional: + weakness; no fever Eyes: no problem reported Ear, Nose, Mouth, Throat: no problem reported Respiratory: no cough and no dyspnea Cardiovascular: + palpitations; no chest pain Gastrointestinal: no abdominal pain, no vomiting and no diarrhea/loose stools Integumentary: no rash Neurologic: no confusion Physical Exam 2 Eyes: PERRL, conjunctivae normal, anicteric sclerae ENMT: external ear and nose normal, oropharynx normal Neck: trachea midline, no thyromegaly Respiratory: normal respiratory effort, lungs clear to auscultation Auscultation: + rales (bibasilar) Cardiovascular: Rate/Rhythm: + tachycardic and + irregularly irregular Gastrointestinal (Abdomen): normal bowel sounds, soft, nontender, no hepatosplenomegaly Skin: no rashes, warm and dry Neurologic: Speech / Cognition: normal speech and normal cognition Results & Data ([facility]) Vital Signs (Past 12 Hours) Vital Signs Temp Pulse Pulse Pulse Pulse Resp BP 03/05/22 08:00 100 H 03/05/22 07:50 36.6 C 90 20 114/79 03/05/22 07:58 03/05/22 02:51 36.6 C 100 H 19 109/76 03/05/22 01:33 36.5 C 99 H 18 03/04/22 23:30 93 H 03/04/22 22:42 36.6 C 106 H 18 107/66 03/04/22 22:49 BP Pulse Ox O2 Del Method O2 Flow Rate 03/05/22 08:00 03/05/22 07:50 93 Nasal Cannula 3 03/05/22 07:58 Nasal Cannula 3 03/05/22 02:51 95 Nasal Cannula 2 03/05/22 01:33 103/68 93 Nasal Cannula 2 03/04/22 23:30 03/04/22 22:42 94 Nasal Cannula 2 03/04/22 22:49 Nasal Cannula 2 Laboratory Results Laboratory Tests 03/05/22 06:32 Sodium 138 Potassium 5.0 Chloride 102 Carbon Dioxide 29 BUN 104 H Creatinine 3.18 H Glucose 87 PG Care Time/CCT Total # of Minutes Spent Total Time Spent with Patient: Total time spent is greater than 50% in coordination of care (as documented) at patient's floor/unit and/or counseling patient: Coding Level of Care Code 05758 Subseq Hosp Care Lvl 3 Diagnoses MITCHEL (acute kidney injury) N17.9 Chronic kidney disease, stage 4 (severe) N18.4 Anemia in CKD (chronic kidney disease) N18.9; D63.1 Atrial fibrillation I48.91
[2022-03-05] MEDS: IRON SUCROSE 200 MG in 0.9 % SODIUM CHLORIDE 100 ML IV SCH (09:36)
[2022-03-05] MEDS: dilTIAZem HCL 240 MG CAPCR PO SCH (09:41)
[2022-03-05] MEDS: MEGESTROL ACETATE SUSP 400 MG/10 ML UDC PO SCH (09:42)
[2022-03-05] MEDS: ESCITALOPRAM OXALATE 10 MG TAB PO SCH (09:42)
[2022-03-05] MEDS: APIXABAN 2.5 MG TAB PO SCH ×2 (09:42→21:57)
[2022-03-05] MEDS: DOCUSATE SODIUM/SENNA 50/8.6MG TAB PO SCH (09:43)
[2022-03-05] MEDS: METOPROLOL SUCC 50MG EXT REL TAB PO SCH (09:43)
[2022-03-05] MEDS: SIMVASTATIN 20 MG TAB PO SCH (09:44)
[2022-03-05] MEDS: THIAMINE HCL 100 MG TAB PO SCH ×2 (09:44→21:57)
[2022-03-05] MEDS: cefTRIAXone SODIUM 1,000 MG in DEXTROSE 5% 50 ML IV SCH (10:58)
--- NOTE | 2022-03-05 20:07 | Hospitalist Progress Note ---
Date of Service March 05, 2022 Assessment & Plan (1) Acute respiratory failure with hypoxia: Plan: 2nd to volume overloaded state in the setting of acute/chronic CKD stage 4. Continues to be requiring 2LNC Her respiratory symptoms and distress/tachypnea were improved with diuretics and improvement in renal function, and status post right thoracentesis On 03/04, now with tachypnea again Chest x-ray on 02/18 reveals slightly improved interstitial pulmonary edema, moderate right and small left pleural effusions with associated bibasilar airspace opacities-overall slightly improved Chest x-ray on 02/23 status post thoracentesis is negative for pneumothorax, probable small right pleural effusion, persistent moderate left pleural effusion, and progression of pulmonary edema Pulmonary consult appreciated. Thoracentesis completed on 02/22 with 1300 mL of straw colored fluid removed. Transudative by Light's criteria. - Give Bumex 2 mg IV x1 on 02/23. Held after slight Cr rise. - Bumex 2 mg PO daily started on 02/26 for signs of volume overload and then stopped after dose on 03/03 by Nephrology -> CXR worse on 03/01 with more signs of volume overload. 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 I agree with this. Pt now agreeable to hospice. Could use oxycodone or lorazepam as needed for anxiety and tachypnea once on hospice (2) MITCHEL (acute kidney injury): Plan: Baseline Cr ~2.1 - 2.8. Presented with acute kidney injury with creatinine peaking above 5 with volume overload and pleural effusions. Did respond somewhat to high-dose IV Bumex and symptoms initially improved. - Appreciate nephrology/pulmonary/vascular surgery consults & recs. - Creatinine was back down to mid 2 range, but now up again to 3.1 after attempts at higher doses of Bumex Does not want HD agreeable to going on hospice no further labs to be checked for tomorrow (3) Anemia in CKD (chronic kidney disease): Plan: Hemoglobin chronically in the 9-10 range. Epogen given during admission. With low iron stores as well hgb 9-10 given EPogen and IV Venofer (4) Acute metabolic encephalopathy: Plan: 2nd to MITCHEL/uremia. Improving as renal function improves. TSH, B12, NH3 all normal. - Mentation seems clear now - B1 low -> continue thiamine 200mg BID. MRI brain without contrast on 03/03 shows sphenoid sinusitis but no stroke or obvious tumor -start abx for sinusitis with ceftriaxone and then complete course with Augmentin on discharge - Ordered Lexapro for depression-Psych recommends increasing dose to 10mg for trial of 4-6 weeks as well as adding on Vitamin D supplement if able to from renal perspective (5) Unspecified atrial fibrillation: Plan: Because of her soft BPs, her diltiazem and metoprolol occasionally get held and then she becomes tachycardic. HRs now improved in 90s consistently - Continue home diltiazem and metoprolol with hold parameters - Continue apixaban -dc tele (6) Bilateral pleural effusion: Plan: 2nd to acute/chronic CKD. Echo with preserved EF. - Patient had thoracentesis on 02/22 with transudative fluid removed - 1300 mL. - Now with recurrent pleural effusions still due to CKD. 2vCXR ordered; can follow-up with pulmonary if worsening. (7) Chronic kidney disease, stage 4 (severe): Plan: Baseline CrCl 15-20; see above. (8) Essential hypertension: Plan: BPs low or low-normal. - Had held her CCB and BB because of low BPs but then a.fib rates were uncontrolled - Resumed diltiazem albeit at lower dose of 180mg of Cardizem CD but now back up to home dose of 240mg daily - Resumed metoprolol xl at home dose of 50 mg daily (9) Type 2 diabetes mellitus with diabetic neuropathy: Plan: HbA1C was 5.3%. - Continue Lantus 5 units at bedtime and continue NovoLog sliding scale - BSs over last 24 hours have been 110 - 185. (10) Gallstones: Plan: A/a and CT with numerous gallstones & sludge. Both studies equivocal for acute cholecystitis. LFTs have been normal. HIDA scan normal/negative. - Was on empiric Rocephin/Flagyl; now stopped. - No GI symptoms and no abd pain => Monitor (11) Hyperlipidemia: Plan: - Continue statin (12) Gout, unspecified: Plan: No signs of flare Plan Dispo: Patient very much wants to go back to [place]. Now she is agreeable to hospice at [place] and brother also seems to be agreeable to this but wants to discuss with patient. Hopefully can get her back there in or so Admission and Anticipated Discharge Date Admission Date: February 13, 2022 Subjective Pt reports ongoing SOB. We discussed possibility of hospice and she is interested in this option to focus on comfort and not having to come back to the hospital in the future. She does not want dialysis and says she understands it would not give her improved QOL Tele with rate controlled Afib Review of Systems Review of Systems: All systems reviewed & are unremarkable except as noted in HPI & below Physical Exam 2 Constitutional: WD/WN, vitals as above Eyes: + anicteric sclerae Neck: trachea midline, no thyromegaly Respiratory: + tachypneic; no cough Auscultation: + diminished lung sounds (At left base); no crackles, no rhonchi and no wheezes Cardiovascular: Rate/Rhythm: regular rate and + irregularly irregular Heart Sounds: no murmur Extremities: no edema Chest (Breasts): Chest: normal inspection of chest Gastrointestinal (Abdomen): normal bowel sounds, soft, nontender, no hepatosplenomegaly Musculoskeletal: Extremities: extremities normal to inspection; no cyanosis and no clubbing Skin: no rashes, warm and dry Neurologic: moves all extremities and awake; no focal motor deficits Psychiatric: Orientation: alert, oriented to person, oriented to place and cooperative Affect: + flat affect Lymphatic: no lymphedema Results & Data Results & Data ([facility]) Vital Signs (Past 12 Hours) Vital Signs Temp Pulse Pulse Pulse Resp BP BP 03/05/22 16:14 03/05/22 15:40 91 H 03/05/22 15:06 36.5 C 86 20 104/69 03/05/22 11:50 36.5 C 107 H 18 112/72 03/05/22 11:05 36.5 C 93 H 22 103/66 Pulse Ox O2 Del Method O2 Flow Rate 03/05/22 16:14 Nasal Cannula 3 03/05/22 15:40 03/05/22 15:06 92 Nasal Cannula 3 03/05/22 11:50 97 Room Air 3 03/05/22 11:05 93 Room Air 2 Laboratory Results 03/04/22 05:30 03/05/22 06:32 PG Care Time/CCT Total # of Minutes Spent Total Time Spent with Patient: Total time spent is greater than 50% in coordination of care (as documented) at patient's floor/unit and/or counseling patient: Coding Level of Care Code 94729 Subseq Hosp Care Lvl 2 Diagnoses Acute respiratory failure with hypoxia J96.01 MITCHEL (acute kidney injury) N17.9 Anemia in CKD (chronic kidney disease) N18.9; D63.1 Acute metabolic encephalopathy G93.41 Unspecified atrial fibrillation I48.91 Atrial fibrillation type: unspecified Bilateral pleural effusion J90 Chronic kidney disease, stage 4 (severe) N18.4 Essential hypertension I10 Type 2 diabetes mellitus with diabetic neuropathy E11.40 Gallstones K80.20 Hyperlipidemia E78.5 Gout, unspecified M10.9 (1) Unspecified atrial fibrillation Atrial fibrillation type: unspecified Qualified Code(s): I48.91 - Unspecified atrial fibrillation
[2022-03-05] MEDS: MELATONIN 3 MG TAB PO PRN (21:57)
[2022-03-05] MEDS: LANTUS PER UNIT CHARGE SQ SCH (21:57)
[2022-03-06] MEDS: INSULIN ASPART PER UNIT SC SCH ×3 (08:19→17:05)
[2022-03-06] MEDS: SIMVASTATIN 20 MG TAB PO SCH (09:59)
[2022-03-06] MEDS: ESCITALOPRAM OXALATE 10 MG TAB PO SCH (09:59)
[2022-03-06] MEDS: BUMETANIDE 1 MG TAB PO SCH (09:59)
[2022-03-06] MEDS: MEGESTROL ACETATE SUSP 400 MG/10 ML UDC PO SCH (09:59)
[2022-03-06] MEDS: dilTIAZem HCL 240 MG CAPCR PO SCH (09:59)
[2022-03-06] MEDS: APIXABAN 2.5 MG TAB PO SCH ×2 (09:59→22:05)
[2022-03-06] MEDS: DOCUSATE SODIUM/SENNA 50/8.6MG TAB PO SCH (09:59)
[2022-03-06] MEDS: METOPROLOL SUCC 50MG EXT REL TAB PO SCH (09:59)
[2022-03-06] MEDS: IRON SUCROSE 200 MG in 0.9 % SODIUM CHLORIDE 100 ML IV SCH (09:59)
[2022-03-06] MEDS: THIAMINE HCL 100 MG TAB PO SCH (10:43)
[2022-03-06] MEDS: cefTRIAXone SODIUM 1,000 MG in DEXTROSE 5% 50 ML IV SCH (10:43)
--- NOTE | 2022-03-06 10:44 | Nephrology Progress Note ---
Date of Service March 06, 2022 Assessment & Plan (1) MITCHEL (acute kidney injury): Plan Chart reviewed. Patient has been transitioned to hospice care. Will sign off. Please call if further assistance is needed. Admission and Anticipated Discharge Date Admission Date: February 13, 2022 Results & Data ([facility]) Vital Signs (Past 12 Hours) Vital Signs Temp Pulse Pulse Resp BP BP Pulse Ox 03/06/22 07:56 36.4 C L 102 H 30 H 112/72 92 03/06/22 07:41 03/05/22 23:53 36.4 C L 110 H 18 112/75 91 O2 Del Method O2 Flow Rate 03/06/22 07:56 Nasal Cannula 3 03/06/22 07:41 Nasal Cannula 3 03/05/22 23:53 Nasal Cannula 3 PG Care Time/CCT Total # of Minutes Spent Total Time Spent with Patient: Total time spent is greater than 50% in coordination of care (as documented) at patient's floor/unit and/or counseling patient: Coding Level of Care Code 29881 Subseq Hosp Care Lvl 1 Diagnoses MITCHEL (acute kidney injury) N17.9
--- NOTE | 2022-03-06 15:36 | Hospitalist Progress Note ---
Date of Service March 06, 2022 Assessment & Plan (1) Acute respiratory failure with hypoxia: Plan: 2nd to volume overloaded state in the setting of acute/chronic CKD stage 4. Initially, her respiratory symptoms and distress/tachypnea were improved with diuretics and improvement in renal function, and status post right thoracentesis Since that time, attempts at diuresis with Bumex continue to result in worsening uremia and rising creatinine O2 requirement continues to rise and tachypnea is ongoing-now requiring 4-6 L nasal cannula Chest x-ray on 02/18 reveals slightly improved interstitial pulmonary edema, moderate right and small left pleural effusions with associated bibasilar airspace opacities-overall slightly improved Chest x-ray on 02/23 status post thoracentesis is negative for pneumothorax, probable small right pleural effusion, persistent moderate left pleural effusion, and progression of pulmonary edema Pulmonary consult appreciated. Thoracentesis completed on 02/22 with 1300 mL of straw colored fluid removed. Transudative by Light's criteria. -Continue Bumex 0.5mg po qAM for gentle diuresis for comfort really Pt now agreeable to hospice. - will start liquid oxycodone 2.5 mg p.o. every 4 hours as needed shortness of breath or pain-this will also help her abdominal pain which I feel is musculoskeletal due to persistent accessory muscle use -Plan to discharge to personal-correction on hospice tomorrow (2) MITCHEL (acute kidney injury): Plan: Baseline Cr ~2.1 - 2.8. Presented with acute kidney injury with creatinine peaking above 5 with volume overload and pleural effusions. Did respond somewhat to high-dose IV Bumex and symptoms initially improved. - Appreciate nephrology/pulmonary/vascular surgery consults & recs. - Creatinine was back down to mid 2 range, but now up again to 3.1 after attempts at higher doses of Bumex Does not want HD agreeable to going on hospice no further labs to be checked (3) Anemia in CKD (chronic kidney disease): Plan: Hemoglobin chronically in the 9-10 range. Epogen given during admission. With low iron stores as well hgb 9-10 given EPogen and IV Venofer which will now be discontinued (4) Acute metabolic encephalopathy: Plan: 2nd to MITCHEL/uremia. Improving as renal function improves. TSH, B12, NH3 all normal. - Mentation seems clear now - B1 low -> was treated with 3 weeks of thiamine 200mg BID-we will now discontinue as she is being discharged to hospice MRI brain without contrast on 03/03 shows sphenoid sinusitis but no stroke or obvious tumor -Finish out course of abx for sinusitis with ceftriaxone and then complete course with Augmentin on discharge x4 more days - Ordered Lexapro for depression-Psych recommends increasing dose to 10mg for trial of 4-6 weeks as well as adding on Vitamin D supplement if able to from renal perspective-we will defer on vitamin D as she is going home with hospice but can continue Lexapro (5) Unspecified atrial fibrillation: Plan: Rates are now mostly improved Continue diltiazem and metoprolol - Continue apixaban Has since been moved off telemetry Can continue all 3 these medications upon discharge to hospice (6) Bilateral pleural effusion: Plan: 2nd to acute/chronic CKD. Echo with preserved EF. - Patient had thoracentesis on 02/22 with transudative fluid removed - 1300 mL. - Now with recurrent pleural effusions still due to CKD. (7) Chronic kidney disease, stage 4 (severe): Plan: Baseline CrCl 15-20; see above. (8) Essential hypertension: Plan: BPs low or low-normal. -Continue diltiazem and metoprolol mostly for rate control with her A. fib (9) Type 2 diabetes mellitus with diabetic neuropathy: Plan: HbA1C was 5.3%. - Continue Lantus 5 units at bedtime and continue NovoLog sliding scale - BSs over last 24 hours have been 110 - 185. We will plan to discontinue insulin as her hemoglobin A1c is well controlled and she is going on hospice (10) Gallstones: Plan: A/a and CT with numerous gallstones & sludge. Both studies equivocal for acute cholecystitis. LFTs have been normal. HIDA scan normal/negative. - Was on empiric Rocephin/Flagyl; now stopped. Now with some upper abdominal pain but may be gastritis Start Pepcid IV Giving oxycodone as above, transitioning to hospice (11) Hyperlipidemia: Plan: - Will now discontinue statin as no benefit while on hospice (12) Gout, unspecified: Plan: No signs of flare Plan Dispo: Patient very much wants to go back to [place]. Now she is agreeable to h [facility]ggie at [place] and brother also is agreeable and he did discuss this with both the patient and nephrology Plan is for discharge to [facility] with hospice tomorrow Admission and Anticipated Discharge Date Admission Date: February 13, 2022 Subjective Patient reports ongoing shortness of breath and remains tachypneic. Also is reporting upper abdominal pain that is constant since this morning. She denies nausea. She is still moving her bowels as per nursing. She has low appetite. At times is requiring higher amounts of supplemental oxygen as high as 6 L today. I discussed her care with nephrology. I also discussed her care with her brother, Ko, on the phone, as well as with case management. The patient remains agreeable to entering into hospice care and focusing on comfort. She understands what this means. She does not want to get out of bed to chair. She also again reiterates that she would not want dialysis. We discussed CODE STATUS and she wants to be made a DNR/DNI. She is open to a trial of low-dose oxycodone to see if this helps her pain as well as her tachypnea. Review of Systems Review of Systems: All systems reviewed & are unremarkable except as noted in HPI & below Physical Exam Constitutional: WD/WN, vitals as above Eyes: + anicteric sclerae Neck: trachea midline, no thyromegaly Respiratory: + tachypneic; no cough Auscultation: + diminished lung sounds (At left base); no crackles, no rhonchi and no wheezes Cardiovascular: Rate/Rhythm: regular rate and + irregularly irregular Heart Sounds: no murmur Extremities: no edema Chest (Breasts): Chest: normal inspection of chest Gastrointestinal (Abdomen): Inspection/Auscultation: abdomen normal to inspection and normal bowel sounds; abdomen not distended Percussion/Palpation: + abdomen tender (Mild tenderness to palpation in the epigastric region without guarding or r) and abdomen soft Musculoskeletal: Extremities: extremities normal to inspection; no cyanosis and no clubbing Skin: no rashes, warm and dry Neurologic: moves all extremities and awake; no focal motor deficits Psychiatric: Orientation: alert, oriented x 3 and cooperative Affect: + flat affect Results & Data Results & Data ([facility]) Vital Signs (Past 12 Hours) Vital Signs Temp Pulse Pulse Resp BP BP Pulse Ox 03/06/22 14:35 36.6 C 86 26 H 105/69 96 03/06/22 08:30 24 03/06/22 11:18 36.6 C 105 H 24 103/67 95 03/06/22 07:56 36.4 C L 102 H 30 H 112/72 92 03/06/22 07:41 O2 Del Method O2 Flow Rate 03/06/22 14:35 Nasal Cannula 6 03/06/22 08:30 03/06/22 11:18 Nasal Cannula 3 03/06/22 07:56 Nasal Cannula 3 03/06/22 07:41 Nasal Cannula 3 PG Care Time/CCT Total # of Minutes Spent Total Time Spent with Patient: Total time spent is greater than 50% in coordination of care (as documented) at patient's floor/unit and/or counseling patient: Coding Level of Care Code 16258 Subseq Hosp Care Lvl 3 Diagnoses Acute respiratory failure with hypoxia J96.01 MITCHEL (acute kidney injury) N17.9 Anemia in CKD (chronic kidney disease) N18.9; D63.1 Acute metabolic encephalopathy G93.41 Unspecified atrial fibrillation I48.91 Atrial fibrillation type: unspecified Bilateral pleural effusion J90 Chronic kidney disease, stage 4 (severe) N18.4 Essential hypertension I10 Type 2 diabetes mellitus with diabetic neuropathy E11.40 Gallstones K80.20 Hyperlipidemia E78.5 Gout, unspecified M10.9 (1) Unspecified atrial fibrillation Atrial fibrillation type: unspecified Qualified Code(s): I48.91 - Unspecified atrial fibrillation
[2022-03-06] MEDS: oxyCODONE HCL SOLN 5 MG/5 ML UDC PO PRN (15:50)
[2022-03-06] MEDS: FAMOTIDINE 20 MG in SYRINGE 3 ML IV SCH (16:40)
[2022-03-07] MEDS: BUMETANIDE 1 MG TAB PO SCH (07:47)
[2022-03-07] MEDS: APIXABAN 2.5 MG TAB PO SCH (07:47)
[2022-03-07] MEDS: dilTIAZem HCL 240 MG CAPCR PO SCH (07:58)
[2022-03-07] MEDS: ESCITALOPRAM OXALATE 10 MG TAB PO SCH (07:59)
[2022-03-07] MEDS: METOPROLOL SUCC 50MG EXT REL TAB PO SCH (07:59)
[2022-03-07] MEDS: DOCUSATE SODIUM/SENNA 50/8.6MG TAB PO SCH (07:59)
[2022-03-07] MEDS: FAMOTIDINE 20 MG in SYRINGE 3 ML IV SCH (08:00)
[2022-03-07] MEDS ORDERED: AMOXICILLIN/CLAVULANATE 500 MG TAB PO SCH (08:00)
--- NOTE | 2022-03-07 10:45 | Discharge Summary ---
Date of Service March 07, 2022 Admission HPI Per Admitting Provider 81yo female with a history of CKD4, IDDM2, HTN, HLD, paroxysmal atrial fibrillation (on eliquis), iron deficiency anemia, and gout presents from [facility] after staff noticed patient was short of breath, tachypneic, and hypoxic to the 80s. Patient reports some mild shortness of breath over the past few weeks which got worse over the course of the day today. Has had some mild nausea on and off, and a poor appetite. Patient is unable to identify any aggravating or alleviating factors or triggers that led to her feeling worse today. Other than slightly worse PO intake compared to normal, patient hasn't had any recent dietary changes. No new meds recently or changes in med dosing. Patient denies pain, fever, chills, CP, vomiting, diarrhea, lightheadedness, or dizziness. Patient denies abdominal pain at rest but notes some abdominal discomfort when moving around. No sick contacts. Patient is a never-smoker and denies any history of pulmonary conditions. Upon EMS arrival, O2 sat was in the 80s and BSG was in the 40s. Patient was given 250mL D10, and her O2 sat improved with 2L NC. Patient was mentating appropriately the whole time per EMS. Patient's oxygen saturation was adequate upon arrival to the [facility] ED, and BSG was in the 150s. Ko Subramanian (brother and POA, would like to be contacted with any updates, ) Principal Diagnosis MITCHEL on CKD stage 4, Acute respiratory failure with hypoxia, Hospice care Discharge Exam Constitutional WD/WN, vitals as above Eyes + anicteric sclerae ENMT external ear and nose normal, oropharynx normal Neck trachea midline, no thyromegaly Respiratory + tachypneic; no cough Auscultation: + diminished lung sounds (bibasilar); no crackles, no rhonchi and no wheezes Cardiovascular Rate/Rhythm: regular rate and + irregularly irregular Heart Sounds: no murmur Extremities: no edema Chest (Breasts) Chest: normal inspection of chest Gastrointestinal (Abdomen) normal bowel sounds, soft, nontender, no hepatosplenomegaly Inspection/Auscultation: abdomen normal to inspection and normal bowel sounds; abdomen not distended Musculoskeletal Extremities: extremities normal to inspection; no cyanosis and no clubbing Skin no rashes, warm and dry Neurologic moves all extremities and awake; no focal motor deficits Psychiatric Orientation: alert, oriented x 3, oriented to person, oriented to place and cooperative Affect: + flat affect Lymphatic no lymphedema Discharge Data Allergies Allergy/AdvReac Type Severity Reaction Status Date / Time No Known Drug Allergies Allergy Verified 12/18/21 13:53 Consultations 02/13/22 19:19 ED Decision to Admit Stat 02/14/22 07:00 Consult Nephrology Routine 02/14/22 09:18 Consult Vascular Surgery Routine 02/15/22 08:01 Consult Pulmonology Routine 02/23/22 19:10 Consult Psychiatry Routine Procedures Performed Operation Date: 02/18/22 07:00 <No data on this case meets the specified criteria> Ordered Studies 02/13/22 17:55 CT abd pelvis wo con Stat 02/13/22 21:37 US abdomen limited Routine 02/18/22 14:59 US point of care ultrasound Routine 02/22/22 11:26 US point of care ultrasound Routine 03/03/22 17:13 MR brain wo con Routine Hospital Course (1) Acute respiratory failure with hypoxia: 2nd to volume overloaded state in the setting of acute/chronic CKD stage 4. Initially, her respiratory symptoms and distress/tachypnea were improved with diuretics and improvement in renal function, and status post right thoracentesis Since that time, attempts at diuresis with Bumex continue to result in worsening uremia and rising creatinine O2 requirement continues to rise and tachypnea is ongoing-now requiring 4-6 L nasal cannula Chest x-ray on 02/18 reveals slightly improved interstitial pulmonary edema, moderate right and small left pleural effusions with associated bibasilar airspace opacities-overall slightly improved Chest x-ray on 02/23 status post thoracentesis is negative for pneumothorax, probable small right pleural effusion, persistent moderate left pleural effusion, and progression of pulmonary edema Pulmonary consult appreciated. Thoracentesis completed on 02/22 with 1300 mL of straw colored fluid removed. Transudative by Light's criteria. -Continue Bumex 0.5mg po qAM for gentle diuresis for comfort really Pt now agreeable to hospice. - will start liquid oxycodone 2.5 mg p.o. every 4 hours as needed shortness of breath or pain-this will also help her abdominal pain which I feel is musculoskeletal due to persistent accessory muscle use -can use lorazepam 0.5mg po q8h prn anxiety -Plan to discharge to personal-shelter on hospice today (2) MITCHEL (acute kidney injury): Baseline Cr ~2.1 - 2.8. Presented with acute kidney injury with creatinine peaking above 5 with volume overload and pleural effusions. Did respond somewhat to high-dose IV Bumex and symptoms initially improved. - Appreciate nephrology/pulmonary/vascular surgery consults & recs. - Creatinine was back down to mid 2 range, but now up again to 3.1 after attempts at higher doses of Bumex Does not want HD agreeable to going on hospice no further labs to be checked (3) Anemia in CKD (chronic kidney disease): Hemoglobin chronically in the 9-10 range. Epogen given during admission. With low iron stores as well hgb 9-10 given EPogen and IV Venofer which will now be discontinued (4) Acute metabolic encephalopathy: 2nd to MITCHEL/uremia. Improving as renal function improves. TSH, B12, NH3 all normal. - Mentation seems clear now - B1 low -> was treated with 3 weeks of thiamine 200mg BID-we will now discontinue as she is being discharged to hospice MRI brain without contrast on 03/03 shows sphenoid sinusitis but no stroke or obvious tumor -Finish out course of abx for sinusitis with ceftriaxone and then complete course with Augmentin on discharge x4 more days - Ordered Lexapro for depression-Psych recommends increasing dose to 10mg for trial of 4-6 weeks as well as adding on Vitamin D supplement if able to from renal perspective-we will defer on vitamin D as she is going home with hospice but can continue Lexapro (5) Unspecified atrial fibrillation: Rates are now mostly improved Continue diltiazem and metoprolol - Continue apixaban Has since been moved off telemetry Can continue all 3 these medications upon discharge to hospice for now but if further deteriorates, can stop these meds (6) Bilateral pleural effusion: 2nd to acute/chronic CKD. Echo with preserved EF. - Patient had thoracentesis on 02/22 with transudative fluid removed - 1300 mL. - Now with recurrent pleural effusions still due to CKD. (7) Chronic kidney disease, stage 4 (severe): Baseline CrCl 15-20; see above. (8) Essential hypertension: BPs low or low-normal. -Continue diltiazem and metoprolol mostly for rate control with her A. fib (9) Type 2 diabetes mellitus with diabetic neuropathy: HbA1C was 5.3%. We will plan to discontinue insulin as her hemoglobin A1c is well controlled and she is going on hospice (10) Gallstones: A/a and CT with numerous gallstones & sludge. Both studies equivocal for acute cholecystitis. LFTs have been normal. HIDA scan normal/negative. - Was on empiric Rocephin/Flagyl; now stopped. Now with some upper abdominal pain but seems MSK in nature Giving oxycodone as above, transitioning to hospice (11) Hyperlipidemia: - Will now discontinue statin as no benefit while on hospice (12) Gout, unspecified: No signs of flare dcd allopurinol from home Plan Dispo: Patient very much wants to go back to [place]. Now she is agreeable to hospice at [place] and brother also is agreeable and he did discuss this with both the patient and nephrology Plan is for discharge to [facility] with hospice today Total Time Total Time Spent Total Time Spent (In Minutes): 35 min Discharge Plan Discharge Items Patient Disposition: Hospice - Medical Facility Reason For Visit: HYPOXIA, MITCHEL/ARF Discharge Diagnosis: Acute respiratory failure with hypoxia, Acute kidney injury in setting of chronic kidney disease Condition on Discharge: Fair Activity: As commented below Lifting: None Bathing: No limitations Exercise/Sports: As tolerated Non-emergency contact: Primary Care Provider Call non-emergency contact if: you have any medication questions, your symptoms worsen and your pain is not controlled Follow-up/Referrals: [place] [facility] [Primary Care Provider] - Diet: Low Sodium (2gm) Addtl Attending Provider Instructions: You were admitted with kidney failure and volume overload. You had some improvement in your kidney function but attempts to keep fluid off of your lungs continued to result in worsening kidney failure. You were not deemed a candidate for dialysis and have instead chosen to focus on comfort.You can take oxycodone as needed for pain and shortness of breath. Continue oxygen at 4LNC. You can take lorazepam as needed for anxiety. You do not need to follow up with your primary care doctor or [employer] or have labs drawn as you are focusing on comfort. Some of your medications that were deemed not necessary for comfort have been stopped as well. Pending Studies at Discharge: No Stand-Alone Forms: My [facility] Skilled Items Patient informed of condition?: Yes DNR: Yes Discharge Level of Care: Other Communicable Disease: No Discharge Prognosis: Deteriorating Lines: None Urinary Catheter: No Medications and DC Order Prescriptions: New acetaminophen 325 mg Tablet 650 mg PO Q4H PRN (Reason: mild-moderate pain) Qty: 30 0RF amoxicillin-pot clavulanate 500-125 mg Tablet 1 tab PO BIDM Qty: 6 0RF escitalopram oxalate 5 mg tablet 5 mg PO DAILY Qty: 30 0RF oxycodone 5 mg/5 mL Solution 2.5 mg PO Q4H PRN (Reason: pain or breathlessness) Qty: 473 0RF bumetanide 1 mg Tablet 0.5 mg PO QAM Qty: 15 0RF lorazepam 0.5 mg tablet 0.5 mg PO Q8H PRN (Reason: anxiety) Qty: 7 0RF Continued diltiazem HCl 240 mg capsule,extended release 24hr 240 mg PO DAILY Eliquis 2.5 mg tablet 2.5 mg PO BID polyethylene glycol 3350 [Miralax] 17 gram/dose powder 17 g PO DAILY PRN (Reason: Constipation) metoprolol succinate 50 mg tablet extended release 24 hr 50 mg PO DAILY Discontinued ergocalciferol (vitamin D2) 1,250 mcg (50,000 unit) capsule 50,000 unit PO WEEKLY Qty: 12 0RF allopurinol 100 mg tablet 100 mg PO DAILY hydralazine 25 mg tablet 25 mg PO TID simvastatin 20 mg tablet 20 mg PO DAILY tramadol 50 mg tablet 50 mg PO Q8H PRN (Reason: Pain) Lantus Solostar U-100 Insulin 100 unit/mL (3 mL) insulin pen 12 unit subcut BID Rx Instructions: Inject 12 units every morning and 10 units every evening insulin lispro [Humalog U-100 Insulin] 100 unit/mL solution 1 sliding scale dose subcut USEASDIRECTD Discharge Orders: Discharge Order (Routine); Ordered 03/07/22 Ordered By: Lyndsey Dawkins Admission Data Admit Date/Time: 02/13/22 21:06 Attending Provider: Lyndsey Dawkins Admit Provider: Sherman David Primary Care Provider: [place] [facility] Other Providers: Luigi Quintana ; [place] ; [facility] ; Marques Campos ; Gisell Cedeño ; Emile Benz ; Carloz Cabrera ; Charline Irizarry ; Nasrin Chand ; Jagruti Love Coding Level of Care Code D/C DAY MANAGEMENT >30 MINS Diagnoses Acute respiratory failure with hypoxia J96.01 MITCHEL (acute kidney injury) N17.9 Anemia in CKD (chronic kidney disease) N18.9; D63.1 Acute metabolic encephalopathy G93.41 Unspecified atrial fibrillation I48.91 Atrial fibrillation type: unspecified Bilateral pleural effusion J90 Chronic kidney disease, stage 4 (severe) N18.4 Essential hypertension I10 Type 2 diabetes mellitus with diabetic neuropathy E11.40 Gallstones K80.20 Hyperlipidemia E78.5 Gout, unspecified M10.9
[2022-03-07] MEDS: oxyCODONE HCL SOLN 5 MG/5 ML UDC PO PRN (12:05)
== END 2022-03-07 13:45 | disposition hospice, inpatient (51) | DRG 682 ==
LOC: ED 16:42 → SUATTDRO 21:06 → 2S 21:06 → 2W 03-02 22:32